=== PATIENT | female | born 1940 | race Caucasian/White ===

== ENCOUNTER 2017-01-18 10:27 | Emergency (ER) | payer MEDICARE ==
[~2017-01-18] VITALS: Ht 167.6 cm; Wt 89.0 kg
[~2017-01-18 10:27] MED LIST: CARD120T4 PO; CIPR500T4 PO; DIGO0.12 PO; DILTCD240 PO; ECOT81TA2 PO; FURO1TAB93 PO; KCL10C PO; LEVEMIR SQ; MECL25 PO; METO25TA6 PO; METO50CR PO
[2017-01-18 10:29] VITALS: BP 135/100; PULSE 78; RESP 16; TEMP 98.2; O2SAT 99
[2017-01-18] MEDS ORDERED: LEVO25TA4 PO (10:56)
[2017-01-18] MEDS ORDERED: DILT120T PO (10:56)
[2017-01-18] MEDS ORDERED: GLIM1TAB PO (10:56)
[2017-01-18] MEDS ORDERED: ASPI325T33 PO (10:56)
[2017-01-18] MEDS ORDERED: METO25TA6 PO (10:56)
[2017-01-18] MEDS ORDERED: [UNRECOGNIZED DRUG - CODE] (10:56)
[2017-01-18] MEDS ORDERED: BACL10TA PO (10:59)
[2017-01-18] MEDS ORDERED: LIDO1PAD52 TOPICAL (10:59)
[2017-01-18] MEDS ORDERED: ORPHENADRINE INJ 60 MG/2 ML AMP IM ONE (11:00)
--- NOTE | 2017-01-18 11:04 | PD ---
HPI Chief Complaint: Musculoskeletal Complaint Time Seen by Provider: 10:45 Travel History International Travel<30 days: No Contact w/Intl Traveler<30days: No Traveled to known affect area: No History of Present Illness HPI 76-year-old female presents for evaluation of neck pain. Symptoms started and an overnight when she was rolling from one side to the other in bed. She describes it as a "muscle pain" in the posterior aspect of her neck which is aggravated by movement, alleviated with rest and massage with ice. She also use some Tylenol tonight which seemed to help with the pain. She versus a headache which started after the neck pain however her headache has since resolved. She denies any associated symptoms such as chest pain or shortness of breath, nausea or vomiting, blurred vision, numbness or tingling or weakness in the extremities, radicular pain. She denies any major trauma. She has no other complaints at this time. [facility] Past Medical History Atrial Fibrillation: Yes Cardiovascular Problems: Yes (A-FIB) Diabetes: Yes Genitourinary: No Musculoskeletal: No Neurologic: No Thyroid Disease: Yes Social History Alcohol Use: No Tobacco Use: No Substance Use: No Allergies-Medications (Allergen,Severity, Reaction): Coded Allergies: Sulfa (Verified Allergy, Intermediate, 01/18/17) Reported Meds & Prescriptions Reported Meds & Active Scripts Active Baclofen 10 Mg Tab 10 Mg PO Q8HR PRN Lidocaine Patch 12 HR (Lidocaine) 5 % Patch 1 Patch TOPICAL DAILY PRN Remove patch after 12 hours Reported Levothyroxine (Levothyroxine Sodium) 25 Mcg Tab 25 Mcg PO DAILY Glimepiride 1 Mg Tab 1 Mg PO DAILY Take with breakfast or first main meal Metoprolol Succinate ER 24 HR (Metoprolol Succinate) 25 Mg Tab 25 Mg PO BID Dramamine (Dimenhydrinate) 50 Mg Tab.chew Diltiazem (Diltiazem HCl) 120 Mg Tab 300 Mg PO QID Aspirin EC (Aspirin) 325 Mg Tabdr 325 Mg PO DAILY Review of Systems Except as stated in HPI: all other systems reviewed are Neg Physical Exam Narrative GENERAL: Pleasant well-developed well-nourished female in no acute distress SKIN: Warm and dry. No rash no bruising or soft tissue swelling HEAD: Atraumatic. Normocephalic. EYES: Pupils equal and round. No scleral icterus. No injection or drainage. ENT: No nasal bleeding or discharge. Mucous membranes pink and moist. NECK: Trachea midline. No JVD. No lymphadenopathy. Neck supple full range of motion. CARDIOVASCULAR: Regular rate and rhythm. No murmur appreciated. RESPIRATORY: No accessory muscle use. Clear to auscultation. Breath sounds equal bilaterally. MUSCULOSKELETAL: No obvious deformities. There is no tenderness to palpation along the cervical or thoracic midline spine, no tenderness to palpation of the paravertebral musculature. There is pain with rotation of the neck to the left and to the right. NEUROLOGICAL: Awake and alert. No obvious cranial nerve deficits. Motor grossly within normal limits. Normal speech. Data Data Last Documented VS Vital Signs Date Time Temp Pulse Resp B/P Pulse Ox O2 Delivery O2 Flow Rate FiO2 01/18/17 10:29 98.2 78 16 135/100 99 Orders Orphenadrine Inj (Norflex Inj) (01/18/17 11:00) [facility] Medical Decision Making Medical Screen Exam Complete: Yes Emergency Medical Condition: Yes Medical Record Reviewed: Yes Differential Diagnosis Cervical strain, spasm, herniated nucleus pulposus, degenerative disc disease, referred cardiac pain, carotid artery dissection Narrative Course 76-year-old female with neck pain which developed overnight when turning from [id number] in bed. The pain is mechanical, reproduced with movement, no palpable tenderness to palpation. Her examination is reassuring and her symptoms and history are consistent with cervical strain. She will be treated symptomatically with Lidoderm patches, short course of muscle relaxants. Discussed signs and symptoms that would warrant return to the emergency room. She is stable for discharge. Diagnosis Primary Impression: Cervical strain Qualified Code: S16.1XXA - Cervical strain, initial encounter Additional Instructions: Medication as prescribed. Do not drive or drink alcohol when taking baclofen. Continue massaging with ice packs several times a day 10-15 minutes at a time. Follow-up with primary care physician and return for any acutely new or worsening symptoms. Med/Other Pt SpecificInfo: Prescription(s) given Scripts Baclofen 10 Mg Tab10 Mg PO Q8HR PRN (MUSCLE SPASM) #12 TAB Ref 0 Prov:Kathrine Cagle MD 01/18/17 Lidocaine Patch 12 HR 5 % Patch1 Patch TOPICAL DAILY PRN (PAIN) #1 BOX Ref 1 Remove patch after 12 hours Prov:Kathrine Cagle MD 01/18/17 Disposition: 01 DISCHARGE HOME Condition: Stable Manolo Boateng January 18, 2017 11:04
== END 2017-01-18 11:27 | disposition home or self-care (01) ==
LOC: NEPD 10:27
DX: S16.1XXA Strain of muscle, fascia and tendon at neck level, initial encounter (principal); E11.9 Type 2 diabetes mellitus without complications; E07.9 Disorder of thyroid, unspecified; Z79.84 Long term (current) use of oral hypoglycemic drugs; Z86.79 Personal history of other diseases of the circulatory system; X58.XXXA Exposure to other specified factors, initial encounter
CPT/HCPCS: 96372; 99284; J2360

== ENCOUNTER 2017-01-26 14:50 | Inpatient (IN) | payer MEDICARE ==
[2017-01-26] VITALS (11 sets, daily range): BP systolic 161–228; BP diastolic 84–123; PULSE 133–175; RESP 12–19; TEMP 97.2–97.9; O2SAT 92–97
[~2017-01-26] VITALS: Ht 165.1 cm; Wt 103.0 kg
[~2017-01-26 14:50] MED LIST changes: +ASPI325T33 PO; +BACL10TA PO; -CARD120T4 PO; -CIPR500T4 PO; -DIGO0.12 PO; +DILT120T PO; -DILTCD240 PO; -ECOT81TA2 PO; -FURO1TAB93 PO; +GLIM1TAB PO; -KCL10C PO; -LEVEMIR SQ; +LEVO25TA4 PO; +LIDO1PAD52 TOPICAL; -MECL25 PO; -METO50CR PO; +[UNRECOGNIZED DRUG - CODE]
[2017-01-26] MEDS ORDERED: SODIUM CHLOR 0.9% 1000 ML INJ 1,000 ML IV ONE (14:59)
[2017-01-26] MEDS ORDERED: niCARdipine INJ 25 MG in SODIUM CHLOR 0.9% 250 ML INJ 250 ML IV SCH ×2 (15:15→17:15)
--- NOTE | 2017-01-26 15:17 | RADRPT ---
EXAM DATE/TIME: 01/26/2017 15:00 [facility] COMPARISON: No previous studies available for comparison. INDICATIONS : Left side weakness slurred speech. RADIATION DOSE: 56.35 CTDIvol (mGy) This report was called by Zachary Ny to Dr Starkey at 1513 MEDICAL HISTORY : Non-responsive. SURGICAL HISTORY : Non-responsive. ENCOUNTER: Initial ACUITY: 1 day PAIN SCALE: Non-responsive LOCATION: cranial TECHNIQUE: Multiple contiguous axial images were obtained of the head. Using automated exposure control and adj ustment of the mA and/or kV according to patient size, radiation dose was kept as low as reasonably a chievable to obtain optimal diagnostic quality images. FINDINGS: No acute hemorrhage, acute infarction, or mass. Atrophy is noted. A small area of encephalomalacia wi thin the inferior right cerebellar hemisphere. Ventricles matched the overlying sulcal pattern. Paran ashok sinuses and mastoid air cells are clear. CONCLUSION: 1. No acute intracranial abnormality. 2. Atrophy. 3. Small area of encephalomalacia suggesting prior area of infarction involving the right cerebellar hemisphere. Reginald Ny Jr., MD on January 26, 2017 at 15:11 Board Certified Radiologist. This report was verified electronically.
[2017-01-26 15:21] LABS: AUTOMATED NEUTROPHIL # 7.7 TH/MM3 (1.8-7.7); BASOPHIL # 0.1 TH/MM3 (0-0.2); BASOPHIL % 1.2 % (0.0-2.0); EOSINOPHIL # 0.2 TH/MM3 (0-0.4); EOSINOPHIL % 2.3 % (0.0-4.0); HEMO FLAGS DIFF FINAL; LYMPH % 17.2 % (9.0-44.0); LYMPHOCYTE # 1.8 TH/MM3 (1.0-4.8); MEAN CORPUSCULAR HEMOGLOBIN 30.8 PG (27.0-34.0); MEAN CORPUSCULAR HGB CONC 34.2 % (32.0-36.0); MONO % 6.7 % (0.0-8.0); NEUT % 72.6 % (16.0-70.0); PLATELET COUNT 284 TH/MM3 (150-450); RED CELL DISTRIBUTION WIDTH 13.8 % (11.6-17.2); WHITE BLOOD COUNT 10.6 TH/MM3 (4.0-11.0)
[2017-01-26 15:23] LABS: I-STAT POTASSIUM 4.5 MMOL/L (3.5-4.9)
[2017-01-26] MEDS ORDERED: SODIUM CHLORIDE 0.9% FLUSH 10 ML FLUSH IVF PRN (15:45)
[2017-01-26] MEDS ORDERED: ALTEPLASE BOLUS 9 MG/9 ML SYR IV ONE (15:45)
[2017-01-26] MEDS ORDERED: ALTEPLASE DRIP IV ONE (15:45)
[2017-01-26] MEDS ORDERED: DILTIAZEM HCL 25 MG/5 ML VIAL IV PUSH ONE (15:45)
[2017-01-26] MEDS ORDERED: MISCELLANEOUS NURSING INFORMATION XX PRN (15:45)
[2017-01-26] MEDS ORDERED: SODIUM CHLORIDE 0.9% 50 ML BAG IVF ONE (15:45)
[2017-01-26 15:46] LABS: APTT (PATIENT) 21.4 SEC (24.3-30.1); PROTHROMBIN TIME - PATIENT 10.7 SEC (9.8-11.6)
--- NOTE | 2017-01-26 15:58 | PD ---
HPI Chief Complaint: Stroke Alert Time Seen by Provider: 14:59 Travel History International Travel<30 days: No Contact w/Intl Traveler<30days: No Traveled to known affect area: No History of Present Illness HPI 76-year-old female with history of atrial fibrillation, hypertension, hypothyroidism, presents to the ER today brought in by EMS as a stroke alert. Apparently, her grandson had called because she was looking disoriented, EMS got there and noted that she had rightward gaze, not moving her left side, and called a stroke alert. Last seen normal at around 2:10 PM. Initially, she denied any chest pains, trouble breathing, fevers, or other symptoms. Modifying Factors: None Associated Signs & Symptoms: Stroke alert Risk Factors: Elderly, A. fib PFSH Past Medical History Atrial Fibrillation: Yes Cardiovascular Problems: Yes (A-FIB) Diabetes: Yes Patient Takes Glucophage: No Genitourinary: No Hypertension: Yes Musculoskeletal: No Neurologic: No Thyroid Disease: Yes Past Surgical History Other Surgery: No Social History Alcohol Use: No Tobacco Use: No Substance Use: No Allergies-Medications (Allergen,Severity, Reaction): Coded Allergies: Sulfa (Verified Allergy, Intermediate, 01/18/17) Reported Meds & Prescriptions Reported Meds & Active Scripts Active Baclofen 10 Mg Tab 10 Mg PO Q8HR PRN Lidocaine Patch 12 HR (Lidocaine) 5 % Patch 1 Patch TOPICAL DAILY PRN Remove patch after 12 hours Reported Levothyroxine (Levothyroxine Sodium) 25 Mcg Tab 25 Mcg PO DAILY Glimepiride 1 Mg Tab 1 Mg PO DAILY Take with breakfast or first main meal Metoprolol Succinate ER 24 HR (Metoprolol Succinate) 25 Mg Tab 25 Mg PO BID Dramamine (Dimenhydrinate) 50 Mg Tab.chew Diltiazem (Diltiazem HCl) 120 Mg Tab 300 Mg PO QID Aspirin EC (Aspirin) 325 Mg Tabdr 325 Mg PO DAILY Review of Systems ROS Limitations: Altered Mental Status Physical Exam Narrative GENERAL: Elderly white female patient who is currently in moderate distress, staring to the right, conversant, able to give appropriate answers although mildly disoriented. SKIN: Focused skin assessment warm/dry. HEAD: Atraumatic. Normocephalic. EYES: Pupils equal and round. No scleral icterus. No injection or drainage. ENT: No nasal bleeding or discharge. Mucous membranes pink and moist. NECK: Trachea midline. No JVD. CARDIOVASCULAR: Fast and irregularly irregular. RESPIRATORY: No accessory muscle use. Clear to auscultation. Breath sounds equal bilaterally. GASTROINTESTINAL: Abdomen soft, non-tender, nondistended. Hepatic and splenic margins not palpable. MUSCULOSKELETAL: No obvious deformities. No clubbing. No cyanosis. No edema. NEUROLOGICAL: Awake and alert. Staring to the right, left facial droop, left sided arm and leg weakness with drift. PSYCHIATRIC: Appropriate mood and affect; insight and judgment normal. Data Data Last Documented VS Vital Signs Date Time Temp Pulse Resp B/P Pulse Ox O2 Delivery O2 Flow Rate FiO2 01/26/17 16:05 97.2 137 18 167/84 94 Room Air 01/26/17 15:06 21 Orders Diet Npo (01/26/17 Dinner) Activity Bed Rest (01/26/17 ) Electrocardiogram (01/26/17 ) I-Stat Creatinine (01/26/17 14:59) I-Stat Profile (01/26/17 14:59) Prothrombin Time / Inr (Pt) (01/26/17 14:59) Act Partial Throm Time (Ptt) (01/26/17 14:59) Complete Blood Count With Diff (01/26/17 14:59) Fibrinogen (01/26/17 14:59) Creatine Kinase (Cpk) (01/26/17 14:59) Troponin I (01/26/17 14:59) Ua Includes Microscopic (01/26/17 14:59) Drug Screen, Random Urine (01/26/17 14:59) Type And Screen (01/26/17 14:59) Ct Brain W/O Iv Contrast(Rout) (01/26/17 ) Consult Neurology (01/26/17 ) Blood Glucose (01/26/17 14:59) Ecg Monitoring (01/26/17 14:59) Neuro Checks Q2HX12,Q4H (01/26/17 14:59) Nursing Bedside Swallow Assess .ONCE (01/26/17 14:59) Iv Access Insert/Monitor (01/26/17 14:59) NPO (01/26/17 14:59) Oximetry (01/26/17 14:59) Oxygen Administration (01/26/17 14:59) Sodium Chlor 0.9% 1000 Ml Inj (Ns 1000 M (01/26/17 14:59) Resp Oxygen Jose C Titrat 1-4 L (01/26/17 14:59) Cath For Specimen (01/26/17 14:59) Nicardipine Inj (Cardene Inj) (01/26/17 15:15) Cta Brain W Iv Contrast W 3d (01/26/17 15:15) Cta Neck W Iv Contrast W 3d (01/26/17 15:15) (Hub Use Only)Inp Phy Cons/Ref (01/26/17 ) Diltiazem Inj (Cardizem Inj) (01/26/17 15:45) Sodium Chloride 0.9% Flush (Ns Flush) (01/26/17 15:45) ^ Call Pharmacy (01/26/17 15:43) Nih Stroke Scale - Nihss .ONCE (01/26/17 15:43) Urinary Catheter Management MICHAEL.Q8H (01/26/17 15:43) Urinary Catheter Insert/Apply (01/26/17 15:43) Anticoagulant Alert (01/26/17 15:43) ^ Post Infusion Restrictions (01/26/17 15:43) ^ Medication Alert (01/26/17 15:43) Vital Signs (Adult) .As directed (01/26/17 15:43) Notify Dr: Blood Pressure (01/26/17 15:43) ^ Medication Alert (01/26/17 15:43) Alteplase Bolus (Activase Bolus) (01/26/17 15:45) Alteplase Drip (Activase Drip) (01/26/17 15:45) Sodium Chloride 0.9% Inj (Ns Inj) (01/26/17 15:45) [facility] Nursing Information (01/26/17 15:45) Resp Oxygen Jose C Titrat 1-4 L (01/26/17 ) Ct Brain W/O Iv Contrast(Rout) (01/27/17 ) Magnesium Oxide (Mag-Ox) (01/26/17 16:15) Magnesium Sulfate Inj (Magnesium Sulfate (01/26/17 16:15) Magnesium Sulfate Inj (Magnesium Sulfate (01/26/17 16:15) Potassium Chlor 20 Meq Premix (Kcl 20 Me (01/26/17 16:15) Potassium Chlor 20 Meq Premix (Kcl 20 Me (01/26/17 16:15) Potassium Chlor 40 Meq Premix (Kcl 40 Me (01/26/17 16:15) Potassium Chlor 40 Meq Premix (Kcl 40 Me (01/26/17 16:15) Potassium Phosphate (K-Phos) (01/26/17 16:15) Potassium Phosphate (K-Phos) (01/26/17 16:15) Potassium Phosphate Inj (Potassium Phosp (01/26/17 16:15) Sodium Phosphate Inj (Sodium Phosphate I (01/26/17 16:15) ^ Medication Admin Instruction (01/26/17 16:13) Notify Dr: Other (01/26/17 16:13) Inpatient Certification (01/26/17 16:13) Resp Ezpap/Pep Therapy (01/26/17 16:13) Resp Acapella/Pep/Chest Vibra (01/26/17 16:13) Resp Incentive Spirometry (01/26/17 16:13) Bedside Glucose MICHAEL.Q6H (01/26/17 16:13) Blood Glucose Goal (Criteria) (01/26/17 16:13) Hypoglycemia 51 - 69 Mg/Dl (01/26/17 16:13) Hypoglycemia 50 Mg/Dl Or < (01/26/17 16:13) Notify Dr: Other (01/26/17 16:13) Dextrose 50% In Desiree (Vial) Inj (D50w (Vi (01/26/17 16:15) Insulin Human Reg Supp Scale (Novolin R (01/26/17 18:00) Nursing Bedside Swallow Assess .ONCE (01/26/17 16:13) ^ Other Nursing Orders (01/26/17 16:13) ^ Other Nursing Orders (01/26/17 16:13) ^ Other Nursing Orders (01/26/17 16:13) Neuro Checks MICHAEL.Q1H (01/26/17 16:13) Admit Order (Ed Use Only) (01/26/17 16:15) Labs Laboratory Tests Test 01/26/17 14:54 White Blood Count 10.6 TH/MM3 Red Blood Count 5.00 MIL/MM3 Hemoglobin 15.4 GM/DL Bedside Hemoglobin 16.7 G/DL Hematocrit 45.0 % Bedside Hematocrit 49.0 % Mean Corpuscular Volume 90.0 FL Mean Corpuscular Hemoglobin 30.8 PG Mean Corpuscular Hemoglobin 34.2 % Concent Red Cell Distribution Width 13.8 % Platelet Count 284 TH/MM3 Mean Platelet Volume 10.4 FL Neutrophils (%) (Auto) 72.6 % Lymphocytes (%) (Auto) 17.2 % Monocytes (%) (Auto) 6.7 % Eosinophils (%) (Auto) 2.3 % Basophils (%) (Auto) 1.2 % Neutrophils # (Auto) 7.7 TH/MM3 Lymphocytes # (Auto) 1.8 TH/MM3 Monocytes # (Auto) 0.7 TH/MM3 Eosinophils # (Auto) 0.2 TH/MM3 Basophils # (Auto) 0.1 TH/MM3 CBC Comment DIFF FINAL Differential Comment Prothrombin Time 10.7 SEC Prothromb Time International 1.0 RATIO Ratio Activated Partial 21.4 SEC Thromboplast Time Fibrinogen 617 mg/dL Bedside Sodium 136 MMOL/L Bedside Potassium 4.5 MMOL/L Bedside Chloride 102 MMOL/L Bedside Blood Urea Nitrogen 16 MG/DL Bedside Creatinine 1.0 MG/DL Bedside Glucose 430 MG/DL Total Creatine Kinase 33 U/L Troponin I 0.32 NG/ML Blood Type O POSITIVE Antibody Screen NEGATIVE Blood Bank Comment [facility] Medical Decision Making Medical Screen Exam Complete: Yes Emergency Medical Condition: Yes Medical Record Reviewed: Yes Interpretation(s) EKG shows A. fib with rapid ventricular response at a rate 150 bpm. No signs of acute ST-T changes. Laboratory Tests Test 01/26/17 14:54 Hemoglobin 15.4 GM/DL (11.6-15.3) Neutrophils (%) (Auto) 72.6 % (16.0-70.0) Activated Partial 21.4 SEC Thromboplast Time (24.3-30.1) Fibrinogen 617 mg/dL (227-377) Bedside Sodium 136 MMOL/L (138-146) Bedside Glucose 430 MG/DL (60-95) Troponin I 0.32 NG/ML (0.02-0.05) Last [address] 01/26/17 0000 Signed Impressions: Service Date/Time: Thursday, January 26, 2017 15:00 - CONCLUSION: 1. No acute intracranial abnormality. 2. Atrophy. 3. Small area of encephalomalacia suggesting prior area of infarction involving the right cerebellar hemisphere. Reginald Ny Jr., MD Differential Diagnosis Stroke alert versus intracranial bleed versus metabolic issues versus dehydration versus seizures Narrative Course Initial NIH stroke score is 9. CT was negative. When patient returned from CT , she appeared less symptomatic, able to move the left side more, and is able to move eyes towards midline. At this point, case was seen in the ER by Dr. Slater to talk to the patient regarding findings and notes that the patient is a TPA candidate. TPA was ordered for the patient. At this point, plan would be to admit the patient for further treatment. Case is discussed with Dr. Crespo for admission to the ICU. Aggregate critical care time was 25 minutes. Time to perform other separately billable procedures was not included in the critical care time. My time did not include minutes spent treating any other patients simultaneously or on activities that did not directly contribute to the patient's treatment. The services I provided to this patient were to treat and/or prevent clinically significant deterioration that could result in: Acute intracranial bleeding, worsening stroke, I provided critical care services requiring my management, as noted below: Chart data review, documentation time, medication orders and management, vital sign assessments/reviewing monitor data, ordering and reviewing lab tests, ordering and interpreting/reviewing x-rays and diagnostic studies, care of the patient and discussion of the patient with the admitting physicians. Diagnosis Primary Impression: Stroke Admitting Information Admitting Physician Requests: it Keisha Starkey MD Jan 26, 2017 15:58
[2017-01-26] MEDS ORDERED: DEXTROSE 50% IN WATER 50 ML VIAL(D50) IV PUSH PRN (16:15)
[2017-01-26] MEDS ORDERED: POTASSIUM PHOSPHATE INJ 30 MMOL in SODIUM CHLOR 0.9% 250 ML INJ 250 ML IV PRN (16:15)
[2017-01-26] MEDS ORDERED: MAGNESIUM SULFATE INJ 2 GM in SODIUM CHLORIDE 0.9% INJ 96 ML IV PRN (16:15)
[2017-01-26] MEDS ORDERED: MAGNESIUM SULFATE INJ 4 GM in SODIUM CHLORIDE 0.9% INJ 92 ML IV PRN (16:15)
[2017-01-26] MEDS ORDERED: MAGNESIUM OXIDE 400 MG TAB PO PRN (16:15)
[2017-01-26] MEDS ORDERED: POTASSIUM PHOSPHATE MONOBASIC 500 MG TAB PO PRN (16:15)
[2017-01-26] MEDS ORDERED: POTASSIUM CHLOR 40 MEQ PREMIX 100 ML IV PRN ×2 (16:15)
[2017-01-26] MEDS ORDERED: POTASSIUM CHLOR 20 MEQ PREMIX 100 ML IV PRN ×2 (16:15)
[2017-01-26] MEDS ORDERED: POTASSIUM PHOSPHATE MONOBASIC 500 MG TAB PO/TUBE PRN (16:15)
--- NOTE | 2017-01-26 16:42 | HHI.HP ---
HPI Service Critical Care Medicine Primary Care Physician Unknown Admission Diagnosis stroke alert Diagnosis: (1) Acute right MCA stroke Diagnosis: Principal (2) Left hemiplegia Diagnosis: Principal (3) Atrial fibrillation with rapid ventricular response Diagnosis: Principal (4) Hyperglycemia Diagnosis: Principal (5) A-fib Diagnosis: Secondary (6) Diabetes mellitus Diagnosis: Secondary Chief Complaint: Acute right MCA stroke Travel History International Travel<30 Days: No Contact w/Intl Traveler <30 Da: No Traveled to Known Affected Are: No History of Present Illness 76-year-old female with history of atrial fibrillation, hypertension, hypothyroidism, type 2 diabetes who was brought to the emergency department as a stroke alert. Apparently grandson called EMS as the patient was found to be disoriented. EMS noted that patient had rightward gaze, with Left hemiparesis and stroke alert was initiated. Last seen normal at around 2:10 PM, per grandson. 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 After discussion Dr. Slater, TPA was initiated. I evaluated the patient in ED. she somnolent but wakes up easily, she states that she is unable to open her right eye opens left eye. Has obvious left facial droop and left hemiparesis, but now she is able to move LLE. Speech is clear Review of Systems ROS Limitations: Other (as per HPI) Past Family Social History Allergies: Coded Allergies: Sulfa (Verified Allergy, Intermediate, 01/18/17) Past Medical History Hypertension Diabetes Atrial fibrillation Hypothyroidism Past Surgical History None Reported Medications Baclofen 10 Mg Tab 10 Mg PO Q8HR PRN Lidocaine Patch 12 HR (Lidocaine) 5 % Patch 1 Patch TOPICAL DAILY PRN Levothyroxine (Levothyroxine Sodium) 25 Mcg Tab 25 Mcg PO DAILY Glimepiride 1 Mg Tab 1 Mg PO DAILY Metoprolol Succinate ER 24 HR (Metoprolol Succinate) 25 Mg Tab 25 Mg PO BID Dramamine (Dimenhydrinate) 50 Mg Tab.chew Diltiazem (Diltiazem HCl) 120 Mg Tab 300 Mg PO QID Aspirin EC (Aspirin) 325 Mg Tabdr 325 Mg PO MALCOLM Active Ordered Medications Receiving IV TPA Family History Noncontributory Social History No alcohol or tobacco use Physical Exam Vital Signs Vital Signs Date Time Temp Pulse Resp B/P Pulse Ox O2 Delivery O2 Flow Rate FiO2 01/26/17 15:06 95 21 01/26/17 14:58 95 Room Air 01/26/17 14:58 95 Room Air 01/26/17 14:55 170 16 213/123 Physical Exam GENERAL: 76-year-old white female patient who is lying in bed receiving TPA SKIN: Skin warm and dry HEAD: Atraumatic. Normocephalic. EYES: Pupils equal and round. No scleral icterus. ENT: No nasal bleeding or discharge. Mucous membranes pink and moist. NECK: Trachea midline. No JVD. CARDIOVASCULAR: Tachycardic and irregularly irregular. RESPIRATORY: No accessory muscle use. Clear to auscultation. Breath sounds equal bilaterally. GASTROINTESTINAL: Abdomen soft, non-tender, nondistended. Hepatic and splenic margins not palpable. MUSCULOSKELETAL: No obvious deformities. No clubbing. No cyanosis. No edema. NEUROLOGICAL: Somnolent wakes up recently, clearly states the name. Right gaze preference, left facial droop, left arm 1/5 and left leg 4/5 Laboratory Laboratory Tests Test 01/26/17 14:54 White Blood Count 10.6 Red Blood Count 5.00 Hemoglobin 15.4 Bedside Hemoglobin 16.7 Hematocrit 45.0 Bedside Hematocrit 49.0 Mean Corpuscular Volume 90.0 Mean Corpuscular Hemoglobin 30.8 Mean Corpuscular Hemoglobin 34.2 Concent Red Cell Distribution Width 13.8 Platelet Count 284 Mean Platelet Volume 10.4 Neutrophils (%) (Auto) 72.6 Lymphocytes (%) (Auto) 17.2 Monocytes (%) (Auto) 6.7 Eosinophils (%) (Auto) 2.3 Basophils (%) (Auto) 1.2 Neutrophils # (Auto) 7.7 Lymphocytes # (Auto) 1.8 Monocytes # (Auto) 0.7 Eosinophils # (Auto) 0.2 Basophils # (Auto) 0.1 CBC Comment DIFF FINAL Differential Comment Prothrombin Time 10.7 Prothromb Time International 1.0 Ratio Activated Partial 21.4 Thromboplast Time Fibrinogen 617 Bedside Sodium 136 Bedside Potassium 4.5 Bedside Chloride 102 Bedside Blood Urea Nitrogen 16 Bedside Creatinine 1.0 Bedside Glucose 430 Total Creatine Kinase 33 Troponin I 0.32 Blood Type O POSITIVE Antibody Screen NEGATIVE Blood Bank Comment Result Diagram: 01/26/[address] head shows no acute findings positive right cerebellar encephalomalacia indicating previous stroke Assessment and Plan Assessment and Plan NEURO: Acute right MCA stroke Previous cerebellar stroke -Neurology Dr. Slater. Receiving TPA per protocol -Stroke workup with neurology including 2-D echo, carotid Doppler, B12 TSH folate -Repeat CT of the head in 24 hours -PT/OT/Speech -Keep head of the bed flat for 24 hours post TPA -CTA head and neck pending at this time RESP: -Nasal cannula oxygen -Aggressive pulmonary toilet in 24 hours CV: Atrial fibrillation with rapid ventricular response Hypertensive emergency Mild troponin elevation -As the patient is receiving TPA target systolic blood pressure less than 180 diastolic less than 105 -Normal saline IV fluids1 L bolus and 100 ml per hour, await 2d echo, CTA of the head and neck -Mild troponin elevation seems to be demand mediated from AFib RVR and stroke -Cardizem bolus and infusion to control heart rate <110 -IV labetalol when necessary to keep systolic blood pressure less than 180 GI: -Nothing by mouth, speech evaluation -IV Protonix -Start bowel regimen in 24 hours : -Monitor renal function closely. Small catheter. ID: -Monitor for infection. No indication for antibiotics at this time HEME: -Monitor CBC, CMP, coags and fibrinogen level per protocol ENDO: Type 2 diabetes with hyperglycemia -Sliding-scale insulin, electrolyte replacement protocol PROPH: -Bilateral lower extremity SCDs. Chemical DVT prophylaxis contraindicated at this time LINES: -Utilize peripheral IVs, central line if needed CC time 35 min Code Status Full Problem Qualifiers (1) A-fib: Qualified Code: I48.91 - Atrial fibrillation, unspecified type (2) Diabetes mellitus: Toribio Linares MD Jan 26, 2017 16:41
[2017-01-26] MEDS ORDERED: ONDANSETRON HCL 4 MG/2 ML VIAL IV PUSH ONE (17:00)
[2017-01-26] MEDS ORDERED: IOHEXOL 350 MG/ML 10 ML VIAL (for RAD DIAG) IV ONE (17:09)
--- NOTE | 2017-01-26 17:44 | MB ---
cc: DEENA TAFOYA M.D. DATE OF CONSULTATION 01/26/2017 REASON FOR CONSULTATION Stroke alert. HISTORY OF PRESENT ILLNESS Ms. Esteban is a 76-year-old woman who has a history of atrial fibrillation who was in her usual state health until 01:45 this afternoon and suddenly developed significant weakness of the left side, involving the left arm, left leg with a right gaze. She presented to the ER as a stroke alert. PAST MEDICAL HISTORY Remarkable for: 1. Atrial fibrillation. 2. History of diabetes. 3. Hypothyroidism. ALLERGIES SULFA. MEDICATIONS Include: 1. Aspirin. 2. Diltiazem. 3. Metoprolol. 4. Glimepiride. 5. Levothyroxine. She denies being on any type of anticoagulation. Denies being on Coumadin, Eliquis, Xarelto, Pradaxa. NEUROLOGIC EXAMINATION VITAL SIGNS: Initial blood pressure was elevated, however pressure now is 135/100, pulse 78, respiratory rate is 16, temperature 98 degrees. She is in atrial fibrillation. Higher cortical functions, she is alert and oriented. She does have right gaze preference. Speech is fluent. Cranial nerves, she has a left upper motor neuron VII palsy. Extraocular movements are intact but she does have a right gaze preference. Pupils are reactive. On motor examination she has got mild weakness in the left arm rated at 4+/5 proximally and distally. Weakness of the left leg at 4/5 proximal and distal. This is markedly improved from when she first appeared to the ER. She has normal strength on the right and reflexes symmetric. IMAGING CT of the brain no acute change present. There is atrophy. There is a small area of encephalomalacia consistent with a prior stroke involving the right cerebellar hemisphere. No hemorrhage is present. LABORATORY DATA White count is 10,600, hemoglobin 15.4, hematocrit 45%, platelet count is 284,000. PT 10.7, INR 1.0, , APTT 21.4. Sodium is 136, potassium 4.5, chloride 102, BUN is 16, creatinine 1.0, glucose 430. EKG is atrial fibrillation. IMPRESSION Acute right hemisphere stroke. The patient's initial NIH stroke scale was 9. She is within the therapeutic window for IV TPA. We discussed risks and benefits including 6% risk of hemorrhage and the family wishes to proceed. Therefore would recommend starting IV TPA. Because of the high NIH stroke scale we will also obtain a CT angiogram of the head and neck to assess as to whether not she has a large vessel occlusion which would be amenable to endovascular therapy. The TPA will be started however, before the CT is started so as not to delay the IV TPA administration. MD MAICO Godfrey/NICOLA /4:01 PM /5:23 PM
--- NOTE | 2017-01-26 17:49 | RADRPT ---
EXAM DATE/TIME: 01/26/2017 17:04 [facility] COMPARISON: CT BRAIN W/O CONTRAST, January 26, 2017, 15:00. INDICATIONS : Evaluate for stroke. IV CONTRAST: 70 cc Omnipaque 350 (iohexol) IV RADIATION DOSE: 28.12 CTDIvol (mGy) MEDICAL HISTORY : Cardiovascular disease. Hypertension. Diabetes mellitus type 2. SURGICAL HISTORY : None. ENCOUNTER: Initial ACUITY: 1 day PAIN SCALE: Non-responsive LOCATION: Bilateral cranial TECHNIQUE: Volumetric scanning was performed using a multi-row detector CT scanner. The data was post processed with a variety of visualization algorithms including full volume maximum intensity projection, multi -planar sliding thin slab reformation, curved planar reformation, and surface rendering techniques. Using automated exposure control and adjustment of the mA and/or kV according to patient size, radiat ion dose was kept as low as reasonably achievable to obtain optimal diagnostic quality images. FINDINGS: The right internal carotid artery is occluded at its origin. It remains occluded throughout its cours e up to the skull base. The left common carotid is widely patent. There is high grade stenosis at the bifurcation. The more cephalad portion of the internal carotid is adequate in caliber. Both vertebral arteries are patent. The right vertebral terminates in a PICA. The left vertebral prov ides flow to the basilar. Evaluation of intracranial circulation demonstrates occlusion of the right internal carotid to its brambila praclinoid segment. There is reconstitution via the anterior communicating circulation and limited fl ow within the right middle cerebral distribution. The right M1 segment demonstrates some narrowing brambila ggesting there may be embolic disease within the M1 segment however, there is very limited flow withi n this and this could just be decreased flow within the right M1 segment. The left MCA distribution is widely patent. The anterior cerebral distribution is widely patent. Both posterior cerebrals are patent. CONCLUSION: 1. 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 There is limited reconstitution of the right middle cerebral circulation via the anterior communicating art joaquin. The reconstituted segment of right middle cerebral is small in caliber. There is some irregulari ty of the M1 segment suggesting there may be some embolic disease within the M1 segment however, the lack of flow within this limits the evaluation. 2. The remainder of the intracranial circulation is widely patent. Jt Caballero MD on January 26, 2017 at 17:42 Board Certified Radiologist. This report was verified electronically.
[2017-01-26] MEDS ORDERED: INSULIN NovoLIN REGULAR SUPPLEMENTAL SCALE SQ SCH (18:00)
[2017-01-26] MEDS ORDERED: DILTIAZEM HCL 25 MG/5 ML VIAL IVP ONE (18:00)
[2017-01-26 18:06] LABS: BACTERIA, URINE MANY /hpf; BLOOD, URINE TRACE (NEG); COMMENT (UR) CATH-CULTURE IND; CULTURE IF INDICATED CATH CULTURE IND; GLUCOSE,URINE 1000 mg/dL (NEG); HYALINE CAST, URINE 3 /lpf (RARE); KETONE, URINE TRACE mg/dL (NEG); MUCUS URINE FEW /lpf (OCC); NITRITE,URINE POS (NEG); PH, URINE 5.5 (5.0-8.5); URINE COLOR YELLOW (YELLW/STRAW)
[2017-01-26 18:15] LABS: ANION GAP 10 MEQ/L (5-15); AST (GOT) 8 U/L (15-37); BICARBONATE 25.1 MEQ/L (21.0-32.0); BLOOD UREA NITROGEN 15 MG/DL (7-18); CHLORIDE 99 MEQ/L (98-107); GLOMERULAR FILTRATION RATE 45 ML/MIN (>89); POTASSIUM 3.6 MEQ/L (3.5-5.1); SODIUM (NA) 134 MEQ/L (136-145)
--- NOTE | 2017-01-26 18:17 | RADRPT ---
EXAM DATE/TIME: 01/26/2017 17:04 [facility] COMPARISON: CTA BRAIN W 3D RECON, January 26, 2017, 17:04. INDICATIONS : Evaluate for stroke. IV CONTRAST: 70 cc Omnipaque 350 (iohexol) IV ; Cumulative dose for multiple exams. RADIATION DOSE: 28.12 CTDIvol (mGy) ; Combined studies MEDICAL HISTORY : Diabetes mellitus type 2. Cardiovascular disease Hypertension. SURGICAL HISTORY : None. ENCOUNTER: Initial ACUITY: 1 day PAIN SCALE: Non-responsive LOCATION: Bilateral cranial Elevated flow velocities and ICA/CCA ratios have been found to correlate with increased degrees of vessel stenosis, calculated as percentage of diameter relative to a normal segment of distal ICA/CCA. TECHNIQUE: Volumetric scanning was performed using a multirow detector CT scanner. The data was post processed with a variety of visualization algorithms including full-volume maximum intensity projection, multip lanar sliding thin-slab reformation, curved-planar reformation, and surface-rendering techniques. Us ing automated exposure control and adjustment of the mA and/or kV according to patient size, radiatio n dose was kept as low as reasonably achievable to obtain optimal diagnostic quality images. FINDINGS: AORTIC ARCH: There is a three-vessel origin of the great vessels from the aorta. No evidence of ostial narrowing. RIGHT CAROTID: The right carotid occludes at its origin from the innominate. The internal carotid and external carot id are clear throughout their course. There is limited reconstitution of the middle cerebral circulat ion via the anterior communicating. LEFT CAROTID: The common carotid is widely patent. There is atherosclerotic plaquing at the bifurcation with modera te stenosis in the origin of the left internal carotid. This is estimated to be in the range of 30-40 % by NASCET criteria. The external carotid is patent. VERTEBRALS: The left vertebral is the dominant blood supply to the basilar. The right vertebral is somewhat small er in size and terminate in a PICA CONCLUSION: 1. 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 2. Moderate grade stenosis in the origin of the left internal carotid. 3. Diminutive right vertebral which terminates in a PICA. Luis Seth MD on January 26, 2017 at 18:09 Board Certified Radiologist. This report was verified electronically.
[2017-01-26 18:20] LABS: ALKALINE PHOSPHATASE 111 U/L (45-117); ALT (GPT) 10 U/L (10-53); TOTAL BILIRUBIN ADULT 0.7 MG/DL (0.2-1.0)
[2017-01-26] MEDS: SODIUM CHLOR 0.9% 1000 ML INJ 1,000 ML IV SCH (18:29)
[2017-01-26] MEDS: DILTIAZEM INJ 125 MG in SODIUM CHLORIDE 0.9% INJ 100 ML IV SCH (18:56)
[2017-01-26] MEDS ORDERED: INSULIN HUMAN REGULAR 1,000 UNITS/10 ML VIAL SQ ONE (19:00)
[2017-01-26 19:14] LABS: AMPHETAMINE, URINE NEG (NEG); BARBITURATES, URINE NEG (NEG); COCAINE, URINE NEG (NEG)
[2017-01-26 19:54] LABS: HEMOGLOBIN A1a 0.9 %; HEMOGLOBIN A1b 1.6 %; HEMOGLOBIN Ao 75.1 %; HEMOGLOBIN LA1C 4.1 %; HEMOGLOBIN P3 5.7 %
[2017-01-26] MEDS ORDERED: cefTRIAXone INJ 1,000 MG in SODIUM CHLORIDE 0.9% INJ 100 ML IV SCH (20:00)
[2017-01-26] MEDS: INSULIN ASPART SUPPLEMENTAL SCALE SQ SCH (21:43)
[2017-01-26] MEDS: LABETALOL HCL 100 MG/20 ML VIAL IV PUSH PRN (22:38)
[2017-01-26 23:20] LABS: MRSA PCR NEGATIVE (NEGATIVE); STAPH AUREUS PCR NEGATIVE (NEGATIVE)
[2017-01-27] VITALS (14 sets, daily range): BP systolic 112–159; BP diastolic 56–95; PULSE 92–130; RESP 18–35; TEMP 97.3–99.5; O2SAT 94–100
[2017-01-27] MEDS: INSULIN ASPART SUPPLEMENTAL SCALE SQ SCH ×3 (06:53→20:03)
[2017-01-27] MEDS: SODIUM CHLOR 0.9% 1000 ML INJ 1,000 ML IV SCH (06:54)
[2017-01-27] MEDS: DILTIAZEM INJ 125 MG in SODIUM CHLORIDE 0.9% INJ 100 ML IV SCH ×2 (06:54→20:52)
--- NOTE | 2017-01-27 07:32 | HHI.CCPN ---
Subjective Remarks/Hospital Course 76-year-old female with history of atrial fibrillation, hypertension, hypothyroidism, type 2 diabetes who was brought to the emergency department as a stroke alert. Apparently grandson called EMS as the patient was found to be disoriented. EMS noted that patient had rightward gaze, with Left hemiparesis and stroke alert was initiated. Last seen normal at around 2:10 PM, per grandson. 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 After discussion Dr. Slater, TPA was initiated. I evaluated the patient in ED. she somnolent but wakes up easily, she states that she is unable to open her right eye opens left eye. Has obvious left facial droop and left hemiparesis, but now she is able to move LLE. Speech is clear 01/27: Patient more somnolent, hard to wake up (RN states she was more awake 2 huors ago). Remains in A fib with RVR, CTA neck shows complete R common, internal and ext carotid occlusion. Moderate L ICA stenosis. Vascular surgery Dr. Juarez consulted. remains hyperglycemic (gluc 371) without DKA. Objective Vital Signs Date Time Temp Pulse Resp B/P Pulse Ox O2 Delivery O2 Flow Rate FiO2 01/27/17 04:00 97.4 104 35 148/81 94 01/26/17 20:52 Nasal Cannula 2.00 01/26/17 15:06 21 Intake and Output 01/26/17 01/26/17 01/27/17 08:00 16:00 00:00 Intake Total 455 ml Output Total 550 ml Balance -95 ml Result Diagram: 01/26/17 1454 01/26/[address] head shows no acute findings positive right cerebellar encephalomalacia indicating previous stroke Objective Remarks GENERAL: 76-year-old white female patient who is lying in bed somnolent, hard to wake up SKIN: Skin warm and dry HEAD: Atraumatic. Normocephalic. EYES: Pupils equal and round, reactive. No scleral icterus. ENT: No nasal bleeding or discharge. Mucous membranes pink and moist. NECK: Trachea midline. No JVD. CARDIOVASCULAR: Tachycardic and irregularly irregular. No murmurs RESPIRATORY: No accessory muscle use. Clear to auscultation. Breath sounds equal bilaterally. GASTROINTESTINAL: Abdomen soft, non-tender, nondistended. Hepatic and splenic margins not palpable. MUSCULOSKELETAL: No obvious deformities. No clubbing. No cyanosis. No edema. NEUROLOGICAL: Patient is more somnolent, hard to wake up. But opens eyes to sternal rub and follows commands on R upper and lower extremities after multiple requests. Left facial droop persists, left hemiplegia persists, unable to asses muscle strength A/P Assessment and Plan NEURO: Acute right MCA stroke Acute encephalopathy Previous cerebellar stroke -Neurology Dr. Slater. Received TPA per protocol -Worsening encephalopathy, If re exam unchanged in [address] head stat -CTA neck shows complete R common, internal and ext carotid occlusion. Moderate L ICA stenosis. Vascular surgery Dr. Juarez consulted. -2-D echo,pending, B12 383, supplement. TSH normal -PT/OT/Speech -Keep head of the bed flat for 24 hours post TPA RESP: -Nasal cannula oxygen -Aggressive pulmonary toilet in 24 hours -Check CXR CV: Atrial fibrillation with rapid ventricular response Bilateral carotid stenosis Hypertensive emergency Mild troponin elevation -CTA neck: complete R common, internal and ext carotid occlusion. Moderate L ICA stenosis. -Vascular surgery Dr. Juarez consulted. -Target systolic blood pressure less than 180 diastolic less than 105 -Normal saline IV fluids1 L bolus and 100 ml per hour, await 2d echo -Check lipid profile. Start aspirin per protocol -Mild troponin elevation seems to be demand mediated from AFib RVR and stroke. Not a candidate for invasive therapy due to TPA administration -Cardizem bolus and infusion to control heart rate <110 -IV labetalol when necessary to keep systolic blood pressure less than 180 GI: -Nothing by mouth, speech evaluation -IV Protonix -Bowel regimen once cleared for PO or NGT inserted : -Monitor renal function closely. Small catheter. ID: -Monitor for infection. No indication for antibiotics at this time HEME: -Monitor CBC, CMP, coags and fibrinogen level per protocol ENDO: Type 2 diabetes with hyperglycemia -Sliding-scale insulin, electrolyte replacement protocol -Start Levemir 10 U q12 PROPH: -Bilateral lower extremity SCDs. Chemical DVT prophylaxis contraindicated at this time LINES: -Utilize peripheral IVs, central line if needed CC time 45 min Toribio Linares MD Jan 27, 2017 07:32
[2017-01-27] MEDS ORDERED: CYANOCOBALAMIN 1000 MCG/ML VIAL IM ONE (08:00)
--- NOTE | 2017-01-27 09:09 | ECHRPT ---
Indication: CVA/TIA CONCLUSIONS Normal left ventricular size. Wall thickness is normal. The left ventricular systolic function is severely reduced with an estimated ejection fraction less than 20%. There is diffuse global hypokinesis. The left atrial size is moderately dilated. Esxd-tt-[id number] mitral valve regurgitation. There is mild to moderate tricuspid valve regurgitation. Mild pulmonary valve regurgitation. BP: 228 / 100 HR: 141 Rhythm: Atrial fibrillation MEASUREMENTS (Male / Female) Normal Values Technical Quality:Good 2D ECHO LV Diastolic Diameter PLAX 5.5 cm 4.2 - 5.9 / 3.9 - 5.3 cm LV Systolic Diameter PLAX 5.3 cm IVS Diastolic Thickness 1.1 cm 0.6 - 1.0 / 0.6 - 0.9 cm LVPW Diastolic Thickness 1.1 cm 0.6 - 1.0 / 0.6 - 0.9 cm LV Relative Wall Thickness 0.4 RV Internal Dim ED PLAX 2.0 cm LVOT Diameter 2.0 cm LA Systolic Diameter LX 5.0 cm 3.0 - 4.0 / 2.7 - 3.8 cm LV Ejection Fraction MOD 4C 14.2 % LV Cardiac Index MOD 4C 1184.4 cm/minm LV Ejection Fraction 4C AL 13.1 % LV Cardiac Index 4C AL 1155.0 cm/minm M-MODE Aortic Root Diameter MM 2.9 cm LA Systolic Diameter MM 5.4 cm LA Ao Ratio MM 1.9 AV Cusp Separation MM 1.8 cm DOPPLER AV Peak Velocity 102.0 cm/s AV Peak Gradient 4.2 mmHg LVOT Peak Velocity 60.7 cm/s LVOT Peak Gradient 1.5 mmHg AV Area Cont Eq pk 1.9 cm MV Peak Velocity 128.0 cm/s MV Peak Gradient 6.6 mmHg MV Mean Velocity 65.9 cm/s MV Mean Gradient 2.0 mmHg MV Area PHT 6.5 cm LV E' Lateral Velocity 9.3 cm/s LV E' Septal Velocity 8.7 cm/s TV Peak Velocity 309.0 cm/s PV Peak Velocity 74.7 cm/s PV Peak Gradient 2.2 mmHg FINDINGS Left Ventricle Normal left ventricular size. Wall thickness is normal. The left ventricular systolic function is severely reduced with an estimated ejection fraction less than 20%. There is diffuse global hypokinesis. Left Atrium The left atrial size is moderately dilated. Mitral Valve Structurally normal mitral valve. [id number] mitral valve regurgitation. Tricuspid Valve Structurally normal tricuspid valve.there is mild to moderate tricuspid valve regurgitation. Pulmonary Valve The pulmonary valve is not well visualized. Mild pulmonary valve regurgitation. Inge Oswald MD, FACC Edited by: [employer] Route Sales Person (Electronically Signed) Final Date:27 January 2017 09:08 Amended: 27 January 2017 13:55 MTDD
--- NOTE | 2017-01-27 09:19 | RADRPT ---
EXAM DATE/TIME: 01/27/2017 08:16 [facility] COMPARISON: CTA BRAIN W 3D RECON, January 26, 2017, 17:04. CHEST SINGLE AP, May 18, 2016, 20:06. INDICATIONS : Respiratory disease. MEDICAL HISTORY : Cardiovascular disease. Hypertension Diabetes mellitus type II. SURGICAL HISTORY : None. ENCOUNTER: Initial ACUITY: 2 days PAIN SCORE: Non-responsive. LOCATION: Bilateral chest FINDINGS: The heart is enlarged. There is diffuse interstitial prominence suggesting congestive failure. There is no pleural effusion. The bony structures are grossly intact. The overall appearance of the [facility] yma is mildly worse when compared to previous dated 05/18/16. CONCLUSION: Cardiomegaly and diffuse interstitial prominence suggesting congestive failure. Jt Caballero MD on January 27, 2017 at 9:16 Board Certified Radiologist. This report was verified electronically.
[2017-01-27] MEDS: INSULIN DETEMIR 100 UNITS/ML VIAL SQ SCH ×2 (09:40→21:00)
--- NOTE | 2017-01-27 10:24 | RADRPT ---
EXAM DATE/TIME: 01/27/2017 09:57 [facility] COMPARISON: CT BRAIN W/O CONTRAST, January 26, 2017, 15:00. INDICATIONS : Altered mental status after TPA administration. RADIATION DOSE: 50.61 CTDIvol (mGy) MEDICAL HISTORY : Cardiovascular disease. Hypertension. Diabetes mellitus type 2. SURGICAL HISTORY : None. ENCOUNTER: Initial ACUITY: 1 day PAIN SCALE: Non-responsive LOCATION: cranial TECHNIQUE: Multiple contiguous axial images were obtained of the head. Using automated exposure control and adj ustment of the mA and/or kV according to patient size, radiation dose was kept as low as reasonably a chievable to obtain optimal diagnostic quality images. FINDINGS: The examination is abnormal demonstrating a large hematoma in the cerebellum, midline and extending i nto the right hemisphere, measuring and access of 4.4 cm. The hematoma causes total effacement of th e 4th ventricle and upper transtentorial herniation. There is also enlargement of the right cerebell ar hemisphere causing impression on the brainstem at the level of the foramen magnum with the CSF spa ce at the foramen magnum measuring less than 1 cm in width. The upper transtentorial herniation causes loss of CSF about the brainstem. There is a focal hypoden sity in the left parasagittal inferior christina which appears to be a new finding and may represent a bra instem infarction. In the supratentorial brain, there is evidence of subarachnoid hemorrhage in the left posterior sylvi an region, right posterior temporal sulci, and posterior cingulate sulci bilaterally. There is a new hypodensity measuring 4.9 x 3.4 cm located in the right anterior and mid to sylvian co rtex characteristic of acute nonhemorrhagic infarction.. Midline structures the supratentorial brain are not deviated and there is stable enlargement of the lateral ventricles and the 3rd ventricle. N o evidence of intraventricular blood in the supratentorial brain. CONCLUSION: Multiple new findings compared to CT brain 01/26/17 including a large (4.4 cm) cerebellar hematoma caus ing transtentorial herniation and significant impression on the brainstem down to the the foramen mag num, bilateral supratentorial subarachnoid hemorrhage, and a new nonhemorrhagic infarction involving the anterior two thirds of the right sylvian region. The findings have been called to the patient's nurse. Reginald Loza MD on January 27, 2017 at 10:11 Board Certified Radiologist. This report was verified electronically.
[2017-01-27] MEDS ORDERED: ETOMIDATE 20 MG/10 ML VIAL ONE (10:36)
[2017-01-27] MEDS ORDERED: ROCURONIUM INJ 50 MG/5 ML VIAL ONE (10:39)
[2017-01-27] MEDS ORDERED: MANNITOL INJ 50 ML ONE ×2 (10:51→12:39)
[2017-01-27] MEDS ORDERED: PROPOFOL 1000 MG/100 ML INJ 100 ML ONE (11:00)
[2017-01-27] MEDS ORDERED: ceFAZolin 2 GM PREMIX 50 ML ONE (11:01)
[2017-01-27] MEDS ORDERED: THROMBIN (TOPICAL) 5,000 UNIT VIAL ONE (11:01)
[2017-01-27] MEDS ORDERED: VANCOMYCIN HCL 1000 MG VIAL ONE (11:01)
[2017-01-27] MEDS ORDERED: BACITRACIN TOP OINT 15 GM TUBE ONE (11:02)
[2017-01-27] MEDS ORDERED: GELFOAM SIZE 100 ONE (11:02)
[2017-01-27] MEDS ORDERED: FUROSEMIDE 40 MG/4 ML VIAL ONE (11:02)
[2017-01-27] MEDS ORDERED: GENTAMICIN SULFATE 80 MG/2 ML VIAL ONE (11:02)
[2017-01-27] MEDS ORDERED: levETIRAcetam 500 MG/5 ML VIAL IV ONE (11:02)
[2017-01-27] MEDS ORDERED: MIDAZOLAM HCL 2 MG/2 ML VIAL ONE ×2 (11:11→11:12)
--- NOTE | 2017-01-27 11:14 | PD.PROCEDR ---
Procedure Note Procedure After the risks and benefits were discussed the following procedure was performed: INTUBATION: The patient was put in optimal position for the procedure. Rapid sequence intubation was initiated by me using 20 milligrams of etomidate IV and 100 mcg Fentanyl IV and rocuronium 50 mg IV x1. DL Mac 4 blade grade 1 view. The patient was intubated with a 8 cuffed endotracheal tube. Tube placement was confirmed by visualization of the tube and balloon passing through the cords , capnometry and subsequent chest x-ray. Breath sounds were equal and well aerated bilaterally postintubation. No breath sounds over stomach. Patient tolerated procedure well. Toribio Linares MD Jan 27, 2017 11:14
[2017-01-27] MEDS ORDERED: TERBUTALINE INJ 1 MG/ML AMP SQ PRN (11:15)
--- NOTE | 2017-01-27 11:15 | PD.PROCEDR ---
Central Line Procedure REASON FOR PROCEDURE Central venous access PROCEDURE PERFORMED Central line placement: LIJ US guided CONSENT Emergency procedure ANESTHESIA Local injection of 1% Lidocaine DESCRIPTION OF THE PROCEDURE The patient was placed in supine, mild Trendelenburg position. The area was exposed and cleansed with ChloraPrep, times two. Large sterile drape was used to cover the patient, with the site exposed, under sterile conditions including cap, face mask, sterile gown, and sterile gloves. On single attempt, the introducer needle was inserted with negative pressure in syringe and venous flash was obtained. The guide wire was then advanced without any restriction and the needle was removed. The dilator was used without any complications. Using Seldinger technique the 20 cm triple-lumen 7 [place] antibiotic coated catheter was advanced over the guide wire to a depth of 18 centimeters. The guide wire was removed. All ports were aspirated with dark venous blood return and flushed easily with sterile saline. All ports were capped. Antibiotic disc was placed around central line at puncture site. The central line was secured to the skin with two interrupted 2.0 silk sutures. The area was bandaged with sterile see-through central line bandage. RADIOLOGICAL DATA Ultrasound guidance was used to locate LIJ COMPLICATIONS: No apparent complications ESTIMATED BLOOD LOSS: Less than 1 cc. Toribio Linares MD Jan 27, 2017 11:15
[2017-01-27] MEDS ORDERED: PHENYLEPHRINE HCL 10 MG/ML VIAL IV ONE (12:00)
[2017-01-27] MEDS ORDERED: NOREPINEPHRINE-DEXTROSE DRIP 250 ML IV SCH (12:00)
[2017-01-27] MEDS ORDERED: ROCURONIUM INJ 50 MG/5 ML VIAL IV PUSH ONE (12:00)
[2017-01-27] MEDS ORDERED: SODIUM CHLORIDE 0.9% INJ 500 ML IV ONE (12:00)
[2017-01-27] MEDS ORDERED: SODIUM CHLORID 0.9% 500 ML INJ 1,500 ML IV ONE (12:00)
[2017-01-27] MEDS ORDERED: ETOMIDATE 20 MG/10 ML VIAL IV PUSH ONE (12:00)
[2017-01-27] MEDS ORDERED: NORMOSOL R INJ 2,000 ML IV ONE (12:00)
[2017-01-27] MEDS ORDERED: LACTATED RINGER'S 1000 ML INJ 1,000 ML IV ONE (12:00)
[2017-01-27] MEDS ORDERED: SODIUM CHLOR 0.9% 1000 ML INJ 2,000 ML IV ONE (12:00)
[2017-01-27] MEDS ORDERED: PROPOFOL 200 MG/20 ML AMP IV ONE (12:00)
--- NOTE | 2017-01-27 12:28 | RADRPT ---
EXAM DATE/TIME: 01/27/2017 11:03 [facility] COMPARISON: CHEST SINGLE AP, January 27, 2017, 8:16. INDICATIONS : Evaluate central line placement MEDICAL HISTORY : Cardiovascular disease. Hypertension Diabetes mellitus type II. SURGICAL HISTORY : None. ENCOUNTER: Subsequent ACUITY: 2 days PAIN SCORE: Non-responsive. LOCATION: Bilateral chest FINDINGS: Patient has been intubated in the interval with ET tube in good position at the level of the clavicle s. Left IJ central line with tip in the proximal SVC. Improved aeration of the right lung with contin ued diffuse interstitial prominence. Cardiac silhouette is enlarged. Remainder of the exam is unchang ed. CONCLUSION: 1. ETT in good position. 2. Left IJ central line in the proximal SVC. No pneumothorax. 3. Cardiomegaly with improved edema pattern. Carlos Lorenzo MD on January 27, 2017 at 12:24 Board Certified Radiologist. This report was verified electronically.
--- NOTE | 2017-01-27 12:39 | PD.CONS ---
[facility] Service Neurosurg Consult Requested By Dr López Reason for Consult Stroke alert, cerebellar bleed Primary Care Physician Unknown History of Present Illness This is a 76-year-old female with history of atrial fibrillation, hypertension, hypothyroidism, type 2 diabetes who was brought to the emergency department as a stroke alert. Apparently grandson called EMS as the patient was found to be disoriented. EMS noted that patient had rightward gaze, with Left hemiparesis. A stroke alert was initiated. 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 After discussion Dr. Slater, TPA was initiated. Today she became comatose. FOllow up CT showed a lerge cerebellar hemorrhage. Review of Systems Not possible ROS Limitations: Clinical Condition, Intubated, Altered Mental Status, Unresponsive Past Family Social History Allergies: Coded Allergies: Sulfa (Verified Allergy, Intermediate, 01/18/17) Past Medical History Hypertension Diabetes Atrial fibrillation Hypothyroidism Reported Medications Baclofen 10 Mg Tab 10 Mg PO Q8HR PRN Lidocaine Patch 12 HR (Lidocaine) 5 % Patch 1 Patch TOPICAL DAILY PRN Levothyroxine (Levothyroxine Sodium) 25 Mcg Tab 25 Mcg PO DAILY Glimepiride 1 Mg Tab 1 Mg PO DAILY Metoprolol Succinate ER 24 HR (Metoprolol Succinate) 25 Mg Tab 25 Mg PO BID Dramamine (Dimenhydrinate) 50 Mg Tab.chew Diltiazem (Diltiazem HCl) 120 Mg Tab 300 Mg PO QID Aspirin EC (Aspirin) 325 Mg Tabdr 325 Mg PO MALCOLM Active Ordered Medications Current Medications Sodium Chloride 1,000 ml @ 70 mls/hr [id number] ONCE IV Last administered on 14:59; Start 01/26/17 at 14:59; Stop 01/26/17 at 17:46; Status DC Nicardipine HCl/ Sodium Chloride (Cardene Inj/NS 250 ml Inj) 260 ml @ 0 mls/hr TITRATE IV ; Start 01/26/17 at 15:15; Stop 01/26/17 at 17:13; Status DC Diltiazem HCl (Cardizem Inj) 22 mg BOLUS ONCE IV PUSH Last administered on 01/26 16:18; Start 01/26/17 at 15:45; Stop 01/26/17 at 15:46; Status DC Sodium Chloride (NS Flush) 2 ml UNSCH PRN IVF FLUSH AFTER USING IV ACCESS; Start 01/26/17 at 15:45 Alteplase, Recombinant 7.8 mg 7.8 mg ONCE ONCE IV Last administered on 16:03; Start 01/26/17 at 15:45; Stop 01/26/17 at 15:48; Status DC Alteplase, Recombinant/ Syringe / Bag (Activase Drip/ Syringe/Bag) 70.5 ml @ 70.5 mls/hr ONCE ONCE IV Last administered on 01/26/17 16:22; Start 01/26/17 at 15:45; Stop 01/26/17 at 16:44; Status DC Sodium Chloride (NS Inj) 30 ml ONCE ONCE IVF ; Start 01/26/17 at 15:45; Stop 01/26/17 at 15:49; Status DC Miscellaneous Information No Heparin, Warfarin, Aspir... UNSCH PRN XX SEE DOSE INSTRUCTIONS; Start 01/26/17 at 15:45; Stop 01/27/17 at 15:44 Magnesium Oxide 800 mg 800 mg UNSCH PRN PO For Magnesium 1.2 - 1.6 mg/dL; Start 01/26/17 at 16:15 Magnesium Sulfate 4 gm/Sodium Chloride 100 ml @ 50 mls/hr UNSCH PRN IV For Magnesium 0.9 - 1.1 mg/dL; Start 01/26/17 at 16:15 Magnesium Sulfate 2 gm/Sodium Chloride 100 ml @ 50 mls/hr UNSCH PRN IV For Magnesium 1.2 - 1.6 mg/dL; Start 01/26/17 at 16:15 Potassium Chloride 100 ml @ 50 mls/hr Q2H PRN IV For Potassium 2.8 - 3.2 mEq/L ; Start 01/26/17 at 16:15 Potassium Chloride 100 ml @ 50 mls/hr Q2H PRN IV For Potassium 3.3 - 3.5 mEq/L ; Start 01/26/17 at 16:15 Potassium Chloride 100 ml @ 50 mls/hr Q2H PRN IV For Potassium 2.8 - 3.2 mEq/L ; Start 01/26/17 at 16:15 Potassium Chloride (KCl 40 Meq Premix Inj) 100 ml @ 25 mls/hr UNSCH PRN IV For Potassium 3.3 - 3.5 mEq/L; Start 01/26/17 at 16:15 Potassium Phosphate (K-Phos) 2,000 mg Q4H PRN PO For Phosphorus < 2.5 mg/dL; Start 01/26/17 at 16:15 Potassium Phosphate 2000 mg 2,000 mg UNSCH PRN PO/TUBE SEE LABEL COMMENTS; Start 01/26/17 at 16:15 Potassium Phosphate 30 mmol/ Sodium Chloride 260 ml @ 42 mls/hr UNSCH PRN IV SEE LABEL COMMENTS; Start 01/26/17 at 16:15; Stop 01/26/17 at 16:18; Status DC Sodium Phosphate/ Sodium Chloride (Sodium Phosphate Inj/NS 250 ml Inj) 250 ml @ 42 mls/hr UNSCH PRN IV For Phosphorus < 2.5 mg/dL; Start 01/26/17 at 16:15 Dextrose (D50w (Vial) Inj) 25 ml UNSCH PRN IV PUSH HYPOGLYCEMIA-SEE COMMENTS; Start 01/26/17 at 16:15 Insulin Human Regular (NovoLIN R SUPPLEMENTAL SCALE) 1 Q6HR SQ ; Start 01/26/17 at 18:00; Stop 01/26/17 at 18:00; Status DC Insulin Aspart (NovoLOG SUPPLEMENTAL SCALE) 1 ACHS SLIDING SCALE SQ Last administered on 01/27/17 06:53; Start 01/26/17 at 21:00 Labetalol HCl (Trandate Inj) 10 mg Q4H PRN IV PUSH SYS BP GREATER THAN 180 MMHG Last administered on 01/26/17 22:38; Start 01/26/17 at 16:45 Ondansetron HCl (Zofran Inj) 4 mg ONCE ONCE IV PUSH Last administered on 17:00; Start 01/26/17 at 17:00; Stop 01/26/17 at 17:01; Status DC Iohexol 70 ml 70 ml STK-MED ONCE IV Last administered on 01/26/17 17:09; Start 01/26/17 at 17:09; Stop 01/26/17 at 17:10; Status DC Nicardipine HCl/ Sodium Chloride (Cardene Inj/NS 250 ml Inj) 260 ml @ 0 mls/hr TITRATE IV ; Start 01/26/17 at 17:15; Stop 01/26/17 at 17:18; Status DC Diltiazem HCl 15 mg 15 mg ONCE ONCE IVP ; Start 01/26/17 at 18:00; Stop 01/26/17 at 18:01; Status DC Diltiazem HCl 125 mg/Sodium Chloride 125 ml @ 0 mls/hr TITRATE IV Last administered on 01/27/17 06:54; Start 01/26/17 at 19:00 Sodium Chloride (NS 1000 ml Inj) 1,000 ml @ 75 mls/hr [id number] IV Last administered on 01/27/17 06:54; Start 01/26/17 at 18:00 Insulin Human Regular 8 units 8 units ONCE ONCE SQ Last administered on 20:09; Start 01/26/17 at 19:00; Stop 01/26/17 at 19:30; Status DC Ceftriaxone Sodium/Sodium Chloride (Rocephin Inj/NS Inj) 100 ml @ 200 mls/hr Q24H IV Last administered on 01/26/17 20:38; Start 01/26/17 at 20:00 Insulin Detemir (Levemir Inj) 10 units Q12HR SQ Last administered on 01/27/17 09:40; Start 01/27/17 at 09:00 Cyanocobalamin (Vitamin B12 Inj) 1,000 mcg ONCE ONCE IM ; Start 01/27/17 at 08: 00; Stop 01/27/17 at 08:03; Status DC Etomidate (Amidate Inj) 20 mg STK-MED ONCE .ROUTE ; Start 01/27/17 at 10:36; Stop 01/27/17 at 10:37; Status DC Fentanyl Citrate (fentaNYL INJ) 200 mcg STK-MED ONCE .ROUTE ; Start 01/27/17 at 10:37; Stop 01/27/17 at 10:38; Status DC Rocuronium [place] 50 mg 50 mg STK-MED ONCE .ROUTE ; Start 01/27/17 at 10:39; Stop 01/27/17 at 10:40; Status DC Mannitol 50 ml @ As Directed STK-MED ONCE .ROUTE ; Start 01/27/17 at 10:51; Stop 01/27/17 at 10:52; Status DC Propofol (Diprivan 1000 Mg/100ml Inj) 100 ml @ As Directed STK-MED ONCE .ROUTE ; Start 01/27/17 at 11:00; Stop 01/27/17 at 11:01; Status DC Vancomycin HCl (Vancomycin Inj) 1,000 mg STK-MED ONCE .ROUTE ; Start 01/27/17 at 11:01; Stop 01/27/17 at 11:02; Status DC Thrombin 42838 units 10,000 units STK-MED ONCE .ROUTE ; Start 01/27/17 at 11:01; Stop 01/27/17 at 11:02; Status DC Cefazolin Sodium/ Dextrose (Ancef 2 Gm Premix) 50 ml @ As Directed STK-MED ONCE .ROUTE ; Start 01/27/17 at 11:01; Stop 01/27/17 at 11:02; Status DC Gelatin (Gelfoam 100 Top) 1 foam STK-MED ONCE .ROUTE ; Start 01/27/17 at 11:02; Stop 01/27/17 at 11:03; Status DC Furosemide (Lasix Inj) 40 mg STK-MED ONCE .ROUTE ; Start 01/27/17 at 11:02; Stop 01/27/17 at 11:03; Status DC Levetriacetam (Keppra Inj) 1,000 mg STK-MED ONCE IV ; Start 01/27/17 at 11:02; Stop 01/27/17 at 11:03; Status DC Bacitracin (Baciguent Oint) 15 applic STK-MED ONCE .ROUTE ; Start 01/27/17 at 11: 02; Stop 01/27/17 at 11:03; Status DC Gentamicin Sulfate (Gentamicin Inj) 240 mg STK-MED ONCE .ROUTE ; Start 01/27/17 at 11:02; Stop 01/27/17 at 11:03; Status DC Midazolam HCl (Versed Inj) 2 mg STK-MED ONCE .ROUTE ; Start 01/27/17 at 11:11; Stop 01/27/17 at 11:12; Status DC Midazolam HCl (Versed Inj) 2 mg STK-MED ONCE .ROUTE ; Start 01/27/17 at 11:12; Stop 01/27/17 at 11:13; Status DC Fentanyl Citrate (fentaNYL INJ) 400 mcg STK-MED ONCE .ROUTE ; Start 01/27/17 at 11:12; Stop 01/27/17 at 11:13; Status DC Nicardipine HCl 25 mg 25 mg STK-MED ONCE .ROUTE ; Start 01/27/17 at 11:14; Stop 01/27/17 at 11:15; Status DC Norepinephrine Bitartrate (Levophed-Dextrose Drip) 250 ml @ 0 mls/hr TITRATE IV ; Start 01/27/17 at 12:00 Terbutaline Sulfate (Brethine Inj) 1 mg UNSCH PRN SQ For Extravasation; Start 01/27/17 at 11:15 Rocuronium [place] (Zemuron Inj) 5 mg ONCE ONCE IV PUSH ; Start 01/27/17 at 12: 00; Stop 01/27/17 at 12:01; Status DC Fentanyl Citrate (fentaNYL INJ) 100 mcg ONCE ONCE IV PUSH ; Start 01/27/17 at 12 :00; Stop 01/27/17 at 12:01; Status DC Etomidate 20 mg 20 mg ONCE ONCE IV PUSH ; Start 01/27/17 at 12:00; Stop 01/27/17 at 12:01; Status DC Sodium Chloride (NS 1000 ml Inj) 2,000 ml @ 1,000 mls/hr BOLUS ONCE IV ; Start 01/27/17 at 12:00; Stop 01/27/17 at 13:59 Family History Noncontributory Social History No alcohol or tobacco use No illicit drug use Physical Exam Vital Signs Vital Signs Date Time Temp Pulse Resp B/P Pulse Ox O2 Delivery O2 Flow Rate FiO2 01/27/17 10:45 98 50 01/27/17 08:55 96 Nasal Cannula 2.00 01/27/17 06:00 111 01/27/17 04:00 97.4 104 35 148/81 94 01/27/17 04:00 104 01/27/17 02:00 103 01/27/17 02:00 103 01/27/17 00:00 97.3 92 21 114/73 100 01/27/17 00:00 92 01/27/17 00:00 92 01/26/17 22:00 133 01/26/17 22:00 133 01/26/17 20:52 97 Nasal Cannula 2.00 01/26/17 20:00 97.9 153 12 161/94 94 01/26/17 20:00 153 01/26/17 20:00 153 01/26/17 19:00 92 Nasal Cannula 2.00 01/26/17 18:00 175 01/26/17 16:50 141 18 174/107 92 Room Air 01/26/17 16:35 141 19 228/100 93 Room Air 01/26/17 16:20 141 19 178/85 95 Room Air 01/26/17 16:05 97.2 137 18 167/84 94 Room Air 01/26/17 15:06 95 21 01/26/17 14:58 95 Room Air 01/26/17 14:58 95 Room Air 01/26/17 14:55 170 16 213/123 Physical Exam The patient is intubated and sedated. GCS 3 Cranial Nerves: Pupils equal, round, reactive to light. Eyes appear conjugated. There was no nystagmus, no papilledema. Face musculature appeared symmetrical at rest. Face sensation, olfaction, visual evans, and hearing cannot be adequately assessed due to his neurological condition. The patient has a corneal reflex. He has a gag reflex. The sternocleidomastoid and trapezius are symmetrical. Cervical Spine: neck is soft, supple, without nuchal rigidity. Motor: muscle tone and bulk are normal. No reaction to pain Reflexes: Deep tendon reflexes are 1+ and symmetrical in the biceps, triceps, and brachioradialis, bilaterally, in the upper extremities. In the lower extremities, the patellar and ankles are 1+, bilaterally. There is a bilateral plantar flexion response. There is no clonus or other abnormal reflexes noted. Sensory: On examination there is no response to painful stimuli Cerebellar: Examination cannot be adequately assessed due to the patient's neurological condition. Laboratory Laboratory Tests Test 01/26/17 01/26/17 01/26/17 01/26/17 14:54 16:45 17:15 18:05 White Blood Count 10.6 Red Blood Count 5.00 Hemoglobin 15.4 Bedside Hemoglobin 16.7 Hematocrit 45.0 Bedside Hematocrit 49.0 Mean Corpuscular Volume 90.0 Mean Corpuscular Hemoglobin 30.8 Mean Corpuscular Hemoglobin 34.2 Concent Red Cell Distribution Width 13.8 Platelet Count 284 Mean Platelet Volume 10.4 Neutrophils (%) (Auto) 72.6 Lymphocytes (%) (Auto) 17.2 Monocytes (%) (Auto) 6.7 Eosinophils (%) (Auto) 2.3 Basophils (%) (Auto) 1.2 Neutrophils # (Auto) 7.7 Lymphocytes # (Auto) 1.8 Monocytes # (Auto) 0.7 Eosinophils # (Auto) 0.2 Basophils # (Auto) 0.1 CBC Comment DIFF FINAL Differential Comment Prothrombin Time 10.7 Prothromb Time International 1.0 Ratio Activated Partial 21.4 Thromboplast Time Fibrinogen 617 Bedside Sodium 136 Bedside Potassium 4.5 Bedside Chloride 102 Bedside Blood Urea Nitrogen 16 Bedside Creatinine 1.0 Bedside Glucose 430 Total Creatine Kinase 33 Troponin I 0.32 Blood Type O POSITIVE Antibody Screen NEGATIVE Blood Bank Comment Urine Color YELLOW Urine Turbidity HAZY Urine pH 5.5 Urine Specific [place] 1.030 Urine Protein 30 Urine Glucose (UA) 1000 Urine Ketones TRACE Urine Occult Blood TRACE Urine Nitrite POS Urine Bilirubin NEG Urine Urobilinogen LESS THAN 2.0 Urine Leukocyte Esterase SMALL Urine RBC LESS THAN 1 Urine WBC 4 Urine Amorphous Sediment FEW Urine Bacteria MANY Urine Hyaline Casts 3 Urine Mucus FEW Microscopic Urinalysis Comment CATH-CULTURE IND Urine Opiates Screen NEG Urine Barbiturates Screen NEG Urine Amphetamines Screen NEG Urine Benzodiazepines Screen NEG Urine Cocaine Screen NEG Urine Cannabinoids Screen NEG Sodium Level 134 Potassium Level 3.6 Chloride Level 99 Carbon Dioxide Level 25.1 Anion Gap 10 Blood Urea Nitrogen 15 Creatinine 1.17 Estimat Glomerular Filtration 45 Rate Random Glucose 371 Hemoglobin A1c 10.9 Calcium Level 8.3 Total Bilirubin 0.7 Aspartate Amino Transf 8 (AST/SGOT) Alanine Aminotransferase 10 (ALT/SGPT) Alkaline Phosphatase 111 Total Protein 7.2 Albumin 2.7 Nasal Screen MRSA (PCR) NEGATIVE Staphylococcus aureus NEGATIVE (PCR)(LAB) Test 01/26/17 01/27/17 01/27/17 22:39 10:47 11:29 Troponin I 0.54 Vitamin B12 Level 383 Thyroid Stimulating Hormone 1.[address] [place] [address] Blood Bank Comment Blood Type O POSITIVE Crossmatch Leukocyte-Reduced Red Blood Cells Date/Time Procedure Status Source Growth 01/26/17 16:45 Urine Culture Received Urine Catheterized Urine Pending Result Diagram: 01/26/17 1454 01/26/17 1715 Imaging Last Impressions Head CT 01/27/17 0000 Signed Impressions: Service Date/Time: January 09:57 - CONCLUSION: Multiple new findings compared to CT brain 01/26/17 including a large (4.4 cm) cerebellar hematoma causing transtentorial herniation and significant impression on the brainstem down to the the foramen magnum, bilateral supratentorial subarachnoid hemorrhage, and a new nonhemorrhagic infarction involving the anterior two thirds of the right sylvian region. The findings have been called to the patient's nurse. Reginald Loza MD Chest X-Ray 01/27/17 0000 Signed Impressions: Service Date/Time: January 08:16 - CONCLUSION: Cardiomegaly and diffuse interstitial prominence suggesting congestive failure. Jt Caballero MD Neck CTA 01/26/17 1515 Signed Impressions: Service Date/Time: Thursday, January 26, 2017 17:04 - CONCLUSION: 1. 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 2. Moderate grade stenosis in the origin of the left internal carotid. 3. Diminutive right vertebral which terminates in a PICA. Luis Seth MD Head CTA 01/26/17 1515 Signed Impressions: Service Date/Time: Thursday, January 26, 2017 17:04 - CONCLUSION: 1. 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 There is limited reconstitution of the right middle cerebral circulation via the anterior communicating artery. The reconstituted segment of right middle cerebral is small in caliber. There is some irregularity of the M1 segment suggesting there may be some embolic disease within the M1 segment however, the lack of flow within this limits the evaluation. 2. The remainder of the intracranial circulation is widely patent. Jt Caballero MD Attending Statement I reviewed her clinical and radiological studies. neuro checks in a serial fashion. GCS of 7 and deteriorating prior to intubation. Large cerebellar hemorrhage. A surgical decompression is indicated and necessary as there is mass effect on the brainstem and fourth ventricle. . Placement of ventriculostomy is indicated as recommended by the [place] [employer]. Emergency suboccipital craniectomy and duroplasty. I have discussed with her son the details including the [id number] details of the surgical procedure, its indications, alternatives, risks, and potential complications. Risks and potential complications include, but are not limited to, infection, blood loss, CSF leak, partial or complete loss of sight in one or both eyes, paresis, paralysis, permanent pain or difficulty swallowing, loss of bowel or bladder function, complications from anesthesia, blood clot, stroke , myocardial infarction, or even . She is in poor medical condition, her ejection fraction is 20%. Is is at very high surgical risk. WIthout a prompt surgical decompression, she will not survive. She has received TPA. Dr Linares ordered FFP and cryoprecipitate. Respiratory. pulmonary toilette, nasotracheal suction, and breathing treatments with nebulizers. C spine is cleared PT and OT eval Nutrition. NPO Renal. monitor closely urine output, BUN and creatinine Endocrine. Monitor serial Acu checks and SSI for tight control He is anticoagulated with Efian, which increases his risk of hemorrhagic complications ID monitor for signs of infection Protonix for stress ulcer prophylaxis Juan Ramon hose and SCD's for DVT prophylaxis Fred Wagoner MD Jan 27, 2017 12:39
[2017-01-27] MEDS ORDERED: POTASSIUM CHLOR 20 MEQ PREMIX 100 ML IV PRN (12:45)
[2017-01-27] MEDS ORDERED: BISACODYL 10 MG SUPP RECTAL PRN (12:45)
[2017-01-27] MEDS ORDERED: ACETAMINOPHEN/HYDROcodone 325 MG/10 MG TAB PO PRN (12:45)
[2017-01-27] MEDS ORDERED: MORPHINE SULFATE 4 MG/ML INJ IV PUSH PRN (12:45)
[2017-01-27] MEDS ORDERED: MAGNESIUM SULFATE INJ 4 GM in SODIUM CHLORIDE 0.9% INJ 100 ML IV PRN (12:45)
[2017-01-27] MEDS ORDERED: CALCIUM GLUCONATE 10% 1 GM/10 ML VIAL IV PRN (12:45)
[2017-01-27] MEDS ORDERED: ONDANSETRON HCL 4 MG/2 ML VIAL IV PRN (12:45)
[2017-01-27] MEDS ORDERED: SODIUM CHLORIDE 0.9% FLUSH 5 ML FLUSH IVF PRN (12:45)
[2017-01-27] MEDS ORDERED: LIDOCAINE HCL 1% 30 ML VIAL INFIL ONE (12:53)
[2017-01-27 13:39] LABS: BLOOD GAS CARBOXYHEMOGLOBIN 1.9 % (0-4); BLOOD GAS HCO3 13 mmol/L (22-26); BLOOD GAS O2 HGB SATURATION 97 % (90-100); BLOOD GAS OXYGEN CONTENT 14.6 Vol % (12.0-20.0); BLOOD GAS PCO2 22 mmHg (38-42); BLOOD GAS PO2 223 mmHg (61-120); BLOOD GAS TOTAL HGB 10.4 G/DL (12.0-16.0); CRITICAL VALUE YES; OXYGEN DEVICE PT IN OR; STAT YES; TEMP CORR TO 98.6
[2017-01-27 13:48] LABS: AUTOMATED NEUTROPHIL # 15.9 TH/MM3 (1.8-7.7); BASOPHIL # 0.1 TH/MM3 (0-0.2); BASOPHIL % 0.5 % (0.0-2.0); HEMATOCRIT 37.5 % (35.0-46.0); HEMO FLAGS DIFF FINAL; LYMPH % 7.2 % (9.0-44.0); LYMPHOCYTE # 1.3 TH/MM3 (1.0-4.8); MEAN CELL VOLUME 91.4 FL (80.0-100.0); MEAN CORPUSCULAR HEMOGLOBIN 30.1 PG (27.0-34.0); MEAN CORPUSCULAR HGB CONC 32.9 % (32.0-36.0); MONO % 5.8 % (0.0-8.0); NEUT % 86.5 % (16.0-70.0); PLATELET COUNT 246 TH/MM3 (150-450); RED BLOOD COUNT 4.11 MIL/MM3 (4.00-5.30); WHITE BLOOD COUNT 18.4 TH/MM3 (4.0-11.0)
[2017-01-27] MEDS ORDERED: fentaNYL CITRATE 250 MCG/5 ML AMP IV PUSH ONE (15:00)
[2017-01-27] MEDS ORDERED: ROCURONIUM INJ 50 MG/5 ML VIAL IV ONE (15:00)
[2017-01-27] MEDS ORDERED: MIDAZOLAM HCL 2 MG/2 ML VIAL IV PUSH ONE (15:00)
[2017-01-27 15:05] LABS: HEMATOCRIT 31.3 % (35.0-46.0); REVIEW FLAG FINAL
[2017-01-27 15:14] LABS: BLOOD GAS BASE EXCESS -6.3 mmol/L (-2-2); BLOOD GAS HCO3 18 mmol/L (22-26); BLOOD GAS METHEMOGLOBIN 1.1 % (0-2); BLOOD GAS O2 HGB SATURATION 97 % (90-100); BLOOD GAS OXYGEN CONTENT 15.6 Vol % (12.0-20.0); BLOOD GAS PCO2 33 mmHg (38-42); BLOOD GAS PO2 201 mmHg (61-120); BLOOD GAS TOTAL HGB 11.2 G/DL (12.0-16.0); CRITICAL VALUE NO; FIO2 30 %; OXYGEN DEVICE O.R. ABG; STAT YES; TEMP CORR TO 98.6
[2017-01-27] MEDS ORDERED: MANNITOL 12.5 GM/50 ML VIAL IV ONE ×2 (15:15→15:45)
[2017-01-27] MEDS ORDERED: INSULIN ASPART 1,000 UNITS/10 ML VIAL SQ ONE (15:20)
--- NOTE | 2017-01-27 15:52 | EKG ---
Date Performed: 01/26/2017 Time Performed: 15:25:36 PTAGE: 76 years EKG: ATRIAL FIBRILLATION WITH RAPID VENTRICULAR RESPONSE LOW QRS VOLTAGE IN PRECORDIAL LEADS NON SPECIFIC T-WAVE ABNORMALITY SINCE PRIOR TRACING ATRIAL FIBRILLATIONWITH RAPID VENTRICULAR RESPONSE IS NOW FASTER WITH OCCASIONAL PVC'S. ABNORMAL ECG PREVIOUS TRACING : 05/18/2016 20.01 DOCTOR: Lyndon Cruz Interpretating Date/Time 01/27/2017 15:50:29
[2017-01-27] MEDS: cefTRIAXone INJ 2,000 MG in SODIUM CHLORIDE 0.9% INJ 100 ML IV SCH (16:00)
[2017-01-27] MEDS ORDERED: PROPOFOL 1000 MG/100 ML IV SCH ×2 (16:30)
[2017-01-27] MEDS ORDERED: INSULIN HUMAN REGULAR 1,000 UNITS/10 ML VIAL ONE (16:40)
[2017-01-27] MEDS ORDERED: DEXTROSE 50% IN WATER 50 ML VIAL(D50) IV PUSH PRN (17:00)
[2017-01-27] MEDS: MANNITOL 12.5 GM/50 ML VIAL IV SCH (17:00)
[2017-01-27] MEDS ORDERED: INSULIN REGULAR (IV INFUSION) 100 UNITS in SODIUM CHLORIDE 0.9% INJ 99 ML IV SCH (17:00)
[2017-01-27] MEDS ORDERED: MISC INFORMATION OTHER ONE (17:00)
[2017-01-27 17:09] LABS: HEMATOCRIT 34.1 % (35.0-46.0); REVIEW FLAG FINAL
[2017-01-27 17:44] LABS: ALKALINE PHOSPHATASE 87 U/L (45-117); ALT (GPT) 14 U/L (10-53); ANION GAP 11 MEQ/L (5-15); AST (GOT) 25 U/L (15-37); BICARBONATE 21.6 MEQ/L (21.0-32.0); BLOOD UREA NITROGEN 15 MG/DL (7-18); CHLORIDE 108 MEQ/L (98-107); GLOMERULAR FILTRATION RATE 43 ML/MIN (>89); POTASSIUM 4.2 MEQ/L (3.5-5.1); SODIUM (NA) 141 MEQ/L (136-145); TOTAL BILIRUBIN ADULT 0.8 MG/DL (0.2-1.0)
[2017-01-27 18:03] LABS: HDL CHOLESTEROL 36.4 MG/DL (40.0-60.0)
[2017-01-27] MEDS: 3% SALINE INJ 500 ML IV SCH (18:12)
[2017-01-27] MEDS: NS + KCL 20 MEQ INJ 1,000 ML IV SCH (18:20)
[2017-01-27] MEDS: levETIRAcetam INJ 500 MG in SODIUM CHLORIDE 0.9% INJ 100 ML IV SCH (18:21)
--- NOTE | 2017-01-27 18:24 | PD.OP ---
Operative Report Date of Surgery: Jan 28, 2017 Preoperative Diagnosis: Cerebellar hemorrhage Postoperative Diagnosis: Cerebellar hemorrhage Procedure: Suboccipital Decompressive Craniectomy, C1 Laminectomy and Duraplasty. Evacuation of large cerebellar hemorrhage. Microsurgical dissection Anesthesia: general Surgeon: Fred Wagoner Science Instructor(s): Ciara Operation and Findings: INDICATIONS FOR THE PROCEDURE Ms. Marquez is a 76-year-old female brought to [facility] as a stroke alert. She was treated with TPA. Her condition suddenly deteriorated and she became comatose. A follow-up CT of the brain show a large posterior fossa hemorrhage with severe mass effect. Surgical decompression was indicated. I have discussed the details including the [id number] details of the surgical procedure, its indications, alternatives, risks, and potential complications with her son. Risks and potential complications include, but are not limited to , infection, blood loss, CSF leak, partial or complete loss of sight in one or both eyes, paresis, paralysis, permanent pain or difficulty swallowing, loss of bowel or bladder function, complications from anesthesia, blood clot, stroke, myocardial infarction, or even . He understood. All questions were answered. No guarantees were given. He was requesting the surgery and provided informed consent DETAILS OF THE SURGICAL PROCEDURE After administration of general anesthesia, endotracheal intubation was performed. Small catheter, bilateral NAHID hose, sequential compression devices were placed and kept throughout the procedure. The patient was positioned prone on a 30/80 table over gel rolls. All pressure points were carefully padded with egg crate mattress. The eyes were tapped shut after ointment was applied by the nesthesiologist to prevent corneal abrasion. A Eagle hugger was placed over the exposed lower body to maintain control of the core body temperature. The head was held in rigid fixation and maximal flexion using the Brick headholder. A midline incision was outlined on the scalp and the skin incision was made with a #10 blade. Iman clips were then applied to the scalp edges to decrease the hemorrhage. The dissection was carried out on the midline with a Bovie over the avascular line Using the TPS drill with the AM-3 drill bit, the bone carefully thinned to a paper like layer which was carefully elevated with a dissector. The superior part of the arch of C1 was carefully removed and partial laminectomy of C1 was performed with extreme care to preserve and not injure the vertebral artery. At this point in the procedure, the operating microscope was draped in the usual sterile fashion and brought to the field. The rest of the procedure was performed using microdissection technique with exception of the final closure. Under the operative microscope, dura was carefully opened with a 15 blade and Metzenbaun sissors and tacked to the surrounding fascia using 4-0 Nurolon sutures. Using microbipolar, microscissors, micro retractors, microforceps, and microsurgical dissection technique, the approach was initiated. The surface of the cerebellum was carefully irrigated with cold saline. Then, a dural patch was brought to the field and carefully sutured in a watertight fashion using 6-0 Prolene suture. Excellent reconstruction of the dura was achieved. The dural closure was then reinforced using Tisseel fibrin glue and Duragen. The incision was carefully closed in layers. The myofascial layers were closed in multiple planes using 0 Vicryl suture. The galea was closed with 3-0 Vicryl suture and the skin was closed with 3-0 nylon in a running fashion. The hematoma was readily identified and a microsurgical resection was carried out using microsurgical dissection technique. A specimen was sent to the lab for permanent histological analysis. Hemostasis was performed in the cavity using a bipolar forceps as well as Surgicel. Excellent hemostasis was achieved. A duramatter graft was brought to the field and carefully shapped to fir the dural region. The dural patch was then brought to the field and the dura was carefully reconstructed in a watertight fashion using 6-0 Prolene suture. The dural closure was then reinforced using Duraseal The suboccipital incision was then closed in multiple layers using 0 Vicryl suture and 3-0 Vicryl sutures were used to close the galea. The skin was closed with running 3-0 nylon. At the end of the procedure, the sponge, needle, and instrument counts were all correct. Estimated blood loss was less than 600 cc, no blood transfusion was given, no intraoperative complications occurred. The patient received preoperative prophylactic antibiotics. The patient was then transferred to the recovery room in a stable condition. Fred Wagoner MD Jan 27, 2017 18:24 Fred Wagoner MD Jan 27, 2017 18:24
--- NOTE | 2017-01-27 18:25 | PD.OP ---
Operative Report Date of Surgery: Jan 28, 2017 Preoperative Diagnosis: Large cerebellar posterior fossa hemorrhage Postoperative Diagnosis: Large cerebellar posterior fossa hemorrhage Procedure: Keen's Continental hole with placement of ventriculostomy catheter Anesthesia: General Surgeon: Fred Wagoner Aircraft Riveter(s): [place] Operation and Findings: INDICATIONS FOR THE PROCEDURE Ms. Marquez is a 76-year-old female brought to [place] as a stroke alert. She was treated with TPA. Her condition suddenly deteriorated and she became comatose. A follow-up CT of the brain show a large posterior fossa hemorrhage with severe mass effect. Surgical decompression and placement of ventricuoostomy were indicated. I have discussed the details including the [id number] details of the surgical procedure, its indications, alternatives, risks, and potential complications with her son. Risks and potential complications include, but are not limited to , infection, blood loss, CSF leak, partial or complete loss of sight in one or both eyes, paresis, paralysis, permanent pain or difficulty swallowing, loss of bowel or bladder function, complications from anesthesia, blood clot, stroke, myocardial infarction, or even . He understood. All questions were answered. No guarantees were given. He was requesting the surgery and provided informed consent DETAILS OF THE SURGICAL PROCEDURE The scalp was shaved, prepped and draped in the usual sterile fashion. An entry point was selected at the Keen's point. . The area was infiltrated with 1% lidocaine with epinephrine. A skin incision was made with a #15 blade down to the level of the periosteum. Using a TPS drill, a vito hole was made. The dura was carefully opened. A ventriculostomy catheter was advanced into the ventricular system. Cerebrospinal fluid was obtained. Opening pressure was 20 centimeters of water. A specimen of cerebrospinal fluid was collected and sent to the lab for analysis of the glucose, protein, cell count and cultures. The catheter was then tunneled under the galea and externalized through a separate stab incision. The galea was closed with 3-0 Vicryl. Jessica were applied to the skin. The patient tolerated the procedure well. COMPLICATIONS There were no intraoperative complications. BLOOD LOSS Blood loss was minimal. Fred Wagoner MD Jan 27, 2017 18:24
[2017-01-27 18:35] LABS: BLOOD GAS BASE EXCESS -2.6 mmol/L (-2-2); BLOOD GAS CARBOXYHEMOGLOBIN 1.5 % (0-4); BLOOD GAS HCO3 21 mmol/L (22-26); BLOOD GAS METHEMOGLOBIN 0.7 % (0-2); BLOOD GAS O2 HGB SATURATION 95 % (90-100); BLOOD GAS OXYGEN CONTENT 24.4 Vol % (12.0-20.0); BLOOD GAS PCO2 35 mmHg (38-42); BLOOD GAS PO2 99 mmHg (61-120); BLOOD GAS TOTAL HGB 18.2 G/DL (12.0-16.0); CRITICAL VALUE NO; FIO2 40 %; OXYGEN DEVICE VENTILATOR; TEMP CORR TO 98.6; VENT SETTINGS PRVC18/550/0.8/+5
[2017-01-27 18:36] LABS: DRAW SITE ART LINE; NUMBER OF ARTERIAL PUNCTURES 0; STAT NO; ULNAR PULSE PRESENT
--- NOTE | 2017-01-27 20:26 | HHI.PR ---
Review/Management Diagnosis right MCA CVA, s/p iv TPA right carotid occlusion right cerebellar hemorrhage with mass effect and bilateral SAH. Plan continuje supportive care Diagnosis/Plan: Subjective Subjective Comments Pt became unresponsive today and stat CT brain revealed right cerebellar hemorrhage with mass effect with transtentorial herniation and brain stem compression, bilateral SAH, infarct right MCA territory. She is s/p suboccipital craniotomy and ventriculostomy placement by Dr Wagoner Active Medications Current Medications Medications (Trade) Dose Ordered Sig/Calixto Route Start Time Stop Time Status Last Admin Magnesium Oxide 800 mg 800 mg UNSCH PRN PO 01/26/17 16:15 Magnesium Sulfate 4 gm/Sodium Chloride 100 ml @ 50 mls/hr UNSCH PRN IV 01/26/17 16:15 Magnesium Sulfate 2 gm/Sodium Chloride 100 ml @ 50 mls/hr UNSCH PRN IV 01/26/17 16:15 Potassium Chloride 100 ml @ 50 mls/hr Q2H PRN IV 01/26/17 16:15 Potassium Chloride 100 ml @ 50 mls/hr Q2H PRN IV 01/26/17 16:15 Potassium Chloride 100 ml @ 50 mls/hr Q2H PRN IV 01/26/17 16:15 (KCl 40 Meq Premix Inj) 100 ml @ 25 mls/hr UNSCH PRN IV 01/26/17 16:15 (K-Phos) 2,000 mg Q4H PRN PO 01/26/17 16:15 Potassium Phosphate 2000 mg 2,000 mg UNSCH PRN PO/TUBE 01/26/17 16:15 Potassium Phosphate 30 mmol/ Sodium Chloride 260 ml @ 42 mls/hr UNSCH PRN IV 01/26/17 16:15 (Sodium Phosphate Inj/NS 250 ml Inj) 250 ml @ 42 mls/hr UNSCH PRN IV 01/26/17 16:15 (D50w (Vial) Inj) 25 ml UNSCH PRN IV PUSH 01/26/17 16:15 Labetalol HCl 10 mg 10 mg Q4H PRN IV PUSH 01/26/17 16:45 01/26/17 22:38 (Cardizem Inj/NS Inj) 125 ml @ 0 mls/hr TITRATE IV 01/26/17 19:00 01/27/17 06:54 Insulin Detemir 10 units 10 units Q12HR SQ 01/27/17 09:00 01/27/17 09:40 (Levophed-Dextrose Drip) 250 ml @ 0 mls/hr TITRATE IV 01/27/17 12:00 01/27/17 18:10 Terbutaline Sulfate 1 mg 1 mg UNSCH PRN SQ 01/27/17 11:15 (NS + KCl 20 Meq Inj) 1,000 ml @ 100 mls/hr Q10H IV 01/27/17 12:39 01/27/17 18:20 (NS Flush) 2 ml UNSCH PRN IVF 01/27/17 12:45 IV Flush 2 ml 2 ml BID IVF 01/27/17 21:00 Cefazolin Sodium/ Dextrose 50 ml @ 100 mls/hr Q8H IV 01/27/17 20:00 01/28/17 12:29 (Keppra Inj/NS Inj) 105 ml @ 400 mls/hr Q12H IV 01/27/17 18:00 01/27/17 18:21 (Dulcolax Supp) 10 mg DAILY PRN RECTAL 01/27/17 12:45 (Colace) 100 mg BID PO 01/27/17 21:00 (Protonix) 40 mg DAILY PO 01/28/17 09:00 (Protonix Inj) 40 mg DAILY IVP 01/28/17 09:00 (Zofran Inj) 4 mg Q6H PRN IV 01/27/17 12:45 (Calcium Gluconate Inj) 1 gm UNSCH PRN IV 01/27/17 12:45 (Sorento 10-325 Mg) 1 tab Q4H PRN PO 01/27/17 12:45 ([place]to 10-325 Mg) 2 tab Q4H PRN PO 01/27/17 12:45 (Morphine Inj) 2 mg Q2H PRN IV PUSH 01/27/17 12:45 (Morphine Inj) 4 mg Q2H PRN IV PUSH 01/27/17 12:45 Acetaminophen 650 mg 650 mg Q4H PRN PO 01/27/17 12:45 Ceftriaxone Sodium 2000 mg/ Sodium Chloride 100 ml @ 200 mls/hr Q24H IV 01/27/17 16:00 Propofol 100 ml @ 0 mls/hr TITRATE IV 01/27/17 16:30 (Diprivan 1000 Mg/100ml Inj) 100 ml @ 0 mls/hr TITRATE IV 01/27/17 16:30 Mannitol 25 gm 25 gm Q8H IV 01/27/17 17:00 02/03/17 16:59 Sodium Chloride 500 ml @ 30 mls/hr CONTINUOUS IV 01/27/17 17:00 01/31/17 16:59 01/27/17 18:12 (NovoLIN R (IV INFUSION)/NS Inj) 100 ml @ 0 mls/hr TITRATE IV 01/27/17 17:00 01/27/17 18:28 (D50w (Vial) Inj) 50 ml UNSCH PRN IV PUSH 01/27/17 17:00 (Peridex 0.12% Liq) 15 ml BID@08,20 MT 01/27/17 20:00 Allergies Allergies Coded Allergies Sulfa (Verified Allergy, Intermediate, 01/18/17) Exam I&O / VS 01/26/17 01/26/17 01/27/17 15:00 23:00 07:00 Intake Total 455 ml 608 ml Output Total 550 ml 400 ml Balance -95 ml 208 ml Intake IV Total 455 ml 608 ml Output Urine Total 550 ml 400 ml # Bowel Movements 0 0 Vital Signs Date Time Temp Pulse Resp B/P Pulse Ox O2 Delivery O2 Flow Rate FiO2 01/27/17 18:10 111 01/27/17 18:10 99.5 100 18 112/56 100 01/27/17 18:05 99 40 01/27/17 12:00 130 01/27/17 10:45 98 50 01/27/17 10:00 107 01/27/17 08:55 96 Nasal Cannula 2.00 01/27/17 08:00 98.2 117 26 159/95 94 01/27/17 08:00 120 01/27/17 07:00 94 Nasal Cannula 2.00 21 01/27/17 06:00 111 01/27/17 04:00 97.4 104 35 148/81 94 01/27/17 04:00 104 01/27/17 02:00 103 01/27/17 02:00 103 01/27/17 00:00 97.3 92 21 114/73 100 01/27/17 00:00 92 01/27/17 00:00 92 01/26/17 22:00 133 01/26/17 22:00 133 6/7/17 20:52 97 Nasal Cannula 2.00 Exam Comments nonresponsive pupils 3mm min reactive. Motor--no spontaneous limb movement. but does withdraw BLE to stimuli vs bilateral Babinski sign Objective Micro and Labs Laboratory Tests Test 01/26/17 01/27/17 01/27/17 01/27/17 22:39 10:47 11:29 12:15 Troponin I 0.54 Vitamin B12 Level 383 Thyroid Stimulating Hormone 1.[address] [place] [address] Blood Bank Comment Blood Type O POSITIVE O POSITIVE Crossmatch Leukocyte-Reduced Red Blood Cells Test 01/27/17 01/27/17 01/27/17 01/27/17 13:25 13:30 14:50 14:57 White Blood Count 18.4 Red Blood Count 4.11 Hemoglobin 12.4 10.3 Hematocrit 37.5 31.3 Mean Corpuscular Volume 91.4 Mean Corpuscular Hemoglobin 30.1 Mean Corpuscular Hemoglobin 32.9 Concent Red Cell Distribution Width 14.0 Platelet Count 246 Mean Platelet Volume 9.7 Neutrophils (%) (Auto) 86.5 Lymphocytes (%) (Auto) 7.2 Monocytes (%) (Auto) 5.8 Eosinophils (%) (Auto) 0.0 Basophils (%) (Auto) 0.5 Neutrophils # (Auto) 15.9 Lymphocytes # (Auto) 1.3 Monocytes # (Auto) 1.1 Eosinophils # (Auto) 0.0 Basophils # (Auto) 0.1 CBC Comment DIFF FINAL Differential Comment Blood Gas Puncture Site DRAWN IN OR Blood Gas Patient Temperature 98.6 98.6 Blood Gas HCO3 13 18 Blood Gas Base Excess -11.0 -6.3 Blood Gas Oxygen Saturation 97 97 Arterial Blood pH 7.39 7.36 Arterial Blood Partial 22 33 Pressure CO2 Arterial Blood Partial 223 201 Pressure O2 Arterial Blood Oxygen Content 14.6 15.6 Arterial Blood 1.9 2.0 Carboxyhemoglobin Arterial Blood Methemoglobin 1.0 1.1 Blood Gas Hemoglobin 10.4 11.2 Oxygen Delivery Device PT IN OR O.R. ABG Blood Gas Inspired Oxygen 30 Test 01/27/17 01/27/17 01/27/17 16:46 18:00 18:25 Hemoglobin 11.3 Hematocrit 34.1 Sodium Level 141 144 Potassium Level 4.2 Chloride Level 108 Carbon Dioxide Level 21.6 Anion Gap 11 Blood Urea Nitrogen 15 Creatinine 1.23 Estimat Glomerular Filtration 43 Rate Random Glucose 382 Calcium Level 8.6 Total Bilirubin 0.8 Aspartate Amino Transf 25 (AST/SGOT) Alanine Aminotransferase 14 (ALT/SGPT) Alkaline Phosphatase 87 Troponin I 3.69 Total Protein 6.3 Albumin 2.6 Triglycerides Level 103 Cholesterol Level 160 LDL Cholesterol 103 HDL Cholesterol 36.4 Cholesterol/HDL Ratio 4.39 Serum Osmolality 318 Blood Gas Puncture Site ART LINE Blood Gas Patient Temperature 98.6 Blood Gas HCO3 21 Blood Gas Base Excess -2.6 Blood Gas Oxygen Saturation 95 Arterial Blood pH 7.40 Arterial Blood Partial 35 Pressure CO2 Arterial Blood Partial 99 Pressure O2 Arterial Blood Oxygen Content 24.4 Arterial Blood 1.5 Carboxyhemoglobin Arterial Blood Methemoglobin 0.7 Blood Gas Hemoglobin 18.2 Oxygen Delivery Device VENTILATOR Blood Gas Ventilator Setting PRVC18/550/0.8/+5 Blood Gas Inspired Oxygen 40 Date/Time Procedure Status Source Growth 01/27/17 00:00 Gram Stain - Final Resulted Cerebral Spinal Fluid Shunt Fluid 01/27/17 00:00 CSF Culture Resulted Cerebral Spinal Fluid Shunt Fluid Pending 01/27/17 00:00 Fungal Smear Received Cerebral Spinal Fluid Shunt Fluid Pending 01/27/17 00:00 Fungal Culture Received Cerebral Spinal Fluid Shunt Fluid Pending 01/27/17 00:00 Acid Fast Stain Received Cerebral Spinal Fluid Shunt Fluid Pending 01/27/17 00:00 Mycobacterial Culture Received Cerebral Spinal Fluid Shunt Fluid Pending 01/26/17 16:45 Urine Culture - Preliminary Resulted Urine Catheterized Urine Gram Negative Sebastián Walker Slater PhD Jan 27, 2017 20:26
[2017-01-27] MEDS ORDERED: DILTIAZEM INJ 125 MG in SODIUM CHLORIDE 0.9% INJ 100 ML IV SCH (20:30)
[2017-01-27] MEDS ORDERED: DILTIAZEM HCL 25 MG/5 ML VIAL IVP ONE (21:00)
[2017-01-27] MEDS: DOCUSATE SODIUM 100 MG CAP PO SCH (21:12)
[2017-01-27] MEDS: SODIUM CHLORIDE 0.9% FLUSH 5 ML FLUSH IVF SCH (21:12)
[2017-01-27] MEDS: CHLORHEXIDINE 0.12% (ORAL KIT) 15 ML CUP MT SCH (21:12)
[2017-01-27] MEDS: ceFAZolin 2 GM PREMIX 50 ML IV SCH (21:12)
--- NOTE | 2017-01-27 21:14 | PD.VS.PN ---
Subjective Subjective/Hospital Course Consulted this morning for carotid occlusive disease but patient clinically deteriorated significantly today. Clearly, no carotid intervention needed given change in course. Please re-consult if needed. Objective Vitals/I&O Date Time Temp Pulse Resp B/P Pulse Ox O2 Delivery O2 Flow Rate FiO2 01/27/17 18:10 111 01/27/17 18:10 99.5 100 18 112/56 100 01/27/17 18:05 99 40 01/27/17 12:00 130 01/27/17 10:45 98 50 01/27/17 10:00 107 01/27/17 08:55 96 Nasal Cannula 2.00 01/27/17 08:00 98.2 117 26 159/95 94 01/27/17 08:00 120 01/27/17 07:00 94 Nasal Cannula 2.00 21 01/27/17 06:00 111 01/27/17 04:00 97.4 104 35 148/81 94 01/27/17 04:00 104 01/27/17 02:00 103 01/27/17 02:00 103 01/27/17 00:00 97.3 92 21 114/73 100 01/27/17 00:00 92 01/27/17 00:00 92 01/26/17 22:00 133 01/26/17 22:00 133 Laboratory Laboratory Tests Test 01/26/17 01/27/17 01/27/17 01/27/17 22:39 10:47 11:29 12:15 Troponin I 0.54 Vitamin B12 Level 383 Thyroid Stimulating Hormone 1.[address] [place] [address] Blood Bank Comment Blood Type O POSITIVE O POSITIVE Crossmatch Leukocyte-Reduced Red Blood Cells Test 01/27/17 01/27/17 01/27/17 01/27/17 13:25 13:30 14:50 14:57 White Blood Count 18.4 Red Blood Count 4.11 Hemoglobin 12.4 10.3 Hematocrit 37.5 31.3 Mean Corpuscular Volume 91.4 Mean Corpuscular Hemoglobin 30.1 Mean Corpuscular Hemoglobin 32.9 Concent Red Cell Distribution Width 14.0 Platelet Count 246 Mean Platelet Volume 9.7 Neutrophils (%) (Auto) 86.5 Lymphocytes (%) (Auto) 7.2 Monocytes (%) (Auto) 5.8 Eosinophils (%) (Auto) 0.0 Basophils (%) (Auto) 0.5 Neutrophils # (Auto) 15.9 Lymphocytes # (Auto) 1.3 Monocytes # (Auto) 1.1 Eosinophils # (Auto) 0.0 Basophils # (Auto) 0.1 CBC Comment DIFF FINAL Differential Comment Blood Gas Puncture Site DRAWN IN OR Blood Gas Patient Temperature 98.6 98.6 Blood Gas HCO3 13 18 Blood Gas Base Excess -11.0 -6.3 Blood Gas Oxygen Saturation 97 97 Arterial Blood pH 7.39 7.36 Arterial Blood Partial 22 33 Pressure CO2 Arterial Blood Partial 223 201 Pressure O2 Arterial Blood Oxygen Content 14.6 15.6 Arterial Blood 1.9 2.0 Carboxyhemoglobin Arterial Blood Methemoglobin 1.0 1.1 Blood Gas Hemoglobin 10.4 11.2 Oxygen Delivery Device PT IN OR O.R. ABG Blood Gas Inspired Oxygen 30 Test 01/27/17 01/27/17 01/27/17 16:46 18:00 18:25 Hemoglobin 11.3 Hematocrit 34.1 Sodium Level 141 144 Potassium Level 4.2 Chloride Level 108 Carbon Dioxide Level 21.6 Anion Gap 11 Blood Urea Nitrogen 15 Creatinine 1.23 Estimat Glomerular Filtration 43 Rate Random Glucose 382 Calcium Level 8.6 Total Bilirubin 0.8 Aspartate Amino Transf 25 (AST/SGOT) Alanine Aminotransferase 14 (ALT/SGPT) Alkaline Phosphatase 87 Troponin I 3.69 Total Protein 6.3 Albumin 2.6 Triglycerides Level 103 Cholesterol Level 160 LDL Cholesterol 103 HDL Cholesterol 36.4 Cholesterol/HDL Ratio 4.39 Serum Osmolality 318 Blood Gas Puncture Site ART LINE Blood Gas Patient Temperature 98.6 Blood Gas HCO3 21 Blood Gas Base Excess -2.6 Blood Gas Oxygen Saturation 95 Arterial Blood pH 7.40 Arterial Blood Partial 35 Pressure CO2 Arterial Blood Partial 99 Pressure O2 Arterial Blood Oxygen Content 24.4 Arterial Blood 1.5 Carboxyhemoglobin Arterial Blood Methemoglobin 0.7 Blood Gas Hemoglobin 18.2 Oxygen Delivery Device VENTILATOR Blood Gas Ventilator Setting PRVC18/550/0.8/+5 Blood Gas Inspired Oxygen 40 Date/Time Procedure Status Source Growth 01/27/17 00:00 Gram Stain - Final Resulted Cerebral Spinal Fluid Shunt Fluid 01/27/17 00:00 CSF Culture Resulted Cerebral Spinal Fluid Shunt Fluid Pending 01/27/17 00:00 Gram Stain Received Cerebral Spinal Fluid Shunt Fluid Pending 01/27/17 00:00 CSF Culture Received Cerebral Spinal Fluid Shunt Fluid Pending 01/27/17 00:00 Fungal Smear Received Cerebral Spinal Fluid Shunt Fluid Pending 01/27/17 00:00 Fungal Culture Received Cerebral Spinal Fluid Shunt Fluid Pending 01/27/17 00:00 Acid Fast Stain Received Cerebral Spinal Fluid Shunt Fluid Pending 01/27/17 00:00 Mycobacterial Culture Received Cerebral Spinal Fluid Shunt Fluid Pending 01/26/17 16:45 Urine Culture - Preliminary Resulted Urine Catheterized Urine Gram Negative Sebastián [facility] Last [address] 01/27/17 0000 Signed Impressions: Service Date/Time: January 09:57 - CONCLUSION: Multiple new findings compared to CT brain 01/26/17 including a large (4.4 cm) cerebellar hematoma causing transtentorial herniation and significant impression on the brainstem down to the the foramen magnum, bilateral supratentorial subarachnoid hemorrhage, and a new nonhemorrhagic infarction involving the anterior two thirds of the right sylvian region. The findings have been called to the patient's nurse. Reginald Loza MD Chest X-Ray 01/27/17 0000 Signed Impressions: Service Date/Time: January 11:03 - CONCLUSION: 1. ETT in good position. 2. Left IJ central line in the proximal SVC. No pneumothorax. 3. Cardiomegaly with improved edema pattern. Carlos Lorenzo MD Chest X-Ray 01/27/17 0000 Signed Impressions: Service Date/Time: January 08:16 - CONCLUSION: Cardiomegaly and diffuse interstitial prominence suggesting congestive failure. Jt Caballero MD Neck CTA 01/26/17 1515 Signed Impressions: Service Date/Time: Thursday, January 26, 2017 17:04 - CONCLUSION: 1. 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 2. Moderate grade stenosis in the origin of the left internal carotid. 3. Diminutive right vertebral which terminates in a PICA. Luis Seth MD Head CTA 01/26/17 1515 Signed Impressions: Service Date/Time: Thursday, January 26, 2017 17:04 - CONCLUSION: 1. 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 There is limited reconstitution of the right middle cerebral circulation via the anterior communicating artery. The reconstituted segment of right middle cerebral is small in caliber. There is some irregularity of the M1 segment suggesting there may be some embolic disease within the M1 segment however, the lack of flow within this limits the evaluation. 2. The remainder of the intracranial circulation is widely patent. Jt Caballero MD Head CT 01/26/17 0000 Signed Impressions: Service Date/Time: Tuesday, January 26, 2017 15:00 - CONCLUSION: 1. No acute intracranial abnormality. 2. Atrophy. 3. Small area of encephalomalacia suggesting prior area of infarction involving the right cerebellar hemisphere. MD Larry Buitrago Jr., Robert J MD Jan 27, 2017 21:14
[2017-01-27 22:56] LABS: INTERNATIONAL NORMALIZED RATIO 1.1 RATIO
[2017-01-28] VITALS (16 sets, daily range): BP systolic 120–140; BP diastolic 62–72; PULSE 75–124; RESP 18–24; TEMP 98.4–100.2; O2SAT 94–100
[2017-01-28] MEDS ORDERED: DILTIAZEM HCL 25 MG/5 ML VIAL IVP ONE (01:00)
[2017-01-28] MEDS: MANNITOL 12.5 GM/50 ML VIAL IV SCH ×3 (01:00→17:00)
[2017-01-28 01:03] LABS: MAGNESIUM 1.9 MG/DL (1.5-2.5)
[2017-01-28] MEDS: NS + KCL 20 MEQ INJ 1,000 ML IV SCH ×3 (01:05→20:00)
[2017-01-28] MEDS ORDERED: DIGOXIN 0.5 MG/2 ML VIAL IV PUSH SCH ×2 (02:45→09:00)
[2017-01-28] MEDS: ceFAZolin 2 GM PREMIX 50 ML IV SCH ×2 (03:44→11:05)
[2017-01-28] MEDS ORDERED: DILTIAZEM HCL 25 MG/5 ML VIAL IV ONE (03:45)
[2017-01-28 05:20] LABS: AUTOMATED NEUTROPHIL # 12.2 TH/MM3 (1.8-7.7); BASOPHIL % 0.3 % (0.0-2.0); EOSINOPHIL % 0.1 % (0.0-4.0); HEMATOCRIT 35.8 % (35.0-46.0); HEMO FLAGS DIFF FINAL; LYMPHOCYTE # 1.3 TH/MM3 (1.0-4.8); MEAN CELL VOLUME 91.1 FL (80.0-100.0); MEAN CORPUSCULAR HEMOGLOBIN 29.7 PG (27.0-34.0); MEAN CORPUSCULAR HGB CONC 32.6 % (32.0-36.0); MONO % 9.3 % (0.0-8.0); NEUT % 81.3 % (16.0-70.0); PLATELET COUNT 197 TH/MM3 (150-450); RED BLOOD COUNT 3.93 MIL/MM3 (4.00-5.30); RED CELL DISTRIBUTION WIDTH 13.8 % (11.6-17.2)
[2017-01-28] MEDS: INSULIN ASPART SUPPLEMENTAL SCALE SQ SCH ×4 (05:21→21:30)
[2017-01-28 05:43] LABS: BICARBONATE 24.6 MEQ/L (21.0-32.0); POTASSIUM 3.8 MEQ/L (3.5-5.1)
[2017-01-28] MEDS: LABETALOL HCL 100 MG/20 ML VIAL IV PUSH PRN ×2 (06:01→09:55)
[2017-01-28] MEDS ORDERED: METOPROLOL TARTRATE 5 MG/5 ML VIAL IV PUSH ONE (06:15)
[2017-01-28] MEDS: levETIRAcetam INJ 500 MG in SODIUM CHLORIDE 0.9% INJ 100 ML IV SCH ×2 (06:24→17:52)
[2017-01-28] MEDS: DILTIAZEM INJ 125 MG in SODIUM CHLORIDE 0.9% INJ 100 ML IV SCH (06:49)
--- NOTE | 2017-01-28 07:18 | HHI.CCPN ---
Subjective Remarks/Hospital Course 76-year-old female with history of atrial fibrillation, hypertension, hypothyroidism, type 2 diabetes who was brought to the emergency department as a stroke alert. Apparently grandson called EMS as the patient was found to be disoriented. EMS noted that patient had rightward gaze, with Left hemiparesis and stroke alert was initiated. Last seen normal at around 2:10 PM, per grandson. 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 After discussion Dr. Slater, TPA was initiated. I evaluated the patient in ED. she somnolent but wakes up easily, she states that she is unable to open her right eye opens left eye. Has obvious left facial droop and left hemiparesis, but now she is able to move LLE. Speech is clear 01/27: Patient more somnolent, hard to wake up (RN states she was more awake 2 huors ago). Remains in A fib with RVR, CTA neck shows complete R common, internal and ext carotid occlusion. Moderate L ICA stenosis. Vascular surgery Dr. Juarez consulted. remains hyperglycemic (gluc 371) without DKA. 01/28: Stat CT 01/27 for AMS showed new large right cerebellar hemorrhage with transtentorial herniation and brain stem compression, bilateral SAH, infarct right MCA territory. Dr. Wagoner emergently consulted, patient underwent suboccipital decompressive craniotomy and ventriculostomy placement. ICP well controlled overnight. Pupils reactive. Withdraws x4. troponin increased to 3.7. LVEF severely reduced, less than 20%. Diffuse global hypokinesis. Mild-to- moderate mitral valve regurgitation, moderate tricuspid valve regurgitation Objective Vital Signs Date Time Temp Pulse Resp B/P Pulse Ox O2 Delivery O2 Flow Rate FiO2 01/28/17 06:00 75 01/28/17 04:56 98 40 01/28/17 04:00 99.0 18 126/62 01/27/17 19:00 Mechanical Ventilator 01/27/17 08:55 2.00 Intake and Output 01/27/17 01/27/17 01/28/17 08:00 16:00 00:00 Intake Total 608 ml 650 ml Output Total 400 ml 2062 ml Balance 208 ml -1412 ml Result Diagram: 01/28/17 0440 01/28/17 0440 Other Results Laboratory Tests Test 6/04/0701/27/17 01/27/17 13:30 14:50 18:25 Blood Gas Puncture Site DRAWN IN OR ART LINE Blood Gas Patient Temperature 98.6 98.6 98.6 Blood Gas HCO3 13 mmol/L 18 mmol/L 21 mmol/L (22-26) (22-26) (22-26) Blood Gas Base Excess -11.0 mmol/L -6.3 mmol/L -2.6 mmol/L (-2-2) (-2-2) (-2-2) Blood Gas Oxygen Saturation 97 % (90-100) 97 % (90-100) 95 % (90-100) Arterial Blood pH 7.39 7.36 7.40 (7.380-7.420) (7.380-7.420) (7.380-7.420) Arterial Blood Partial 22 mmHg (38-42) 33 mmHg (38-42) 35 mmHg (38-42) Pressure CO2 Arterial Blood Partial 223 mmHg 201 mmHg 99 mmHg Pressure O2 (61-120) (61-120) (61-120) Arterial Blood Oxygen Content 14.6 Vol % 15.6 Vol % 24.4 Vol % (12.0-20.0) (12.0-20.0) (12.0-20.0) Arterial Blood 1.9 % (0-4) 2.0 % (0-4) 1.5 % (0-4) Carboxyhemoglobin Arterial Blood Methemoglobin 1.0 % (0-2) 1.1 % (0-2) 0.7 % (0-2) Blood Gas Hemoglobin 10.4 G/DL 11.2 G/DL 18.2 G/DL (12.0-16.0) (12.0-16.0) (12.0-16.0) Oxygen Delivery Device PT IN OR O.R. ABG VENTILATOR Blood Gas Inspired Oxygen 30 % 40 % Blood Gas Ventilator Setting PRVC18/550/0.8/+[address] head shows no acute findings positive right cerebellar encephalomalacia indicating previous stroke Objective Remarks Propofol on standby Levophed on standby Cardizem gtt 3% Saline at 30 ml per hour NS at 100 ml per hour GENERAL: 76-year-old white female patient who is intubated not ion sedation SKIN: Skin warm and dry HEAD: Atraumatic. Normocephalic. EVD with clear CSF drainage, ICP 1-3 EYES: R pupil 5, L 4, reactive. No scleral icterus. ENT: No nasal bleeding or discharge. Orotracheally intubated NECK: Trachea midline. No JVD. CARDIOVASCULAR: Tachycardic and irregularly irregular. No murmurs RESPIRATORY: ACV. Breath sounds equal bilaterally. GASTROINTESTINAL: Abdomen soft, non-tender, nondistended. Hepatic and splenic margins not palpable. MUSCULOSKELETAL: No obvious deformities. No clubbing. No cyanosis. No edema. NEUROLOGICAL: Patient is more somnolent, hard to wake up. But opens eyes to sternal rub and follows commands on R upper and lower extremities after multiple requests. Left facial droop persists, left hemiplegia persists, unable to asses muscle strength Urinary Catheter: Yes Assessment to: Continue Vascular Central Line Catheter: Yes Assessment to: Continue Date of Insertion: Jan 27, 2017 Side: Left Location: Internal, Jugular A/P Assessment and Plan NEURO: Acute post TPA cerebellar hemorrhage with brainstem compression, transtentorial herniation, SAH Status post emergent suboccipital craniotomy and ventriculostomy placement by Dr Wagoner Acute right MCA stroke Acute encephalopathy Previous cerebellar stroke -Post TPA Patient bled into the previous cerebellar stroke -s/p emergent suboccipital craniotomy and ventriculostomy placement by Dr Wagoner -Optimized hyperosmolar therapy with 3% saline and mannitol -Good ICP control. Maintain CPP 60-70 -Head of bed elevation to 45 -Maintain normal temp, Keep PCO2 35 -Not requiring sedation at this time. use propofol as needed -Supplement B12 level 383, supplement. TSH normal RESP: Acute respiratory failure -Intubated for airway protection 01/27. -Continue ACV, Vent bundle, Duoneb q6 and PRN -Does not meet SBT criteria CV: NSTEMI Cardiomyopathy with ejection fraction less than 20% Atrial fibrillation with rapid ventricular response Bilateral carotid stenosis Hypertensive emergency -CTA neck shows complete R common, internal and ext carotid occlusion. Moderate L ICA stenosis. Vascular surgery Dr. Juarez consulted-no intervention -Target systolic blood pressure less than 140 -Normal saline IV fluids 100 ml per hour, 3% Saline at 30 ml per hour -Cardiology consult for NSTEMI and Cardiomyopathy. Not a candidate for antiplatelet therapy, or cardiac catheterization at this time -A. fib rate controlled with Cardizem infusion and IV digoxin. Start beta dwaine 12.5 every 12 hours with holding parameters, start KARI I if BP can tolerate -Levophed had been weaned off -Place on Lipitor 10 qhs -Cardene, IV labetalol when necessary to keep systolic blood pressure less than 140 GI: -Nothing by mouth, start tube feeds (Glucerna) if CT head stable -IV Protonix -Bowel regimen : -Monitor renal function closely. Small catheter. ID: -Monitor for infection. No indication for antibiotics at this time HEME: -Monitor CBC, CMP, coags and fibrinogen level per protocol -Received cryoprecipitate and FFP post bleed -Fibrinogen level 330 today. Platelet INR normal ENDO: Type 2 diabetes with hyperglycemia -Wean to DC IV insulin -Resume Sliding-scale, Levemir 10 U q12, and insulin -Electrolyte replacement protocol PROPH: -Bilateral lower extremity SCDs. Chemical DVT prophylaxis contraindicated. IV Protonix LINES: -Central line art line palced 01/27/17 CC time 45 min Toribio Linares MD Jan 28, 2017 07:18
[2017-01-28] MEDS ORDERED: DIGOXIN 0.5 MG/2 ML VIAL IV PUSH ONE (07:30)
[2017-01-28] MEDS ORDERED: PILL SPLITTER OTHER PRN (07:45)
[2017-01-28] MEDS: CHLORHEXIDINE 0.12% (ORAL KIT) 15 ML CUP MT SCH ×2 (08:00→20:00)
[2017-01-28] MEDS: SODIUM CHLORIDE 0.9% FLUSH 5 ML FLUSH IVF SCH ×2 (08:27→21:00)
[2017-01-28] MEDS: DOCUSATE SODIUM 100 MG CAP PO SCH ×2 (08:52→19:54)
[2017-01-28] MEDS: PANTOPRAZOLE SOD 40 MG DELAYED RELEASE TAB PO SCH (08:53)
[2017-01-28] MEDS: BENEPROTEIN POWDER 1 PACK G-TUBE SCH ×3 (09:00→17:52)
[2017-01-28] MEDS: DOCUSATE SODIUM 100 MG/10 ML UDC PO SCH ×2 (09:34→21:25)
[2017-01-28] MEDS: METOPROLOL TARTRATE 25 MG TAB PO SCH ×2 (09:35→21:26)
[2017-01-28] MEDS: PANTOPRAZOLE SODIUM 40 MG VIAL IVP SCH (09:35)
[2017-01-28] MEDS: INSULIN DETEMIR 100 UNITS/ML VIAL SQ SCH ×2 (09:35→21:29)
--- NOTE | 2017-01-28 10:31 | HHI.PR ---
Review/Management Diagnosis right MCA CVA, s/p iv TPA right carotid occlusion right cerebellar hemorrhage with mass effect and bilateral SAH. Plan continuje supportive care Diagnosis/Plan: Subjective Subjective Comments No acute events reported Active Medications Current Medications Medications (Trade) Dose Ordered Sig/Calixto Route Start Time Stop Time Status Last Admin Magnesium Oxide 800 mg 800 mg UNSCH PRN PO 01/26/17 16:15 Magnesium Sulfate 4 gm/Sodium Chloride 100 ml @ 50 mls/hr UNSCH PRN IV 01/26/17 16:15 Magnesium Sulfate 2 gm/Sodium Chloride 100 ml @ 50 mls/hr UNSCH PRN IV 01/26/17 16:15 Potassium Chloride 100 ml @ 50 mls/hr Q2H PRN IV 01/26/17 16:15 Potassium Chloride 100 ml @ 50 mls/hr Q2H PRN IV 01/26/17 16:15 Potassium Chloride 100 ml @ 50 mls/hr Q2H PRN IV 01/26/17 16:15 (KCl 40 Meq Premix Inj) 100 ml @ 25 mls/hr UNSCH PRN IV 01/26/17 16:15 (K-Phos) 2,000 mg Q4H PRN PO 01/26/17 16:15 Potassium Phosphate 2000 mg 2,000 mg UNSCH PRN PO/TUBE 01/26/17 16:15 Potassium Phosphate 30 mmol/ Sodium Chloride 260 ml @ 42 mls/hr UNSCH PRN IV 01/26/17 16:15 (Sodium Phosphate Inj/NS 250 ml Inj) 250 ml @ 42 mls/hr UNSCH PRN IV 01/26/17 16:15 (D50w (Vial) Inj) 25 ml UNSCH PRN IV PUSH 01/26/17 16:15 Labetalol HCl 10 mg 10 mg Q4H PRN IV PUSH 01/26/17 16:45 01/28/17 09:55 (Cardizem Inj/NS Inj) 125 ml @ 0 mls/hr TITRATE IV 01/26/17 19:00 01/28/17 06:49 Insulin Detemir 10 units 10 units Q12HR SQ 01/27/17 09:00 01/28/17 09:35 (Levophed-Dextrose Drip) 250 ml @ 0 mls/hr TITRATE IV 01/27/17 12:00 01/27/17 18:10 Terbutaline Sulfate 1 mg 1 mg UNSCH PRN SQ 01/27/17 11:15 (NS + KCl 20 Meq Inj) 1,000 ml @ 100 mls/hr Q10H IV 01/27/17 12:39 01/28/17 10:13 (NS Flush) 2 ml UNSCH PRN IVF 01/27/17 12:45 IV Flush 2 ml 2 ml BID IVF 01/27/17 21:00 01/28/17 08:27 Cefazolin Sodium/ Dextrose 50 ml @ 100 mls/hr Q8H IV 01/27/17 20:00 01/28/17 12:29 01/28/17 03:44 (Keppra Inj/NS Inj) 105 ml @ 400 mls/hr Q12H IV 01/27/17 18:00 01/28/17 06:24 (Dulcolax Supp) 10 mg DAILY PRN RECTAL 01/27/17 12:45 (Colace) 100 mg BID PO 01/27/17 21:00 01/27/17 21:12 (Protonix) 40 mg DAILY PO 01/28/17 09:00 (Protonix Inj) 40 mg DAILY IVP 01/28/17 09:00 01/28/17 09:35 (Zofran Inj) 4 mg Q6H PRN IV 01/27/17 12:45 (Calcium Gluconate Inj) 1 gm UNSCH PRN IV 01/27/17 12:45 ([place] 10-325 Mg) 1 tab Q4H PRN PO 01/27/17 12:45 ([place] 10-325 Mg) 2 tab Q4H PRN PO 01/27/17 12:45 (Morphine Inj) 2 mg Q2H PRN IV PUSH 01/27/17 12:45 (Morphine Inj) 4 mg Q2H PRN IV PUSH 01/27/17 12:45 Acetaminophen 650 mg 650 mg Q4H PRN PO 01/27/17 12:45 Ceftriaxone Sodium 2000 mg/ Sodium Chloride 100 ml @ 200 mls/hr Q24H IV 01/27/17 16:00 Propofol 100 ml @ 0 mls/hr TITRATE IV 01/27/17 16:30 (Diprivan 1000 Mg/100ml Inj) 100 ml @ 0 mls/hr TITRATE IV 01/27/17 16:30 Mannitol 25 gm 25 gm Q8H IV 01/27/17 17:00 02/03/17 16:59 Sodium Chloride 500 ml @ 30 mls/hr CONTINUOUS IV 01/27/17 17:00 01/31/17 16:59 01/27/17 18:12 (NovoLIN R (IV INFUSION)/NS Inj) 100 ml @ 0 mls/hr TITRATE IV 01/27/17 17:00 01/27/17 18:28 (D50w (Vial) Inj) 50 ml UNSCH PRN IV PUSH 01/27/17 17:00 (Peridex 0.12% Liq) 15 ml BID@08,20 MT 01/27/17 20:00 01/28/17 08:00 (Lanoxin Liq) 0.25 mg DAILY PO 01/29/17 09:00 (Lopressor) 12.5 mg Q12HR PO 01/28/17 09:00 01/28/17 09:35 (Pill Splitter) 1 ea UNSCH PRN OTHER 01/28/17 07:45 (Lipitor) 10 mg HS PO 01/28/17 21:00 (Beneprotein Powder) 1 pack TID G-TUBE 01/28/17 09:00 (Colace Liq) 100 mg Q12HR PO 01/28/17 09:00 01/28/17 09:34 Allergies Allergies Coded Allergies Sulfa (Verified Allergy, Intermediate, 01/18/17) Exam I&O / VS 01/27/17 01/27/17 01/28/17 15:00 23:00 07:00 Intake Total 650 ml 813 ml Output Total 2062 ml 403 ml Balance -1412 ml 410 ml Intake IV Total 650 ml 813 ml Output Urine Total 2050 ml 375 ml Drainage Total 12 ml 28 ml # Bowel Movements 0 0 Vital Signs Date Time Temp Pulse Resp B/P Pulse Ox O2 Delivery O2 Flow Rate FiO2 01/28/17 08:00 97 40 01/28/17 06:00 75 01/28/17 04:56 98 40 01/28/17 04:00 108 01/28/17 04:00 99.0 108 18 126/62 100 01/28/17 02:04 18 01/28/17 02:00 112 01/28/17 01:08 98 40 01/28/17 00:00 124 01/28/17 00:00 99.0 124 18 136/64 100 01/27/17 22:00 124 01/27/17 21:06 98 40 01/27/17 20:00 128 01/27/17 20:00 99.0 128 18 150/76 100 01/27/17 19:00 Mechanical Ventilator 01/27/17 18:10 111 01/27/17 18:10 99.5 100 18 112/56 100 01/27/17 18:05 99 40 01/27/17 12:00 130 01/27/17 10:45 98 50 Exam Comments nonresponsive pupils 3mm min reactive. Motor--no spontaneous limb movement. but does withdraw BLE to stimuli . 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 Right hand Objective Micro and Labs Laboratory Tests Test 01/27/17 01/27/17 01/27/17 01/27/17 10:47 11:29 12:15 13:25 Blood Bank Comment Blood Type O POSITIVE O POSITIVE Crossmatch Leukocyte-Reduced Red Blood Cells White Blood Count 18.4 Red Blood Count 4.11 Hemoglobin 12.4 Hematocrit 37.5 Mean Corpuscular Volume 91.4 Mean Corpuscular Hemoglobin 30.1 Mean Corpuscular Hemoglobin 32.9 Concent Red Cell Distribution Width 14.0 Platelet Count 246 Mean Platelet Volume 9.7 Neutrophils (%) (Auto) 86.5 Lymphocytes (%) (Auto) 7.2 Monocytes (%) (Auto) 5.8 Eosinophils (%) (Auto) 0.0 Basophils (%) (Auto) 0.5 Neutrophils # (Auto) 15.9 Lymphocytes # (Auto) 1.3 Monocytes # (Auto) 1.1 Eosinophils # (Auto) 0.0 Basophils # (Auto) 0.1 CBC Comment DIFF FINAL Differential Comment Test 01/27/17 01/27/17 01/27/17 01/27/17 13:30 14:50 14:57 16:46 Blood Gas Puncture Site DRAWN IN OR Blood Gas Patient Temperature 98.6 98.6 Blood Gas HCO3 13 18 Blood Gas Base Excess -11.0 -6.3 Blood Gas Oxygen Saturation 97 97 Arterial Blood pH 7.39 7.36 Arterial Blood Partial 22 33 Pressure CO2 Arterial Blood Partial 223 201 Pressure O2 Arterial Blood Oxygen Content 14.6 15.6 Arterial Blood 1.9 2.0 Carboxyhemoglobin Arterial Blood Methemoglobin 1.0 1.1 Blood Gas Hemoglobin 10.4 11.2 Oxygen Delivery Device PT IN OR O.R. ABG Blood Gas Inspired Oxygen 30 Hemoglobin 10.3 11.3 Hematocrit 31.3 34.1 Sodium Level 141 Potassium Level 4.2 Chloride Level 108 Carbon Dioxide Level 21.6 Anion Gap 11 Blood Urea Nitrogen 15 Creatinine 1.23 Estimat Glomerular Filtration 43 Rate Random Glucose 382 Calcium Level 8.6 Total Bilirubin 0.8 Aspartate Amino Transf 25 (AST/SGOT) Alanine Aminotransferase 14 (ALT/SGPT) Alkaline Phosphatase 87 Troponin I 3.69 Total Protein 6.3 Albumin 2.6 Triglycerides Level 103 Cholesterol Level 160 LDL Cholesterol 103 HDL Cholesterol 36.4 Cholesterol/HDL Ratio 4.39 Test 01/27/17 01/27/17 01/27/17 01/28/17 18:00 18:25 22:31 00:00 Sodium Level 144 149 Serum Osmolality 318 311 Blood Gas Puncture Site ART LINE Blood Gas Patient Temperature 98.6 Blood Gas HCO3 21 Blood Gas Base Excess -2.6 Blood Gas Oxygen Saturation 95 Arterial Blood pH 7.40 Arterial Blood Partial 35 Pressure CO2 Arterial Blood Partial 99 Pressure O2 Arterial Blood Oxygen Content 24.4 Arterial Blood 1.5 Carboxyhemoglobin Arterial Blood Methemoglobin 0.7 Blood Gas Hemoglobin 18.2 Oxygen Delivery Device VENTILATOR Blood Gas Ventilator Setting PRVC18/550/0.8/+5 Blood Gas Inspired Oxygen 40 Prothrombin Time 12.0 Prothromb Time International 1.1 Ratio Fibrinogen 300 Magnesium Level 1.9 Test 01/28/17 01/28/17 04:40 08:45 White Blood Count 15.0 Red Blood Count 3.93 Hemoglobin 11.7 Hematocrit 35.8 Mean Corpuscular Volume 91.1 Mean Corpuscular Hemoglobin 29.7 Mean Corpuscular Hemoglobin 32.6 Concent Red Cell Distribution Width 13.8 Platelet Count 197 Mean Platelet Volume 10.0 Neutrophils (%) (Auto) 81.3 Lymphocytes (%) (Auto) 9.0 Monocytes (%) (Auto) 9.3 Eosinophils (%) (Auto) 0.1 Basophils (%) (Auto) 0.3 Neutrophils # (Auto) 12.2 Lymphocytes # (Auto) 1.3 Monocytes # (Auto) 1.4 Eosinophils # (Auto) 0.0 Basophils # (Auto) 0.0 CBC Comment DIFF FINAL Differential Comment Fibrinogen 330 Sodium Level 149 150 Potassium Level 3.8 Chloride Level 114 Carbon Dioxide Level 24.6 Anion Gap 10 Blood Urea Nitrogen 13 Creatinine 1.17 Estimat Glomerular Filtration 45 Rate Random Glucose 144 Calcium Level 8.3 Serum Osmolality 317 Date/Time Procedure Status Source Growth 01/27/17 00:00 Gram Stain - Final Resulted Cerebral Spinal Fluid Shunt Fluid 01/27/17 00:00 CSF Culture - Preliminary Resulted Cerebral Spinal Fluid Shunt Fluid NO GROWTH IN 24 HOURS. 01/27/17 00:00 Fungal Smear Received Cerebral Spinal Fluid Shunt Fluid Pending 01/27/17 00:00 Fungal Culture Received Cerebral Spinal Fluid Shunt Fluid Pending 01/27/17 00:00 Acid Fast Stain Received Cerebral Spinal Fluid Shunt Fluid Pending 01/27/17 00:00 Mycobacterial Culture Received Cerebral Spinal Fluid Shunt Fluid Pending 01/26/17 16:45 Urine Culture - Final Complete Urine Catheterized Urine Escherichia Coli Viridans Streptococcus Grp Walker Slater PhD Jan 28, 2017 10:31
[2017-01-28] MEDS: 3% SALINE INJ 500 ML IV SCH (11:08)
--- NOTE | 2017-01-28 13:12 | MB ---
cc: CORIN BARRIOS DATE OF CONSULTATION: January 28, 2017 REASON FOR CONSULTATION Elevated troponins. HISTORY OF PRESENT ILLNESS 76-year-old female without past medical history significant for atrial fibrillation on no oral anticoagulation, diabetes type 2, hypothyroidism, diabetes, hypertension, that presented through the emergency department as a stroke, alert, according to the chart the patients grandson called the EMS because the patient was disoriented with a rightward gaze and left sided hemiparesis. She was brought into the emergency department. She was seen by a neurologist who recommended TPA. Unfortunately her the clinical status was uncomplicated with a large right-sided hemorrhage with a transtentorial herniation brain stem compression. She was taken to the OR emergently for decompression. Cardiology consulted given the patient's blood work revealed elevated troponins in the range of three. EKG shows atrial fibrillation with no acute ST changes. REVIEW OF SYSTEMS Unobtainable. PAST MEDICAL HISTORY 1. Hypertension. 2. Diabetes. 3. Atrial fibrillation 4. Hypothyroidism. 5. AV dysfunction with an ejection fraction of 20%. PAST SURGICAL HISTORY None CARDIAC HOME MEDICATIONS: Aspirin 325 mg p.o. daily Daily diltiazem 120 mg p.o. q.i.d. Metoprolol 25 mg p.o. b.i.d. ALLERGIES SULFA FAMILY HISTORY Unobtainable. SOCIAL HISTORY Unobtainable. PHYSICAL EXAMINATION: VITAL SIGNS: Temperature 99, heart rate 90, respiratory rate 18, blood pressure 126/62, O2 sat 100% and 45 FIO2. IN GENERAL: She is intubated, sedated. In no acute distress. NECK: No JVD, no carotid bruits. HEART: Irregularly no murmurs, rubs or gallops ABDOMEN: Soft, nontender, nondistended. Positive bowel sounds. EXTREMITIES: No cyanosis, edema. Pulses throughout. DATA CBC hemoglobin 11, hematocrit 35, platelet count 197, INR 1.1. Chemistries sodium 149, potassium 3.8, chloride 104 114, BUN 13, creatinine 1.1 , hemoglobin A1c 10.9, troponin 0.32 0.5 3.69. EKG atrial fibrillation with nonspecific ST changes. Echocardiogram shows an ejection fraction of 20% with diffuse global hypokineses. ASSESSMENT/PLAN 76-year-old female critically ill with chronic atrial fibrillation on no oral anticoagulation presented with an acute stroke, complicated with hemorrhage after tPA was given. Overall prognosis poor. She has a low grade fever and remains hemodynamically stable. Telemetry shows a atrial fibrillation with adequate ventricular response. Troponin elevation likely due to CVA/neurologic pathology vs. ACS. Given recent history of bleeding she is not a candidate for dual antiplatelet or anticoagulation or any invasive cardiac management, such has the left heart catheterization/PCI. Recommendations: 1. Continue her aggressive medical management for her coronary artery disease with beta-blockers, statins and KARI inhibitors as tolerated by blood pressure and heart rate. 2. Strict I&O 3. Daily weight 4. Cardiac diet Thank you for the opportunity to take part in the care of this patient. Sign off MD ADRIAN Han/kulwinder /10:56 AM /12:20 PM RADHA
--- NOTE | 2017-01-28 13:22 | HHI.NSPN ---
(Lakeisha Olson) Note Status Status: Progress Note (Lakeisha Olson) Interval History Interval History This is a 76-year-old female with history of atrial fibrillation, hypertension, hypothyroidism, type 2 diabetes who was brought to the emergency department as a stroke alert. Apparently grandson called EMS as the patient was found to be disoriented. EMS noted that patient had rightward gaze, with Left hemiparesis. A stroke alert was initiated. 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 After discussion Dr. Slater, TPA was initiated. Today she became comatose. Follow up CT showed a large cerebellar hemorrhage. She underwent emergent posterior fossa craniectomy with evacuation of cerebellar hematoma, and placement of ventriculostomy drain on 01/27/17. 01/28: POD 1, intubated and sedated. Ventriculostomy draining well, withdraws x 4 extremities (Lakeisha Olson) Labs, Micro, & Vital Signs Results Date Time Temp Pulse Resp B/P Pulse Ox O2 Delivery O2 Flow Rate FiO2 01/28/17 12:42 94 40 01/28/17 10:00 99 01/28/17 08:00 98.4 104 18 136/66 98 01/28/17 08:00 97 40 01/28/17 08:00 114 01/28/17 07:00 100 Mechanical Ventilator 2.00 40 01/28/17 06:00 75 01/28/17 04:56 98 40 01/28/17 04:00 108 01/28/17 04:00 99.0 108 18 126/62 100 01/28/17 02:04 18 01/28/17 02:00 112 01/28/17 01:08 98 40 01/28/17 00:00 124 01/28/17 00:00 99.0 124 18 136/64 100 01/27/17 22:00 124 01/27/17 21:06 98 40 01/27/17 20:00 128 01/27/17 20:00 99.0 128 18 150/76 100 01/27/17 19:00 Mechanical Ventilator 01/27/17 18:10 111 01/27/17 18:10 99.5 100 18 112/56 100 01/27/17 18:05 99 40 01/28/17 07:00 Intake Total 1463 ml Output Total 2465 ml Balance -1002 ml Constitutional Vital Signs Date Time Temp Pulse Resp B/P Pulse Ox O2 Delivery O2 Flow Rate FiO2 01/28/17 12:42 94 40 01/28/17 10:00 99 01/28/17 08:00 98.4 104 18 136/66 98 01/28/17 08:00 97 40 01/28/17 08:00 114 01/28/17 07:00 100 Mechanical Ventilator 2.00 40 01/28/17 06:00 75 01/28/17 04:56 98 40 01/28/17 04:00 108 01/28/17 04:00 99.0 108 18 126/62 100 01/28/17 02:04 18 01/28/17 02:00 112 01/28/17 01:08 98 40 01/28/17 00:00 124 01/28/17 00:00 99.0 124 18 136/64 100 01/27/17 22:00 124 01/27/17 21:06 98 40 01/27/17 20:00 128 01/27/17 20:00 99.0 128 18 150/76 100 01/27/17 19:00 Mechanical Ventilator 01/27/17 18:10 111 01/27/17 18:10 99.5 100 18 112/56 100 01/27/17 18:05 99 40 01/28/17 07:00 Intake Total 1463 ml Output Total 2465 ml Balance -1002 ml (Lakeisha Olson) Review of Systems/Exam Exam Ms. Mcclure is intubated and sedated. Surgical wound with clean and dry dressing. Right ventriculostomy drain in place with blood tinged CSF. Cranial Nerves: Pupils 3-4 mm bilaterally reactive. Eyes appear conjugated. Motor: patient withdraws to local stimuli x all 4 extremities Reflexes: bilateral Babinski response Sensory: response to painful stimuli, localizing with both upper and lower extremities. Cerebellar: Examination cannot be adequately assessed due to the patient's neurological condition. (Lakeisha Olson) Medications Current Medications Current Medications Medications (Trade) Dose Ordered Sig/Calixto Route PRN Reason Start Time Stop Time Status Last Admin Dose Admin Magnesium Oxide 800 mg 800 mg UNSCH PRN PO For Magnesium 1.2 - 1.6 mg/dL 01/26/17 16:15 Magnesium Sulfate 4 gm/Sodium Chloride 100 ml @ 50 mls/hr UNSCH PRN IV For Magnesium 0.9 - 1.1 mg/dL 01/26/17 16:15 Magnesium Sulfate 2 gm/Sodium Chloride 100 ml @ 50 mls/hr UNSCH PRN IV For Magnesium 1.2 - 1.6 mg/dL 01/26/17 16:15 Potassium Chloride 100 ml @ 50 mls/hr Q2H PRN IV For Potassium 2.8 - 3.2 mEq/L 01/26/17 16:15 Potassium Chloride 100 ml @ 50 mls/hr Q2H PRN IV For Potassium 3.3 - 3.5 mEq/L 01/26/17 16:15 Potassium Chloride 100 ml @ 50 mls/hr Q2H PRN IV For Potassium 2.8 - 3.2 mEq/L 01/26/17 16:15 Potassium Chloride (KCl 40 Meq Premix Inj) 100 ml @ 25 mls/hr UNSCH PRN IV For Potassium 3.3 - 3.5 mEq/L 01/26/17 16:15 Potassium Phosphate (K-Phos) 2,000 mg Q4H PRN PO For Phosphorus < 2.5 mg/dL 01/26/17 16:15 Potassium Phosphate 2000 mg 2,000 mg UNSCH PRN PO/TUBE SEE LABEL COMMENTS 01/26/17 16:15 Potassium Phosphate 30 mmol/ Sodium Chloride 260 ml @ 42 mls/hr UNSCH PRN IV SEE LABEL COMMENTS 01/26/17 16:15 Sodium Phosphate/ Sodium Chloride (Sodium Phosphate Inj/NS 250 ml Inj) 250 ml @ 42 mls/hr UNSCH PRN IV For Phosphorus < 2.5 mg/dL 01/26/17 16:15 Dextrose (D50w (Vial) Inj) 25 ml UNSCH PRN IV PUSH HYPOGLYCEMIA-SEE COMMENTS 01/26/17 16:15 Labetalol HCl 10 mg 10 mg Q4H PRN IV PUSH SYS BP GREATER THAN 180 MMHG 01/26/17 16:45 01/28/17 09:55 Diltiazem HCl/ Sodium Chloride (Cardizem Inj/NS Inj) 125 ml @ 0 mls/hr TITRATE IV 01/26/17 19:00 01/28/17 06:49 Insulin Detemir 10 units 10 units Q12HR SQ 01/27/17 09:00 01/28/17 09:35 Norepinephrine Bitartrate (Levophed-Dextrose Drip) 250 ml @ 0 mls/hr TITRATE IV 01/27/17 12:00 01/27/17 18:10 Terbutaline Sulfate 1 mg 1 mg UNSCH PRN SQ For Extravasation 01/27/17 11:15 Potassium Chloride/Sodium Chloride (NS + KCl 20 Meq Inj) 1,000 ml @ 100 mls/hr Q10H IV 01/27/17 12:39 01/28/17 10:13 IV Flush (NS Flush) 2 ml UNSCH PRN IVF FLUSH AFTER USING IV ACCESS 01/27/17 12:45 IV Flush 2 ml 2 ml BID IVF 01/27/17 21:00 01/28/17 08:27 Levetriacetam/ Sodium Chloride (Keppra Inj/NS Inj) 105 ml @ 400 mls/hr Q12H IV 01/27/17 18:00 01/28/17 06:24 Bisacodyl (Dulcolax Supp) 10 mg DAILY PRN RECTAL CONSTIPATION 01/27/17 12:45 Docusate Sodium (Colace) 100 mg BID PO 01/27/17 21:00 01/27/17 21:12 Pantoprazole Sodium (Protonix) 40 mg DAILY PO 01/28/17 09:00 Pantoprazole Sodium (Protonix Inj) 40 mg DAILY IVP 01/28/17 09:00 01/28/17 09:35 Ondansetron HCl (Zofran Inj) 4 mg Q6H PRN IV NAUSEA OR VOMITING 01/27/17 12:45 Calcium Gluconate (Calcium Gluconate Inj) 1 gm UNSCH PRN IV SEE LABEL COMMENTS 01/27/17 12:45 Acetaminophen/ Hydrocodone Bitart ([place] 10-325 Mg) 1 tab Q4H PRN PO PAIN SCALE 1 TO 5 01/27/17 12:45 Acetaminophen/ Hydrocodone Bitart ([place] 10-325 Mg) 2 tab Q4H PRN PO PAIN SCALE 6 TO 10 01/27/17 12:45 Morphine Sulfate (Morphine Inj) 2 mg Q2H PRN IV PUSH PAIN SCALE 1 TO 6 01/27/17 12:45 Morphine Sulfate (Morphine Inj) 4 mg Q2H PRN IV PUSH PAIN SCALE 7 TO 10 01/27/17 12:45 Acetaminophen 650 mg 650 mg Q4H PRN PO TEMPERATURE > 101.5 F 01/27/17 12:45 Ceftriaxone Sodium 2000 mg/ Sodium Chloride 100 ml @ 200 mls/hr Q24H IV 01/27/17 16:00 Propofol 100 ml @ 0 mls/hr TITRATE IV 01/27/17 16:30 Propofol (Diprivan 1000 Mg/100ml Inj) 100 ml @ 0 mls/hr TITRATE IV 01/27/17 16:30 Mannitol 25 gm 25 gm Q8H IV 01/27/17 17:00 02/03/17 16:59 Sodium Chloride 500 ml @ 30 mls/hr CONTINUOUS IV 01/27/17 17:00 01/31/17 16:59 01/28/17 11:08 Insulin Human Regular/Sodium Chloride (NovoLIN R (IV INFUSION)/NS Inj) 100 ml @ 0 mls/hr TITRATE IV 01/27/17 17:00 01/27/17 18:28 Dextrose (D50w (Vial) Inj) 50 ml UNSCH PRN IV PUSH SEE LABEL COMMENTS 01/27/17 17:00 Chlorhexidine Gluconate (Peridex 0.12% Liq) 15 ml BID@08,20 MT 01/27/17 20:00 01/28/17 08:00 Digoxin (Lanoxin Liq) 0.25 mg DAILY PO 01/29/17 09:00 Metoprolol Tartrate (Lopressor) 12.5 mg Q12HR PO 01/28/17 09:00 01/28/17 09:35 Miscellaneous (Pill Splitter) 1 ea UNSCH PRN OTHER SEE LABEL COMMENTS 01/28/17 07:45 Atorvastatin Calcium (Lipitor) 10 mg HS PO 01/28/17 21:00 Protein (Beneprotein Powder) 1 pack TID G-TUBE 01/28/17 09:00 01/28/17 13:07 Docusate Sodium (Colace Liq) 100 mg Q12HR PO 01/28/17 09:00 01/28/17 09:34 (Lakeisha Olson) Medical Decision Making MDM Remarks 76 y/o female s/p tpa for acute CVA and developed large cerebellar hematoma, s/p posterior fossa craniectomy with evacuation of cerebellar bleed and placement of ventriculostomy drain on 01/27/17 (Lakeisha Olson) Plan Plan Remarks cont ventriculostomy draining, cont critical care management nonchemical dvt prophylaxis in view of ICH protonix for stress ulcer proph cont serial neuro checks (Lakeisha Olson) Attending Statement The exam, history, and the medical decision-making described in the above note were completed with the assistance of the mid-level provider. I reviewed and agree with the findings presented. I attest that I had a [id number] encounter with the patient on the same day, and personally performed and documented my assessment and findings in the medical record. (Fred Wagoner MD) Lakeisha Olson Jan 28, 2017 13:22 Fred Wagoner MD Jan 28, 2017 18:33
[2017-01-28] MEDS: cefTRIAXone INJ 2,000 MG in SODIUM CHLORIDE 0.9% INJ 100 ML IV SCH (16:36)
[2017-01-28] MEDS: ATORVASTATIN 10 MG TAB PO SCH (21:26)
[2017-01-29] VITALS (19 sets, daily range): BP systolic 118–152; BP diastolic 59–65; PULSE 81–112; RESP 22–24; TEMP 98–100.9; O2SAT 96–100
[2017-01-29] MEDS: MANNITOL 12.5 GM/50 ML VIAL IV SCH ×2 (01:00→09:00)
--- NOTE | 2017-01-29 05:43 | RADRPT ---
EXAM DATE/TIME: 01/29/2017 04:13 [facility] COMPARISON: CHEST SINGLE AP, January 27, 2017, 11:03. INDICATIONS : Evaluate after respiratory failure. Patient remains intubated. Interval placement of nasogastric tube . MEDICAL HISTORY : Cardiovascular disease. Hypertension Diabetes mellitus type II. SURGICAL HISTORY : None. ENCOUNTER: Subsequent ACUITY: 4 - 6 days PAIN SCORE: Non-responsive. LOCATION: Bilateral chest FINDINGS: A single AP semierect view of the chest was obtained and again demonstrates endotracheal tube in plac e with the tip approximately 3 cm above the pedro. There's been placement of nasogastric tube which is seen coursing through the esophagus into the stomach. The left internal jugular central venous duke e remains in place. The heart size is mildly prominent. There is mild hazy opacity at the left lung b ase. The left costophrenic angle appears mildly blunted. There is no perihilar edema. There are multi ple overlying electrocardiogram leads. CONCLUSION: 1. Hazy opacity at the left lung base with probable small left effusion. 2. Mild cardiomegaly with no perihilar edema. 3. Interval placement of nasogastric tube. Luis Seth MD on January 29, 2017 at 5:40 Board Certified Radiologist. This report was verified electronically.
[2017-01-29 05:56] LABS: AUTOMATED NEUTROPHIL # 14.6 TH/MM3 (1.8-7.7); BASOPHIL # 0.1 TH/MM3 (0-0.2); BASOPHIL % 0.4 % (0.0-2.0); HEMATOCRIT 33.5 % (35.0-46.0); HEMO FLAGS DIFF FINAL; LYMPH % 6.4 % (9.0-44.0); LYMPHOCYTE # 1.1 TH/MM3 (1.0-4.8); MEAN CELL VOLUME 92.5 FL (80.0-100.0); MEAN CORPUSCULAR HEMOGLOBIN 29.7 PG (27.0-34.0); MEAN CORPUSCULAR HGB CONC 32.1 % (32.0-36.0); MONO % 9.9 % (0.0-8.0); NEUT % 83.3 % (16.0-70.0); PLATELET COUNT 179 TH/MM3 (150-450); RED BLOOD COUNT 3.62 MIL/MM3 (4.00-5.30); RED CELL DISTRIBUTION WIDTH 14.6 % (11.6-17.2); WHITE BLOOD COUNT 17.6 TH/MM3 (4.0-11.0)
[2017-01-29] MEDS: NS + KCL 20 MEQ INJ 1,000 ML IV SCH ×3 (06:14→20:57)
[2017-01-29] MEDS: levETIRAcetam INJ 500 MG in SODIUM CHLORIDE 0.9% INJ 100 ML IV SCH ×2 (06:14→17:39)
[2017-01-29] MEDS: INSULIN ASPART SUPPLEMENTAL SCALE SQ SCH ×4 (06:40→20:56)
[2017-01-29] MEDS: CHLORHEXIDINE 0.12% (ORAL KIT) 15 ML CUP MT SCH ×2 (08:00→20:00)
[2017-01-29] MEDS: SODIUM CHLORIDE 0.9% FLUSH 5 ML FLUSH IVF SCH ×2 (09:00→20:53)
[2017-01-29] MEDS: BENEPROTEIN POWDER 1 PACK G-TUBE SCH ×3 (09:00→17:39)
[2017-01-29] MEDS: PANTOPRAZOLE SOD 40 MG DELAYED RELEASE TAB PO SCH (09:00)
[2017-01-29] MEDS: DOCUSATE SODIUM 100 MG CAP PO SCH ×2 (09:00→20:53)
--- NOTE | 2017-01-29 09:13 | HHI.NSPN ---
(Anshu Casey) History Chief Complaint: ICH (Anshu Casey) Interval History This is a 76-year-old female with history of atrial fibrillation, hypertension, hypothyroidism, type 2 diabetes who was brought to the emergency department as a stroke alert. Apparently grandson called EMS as the patient was found to be disoriented. EMS noted that patient had rightward gaze, with Left hemiparesis. A stroke alert was initiated. 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 After discussion Dr. Slater, TPA was initiated. Today she became comatose. Follow up CT showed a large cerebellar hemorrhage. She underwent emergent posterior fossa craniectomy with evacuation of cerebellar hematoma, and placement of ventriculostomy drain on 01/27/17. 01/28: POD 1, intubated and sedated. Ventriculostomy draining well, withdraws x 4 extremities 01/29: POD 2. Not opening eyes or following commands. Pupils 4mm bilaterally reactive bilaterally. Ventriculostomy in place at 3cm H20 draining blood tinged CSF. (Anshu Casey) System Review Comments Not able to obtain given clinical condition. (Anshu Casey) Exam Results Vital Signs Date Time Temp Pulse Resp B/P Pulse Ox O2 Delivery O2 Flow Rate FiO2 01/29/17 08:44 99 35 01/29/17 08:44 Ventilator 01/29/17 06:00 102 01/29/17 04:00 99.2 22 133/59 01/28/17 07:00 2.00 Intake and Output 01/28/17 01/28/17 01/29/17 08:00 16:00 00:00 Intake Total 813 ml 1713 ml 1240 ml Output Total 403 ml 620 ml 865 ml Balance 410 ml 1093 ml 375 ml (Anshu Casey) Physical Examination Resp: CTA bilaterally. Pressure control rate 18. FiO2 35%. PEEP 5. Heart: Normal sinus rhythm. Patient on Cardizem drip. Abd: Soft positive bs Skin: Incision dry. Muscle: Not following commands for muscle testing. Neuro: Patient not opening eyes. Pupils 4 mm bilaterally. Reactive bilaterally. Not following commands. Ventriculostomy drain in place at 3 cm of water draining blood-tinged CSF. (Anshu Casey) Lab, Micro, Other Results Last Impressions Chest X-Ray 01/29/17 0600 Signed Impressions: Service Date/Time: Sunday, January 29, 2017 04:13 - CONCLUSION: 1. Hazy opacity at the left lung base with probable small left effusion. 2. Mild cardiomegaly with no perihilar edema. 3. Interval placement of nasogastric tube. Luis Seth MD Head CT 01/27/17 0000 Signed Impressions: Service Date/Time: January 09:57 - CONCLUSION: Multiple new findings compared to CT brain 01/26/17 including a large (4.4 cm) cerebellar hematoma causing transtentorial herniation and significant impression on the brainstem down to the the foramen magnum, bilateral supratentorial subarachnoid hemorrhage, and a new nonhemorrhagic infarction involving the anterior two thirds of the right sylvian region. The findings have been called to the patient's nurse. Reginald Loza MD Neck CTA 01/26/17 1515 Signed Impressions: Service Date/Time: Thursday, January 26, 2017 17:04 - CONCLUSION: 1. 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 2. Moderate grade stenosis in the origin of the left internal carotid. 3. Diminutive right vertebral which terminates in a PICA. Luis Seth MD Head CTA 01/26/17 1515 Signed Impressions: Service Date/Time: Thursday, January 26, 2017 17:04 - CONCLUSION: 1. 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 There is limited reconstitution of the right middle cerebral circulation via the anterior communicating artery. The reconstituted segment of right middle cerebral is small in caliber. There is some irregularity of the M1 segment suggesting there may be some embolic disease within the M1 segment however, the lack of flow within this limits the evaluation. 2. The remainder of the intracranial circulation is widely patent. Jt Caballero MD Laboratory Tests Test 01/28/17 01/28/17 01/28/17 01/28/17 10:45 14:15 16:45 23:10 Fibrinogen 382 mg/dL 413 mg/dL 413 mg/dL Sodium Level 152 MEQ/L Serum Osmolality 320 MOSM/KG Test 01/29/17 01/29/17 00:55 05:35 Sodium Level 152 MEQ/L Serum Osmolality 331 MOSM/KG White Blood Count 17.6 TH/MM3 Red Blood Count 3.62 MIL/MM3 Hemoglobin 10.8 GM/DL Hematocrit 33.5 % Mean Corpuscular Volume 92.5 FL Mean Corpuscular Hemoglobin 29.7 PG Mean Corpuscular Hemoglobin 32.1 % Concent Red Cell Distribution Width 14.6 % Platelet Count 179 TH/MM3 Mean Platelet Volume 10.3 FL Neutrophils (%) (Auto) 83.3 % Lymphocytes (%) (Auto) 6.4 % Monocytes (%) (Auto) 9.9 % Eosinophils (%) (Auto) 0.0 % Basophils (%) (Auto) 0.4 % Neutrophils # (Auto) 14.6 TH/MM3 Lymphocytes # (Auto) 1.1 TH/MM3 Monocytes # (Auto) 1.7 TH/MM3 Eosinophils # (Auto) 0.0 TH/MM3 Basophils # (Auto) 0.1 TH/MM3 CBC Comment DIFF FINAL Differential Comment 01/28/17 01/28/17 01/29/17 15:00 23:00 07:00 Intake Total 1713 ml 1240 ml 1410 ml Output Total 620 ml 865 ml 850 ml Balance 1093 ml 375 ml 560 ml Intake Oral 0 ml 0 ml 0 ml IV Total 1522 ml 980 ml 1150 ml Tube Feeding 191 ml 200 ml 200 ml Other 60 ml 60 ml Output Urine Total 550 ml 850 ml 850 ml Stool Total 0 ml 0 ml Drainage Total 70 ml 15 ml # Bowel Movements 0 (Anshu Casey) Medical Decision Making Impression and Plan A: 76 y/o female s/p tpa for acute CVA and developed large cerebellar hematoma , s/p posterior fossa craniectomy with evacuation of cerebellar bleed and placement of ventriculostomy drain on 01/27/17 Plan Plan Plan Remarks cont ventriculostomy draining, cont critical care management nonchemical dvt prophylaxis in view of ICH protonix for stress ulcer proph cont serial neuro checks (Anshu Casey) Attending Statement The exam, history, and the medical decision-making described in the above note were completed with the assistance of the mid-level provider. I reviewed and agree with the findings presented. I attest that I had a [id number] encounter with the patient on the same day, and personally performed and documented my assessment and findings in the medical record. ICPs normal with the ventriculostomy draining. Neurologic exam remains very poor. Continue with supportive care. (Eric Craven MD) Anshu Casey Jan 29, 2017 09:13 Eric Craven MD Jan 29, 2017 11:12
[2017-01-29] MEDS: PANTOPRAZOLE SODIUM 40 MG VIAL IVP SCH (09:21)
[2017-01-29] MEDS: METOPROLOL TARTRATE 25 MG TAB PO SCH ×2 (09:21→20:54)
--- NOTE | 2017-01-29 09:27 | HHI.CCPN ---
Subjective Remarks/Hospital Course 76-year-old female with history of atrial fibrillation, hypertension, hypothyroidism, type 2 diabetes who was brought to the emergency department as a stroke alert. Apparently grandson called EMS as the patient was found to be disoriented. EMS noted that patient had rightward gaze, with Left hemiparesis and stroke alert was initiated. Last seen normal at around 2:10 PM, per grandson. 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 After discussion Dr. Slater, TPA was initiated. I evaluated the patient in ED. she somnolent but wakes up easily, she states that she is unable to open her right eye opens left eye. Has obvious left facial droop and left hemiparesis, but now she is able to move LLE. Speech is clear 01/27: Patient more somnolent, hard to wake up (RN states she was more awake 2 huors ago). Remains in A fib with RVR, CTA neck shows complete R common, internal and ext carotid occlusion. Moderate L ICA stenosis. Vascular surgery Dr. Juarez consulted. remains hyperglycemic (gluc 371) without DKA. 01/28: Stat CT 01/27 for AMS showed new large right cerebellar hemorrhage with transtentorial herniation and brain stem compression, bilateral SAH, infarct right MCA territory. Dr. Wagoner emergently consulted, patient underwent suboccipital decompressive craniotomy and ventriculostomy placement. ICP well controlled overnight. Pupils reactive. Withdraws x4. troponin increased to 3.7. LVEF severely reduced, less than 20%. Diffuse global hypokinesis. Mild-to- moderate mitral valve regurgitation, moderate tricuspid valve regurgitation 6/10 mins unresponsive, severe cardiomyopathy on ultrasound, consult palliative care Objective Vital Signs Date Time Temp Pulse Resp B/P Pulse Ox O2 Delivery O2 Flow Rate FiO2 01/29/17 08:44 99 35 01/29/17 08:44 Ventilator 01/29/17 06:00 102 01/29/17 04:00 99.2 22 133/59 01/28/17 07:00 2.00 Intake and Output 01/28/17 01/28/17 01/28/17 07:59 15:59 23:59 Intake Total 813 ml 1713 ml 1240 ml Output Total 403 ml 620 ml 865 ml Balance 410 ml 1093 ml 375 ml Result Diagram: 01/29/17 0535 01/29/17 0055 Other Results Microbiology Date/Time Procedure Status Source Growth 01/26/17 16:45 Urine Culture - Final Complete Urine Catheterized Urine Escherichia Coli Viridans Streptococcus Grp Imaging CT head shows no acute findings positive right cerebellar encephalomalacia indicating previous stroke Objective Remarks Propofol on standby Levophed on standby Cardizem gtt 3% Saline at 30 ml per hour NS at 100 ml per hour GENERAL: 76-year-old white female patient who is intubated not ion sedation SKIN: Skin warm and dry HEAD: Atraumatic. Normocephalic. EVD with clear CSF drainage, ICP 1-3 EYES: R pupil 5, L 4, reactive. No scleral icterus. ENT: No nasal bleeding or discharge. Orotracheally intubated NECK: Trachea midline. No JVD. CARDIOVASCULAR: Tachycardic and irregularly irregular. No murmurs RESPIRATORY: ACV. Breath sounds equal bilaterally. GASTROINTESTINAL: Abdomen soft, non-tender, nondistended. Hepatic and splenic margins not palpable. MUSCULOSKELETAL: No obvious deformities. No clubbing. No cyanosis. No edema. NEUROLOGICAL: Patient is more somnolent, hard to wake up. But opens eyes to sternal rub and follows commands on R upper and lower extremities after multiple requests. Left facial droop persists, left hemiplegia persists, unable to asses muscle strength Date of Insertion: Jan 27, 2017 Side: Left Location: Internal, Jugular A/P Assessment and Plan NEURO: Acute post TPA cerebellar hemorrhage with brainstem compression, transtentorial herniation, SAH Status post emergent suboccipital craniotomy and ventriculostomy placement by Dr Wagoner Acute right MCA stroke Acute encephalopathy Previous cerebellar stroke - Post TPA Patient bled into the previous cerebellar stroke - s/p emergent suboccipital craniotomy and ventriculostomy placement by Dr Wagoner - Optimized hyperosmolar therapy with 3% saline and mannitol - Good ICP control. Maintain CPP 60-70 - Head of bed elevation to 45 - Maintain normal temp, Keep PCO2 35 - Not requiring sedation at this time. use propofol as needed - Supplement B12 level 383, supplement. TSH normal - Brainstem hematoma, with poor prognosis, also severe cardiomyopathy precludes any rehabilitation. Will consult palliative care. RESP: Acute respiratory failure -Intubated for airway protection 01/27. -Continue ACV, Vent bundle, Duoneb q6 and PRN -Does not meet SBT criteria, no weaning until neurologically improved CV: NSTEMI Cardiomyopathy with ejection fraction less than 20% Atrial fibrillation with rapid ventricular response Bilateral carotid stenosis Hypertensive emergency -CTA neck shows complete R common, internal and ext carotid occlusion. Moderate L ICA stenosis. Vascular surgery Dr. Juarez consulted-no intervention -Target systolic blood pressure less than 140 -Normal saline IV fluids 100 ml per hour, 3% Saline at 30 ml per hour -Cardiology consult for NSTEMI and Cardiomyopathy. Not a candidate for antiplatelet therapy, or cardiac catheterization at this time -A. fib rate controlled with Cardizem infusion and IV digoxin. Start beta dwaine 12.5 every 12 hours with holding parameters, start KARI I if BP can tolerate -Levophed off -Continue Lipitor daily at bedtime -Cardene, IV labetalol when necessary to keep systolic blood pressure less than 140 GI: -Nothing by mouth, start tube feeds (Glucerna) if CT head stable -IV Protonix -Bowel regimen : -Monitor renal function closely. Small catheter. ID: -Monitor for infection. No indication for antibiotics at this time HEME: -Monitor CBC, CMP, coags and fibrinogen level per protocol -Received cryoprecipitate and FFP post bleed -Fibrinogen level 330 today. Platelet INR normal ENDO: Type 2 diabetes with hyperglycemia -Wean to DC IV insulin -Resume Sliding-scale, Levemir 10 U q12, and insulin -Electrolyte replacement protocol PROPH: -Bilateral lower extremity SCDs. Chemical DVT prophylaxis contraindicated. IV Protonix LINES: -Central line art line palced 01/27/17 CC time 35 min Heriberto Lang MD Jan 29, 2017 09:26
[2017-01-29] MEDS: DOCUSATE SODIUM 100 MG/10 ML UDC PO SCH ×2 (09:28→20:53)
[2017-01-29] MEDS: DIGOXIN SOLUTION 0.125 MG/2.5 ML CUP PO SCH (09:28)
[2017-01-29] MEDS: INSULIN DETEMIR 100 UNITS/ML VIAL SQ SCH ×2 (09:30→20:55)
[2017-01-29] MEDS: cefTRIAXone INJ 2,000 MG in SODIUM CHLORIDE 0.9% INJ 100 ML IV SCH (15:27)
--- NOTE | 2017-01-29 15:55 | HHI.PR ---
Review/Management Diagnosis right MCA CVA, s/p iv TPA right carotid occlusion right cerebellar hemorrhage with mass effect and bilateral SAH. Plan continuje supportive care Diagnosis/Plan: Subjective Subjective Comments No acute events reported Active Medications Current Medications Medications (Trade) Dose Ordered Sig/Calixto Route Start Time Stop Time Status Last Admin Magnesium Oxide 800 mg 800 mg UNSCH PRN PO 01/26/17 16:15 Magnesium Sulfate 4 gm/Sodium Chloride 100 ml @ 50 mls/hr UNSCH PRN IV 01/26/17 16:15 Magnesium Sulfate 2 gm/Sodium Chloride 100 ml @ 50 mls/hr UNSCH PRN IV 01/26/17 16:15 Potassium Chloride 100 ml @ 50 mls/hr Q2H PRN IV 01/26/17 16:15 Potassium Chloride 100 ml @ 50 mls/hr Q2H PRN IV 01/26/17 16:15 Potassium Chloride 100 ml @ 50 mls/hr Q2H PRN IV 01/26/17 16:15 (KCl 40 Meq Premix Inj) 100 ml @ 25 mls/hr UNSCH PRN IV 01/26/17 16:15 (K-Phos) 2,000 mg Q4H PRN PO 01/26/17 16:15 Potassium Phosphate 2000 mg 2,000 mg UNSCH PRN PO/TUBE 01/26/17 16:15 Potassium Phosphate 30 mmol/ Sodium Chloride 260 ml @ 42 mls/hr UNSCH PRN IV 01/26/17 16:15 (Sodium Phosphate Inj/NS 250 ml Inj) 250 ml @ 42 mls/hr UNSCH PRN IV 01/26/17 16:15 (D50w (Vial) Inj) 25 ml UNSCH PRN IV PUSH 01/26/17 16:15 Labetalol HCl 10 mg 10 mg Q4H PRN IV PUSH 01/26/17 16:45 01/28/17 09:55 (Cardizem Inj/NS Inj) 125 ml @ 0 mls/hr TITRATE IV 01/26/17 19:00 01/28/17 06:49 Insulin Detemir 10 units 10 units Q12HR SQ 01/27/17 09:00 01/29/17 09:30 (Levophed-Dextrose Drip) 250 ml @ 0 mls/hr TITRATE IV 01/27/17 12:00 01/27/17 18:10 Terbutaline Sulfate 1 mg 1 mg UNSCH PRN SQ 01/27/17 11:15 (NS + KCl 20 Meq Inj) 1,000 ml @ 100 mls/hr Q10H IV 01/27/17 12:39 01/29/17 09:35 (NS Flush) 2 ml UNSCH PRN IVF 01/27/17 12:45 IV Flush 2 ml 2 ml BID IVF 01/27/17 21:00 01/28/17 08:27 (Keppra Inj/NS Inj) 105 ml @ 400 mls/hr Q12H IV 01/27/17 18:00 01/29/17 06:14 (Dulcolax Supp) 10 mg DAILY PRN RECTAL 01/27/17 12:45 (Colace) 100 mg BID PO 01/27/17 21:00 01/27/17 21:12 (Protonix) 40 mg DAILY PO 01/28/17 09:00 (Protonix Inj) 40 mg DAILY IVP 01/28/17 09:00 01/29/17 09:21 (Zofran Inj) 4 mg Q6H PRN IV 01/27/17 12:45 (Calcium Gluconate Inj) 1 gm UNSCH PRN IV 01/27/17 12:45 ([place] 10-325 Mg) 1 tab Q4H PRN PO 01/27/17 12:45 ([place] 10-325 Mg) 2 tab Q4H PRN PO 01/27/17 12:45 (Morphine Inj) 2 mg Q2H PRN IV PUSH 01/27/17 12:45 (Morphine Inj) 4 mg Q2H PRN IV PUSH 01/27/17 12:45 Acetaminophen 650 mg 650 mg Q4H PRN PO 01/27/17 12:45 Ceftriaxone Sodium 2000 mg/ Sodium Chloride 100 ml @ 200 mls/hr Q24H IV 01/27/17 16:00 01/29/17 15:27 Propofol 100 ml @ 0 mls/hr TITRATE IV 01/27/17 16:30 Propofol 100 ml @ 0 mls/hr TITRATE IV 01/27/17 16:30 Sodium Chloride 500 ml @ 30 mls/hr CONTINUOUS IV 01/27/17 17:00 01/31/17 16:59 01/28/17 11:08 (NovoLIN R (IV INFUSION)/NS Inj) 100 ml @ 0 mls/hr TITRATE IV 01/27/17 17:00 01/27/17 18:28 (D50w (Vial) Inj) 50 ml UNSCH PRN IV PUSH 01/27/17 17:00 (Peridex 0.12% Liq) 15 ml BID@08,20 MT 01/27/17 20:00 01/29/17 08:00 (Lanoxin Liq) 0.25 mg DAILY PO 01/29/17 09:00 01/29/17 09:28 (Lopressor) 12.5 mg Q12HR PO 01/28/17 09:00 01/29/17 09:21 (Pill Splitter) 1 ea UNSCH PRN OTHER 01/28/17 07:45 (Lipitor) 10 mg HS PO 01/28/17 21:00 01/28/17 21:26 (Beneprotein Powder) 1 pack TID G-TUBE 01/28/17 09:00 01/29/17 13:00 (Colace Liq) 100 mg Q12HR PO 01/28/17 09:00 01/29/17 09:28 Allergies Allergies Coded Allergies Sulfa (Verified Allergy, Intermediate, 01/18/17) Exam I&O / VS 01/28/17 01/28/17 01/29/17 15:00 23:00 07:00 Intake Total 1713 ml 1240 ml 1410 ml Output Total 620 ml 865 ml 850 ml Balance 1093 ml 375 ml 560 ml Intake Oral 0 ml 0 ml 0 ml IV Total 1522 ml 980 ml 1150 ml Tube Feeding 191 ml 200 ml 200 ml Other 60 ml 60 ml Output Urine Total 550 ml 850 ml 850 ml Stool Total 0 ml 0 ml Drainage Total 70 ml 15 ml # Bowel Movements 0 Vital Signs Date Time Temp Pulse Resp B/P Pulse Ox O2 Delivery O2 Flow Rate FiO2 01/29/17 14:00 100 01/29/17 12:41 99 35 01/29/17 12:00 98.5 104 23 137/59 98 01/29/17 12:00 104 01/29/17 12:00 35 01/29/17 10:00 112 01/29/17 08:44 99 35 01/29/17 08:44 99 Ventilator 36 01/29/17 08:00 110 01/29/17 08:00 35 01/29/17 08:00 98.0 110 24 152/65 98 Arterial Line 01/29/17 07:00 98 Mechanical Ventilator 35 01/29/17 06:00 102 01/29/17 04:32 100 35 01/29/17 04:00 40 01/29/17 04:00 85 01/29/17 04:00 99.2 98 22 133/59 100 01/29/17 02:00 94 01/29/17 01:30 98 40 01/29/17 00:00 99.0 100 24 118/59 96 01/29/17 00:00 100 01/28/17 22:00 87 01/28/17 20:52 99 40 01/28/17 20:00 100.2 113 24 129/62 98 01/28/17 20:00 113 01/28/17 19:00 100 Mechanical Ventilator 50 01/28/17 18:00 112 01/28/17 16:00 99 01/28/17 16:00 99.1 96 18 120/72 99 Exam Comments nonresponsive pupils 3mm min reactive. Motor--no spontaneous limb movement. but does withdraw BLE to stimuli . occasional body die maker Right hand Objective Micro and Labs Laboratory Tests Test 01/28/17 01/28/17 01/29/17 01/29/17 16:45 23:10 00:55 05:35 Sodium Level 152 152 Serum Osmolality 320 331 Fibrinogen 413 White Blood Count 17.6 Red Blood Count 3.62 Hemoglobin 10.8 Hematocrit 33.5 Mean Corpuscular Volume 92.5 Mean Corpuscular Hemoglobin 29.7 Mean Corpuscular Hemoglobin 32.1 Concent Red Cell Distribution Width 14.6 Platelet Count 179 Mean Platelet Volume 10.3 Neutrophils (%) (Auto) 83.3 Lymphocytes (%) (Auto) 6.4 Monocytes (%) (Auto) 9.9 Eosinophils (%) (Auto) 0.0 Basophils (%) (Auto) 0.4 Neutrophils # (Auto) 14.6 Lymphocytes # (Auto) 1.1 Monocytes # (Auto) 1.7 Eosinophils # (Auto) 0.0 Basophils # (Auto) 0.1 CBC Comment DIFF FINAL Differential Comment Test 01/29/17 12:24 Sodium Level 154 Serum Osmolality 345 Date/Time Procedure Status Source Growth 01/27/17 00:00 Gram Stain - Final Resulted Cerebral Spinal Fluid Shunt Fluid 01/27/17 00:00 CSF Culture - Preliminary Resulted Cerebral Spinal Fluid Shunt Fluid NO GROWTH IN 48 HOURS. 01/27/17 00:00 Fungal Smear - Final Resulted Cerebral Spinal Fluid Shunt Fluid NO FUNGAL ELEMENTS SEEN. 01/27/17 00:00 Fungal Culture Resulted Cerebral Spinal Fluid Shunt Fluid Pending 01/27/17 00:00 Acid Fast Stain - Final Resulted Cerebral Spinal Fluid Shunt Fluid NO ACID FAST BACILLI SEEN 01/27/17 00:00 Mycobacterial Culture Resulted Cerebral Spinal Fluid Shunt Fluid Pending 01/26/17 16:45 Urine Culture - Final Complete Urine Catheterized Urine Escherichia Coli Viridans Streptococcus Grp Walker Slater PhD Jan 29, 2017 15:55
[2017-01-29] MEDS: DILTIAZEM INJ 125 MG in SODIUM CHLORIDE 0.9% INJ 100 ML IV SCH (16:38)
[2017-01-29 18:05] LABS: ALKALINE PHOSPHATASE 104 U/L (45-117); ALT (GPT) 24 U/L (10-53); ANION GAP 10 MEQ/L (5-15); AST (GOT) 22 U/L (15-37); BICARBONATE 21.9 MEQ/L (21.0-32.0); BLOOD UREA NITROGEN 19 MG/DL (7-18); CHLORIDE 123 MEQ/L (98-107); DIGOXIN 0.9 NG/ML (0.8-2.0); GLOMERULAR FILTRATION RATE 56 ML/MIN (>89); MAGNESIUM 2.3 MG/DL (1.5-2.5); POTASSIUM 3.7 MEQ/L (3.5-5.1); SODIUM (NA) 155 MEQ/L (136-145); TOTAL BILIRUBIN ADULT 0.4 MG/DL (0.2-1.0)
[2017-01-29] MEDS: ATORVASTATIN 10 MG TAB PO SCH (20:58)
[2017-01-30] VITALS (17 sets, daily range): BP systolic 102–155; BP diastolic 55–67; PULSE 74–110; RESP 19–25; TEMP 98.2–99.9; O2SAT 98–100
[2017-01-30] MEDS: DILTIAZEM INJ 125 MG in SODIUM CHLORIDE 0.9% INJ 100 ML IV SCH ×3 (01:24→15:31)
--- NOTE | 2017-01-30 04:08 | RADRPT ---
EXAM DATE/TIME: 01/30/2017 02:56 [facility] COMPARISON: CHEST SINGLE AP, January 29, 2017, 4:13. INDICATIONS : Evaluate after respiratory failure. Patient remains intubated and is cardiomegaly MEDICAL HISTORY : Cardiovascular disease. Diabetes mellitus type II. Hypertension. SURGICAL HISTORY : None. ENCOUNTER: Subsequent ACUITY: 1 week PAIN SCORE: Non-responsive. LOCATION: Bilateral chest FINDINGS: A single AP semierect view the chest was obtained and again demonstrates the endotracheal tube in kayla ce with the tip approximately 4 cm above the pedro. A nasogastric tube is seen coursing through the esophagus into the stomach and is unchanged. The heart size remains moderately enlarged. There is cheli nting of left costophrenic angle again noted. There are no confluent infiltrates or perihilar edema. There are multiple overlying electrocardiogram leads. CONCLUSION: 1. Moderate cardiomegaly with no evidence of pulmonary edema. 2. Mild blunting of left costophrenic angle most consistent with a small effusion. Luis Seth MD on January 30, 2017 at 4:05 Board Certified Radiologist. This report was verified electronically.
[2017-01-30 05:24] LABS: BLOOD GAS BASE EXCESS -0.6 mmol/L (-2-2); BLOOD GAS CARBOXYHEMOGLOBIN 1.4 % (0-4); BLOOD GAS HCO3 23 mmol/L (22-26); BLOOD GAS METHEMOGLOBIN 0.8 % (0-2); BLOOD GAS O2 HGB SATURATION 96 % (90-100); BLOOD GAS PCO2 32 mmHg (38-42); BLOOD GAS PO2 102 mmHg (61-120); CRITICAL VALUE NO; FIO2 35 %; OXYGEN DEVICE VENTILATOR; TEMP CORR TO 98.6; VENT SETTINGS PRVC/AC
[2017-01-30 05:25] LABS: DRAW SITE RT BRACHIAL; NUMBER OF ARTERIAL PUNCTURES 1; STAT NO
[2017-01-30] MEDS: levETIRAcetam INJ 500 MG in SODIUM CHLORIDE 0.9% INJ 100 ML IV SCH ×2 (05:49→17:32)
[2017-01-30 06:01] LABS: ANION GAP 9 MEQ/L (5-15); AST (GOT) 24 U/L (15-37); BICARBONATE 22.5 MEQ/L (21.0-32.0); BLOOD UREA NITROGEN 20 MG/DL (7-18); CHLORIDE 124 MEQ/L (98-107); GLOMERULAR FILTRATION RATE 62 ML/MIN (>89); MAGNESIUM 2.3 MG/DL (1.5-2.5); POTASSIUM 4.3 MEQ/L (3.5-5.1); SODIUM (NA) 155 MEQ/L (136-145)
[2017-01-30 06:02] LABS: ALT (GPT) 24 U/L (10-53)
[2017-01-30 06:04] LABS: ALKALINE PHOSPHATASE 107 U/L (45-117); TOTAL BILIRUBIN ADULT 0.4 MG/DL (0.2-1.0)
[2017-01-30 06:17] LABS: AUTOMATED NEUTROPHIL # 13.6 TH/MM3 (1.8-7.7); BASOPHIL # 0.1 TH/MM3 (0-0.2); BASOPHIL % 0.6 % (0.0-2.0); EOSINOPHIL % 0.1 % (0.0-4.0); HEMATOCRIT 33.6 % (35.0-46.0); HEMO FLAGS DIFF FINAL; LYMPHOCYTE # 1.3 TH/MM3 (1.0-4.8); MEAN CELL VOLUME 94.9 FL (80.0-100.0); MEAN CORPUSCULAR HEMOGLOBIN 29.4 PG (27.0-34.0); MEAN CORPUSCULAR HGB CONC 30.9 % (32.0-36.0); MONO % 7.8 % (0.0-8.0); NEUT % 83.5 % (16.0-70.0); PLATELET COUNT 205 TH/MM3 (150-450); RED BLOOD COUNT 3.54 MIL/MM3 (4.00-5.30); RED CELL DISTRIBUTION WIDTH 14.8 % (11.6-17.2); WHITE BLOOD COUNT 16.2 TH/MM3 (4.0-11.0)
[2017-01-30] MEDS: INSULIN ASPART SUPPLEMENTAL SCALE SQ SCH ×4 (06:38→21:43)
[2017-01-30] MEDS: CHLORHEXIDINE 0.12% (ORAL KIT) 15 ML CUP MT SCH ×2 (07:37→20:37)
--- NOTE | 2017-01-30 07:53 | HHI.NSPN ---
(Anshu Casey) History Chief Complaint: ICH (Anshu Casey) Interval History This is a 76-year-old female with history of atrial fibrillation, hypertension, hypothyroidism, type 2 diabetes who was brought to the emergency department as a stroke alert. Apparently grandson called EMS as the patient was found to be disoriented. EMS noted that patient had rightward gaze, with Left hemiparesis. A stroke alert was initiated. 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 After discussion Dr. Slater, TPA was initiated. Today she became comatose. Follow up CT showed a large cerebellar hemorrhage. She underwent emergent posterior fossa craniectomy with evacuation of cerebellar hematoma, and placement of ventriculostomy drain on 01/27/17. 01/28: POD 1, intubated and sedated. Ventriculostomy draining well, withdraws x 4 extremities 01/29: POD 2. Not opening eyes or following commands. Pupils 4mm bilaterally reactive bilaterally. Ventriculostomy in place at 3cm H20 draining blood tinged CSF. 01/30: Patient not opening eyes or following commands. Patient remains intubated. Ventriculostomy at 3 cm of water. ICP 4. (Anshu Casey) System Review Comments Not able to obtain given clinical condition. (Anshu Casey) Exam Results Vital Signs Date Time Temp Pulse Resp B/P Pulse Ox O2 Delivery O2 Flow Rate FiO2 01/30/17 06:00 98 01/30/17 04:16 99 35 01/30/17 04:00 98.7 20 112/63 01/29/17 19:00 Mechanical Ventilator 01/28/17 07:00 2.00 Intake and Output 01/29/17 01/29/17 01/30/17 08:00 16:00 00:00 Intake Total 1410 ml 2037 ml 1635 ml Output Total 850 ml 1643 ml 1130 ml Balance 560 ml 394 ml 505 ml (Anshu aCsey) Physical Examination Resp: CTA bilaterally. Pressure control rate 18. FiO2 35%. PEEP 5. Heart: Normal sinus rhythm. Patient on Cardizem drip. Abd: Soft positive bs Skin: Incision dry. Muscle: Not following commands for muscle testing, withdraws to pain and all 4 extremities. Neuro: Patient not opening eyes. R Pupil 4mm left 3mm . Reactive bilaterally. Not following commands. Ventriculostomy drain in place at 3 cm of water draining blood-tinged CSF. ICP 4. Pt on 3% NaCl. (Anshu Casey) Lab, Micro, Other Results Last Impressions Chest X-Ray 01/30/17 0600 Signed Impressions: Service Date/Time: Monday, January 30, 2017 02:56 - CONCLUSION: 1. Moderate cardiomegaly with no evidence of pulmonary edema. 2. Mild blunting of left costophrenic angle most consistent with a small effusion. Luis Seth MD Head CT 01/27/17 0000 Signed Impressions: Service Date/Time: January 09:57 - CONCLUSION: Multiple new findings compared to CT brain 01/26/17 including a large (4.4 cm) cerebellar hematoma causing transtentorial herniation and significant impression on the brainstem down to the the foramen magnum, bilateral supratentorial subarachnoid hemorrhage, and a new nonhemorrhagic infarction involving the anterior two thirds of the right sylvian region. The findings have been called to the patient's nurse. Reginald Loza MD Neck CTA 01/26/17 1515 Signed Impressions: Service Date/Time: Thursday, January 26, 2017 17:04 - CONCLUSION: 1. 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 2. Moderate grade stenosis in the origin of the left internal carotid. 3. Diminutive right vertebral which terminates in a PICA. Luis Seth MD Head CTA 01/26/17 1515 Signed Impressions: Service Date/Time: Thursday, January 26, 2017 17:04 - CONCLUSION: 1. 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 There is limited reconstitution of the right middle cerebral circulation via the anterior communicating artery. The reconstituted segment of right middle cerebral is small in caliber. There is some irregularity of the M1 segment suggesting there may be some embolic disease within the M1 segment however, the lack of flow within this limits the evaluation. 2. The remainder of the intracranial circulation is widely patent. Jt Caballero MD Laboratory Tests Test 01/29/17 01/29/17 01/30/17 01/30/17 12:24 16:57 05:01 05:30 Sodium Level 154 MEQ/L 155 MEQ/L 155 MEQ/L Serum Osmolality 345 MOSM/KG Potassium Level 3.7 MEQ/L 4.3 MEQ/L Chloride Level 123 MEQ/L 124 MEQ/L Carbon Dioxide Level 21.9 MEQ/L 22.5 MEQ/L Anion Gap 10 MEQ/L 9 MEQ/L Blood Urea Nitrogen 19 MG/DL 20 MG/DL Creatinine 0.97 MG/DL 0.89 MG/DL Estimat Glomerular Filtration 56 ML/MIN 62 ML/MIN Rate Random Glucose 301 MG/DL 312 MG/DL Calcium Level 8.3 MG/DL 7.8 MG/DL Magnesium Level 2.3 MG/DL 2.3 MG/DL Total Bilirubin 0.4 MG/DL 0.4 MG/DL Aspartate Amino Transf 22 U/L 24 U/L (AST/SGOT) Alanine Aminotransferase 24 U/L 24 U/L (ALT/SGPT) Alkaline Phosphatase 104 U/L 107 U/L Total Protein 6.5 GM/DL 6.2 GM/DL Albumin 2.2 GM/DL 2.0 GM/DL Digoxin Level 0.9 NG/ML Blood Gas Puncture Site RT BRACHIAL Blood Gas Patient Temperature 98.6 Blood Gas HCO3 23 mmol/L Blood Gas Base Excess -0.6 mmol/L Blood Gas Oxygen Saturation 96 % Arterial Blood pH 7.46 Arterial Blood Partial 32 mmHg Pressure CO2 Arterial Blood Partial 102 mmHg Pressure O2 Arterial Blood Oxygen Content 15.0 Vol % Arterial Blood 1.4 % Carboxyhemoglobin Arterial Blood Methemoglobin 0.8 % Blood Gas Hemoglobin 11.0 G/DL Oxygen Delivery Device VENTILATOR Blood Gas Ventilator Setting PRVC/AC Blood Gas Inspired Oxygen 35 % White Blood Count 16.2 TH/MM3 Red Blood Count 3.54 MIL/MM3 Hemoglobin 10.4 GM/DL Hematocrit 33.6 % Mean Corpuscular Volume 94.9 FL Mean Corpuscular Hemoglobin 29.4 PG Mean Corpuscular Hemoglobin 30.9 % Concent Red Cell Distribution Width 14.8 % Platelet Count 205 TH/MM3 Mean Platelet Volume 10.2 FL Neutrophils (%) (Auto) 83.5 % Lymphocytes (%) (Auto) 8.0 % Monocytes (%) (Auto) 7.8 % Eosinophils (%) (Auto) 0.1 % Basophils (%) (Auto) 0.6 % Neutrophils # (Auto) 13.6 TH/MM3 Lymphocytes # (Auto) 1.3 TH/MM3 Monocytes # (Auto) 1.3 TH/MM3 Eosinophils # (Auto) 0.0 TH/MM3 Basophils # (Auto) 0.1 TH/MM3 CBC Comment DIFF FINAL Differential Comment Phosphorus Level 1.5 MG/DL 01/29/17 01/29/17 01/30/17 15:00 23:00 07:00 Intake Total 2037 ml 1635 ml 1740 ml Output Total 1643 ml 1130 ml 1138 ml Balance 394 ml 505 ml 602 ml Intake Oral 0 ml 0 ml IV Total 1453 ml 1165 ml 1195 ml Tube Feeding 584 ml 350 ml 425 ml Other 120 ml 120 ml Output Urine Total 1625 ml 1130 ml 1100 ml Stool Total 0 ml Drainage Total 18 ml 38 ml # Bowel Movements 0 (Anshu Casey) Medical Decision Making Impression and Plan A: 76 y/o female s/p tpa for acute CVA and developed large cerebellar hematoma , s/p posterior fossa craniectomy with evacuation of cerebellar bleed and placement of ventriculostomy drain on 01/27/17 Plan Plan Plan Remarks cont ventriculostomy draining, cont critical care management nonchemical dvt prophylaxis in view of ICH protonix for stress ulcer proph cont serial neuro checks (Anshu Casey) Attending Statement The exam, history, and the medical decision-making described in the above note were completed with the assistance of the mid-level provider. I reviewed and agree with the findings presented. I attest that I had a [id number] encounter with the patient on the same day, and personally performed and documented my assessment and findings in the medical record. (Eric Craven MD) Anshu Casey Jan 30, 2017 07:53 Eric Craven MD Jan 30, 2017 12:00
[2017-01-30] MEDS: BENEPROTEIN POWDER 1 PACK G-TUBE SCH ×3 (08:47→17:32)
[2017-01-30] MEDS: SODIUM CHLORIDE 0.9% FLUSH 5 ML FLUSH IVF SCH ×2 (08:56→20:53)
[2017-01-30] MEDS: PANTOPRAZOLE SODIUM 40 MG VIAL IVP SCH (08:57)
[2017-01-30] MEDS: DOCUSATE SODIUM 100 MG/10 ML UDC PO SCH ×2 (08:57→20:53)
[2017-01-30] MEDS: METOPROLOL TARTRATE 25 MG TAB PO SCH ×2 (08:58→20:54)
[2017-01-30] MEDS: DIGOXIN SOLUTION 0.125 MG/2.5 ML CUP PO SCH (08:58)
[2017-01-30] MEDS: INSULIN DETEMIR 100 UNITS/ML VIAL SQ SCH ×2 (08:59→21:42)
[2017-01-30] MEDS: PANTOPRAZOLE SOD 40 MG DELAYED RELEASE TAB PO SCH (08:59)
[2017-01-30] MEDS: DOCUSATE SODIUM 100 MG CAP PO SCH ×2 (08:59→20:53)
[2017-01-30] MEDS: SODIUM PHOSPHATE INJ 30 MMOL in SODIUM CHLOR 0.9% 250 ML INJ 240 ML IV PRN (09:21)
--- NOTE | 2017-01-30 09:52 | HHI.CCPN ---
Subjective Remarks/Hospital Course 76-year-old female with history of atrial fibrillation, hypertension, hypothyroidism, type 2 diabetes who was brought to the emergency department as a stroke alert. Apparently grandson called EMS as the patient was found to be disoriented. EMS noted that patient had rightward gaze, with Left hemiparesis and stroke alert was initiated. Last seen normal at around 2:10 PM, per grandson. 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 After discussion Dr. Slater, TPA was initiated. I evaluated the patient in ED. she somnolent but wakes up easily, she states that she is unable to open her right eye opens left eye. Has obvious left facial droop and left hemiparesis, but now she is able to move LLE. Speech is clear 01/27: Patient more somnolent, hard to wake up (RN states she was more awake 2 huors ago). Remains in A fib with RVR, CTA neck shows complete R common, internal and ext carotid occlusion. Moderate L ICA stenosis. Vascular surgery Dr. Juarez consulted. remains hyperglycemic (gluc 371) without DKA. 01/28: Stat CT 01/27 for AMS showed new large right cerebellar hemorrhage with transtentorial herniation and brain stem compression, bilateral SAH, infarct right MCA territory. Dr. Wagoner emergently consulted, patient underwent suboccipital decompressive craniotomy and ventriculostomy placement. ICP well controlled overnight. Pupils reactive. Withdraws x4. troponin increased to 3.7. LVEF severely reduced, less than 20%. Diffuse global hypokinesis. Mild-to- moderate mitral valve regurgitation, moderate tricuspid valve regurgitation 6/10 mins unresponsive, severe cardiomyopathy on ultrasound, consult palliative care 01/30 no change since yesterday, patient remains unresponsive Objective Vital Signs Date Time Temp Pulse Resp B/P Pulse Ox O2 Delivery O2 Flow Rate FiO2 01/30/17 06:00 98 01/30/17 04:16 99 35 01/30/17 04:00 98.7 20 112/63 01/29/17 19:00 Mechanical Ventilator 01/28/17 07:00 2.00 Intake and Output 01/29/17 01/29/17 01/30/17 08:00 16:00 00:00 Intake Total 1410 ml 2037 ml 1635 ml Output Total 850 ml 1643 ml 1130 ml Balance 560 ml 394 ml 505 ml Result Diagram: 01/30/17 0530 01/30/17 0530 Other Results Laboratory Tests Test 01/30/17 05:01 Blood Gas Puncture Site RT BRACHIAL Blood Gas Patient Temperature 98.6 Blood Gas HCO3 23 mmol/L (22-26) Blood Gas Base Excess -0.6 mmol/L (-2-2) Blood Gas Oxygen Saturation 96 % (90-100) Arterial Blood pH 7.46 (7.380-7.420) Arterial Blood Partial 32 mmHg (38-42) Pressure CO2 Arterial Blood Partial 102 mmHg Pressure O2 (61-120) Arterial Blood Oxygen Content 15.0 Vol % (12.0-20.0) Arterial Blood 1.4 % (0-4) Carboxyhemoglobin Arterial Blood Methemoglobin 0.8 % (0-2) Blood Gas Hemoglobin 11.0 G/DL (12.0-16.0) Oxygen Delivery Device VENTILATOR Blood Gas Ventilator Setting PRVC/AC Blood Gas Inspired Oxygen 35 % Imaging CT head shows no acute findings positive right cerebellar encephalomalacia indicating previous stroke Objective Remarks Propofol on standby Levophed on standby Cardizem gtt 3% Saline at 30 ml per hour NS at 100 ml per hour GENERAL: 76-year-old white female patient who is intubated not ion sedation SKIN: Skin warm and dry HEAD: Atraumatic. Normocephalic. EVD with clear CSF drainage, ICP 1-3 EYES: R pupil 5, L 4, reactive. No scleral icterus. ENT: No nasal bleeding or discharge. Orotracheally intubated NECK: Trachea midline. No JVD. CARDIOVASCULAR: Tachycardic and irregularly irregular. No murmurs RESPIRATORY: ACV. Breath sounds equal bilaterally. GASTROINTESTINAL: Abdomen soft, non-tender, nondistended. Hepatic and splenic margins not palpable. MUSCULOSKELETAL: No obvious deformities. No clubbing. No cyanosis. No edema. NEUROLOGICAL: Patient is more somnolent, hard to wake up. But opens eyes to sternal rub and follows commands on R upper and lower extremities after multiple requests. Left facial droop persists, left hemiplegia persists, unable to asses muscle strength Date of Insertion: Jan 27, 2017 Side: Left Location: Internal, Jugular A/P Assessment and Plan NEURO: Acute post TPA cerebellar hemorrhage with brainstem compression, transtentorial herniation, SAH Status post emergent suboccipital craniotomy and ventriculostomy placement by Dr Wagoner Acute right MCA stroke Acute encephalopathy Previous cerebellar stroke - Post TPA Patient bled into the previous cerebellar stroke - s/p emergent suboccipital craniotomy and ventriculostomy placement by Dr Wagoner - Optimized hyperosmolar therapy with 3% saline and mannitol - Good ICP control. Maintain CPP 60-70 - Head of bed elevation to 45 - Maintain normal temp, Keep PCO2 35 - Off sedation - Supplement B12 level 383, supplement. TSH normal - Brainstem hematoma, with poor prognosis, also severe cardiomyopathy precludes any rehabilitation. Palliative care consult pending. RESP: Acute respiratory failure -Intubated for airway protection 01/27. -Continue ACV, Vent bundle, Duoneb q6 and PRN -Does not meet SBT criteria, no weaning until neurologically improved - If family agrees she will need a tracheostomy and PEG tube CV: NSTEMI Cardiomyopathy with ejection fraction less than 20% Atrial fibrillation with rapid ventricular response Bilateral carotid stenosis Hypertensive emergency -CTA neck shows complete R common, internal and ext carotid occlusion. Moderate L ICA stenosis. Vascular surgery Dr. Juarez consulted-no intervention -Target systolic blood pressure less than 140 -Normal saline IV fluids 100 ml per hour, 3% Saline at 30 ml per hour -Cardiology consult for NSTEMI and Cardiomyopathy. Not a candidate for antiplatelet therapy, or cardiac catheterization at this time -A. fib rate controlled with Cardizem infusion and IV digoxin. Start beta dwaine 12.5 every 12 hours with holding parameters, start KARI I if BP can tolerate -Levophed off -Continue Lipitor daily at bedtime -Cardene, IV labetalol when necessary to keep systolic blood pressure less than 140 GI: -Continue tube feeds -IV Protonix -Bowel regimen : -Monitor renal function closely. Small catheter. ID: -Monitor for infection. No indication for antibiotics at this time HEME: -Monitor CBC, CMP, coags and fibrinogen level per protocol -Received cryoprecipitate and FFP post bleed -H&H stable ENDO: Type 2 diabetes with hyperglycemia -Off insulin drip -Resume Sliding-scale, Levemir 10 U q12, and insulin -Electrolyte replacement protocol PROPH: -Bilateral lower extremity SCDs. Chemical DVT prophylaxis contraindicated. IV Protonix LINES: -Central line art line palced 01/27/17 Critical Care: The total critical care time was 35 minutes. Time to perform other separately billable procedures was not included in the critical care time. Heriberto Lang MD Jan 30, 2017 09:52
[2017-01-30] MEDS: NS + KCL 20 MEQ INJ 1,000 ML IV SCH (10:39)
--- NOTE | 2017-01-30 14:14 | HHI.PR ---
Review/Management Diagnosis right MCA CVA, s/p iv TPA right carotid occlusion right cerebellar hemorrhage with mass effect and bilateral SAH. Plan continuje supportive care Diagnosis/Plan: Subjective Subjective Comments No acute events reported Active Medications Current Medications Medications (Trade) Dose Ordered Sig/Calixto Route Start Time Stop Time Status Last Admin Magnesium Oxide 800 mg 800 mg UNSCH PRN PO 01/26/17 16:15 Magnesium Sulfate 4 gm/Sodium Chloride 100 ml @ 50 mls/hr UNSCH PRN IV 01/26/17 16:15 Magnesium Sulfate 2 gm/Sodium Chloride 100 ml @ 50 mls/hr UNSCH PRN IV 01/26/17 16:15 Potassium Chloride 100 ml @ 50 mls/hr Q2H PRN IV 01/26/17 16:15 Potassium Chloride 100 ml @ 50 mls/hr Q2H PRN IV 01/26/17 16:15 Potassium Chloride 100 ml @ 50 mls/hr Q2H PRN IV 01/26/17 16:15 (KCl 40 Meq Premix Inj) 100 ml @ 25 mls/hr UNSCH PRN IV 01/26/17 16:15 (K-Phos) 2,000 mg Q4H PRN PO 01/26/17 16:15 Potassium Phosphate 2000 mg 2,000 mg UNSCH PRN PO/TUBE 01/26/17 16:15 Potassium Phosphate 30 mmol/ Sodium Chloride 260 ml @ 42 mls/hr UNSCH PRN IV 01/26/17 16:15 (Sodium Phosphate Inj/NS 250 ml Inj) 250 ml @ 42 mls/hr UNSCH PRN IV 01/26/17 16:15 01/30/17 09:21 (D50w (Vial) Inj) 25 ml UNSCH PRN IV PUSH 01/26/17 16:15 Labetalol HCl 10 mg 10 mg Q4H PRN IV PUSH 01/26/17 16:45 01/28/17 09:55 (Cardizem Inj/NS Inj) 125 ml @ 0 mls/hr TITRATE IV 01/26/17 19:00 01/30/17 07:43 Insulin Detemir 10 units 10 units Q12HR SQ 01/27/17 09:00 01/30/17 08:59 (Levophed-Dextrose Drip) 250 ml @ 0 mls/hr TITRATE IV 01/27/17 12:00 01/27/17 18:10 Terbutaline Sulfate 1 mg 1 mg UNSCH PRN SQ 01/27/17 11:15 (NS + KCl 20 Meq Inj) 1,000 ml @ 100 mls/hr Q10H IV 01/27/17 12:39 01/30/17 10:39 (NS Flush) 2 ml UNSCH PRN IVF 01/27/17 12:45 IV Flush 2 ml 2 ml BID IVF 01/27/17 21:00 01/28/17 08:27 (Keppra Inj/NS Inj) 105 ml @ 400 mls/hr Q12H IV 01/27/17 18:00 01/30/17 05:49 (Dulcolax Supp) 10 mg DAILY PRN RECTAL 01/27/17 12:45 (Colace) 100 mg BID PO 01/27/17 21:00 01/27/17 21:12 (Protonix) 40 mg DAILY PO 01/28/17 09:00 (Protonix Inj) 40 mg DAILY IVP 01/28/17 09:00 01/30/17 08:57 (Zofran Inj) 4 mg Q6H PRN IV 01/27/17 12:45 (Calcium Gluconate Inj) 1 gm UNSCH PRN IV 01/27/17 12:45 ([place] 10-325 Mg) 1 tab Q4H PRN PO 01/27/17 12:45 ([place] 10-325 Mg) 2 tab Q4H PRN PO 01/27/17 12:45 (Morphine Inj) 2 mg Q2H PRN IV PUSH 01/27/17 12:45 (Morphine Inj) 4 mg Q2H PRN IV PUSH 01/27/17 12:45 Acetaminophen 650 mg 650 mg Q4H PRN PO 01/27/17 12:45 Ceftriaxone Sodium 2000 mg/ Sodium Chloride 100 ml @ 200 mls/hr Q24H IV 01/27/17 16:00 01/29/17 15:27 Propofol 100 ml @ 0 mls/hr TITRATE IV 01/27/17 16:30 Propofol 100 ml @ 0 mls/hr TITRATE IV 01/27/17 16:30 Sodium Chloride 500 ml @ 30 mls/hr CONTINUOUS IV 01/27/17 17:00 01/31/17 16:59 01/28/17 11:08 (NovoLIN R (IV INFUSION)/NS Inj) 100 ml @ 0 mls/hr TITRATE IV 01/27/17 17:00 01/27/17 18:28 (D50w (Vial) Inj) 50 ml UNSCH PRN IV PUSH 01/27/17 17:00 (Peridex 0.12% Liq) 15 ml BID@08,20 MT 01/27/17 20:00 01/30/17 07:37 (Lanoxin Liq) 0.25 mg DAILY PO 01/29/17 09:00 01/30/17 08:58 (Lopressor) 12.5 mg Q12HR PO 01/28/17 09:00 01/30/17 08:58 (Pill Splitter) 1 ea UNSCH PRN OTHER 01/28/17 07:45 (Lipitor) 10 mg HS PO 01/28/17 21:00 01/29/17 20:58 (Beneprotein Powder) 1 pack TID G-TUBE 01/28/17 09:00 01/30/17 13:00 (Colace Liq) 100 mg Q12HR PO 01/28/17 09:00 01/30/17 08:57 (Heparin Inj) 5,000 units Q8HR SQ 01/30/17 14:00 Allergies Allergies Coded Allergies Sulfa (Verified Allergy, Intermediate, 01/18/17) Exam I&O / VS 01/29/17 01/29/17 01/30/17 15:00 23:00 07:00 Intake Total 2037 ml 1635 ml 1740 ml Output Total 1643 ml 1130 ml 1138 ml Balance 394 ml 505 ml 602 ml Intake Oral 0 ml 0 ml IV Total 1453 ml 1165 ml 1195 ml Tube Feeding 584 ml 350 ml 425 ml Other 120 ml 120 ml Output Urine Total 1625 ml 1130 ml 1100 ml Stool Total 0 ml Drainage Total 18 ml 38 ml # Bowel Movements 0 Vital Signs Date Time Temp Pulse Resp B/P Pulse Ox O2 Delivery O2 Flow Rate FiO2 01/30/17 13:47 100 35 01/30/17 12:00 98.7 102 24 142/64 100 01/30/17 12:00 35 01/30/17 12:00 102 01/30/17 10:11 99 35 01/30/17 10:00 99 01/30/17 08:00 108 01/30/17 08:00 35 01/30/17 08:00 98.5 108 21 139/63 99 01/30/17 07:00 99 Mechanical Ventilator 35 01/30/17 06:00 98 01/30/17 04:16 99 35 01/30/17 04:00 98.7 103 20 112/63 99 01/30/17 04:00 40 01/30/17 04:00 78 01/30/17 02:00 74 01/30/17 00:00 81 01/30/17 00:00 35 01/30/17 00:00 98.2 81 19 102/55 98 01/29/17 23:54 99 35 01/29/17 22:00 81 01/29/17 20:46 99 35 01/29/17 20:00 35 01/29/17 20:00 107 01/29/17 20:00 100.9 107 24 128/61 99 01/29/17 19:00 100 Mechanical Ventilator 35 01/29/17 18:00 108 01/29/17 16:19 98 35 01/29/17 16:00 98.5 110 22 146/62 99 01/29/17 16:00 35 01/29/17 16:00 110 Exam Comments nonresponsive pupils 3mm min reactive. Motor--no spontaneous limb movement. but does withdraw BLE to stimuli . occasional bee raiser Right hand Objective Micro and Labs Laboratory Tests Test 01/29/17 01/30/17 01/30/17 16:57 05:01 05:30 Sodium Level 155 155 Potassium Level 3.7 4.3 Chloride Level 123 124 Carbon Dioxide Level 21.9 22.5 Anion Gap 10 9 Blood Urea Nitrogen 19 20 Creatinine 0.97 0.89 Estimat Glomerular Filtration 56 62 Rate Random Glucose 301 312 Calcium Level 8.3 7.8 Magnesium Level 2.3 2.3 Total Bilirubin 0.4 0.4 Aspartate Amino Transf 22 24 (AST/SGOT) Alanine Aminotransferase 24 24 (ALT/SGPT) Alkaline Phosphatase 104 107 Total Protein 6.5 6.2 Albumin 2.2 2.0 Digoxin Level 0.9 Blood Gas Puncture Site RT BRACHIAL Blood Gas Patient Temperature 98.6 Blood Gas HCO3 23 Blood Gas Base Excess -0.6 Blood Gas Oxygen Saturation 96 Arterial Blood pH 7.46 Arterial Blood Partial 32 Pressure CO2 Arterial Blood Partial 102 Pressure O2 Arterial Blood Oxygen Content 15.0 Arterial Blood 1.4 Carboxyhemoglobin Arterial Blood Methemoglobin 0.8 Blood Gas Hemoglobin 11.0 Oxygen Delivery Device VENTILATOR Blood Gas Ventilator Setting PRVC/AC Blood Gas Inspired Oxygen 35 White Blood Count 16.2 Red Blood Count 3.54 Hemoglobin 10.4 Hematocrit 33.6 Mean Corpuscular Volume 94.9 Mean Corpuscular Hemoglobin 29.4 Mean Corpuscular Hemoglobin 30.9 Concent Red Cell Distribution Width 14.8 Platelet Count 205 Mean Platelet Volume 10.2 Neutrophils (%) (Auto) 83.5 Lymphocytes (%) (Auto) 8.0 Monocytes (%) (Auto) 7.8 Eosinophils (%) (Auto) 0.1 Basophils (%) (Auto) 0.6 Neutrophils # (Auto) 13.6 Lymphocytes # (Auto) 1.3 Monocytes # (Auto) 1.3 Eosinophils # (Auto) 0.0 Basophils # (Auto) 0.1 CBC Comment DIFF FINAL Differential Comment Phosphorus Level 1.5 Date/Time Procedure Status Source Growth 01/27/17 00:00 Gram Stain - Final Resulted Cerebral Spinal Fluid Shunt Fluid 01/27/17 00:00 CSF Culture - Preliminary Resulted Cerebral Spinal Fluid Shunt Fluid NO GROWTH IN 72 HOURS 01/27/17 00:00 Fungal Smear - Final Resulted Cerebral Spinal Fluid Shunt Fluid NO FUNGAL ELEMENTS SEEN. 01/27/17 00:00 Fungal Culture Resulted Cerebral Spinal Fluid Shunt Fluid Pending 01/27/17 00:00 Acid Fast Stain - Final Resulted Cerebral Spinal Fluid Shunt Fluid NO ACID FAST BACILLI SEEN 01/27/17 00:00 Mycobacterial Culture Resulted Cerebral Spinal Fluid Shunt Fluid Pending 01/26/17 16:45 Urine Culture - Final Complete Urine Catheterized Urine Escherichia Coli Viridans Streptococcus Grp Walker Slater PhD Jan 30, 2017 14:14
[2017-01-30] MEDS: HEPARIN SODIUM - SQ 10,000 UNITS/ML VIAL SQ SCH ×2 (14:26→21:43)
[2017-01-30] MEDS: cefTRIAXone INJ 2,000 MG in SODIUM CHLORIDE 0.9% INJ 100 ML IV SCH (15:36)
[2017-01-30] MEDS: ATORVASTATIN 10 MG TAB PO SCH (20:54)
[2017-01-31] VITALS (18 sets, daily range): BP systolic 133–172; BP diastolic 63–86; PULSE 83–113; RESP 21–29; TEMP 99–101.7; O2SAT 92–100
[2017-01-31] MEDS: DILTIAZEM INJ 125 MG in SODIUM CHLORIDE 0.9% INJ 100 ML IV SCH ×2 (01:37→13:45)
[2017-01-31] MEDS: SODIUM PHOSPHATE INJ 30 MMOL in SODIUM CHLOR 0.9% 250 ML INJ 240 ML IV PRN ×2 (03:27→13:44)
[2017-01-31] MEDS: NS + KCL 20 MEQ INJ 1,000 ML IV SCH ×3 (03:27→16:31)
[2017-01-31] MEDS: 3% SALINE INJ 500 ML IV SCH ×2 (03:27→16:42)
[2017-01-31] MEDS: ACETAMINOPHEN 325 MG TAB PO PRN ×2 (03:30→12:26)
--- NOTE | 2017-01-31 04:10 | RADRPT ---
EXAM DATE/TIME: 01/31/2017 03:14 [facility] COMPARISON: CHEST SINGLE AP, January 30, 2017, 2:56. INDICATIONS : Short of breath. MEDICAL HISTORY : Cardiovascular disease. Diabetes mellitus type II. Hypertension. SURGICAL HISTORY : None. ENCOUNTER: Subsequent ACUITY: 1 week PAIN SCORE: 0/10 LOCATION: Bilateral chest FINDINGS: Lines and tubes are present not significantly changed. Slight cardiomegaly has not changed. Mild left lung base atelectasis and/or infiltrate is seen. Small left pleural effusion is also suspected. CONCLUSION: No appreciable change. Ozzie Coleman MD on January 31, 2017 at 4:08 Board Certified Radiologist. This report was verified electronically.
[2017-01-31 05:21] LABS: AUTOMATED NEUTROPHIL # 13.5 TH/MM3 (1.8-7.7); BASOPHIL # 0.1 TH/MM3 (0-0.2); BASOPHIL % 0.6 % (0.0-2.0); EOSINOPHIL % 0.1 % (0.0-4.0); HEMATOCRIT 33.7 % (35.0-46.0); HEMO FLAGS DIFF FINAL; LYMPH % 9.5 % (9.0-44.0); LYMPHOCYTE # 1.6 TH/MM3 (1.0-4.8); MEAN CELL VOLUME 93.4 FL (80.0-100.0); MEAN CORPUSCULAR HGB CONC 32.1 % (32.0-36.0); MONO % 7.4 % (0.0-8.0); NEUT % 82.4 % (16.0-70.0); PLATELET COUNT 257 TH/MM3 (150-450); RED BLOOD COUNT 3.61 MIL/MM3 (4.00-5.30); RED CELL DISTRIBUTION WIDTH 14.5 % (11.6-17.2); WHITE BLOOD COUNT 16.4 TH/MM3 (4.0-11.0)
[2017-01-31 05:35] LABS: BLOOD GAS BASE EXCESS 0.3 mmol/L (-2-2); BLOOD GAS CARBOXYHEMOGLOBIN 1.5 % (0-4); BLOOD GAS HCO3 23 mmol/L (22-26); BLOOD GAS METHEMOGLOBIN 0.8 % (0-2); BLOOD GAS O2 HGB SATURATION 96 % (90-100); BLOOD GAS OXYGEN CONTENT 15.9 Vol % (12.0-20.0); BLOOD GAS PCO2 30 mmHg (38-42); BLOOD GAS PO2 112 mmHg (61-120); BLOOD GAS TOTAL HGB 11.6 G/DL (12.0-16.0); CRITICAL VALUE NO; DRAW SITE RT RADIAL; FIO2 35 %; NUMBER OF ARTERIAL PUNCTURES 1; OXYGEN DEVICE VENTILATOR; STAT NO; TEMP CORR TO 98.6; ULNAR PULSE PRESENT; VENT SETTINGS AC/16/500/PEEP 5
[2017-01-31 06:03] LABS: ALKALINE PHOSPHATASE 103 U/L (45-117); ALT (GPT) 20 U/L (10-53); ANION GAP 9 MEQ/L (5-15); AST (GOT) 21 U/L (15-37); BICARBONATE 24.8 MEQ/L (21.0-32.0); BLOOD UREA NITROGEN 20 MG/DL (7-18); CHLORIDE 122 MEQ/L (98-107); GLOMERULAR FILTRATION RATE 62 ML/MIN (>89); MAGNESIUM 2.3 MG/DL (1.5-2.5); POTASSIUM 3.8 MEQ/L (3.5-5.1); TOTAL BILIRUBIN ADULT 0.4 MG/DL (0.2-1.0)
[2017-01-31 06:06] LABS: SODIUM (NA) 156 MEQ/L (136-145)
[2017-01-31] MEDS: levETIRAcetam INJ 500 MG in SODIUM CHLORIDE 0.9% INJ 100 ML IV SCH ×2 (06:26→17:42)
[2017-01-31] MEDS: HEPARIN SODIUM - SQ 10,000 UNITS/ML VIAL SQ SCH ×3 (06:27→21:19)
[2017-01-31] MEDS: INSULIN ASPART SUPPLEMENTAL SCALE SQ SCH ×4 (06:46→21:18)
[2017-01-31] MEDS: CHLORHEXIDINE 0.12% (ORAL KIT) 15 ML CUP MT SCH ×2 (08:00→20:41)
[2017-01-31] MEDS: DOCUSATE SODIUM 100 MG CAP PO SCH ×2 (09:00→20:41)
[2017-01-31] MEDS: BENEPROTEIN POWDER 1 PACK G-TUBE SCH ×3 (09:00→17:42)
[2017-01-31] MEDS: SODIUM CHLORIDE 0.9% FLUSH 5 ML FLUSH IVF SCH ×2 (09:00→20:41)
[2017-01-31] MEDS: PANTOPRAZOLE SOD 40 MG DELAYED RELEASE TAB PO SCH (09:00)
[2017-01-31] MEDS: PANTOPRAZOLE SODIUM 40 MG VIAL IVP SCH (09:19)
[2017-01-31] MEDS: DOCUSATE SODIUM 100 MG/10 ML UDC PO SCH ×2 (09:19→21:16)
[2017-01-31] MEDS: DIGOXIN SOLUTION 0.125 MG/2.5 ML CUP PO SCH (09:19)
[2017-01-31] MEDS: METOPROLOL TARTRATE 25 MG TAB PO SCH ×2 (09:20→21:17)
[2017-01-31] MEDS: INSULIN DETEMIR 100 UNITS/ML VIAL SQ SCH ×2 (09:37→21:18)
--- NOTE | 2017-01-31 10:43 | HHI.NSPN ---
(Lakeisha Olson) Note Status Status: Progress Note (Lakeisha Olson) Interval History Interval History This is a 76-year-old female with history of atrial fibrillation, hypertension, hypothyroidism, type 2 diabetes who was brought to the emergency department as a stroke alert. Apparently grandson called EMS as the patient was found to be disoriented. EMS noted that patient had rightward gaze, with Left hemiparesis. A stroke alert was initiated. 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 After discussion Dr. Slater, TPA was initiated. Today she became comatose. Follow up CT showed a large cerebellar hemorrhage. She underwent emergent posterior fossa craniectomy with evacuation of cerebellar hematoma, and placement of ventriculostomy drain on 01/27/17. 01/28: POD 1, intubated and sedated. Ventriculostomy draining well, withdraws x 4 extremities 01/31: POD 4, off IV sedation, intubated. EVD draining well, ICPs wnl. (Lakeisha Olson) Labs, Micro, & Vital Signs Results Date Time Temp Pulse Resp B/P Pulse Ox O2 Delivery O2 Flow Rate FiO2 01/31/17 10:00 83 01/31/17 09:14 100 30 01/31/17 08:00 35 01/31/17 08:00 103 01/31/17 08:00 100.2 103 21 155/71 100 01/31/17 07:00 100 Mechanical Ventilator 35 01/31/17 06:00 106 01/31/17 04:10 98 35 01/31/17 04:00 99.3 110 24 133/65 98 01/31/17 04:00 110 01/31/17 04:00 35 01/31/17 02:00 108 01/31/17 00:16 99 35 01/31/17 00:00 35 01/31/17 00:00 99 01/31/17 00:00 100.5 99 27 157/63 98 01/30/17 22:00 98 01/30/17 20:21 100 35 01/30/17 20:00 110 01/30/17 20:00 99.9 110 25 144/64 100 01/30/17 20:00 35 01/30/17 19:00 100 Mechanical Ventilator 35 01/30/17 18:00 105 01/30/17 17:09 100 35 01/30/17 16:00 99.3 108 24 155/67 100 01/30/17 16:00 35 01/30/17 16:00 108 01/30/17 14:00 102 01/30/17 13:47 100 35 01/30/17 12:00 98.7 102 24 142/64 100 01/30/17 12:00 35 01/30/17 12:00 102 01/31/17 07:00 Intake Total 5860 ml Output Total 6868 ml Balance -1008 ml Constitutional Vital Signs Date Time Temp Pulse Resp B/P Pulse Ox O2 Delivery O2 Flow Rate FiO2 01/31/17 10:00 83 01/31/17 09:14 100 30 01/31/17 08:00 35 01/31/17 08:00 103 01/31/17 08:00 100.2 103 21 155/71 100 01/31/17 07:00 100 Mechanical Ventilator 35 01/31/17 06:00 106 01/31/17 04:10 98 35 01/31/17 04:00 99.3 110 24 133/65 98 01/31/17 04:00 110 01/31/17 04:00 35 01/31/17 02:00 108 01/31/17 00:16 99 35 01/31/17 00:00 35 01/31/17 00:00 99 01/31/17 00:00 100.5 99 27 157/63 98 01/30/17 22:00 98 01/30/17 20:21 100 35 01/30/17 20:00 110 01/30/17 20:00 99.9 110 25 144/64 100 01/30/17 20:00 35 01/30/17 19:00 100 Mechanical Ventilator 35 01/30/17 18:00 105 01/30/17 17:09 100 35 01/30/17 16:00 99.3 108 24 155/67 100 01/30/17 16:00 35 01/30/17 16:00 108 01/30/17 14:00 102 01/30/17 13:47 100 35 01/30/17 12:00 98.7 102 24 142/64 100 01/30/17 12:00 35 01/30/17 12:00 102 01/31/17 07:00 Intake Total 5860 ml Output Total 6868 ml Balance -1008 ml (Lakeisha Olson) Review of Systems/Exam Exam Ms. Mcclure is intubated. Off sedative drip. Surgical wound reported to be clean and dry. Right ventriculostomy drain at 3 cm H2O draining bloody CSF. ICPs = 4 Cranial Nerves: Pupils left 3 mm, right 5 mm bilaterally reactive. Eyes appear conjugated. Motor: patient withdraws to local stimuli x all 4 extremities Reflexes: bilateral Babinski response Sensory: response to painful stimuli to both upper and lower extremities. Cerebellar: Examination cannot be adequately assessed due to the patient's neurological condition (Lakeisha Olson) Medications Current Medications Current Medications Medications (Trade) Dose Ordered Sig/Calixto Route PRN Reason Start Time Stop Time Status Last Admin Dose Admin Magnesium Oxide 800 mg 800 mg UNSCH PRN PO For Magnesium 1.2 - 1.6 mg/dL 01/26/17 16:15 Magnesium Sulfate 4 gm/Sodium Chloride 100 ml @ 50 mls/hr UNSCH PRN IV For Magnesium 0.9 - 1.1 mg/dL 01/26/17 16:15 Magnesium Sulfate 2 gm/Sodium Chloride 100 ml @ 50 mls/hr UNSCH PRN IV For Magnesium 1.2 - 1.6 mg/dL 01/26/17 16:15 Potassium Chloride 100 ml @ 50 mls/hr Q2H PRN IV For Potassium 2.8 - 3.2 mEq/L 01/26/17 16:15 Potassium Chloride 100 ml @ 50 mls/hr Q2H PRN IV For Potassium 3.3 - 3.5 mEq/L 01/26/17 16:15 Potassium Chloride 100 ml @ 50 mls/hr Q2H PRN IV For Potassium 2.8 - 3.2 mEq/L 01/26/17 16:15 Potassium Chloride (KCl 40 Meq Premix Inj) 100 ml @ 25 mls/hr UNSCH PRN IV For Potassium 3.3 - 3.5 mEq/L 01/26/17 16:15 Potassium Phosphate (K-Phos) 2,000 mg Q4H PRN PO For Phosphorus < 2.5 mg/dL 01/26/17 16:15 Potassium Phosphate 2000 mg 2,000 mg UNSCH PRN PO/TUBE SEE LABEL COMMENTS 01/26/17 16:15 Potassium Phosphate 30 mmol/ Sodium Chloride 260 ml @ 42 mls/hr UNSCH PRN IV SEE LABEL COMMENTS 01/26/17 16:15 Sodium Phosphate/ Sodium Chloride (Sodium Phosphate Inj/NS 250 ml Inj) 250 ml @ 42 mls/hr UNSCH PRN IV For Phosphorus < 2.5 mg/dL 01/26/17 16:15 01/31/17 13:44 Dextrose (D50w (Vial) Inj) 25 ml UNSCH PRN IV PUSH HYPOGLYCEMIA-SEE COMMENTS 01/26/17 16:15 Labetalol HCl 10 mg 10 mg Q4H PRN IV PUSH SYS BP GREATER THAN 180 MMHG 01/26/17 16:45 01/28/17 09:55 Diltiazem HCl 125 mg/Sodium Chloride 125 ml @ 0 mls/hr TITRATE IV 01/26/17 19:00 01/31/17 13:45 Norepinephrine Bitartrate (Levophed-Dextrose Drip) 250 ml @ 0 mls/hr TITRATE IV 01/27/17 12:00 01/27/17 18:10 Terbutaline Sulfate 1 mg 1 mg UNSCH PRN SQ For Extravasation 01/27/17 11:15 Potassium Chloride/Sodium Chloride (NS + KCl 20 Meq Inj) 1,000 ml @ 100 mls/hr Q10H IV 01/27/17 12:39 01/31/17 16:31 IV Flush (NS Flush) 2 ml UNSCH PRN IVF FLUSH AFTER USING IV ACCESS 01/27/17 12:45 IV Flush 2 ml 2 ml BID IVF 01/27/17 21:00 01/31/17 09:00 Levetriacetam/ Sodium Chloride (Keppra Inj/NS Inj) 105 ml @ 400 mls/hr Q12H IV 01/27/17 18:00 01/31/17 06:26 Bisacodyl (Dulcolax Supp) 10 mg DAILY PRN RECTAL CONSTIPATION 01/27/17 12:45 Docusate Sodium (Colace) 100 mg BID PO 01/27/17 21:00 01/27/17 21:12 Pantoprazole Sodium (Protonix) 40 mg DAILY PO 01/28/17 09:00 Pantoprazole Sodium (Protonix Inj) 40 mg DAILY IVP 01/28/17 09:00 01/31/17 09:19 Ondansetron HCl (Zofran Inj) 4 mg Q6H PRN IV NAUSEA OR VOMITING 01/27/17 12:45 Calcium Gluconate (Calcium Gluconate Inj) 1 gm UNSCH PRN IV SEE LABEL COMMENTS 01/27/17 12:45 Acetaminophen/ Hydrocodone Bitart ([place] 10-325 Mg) 1 tab Q4H PRN PO PAIN SCALE 1 TO 5 01/27/17 12:45 Acetaminophen/ Hydrocodone Bitart ([place] 10-325 Mg) 2 tab Q4H PRN PO PAIN SCALE 6 TO 10 01/27/17 12:45 Morphine Sulfate (Morphine Inj) 4 mg Q2H PRN IV PUSH PAIN SCALE 7 TO 10 01/27/17 12:45 Acetaminophen 650 mg 650 mg Q4H PRN PO TEMPERATURE > 101.5 F 01/27/17 12:45 01/31/17 12:26 Insulin Human Regular/Sodium Chloride (NovoLIN R (IV INFUSION)/NS Inj) 100 ml @ 0 mls/hr TITRATE IV 01/27/17 17:00 01/27/17 18:28 Dextrose (D50w (Vial) Inj) 50 ml UNSCH PRN IV PUSH SEE LABEL COMMENTS 01/27/17 17:00 Chlorhexidine Gluconate (Peridex 0.12% Liq) 15 ml BID@08,20 MT 01/27/17 20:00 01/31/17 08:00 Digoxin (Lanoxin Liq) 0.25 mg DAILY PO 01/29/17 09:00 01/31/17 09:19 Metoprolol Tartrate (Lopressor) 12.5 mg Q12HR PO 01/28/17 09:00 01/31/17 09:20 Miscellaneous (Pill Splitter) 1 ea UNSCH PRN OTHER SEE LABEL COMMENTS 01/28/17 07:45 Atorvastatin Calcium (Lipitor) 10 mg HS PO 01/28/17 21:00 01/30/17 20:54 Protein (Beneprotein Powder) 1 pack TID G-TUBE 01/28/17 09:00 01/31/17 12:31 Docusate Sodium (Colace Liq) 100 mg Q12HR PO 01/28/17 09:00 01/31/17 09:19 Heparin Sodium (Porcine) 5000 units 5,000 units Q8HR SQ 01/30/17 14:00 01/31/17 13:55 Piperacillin Sod/ Tazobactam Sod (Zosyn 4.5 Gm Premix) 100 ml @ 200 mls/hr Q6H IV 01/31/17 11:00 01/31/17 16:34 Insulin Detemir (Levemir Inj) 18 units Q12HR SQ 01/31/17 21:00 (Lakeisha Olson) Medical Decision Making MDM Remarks 76 y/o female s/p tpa for acute CVA and developed large cerebellar hematoma, s/p posterior fossa craniectomy with evacuation of cerebellar bleed and placement of ventriculostomy drain on 01/27/17 (Lakeisha Olson) Plan Plan Remarks cont ventriculostomy draining, cont critical care management obtain f/u CT Head tomorrow am cont neuro checks, f/u examination nonchemical dvt prophylaxis in view of ICH protonix for stress ulcer proph (Lakeisha Olson) Attending Statement The exam, history, and the medical decision-making described in the above note were completed with the assistance of the mid-level provider. I reviewed and agree with the findings presented. I attest that I had a [id number] encounter with the patient on the same day, and personally performed and documented my assessment and findings in the medical record. (Fred Wagoner MD) Lakeisha Olson Jan 31, 2017 10:43 Fred Wagoner MD Feb 01, 2017 20:43
[2017-01-31] MEDS ORDERED: INSULIN DETEMIR 100 UNITS/ML VIAL SQ STA (11:03)
--- NOTE | 2017-01-31 11:05 | HHI.CCPN ---
Subjective Remarks/Hospital Course 76-year-old female with history of atrial fibrillation, hypertension, hypothyroidism, type 2 diabetes who was brought to the emergency department as a stroke alert. Apparently grandson called EMS as the patient was found to be disoriented. EMS noted that patient had rightward gaze, with Left hemiparesis and stroke alert was initiated. Last seen normal at around 2:10 PM, per grandson. 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 After discussion Dr. Slater, TPA was initiated. I evaluated the patient in ED. she somnolent but wakes up easily, she states that she is unable to open her right eye opens left eye. Has obvious left facial droop and left hemiparesis, but now she is able to move LLE. Speech is clear 01/27: Patient more somnolent, hard to wake up (RN states she was more awake 2 huors ago). Remains in A fib with RVR, CTA neck shows complete R common, internal and ext carotid occlusion. Moderate L ICA stenosis. Vascular surgery Dr. Juarez consulted. remains hyperglycemic (gluc 371) without DKA. 01/28: Stat CT 01/27 for AMS showed new large right cerebellar hemorrhage with transtentorial herniation and brain stem compression, bilateral SAH, infarct right MCA territory. Dr. Wagoner emergently consulted, patient underwent suboccipital decompressive craniotomy and ventriculostomy placement. ICP well controlled overnight. Pupils reactive. Withdraws x4. troponin increased to 3.7. LVEF severely reduced, less than 20%. Diffuse global hypokinesis. Mild-to- moderate mitral valve regurgitation, moderate tricuspid valve regurgitation 6/10 mins unresponsive, severe cardiomyopathy on ultrasound, consult palliative care 01/30 no change since yesterday, patient remains unresponsive 01/31: Briskly withdraws 4, grimaces to pain no spontaneous eye opening. CT of the head planned for tomorrow. High fever, pancultured. DC Rocephin and start Zosyn and single dose of Vanc Objective Vital Signs Date Time Temp Pulse Resp B/P Pulse Ox O2 Delivery O2 Flow Rate FiO2 01/31/17 10:00 83 01/31/17 09:14 100 30 01/31/17 08:00 100.2 21 155/71 01/31/17 07:00 Mechanical Ventilator 01/28/17 07:00 2.00 Intake and Output 01/30/17 01/30/17 01/31/17 08:00 16:00 00:00 Intake Total 1740 ml 2498 ml 1704 ml Output Total 1138 ml 2740 ml 2191 ml Balance 602 ml -242 ml -487 ml Result Diagram: 01/31/17 0500 01/31/17 0500 Other Results Laboratory Tests Test 01/31/17 05:10 Blood Gas Puncture Site RT RADIAL Blood Gas Patient Temperature 98.6 Blood Gas HCO3 23 mmol/L (22-26) Blood Gas Base Excess 0.3 mmol/L (-2-2) Blood Gas Oxygen Saturation 96 % (90-100) Arterial Blood pH 7.50 (7.380-7.420) Arterial Blood Partial 30 mmHg (38-42) Pressure CO2 Arterial Blood Partial 112 mmHg Pressure O2 (61-120) Arterial Blood Oxygen Content 15.9 Vol % (12.0-20.0) Arterial Blood 1.5 % (0-4) Carboxyhemoglobin Arterial Blood Methemoglobin 0.8 % (0-2) Blood Gas Hemoglobin 11.6 G/DL (12.0-16.0) Oxygen Delivery Device VENTILATOR Blood Gas Ventilator Setting AC/16/500/PEEP 5 Blood Gas Inspired Oxygen 35 % Imaging CT head shows no acute findings positive right cerebellar encephalomalacia indicating previous stroke Objective Remarks Propofol on standby Levophed on standby Cardizem gtt 3% Saline at 30 ml per hour NS at 100 ml per hour GENERAL: 76-year-old white female patient who is intubated not on sedation SKIN: Skin warm and dry HEAD: Atraumatic. Normocephalic. EVD with clear CSF drainage, ICP 1-3 EYES: R pupil 5, L 4, reactive. No scleral icterus. ENT: No nasal bleeding or discharge. Orotracheally intubated NECK: Trachea midline. No JVD. CARDIOVASCULAR: Tachycardic and irregularly irregular. No murmurs RESPIRATORY: ACV. Breath sounds equal bilaterally. GASTROINTESTINAL: Abdomen soft, non-tender, nondistended. Hepatic and splenic margins not palpable. MUSCULOSKELETAL: No obvious deformities. No clubbing. No cyanosis. No edema. NEUROLOGICAL:STEW, no spontaneous eye opening. Grimaces to pain. Withdraws all 4 extremities Date of Insertion: Jan 27, 2017 Side: Left Location: Internal, Jugular A/P Assessment and Plan NEURO: Acute post TPA cerebellar hemorrhage with brainstem compression, transtentorial herniation, SAH Status post emergent suboccipital craniotomy and ventriculostomy placement by Dr Wagoner Acute right MCA stroke Acute encephalopathy Previous cerebellar stroke - Post TPA Patient bled into the previous cerebellar stroke - s/p emergent suboccipital craniotomy and ventriculostomy placement by Dr Wagoner - Optimized hyperosmolar therapy with 3% saline and mannitol - Good ICP control. Maintain CPP 60-70 - Head of bed elevation to 45 - Maintain normal temp, Keep PCO2 35 - Supplement B12 level 383, supplement. TSH normal - Brainstem hematoma, and severe cardiomyopathy with guarded prognosis. RESP: Acute respiratory failure -Intubated for airway protection 01/27. -Continue ACV, Vent bundle, Duoneb q6 and PRN -Does not meet SBT criteria, no weaning until neurologically improved - If family agrees she will need a tracheostomy and PEG tube CV: NSTEMI Cardiomyopathy with ejection fraction less than 20% Atrial fibrillation with rapid ventricular response Bilateral carotid stenosis Hypertensive emergency -CTA neck shows complete R common, internal and ext carotid occlusion. Moderate L ICA stenosis. -Vascular surgery Dr. Juarez consulted prior to ICH-no intervention -Target systolic blood pressure less than 140 -Normal saline IV fluids 100 ml per hour, 3% Saline at 30 ml per hour -Cardiology consulted for NSTEMI and Cardiomyopathy. Not a candidate for antiplatelet therapy, or cardiac catheterization -A. fib rate controlled with Cardizem infusion and IV digoxin. Metoprolol 12.5 every 12 hours with holding parameters - Start KARI I if BP can tolerate -Levophed off -Continue Lipitor daily at bedtime -Cardene, IV labetalol when necessary to keep systolic blood pressure less than 140 GI: -Continue tube feeds -IV Protonix -Bowel regimen : -Monitor renal function closely. Small catheter. ID: New fever Sepsis UTI with Escherichia coli and strep viridans -Monitor for infection. DC Rocephin, started Zosyn 4.5 g every 6 hours and vancomycin 1 -Blood urine and sputum culture 01/31 HEME: -Monitor CBC, CMP, coags and fibrinogen level per protocol -Received cryoprecipitate and FFP post bleed -H&H stable ENDO: Type 2 diabetes with hyperglycemia -Off insulin drip but now with poor control -Sliding-scale, Levemir 10 U q12, increase Levemir to 18 units every 12, -Electrolyte replacement protocol PROPH: -Bilateral lower extremity SCDs. Chemical DVT prophylaxis contraindicated. IV Protonix LINES: -Central line art line placed 01/27/17 Critical Care: The total critical care time was 35 minutes. Time to perform other separately billable procedures was not included in the critical care time. Toribio Linares MD Jan 31, 2017 11:05
[2017-01-31] MEDS: PIPERACIL-TAZO 4.5 GM PREMIX 100 ML IV SCH ×3 (11:17→22:46)
[2017-01-31 11:38] LABS: BLOOD, URINE SMALL (NEG); GLUCOSE,URINE 1000 mg/dL (NEG); HYALINE CAST, URINE 1 /lpf (RARE); KETONE, URINE NEG (NEG); MUCUS URINE FEW /lpf (OCC); NITRITE,URINE NEG (NEG); PH, URINE 7.5 (5.0-8.5); SQUAMOUS EPITHELIAL CELL URINE 1 /hpf (0-5); URINE COLOR LIGHT-YELLOW (YELLW/STRAW)
--- NOTE | 2017-01-31 11:46 | PD.CONS ---
Consult Service Palliative Care Consult Requested By Dr. Lang Primary Care Physician Unknown Reason for Consultation a. To assist with evaluation and management of symptoms including: Shortness of breath, pain and debility. b. To assist medical decision maker(s) with: better understanding of current medical conditions; weighing benefits/burdens of medical treatment options; making medical treatment decisions. . HPI History of Present Illness DRAFT=== Mrs. Mcclure is a 77-year-old female with a past medical history of atrial fibrillation, hypertension, hypothyroidism, who presented to the ED via EMS as a stroke alert. According to medical records, family found patient looking disoriented. Upon arrival of EMS, patient was found with rightward gaze and not moving her left side. Patient was last seen at baseline around 2 PM that day. ED workup as follow: * 2D echocardiogram revealing estimated EF of less than 20%. Diffuse global hypokinesis. Mild to moderate mitral and tricuspid valve regurgitation. * EKG revealing atrial fibrillation with rapid ventricular response. 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 Moderate grade stenosis to left internal carotid. * Head CTA revealing complete occlusion of the right internal carotid from its origin up through the skull base. Irregularity of the M1 segment suggesting some embolic disease. * UA, positive for nitrates and leukocytes. Urine culture positive for Escherichia coli and viridian streptococcus group. Neurology, Dr. Slater consulted on 01/26/17. TPA was initiated. Patient's clinical status continued to worsen, she became comatose. Follow-up head CT on 01/27/17 revealing multiple new findings including large 4.4cm cerebellar hematoma causing herniation and significant impression of the brainstem down, bilateral supratentorial subarachnoid hemorrhage, and a new nonhealing right infarction involving the anterior two thirds of the right sylvian region. Neurosurgery, Dr. Wagoner consulted for evaluation of new CT findings. Patient underwent Suboccipital Decompressive Craniectomy, C1 Laminectomy and Duraplasty. Evacuation of large cerebellar hemorrhage, Microsurgical dissection. Keen's Gladis hole with placement of ventriculostomy catheter. Patient was transfused 2 FFP's and 1 cryoprecipitate. Cardiology, Dr. Qureshi consulted on 01/28/17 for evaluation of elevated troponins. Troponins likely elevated secondary to CVA/neurologic pathology versus ACS. Patient not a candidate for anticoagulation or invasive cardiac management secondary to recent history of bleeding. Conservative medical management recommended. Vascular surgery Dr. Juarez consulted prior to ICH-no intervention recommended secondary to worsening clinical status.Patient remains intubated, sedated on mechanical ventilation. Minimally responsive. Plan for follow-up CT of the head tomorrow a.m. Patient does not meet SBT criteria secondary to neurological status. Palliative care has been consulted for goals of care clarification given poor prognosis, multiple comorbidities to include severe cardiomyopathy which is likely to preclude any rehabilitation efforts, and advanced age. In addition, Trach and PEG discussion. Reviewed prior medical records, acute hospitalization from 05/18/16 to 05/23/16 secondary to sepsis and pulmonary edema. Patient at that time refused 2-D echo , she left AMA with instructions to follow-up with cardiology as outpatient. Patient remains in ICU, Most recent chest x-ray today showing no changes, moderate cardiomegaly with no evidence of pulmonary edema. Small left effusion. Laboratory workup revealing WBC 16.4, Hgb 10.8, platelet count 257. Sodium 156, potassium 3.8, BUN/ creatinine 20/0.98. Albumin 1.9. Liver enzymes within normal limits. Cerebrospinal fluid culture 01/27/17, no growth in 72 hours. Max temp 100.2, SBT in the 150s. FiO2 30%. Function/Cognitive Trajectory Patient independent of ADLs prior to these hospitalization. She was residing with family members. . Review of Systems ROS Limitations: Clinical Condition, Intubated Past Family Social History Coded Allergies: Sulfa (Verified Allergy, Intermediate, 01/18/17) Past Medical History Atrial fibrillation AV dysfunction with ejection fraction of 20%. Hypertension Diabetes mellitus, type 2 Hypothyroidism . Past Surgical History None. . Reported Medications Baclofen 10 Mg Tab 10 Mg PO Q8HR PRN Lidocaine Patch 12 HR (Lidocaine) 5 % Patch 1 Patch TOPICAL DAILY PRN Levothyroxine (Levothyroxine Sodium) 25 Mcg Tab 25 Mcg PO DAILY Glimepiride 1 Mg Tab 1 Mg PO DAILY Metoprolol Succinate ER 24 HR (Metoprolol Succinate) 25 Mg Tab 25 Mg PO BID Dramamine (Dimenhydrinate) 50 Mg Tab.chew Diltiazem (Diltiazem HCl) 120 Mg Tab 300 Mg PO QID Aspirin EC (Aspirin) 325 Mg Tabdr 325 Mg PO DAILY . Current Medications Medications (Trade) Dose Ordered Sig/Calixto Route Start Time Stop Time Status Last Admin Magnesium Oxide 800 mg 800 mg UNSCH PRN PO 01/26/17 16:15 Magnesium Sulfate 4 gm/Sodium Chloride 100 ml @ 50 mls/hr UNSCH PRN IV 01/26/17 16:15 Magnesium Sulfate 2 gm/Sodium Chloride 100 ml @ 50 mls/hr UNSCH PRN IV 01/26/17 16:15 Potassium Chloride 100 ml @ 50 mls/hr Q2H PRN IV 01/26/17 16:15 Potassium Chloride 100 ml @ 50 mls/hr Q2H PRN IV 01/26/17 16:15 Potassium Chloride 100 ml @ 50 mls/hr Q2H PRN IV 01/26/17 16:15 (KCl 40 Meq Premix Inj) 100 ml @ 25 mls/hr UNSCH PRN IV 01/26/17 16:15 (K-Phos) 2,000 mg Q4H PRN PO 01/26/17 16:15 Potassium Phosphate 2000 mg 2,000 mg UNSCH PRN PO/TUBE 01/26/17 16:15 Potassium Phosphate 30 mmol/ Sodium Chloride 260 ml @ 42 mls/hr UNSCH PRN IV 01/26/17 16:15 (Sodium Phosphate Inj/NS 250 ml Inj) 250 ml @ 42 mls/hr UNSCH PRN IV 01/26/17 16:15 01/31/17 03:27 (D50w (Vial) Inj) 25 ml UNSCH PRN IV PUSH 01/26/17 16:15 Labetalol HCl 10 mg 10 mg Q4H PRN IV PUSH 01/26/17 16:45 01/28/17 09:55 Diltiazem HCl 125 mg/Sodium Chloride 125 ml @ 0 mls/hr TITRATE IV 01/26/17 19:00 01/31/17 01:37 (Levophed-Dextrose Drip) 250 ml @ 0 mls/hr TITRATE IV 01/27/17 12:00 01/27/17 18:10 Terbutaline Sulfate 1 mg 1 mg UNSCH PRN SQ 01/27/17 11:15 (NS + KCl 20 Meq Inj) 1,000 ml @ 100 mls/hr Q10H IV 01/27/17 12:39 01/31/17 03:27 (NS Flush) 2 ml UNSCH PRN IVF 01/27/17 12:45 IV Flush 2 ml 2 ml BID IVF 01/27/17 21:00 01/31/17 09:00 (Keppra Inj/NS Inj) 105 ml @ 400 mls/hr Q12H IV 01/27/17 18:00 01/31/17 06:26 (Dulcolax Supp) 10 mg DAILY PRN RECTAL 01/27/17 12:45 (Colace) 100 mg BID PO 01/27/17 21:00 01/27/17 21:12 (Protonix) 40 mg DAILY PO 01/28/17 09:00 (Protonix Inj) 40 mg DAILY IVP 01/28/17 09:00 01/31/17 09:19 (Zofran Inj) 4 mg Q6H PRN IV 01/27/17 12:45 (Calcium Gluconate Inj) 1 gm UNSCH PRN IV 01/27/17 12:45 (Florien 10-325 Mg) 1 tab Q4H PRN PO 01/27/17 12:45 (Florien 10-325 Mg) 2 tab Q4H PRN PO 01/27/17 12:45 (Morphine Inj) 4 mg Q2H PRN IV PUSH 01/27/17 12:45 Acetaminophen 650 mg 650 mg Q4H PRN PO 01/27/17 12:45 01/31/17 03:30 Sodium Chloride 500 ml @ 30 mls/hr CONTINUOUS IV 01/27/17 17:00 01/31/17 16:59 01/31/17 03:27 (NovoLIN R (IV INFUSION)/NS Inj) 100 ml @ 0 mls/hr TITRATE IV 01/27/17 17:00 01/27/17 18:28 (D50w (Vial) Inj) 50 ml UNSCH PRN IV PUSH 01/27/17 17:00 (Peridex 0.12% Liq) 15 ml BID@08,20 MT 01/27/17 20:00 01/31/17 08:00 (Lanoxin Liq) 0.25 mg DAILY PO 01/29/17 09:00 01/31/17 09:19 (Lopressor) 12.5 mg Q12HR PO 01/28/17 09:00 01/31/17 09:20 (Pill Splitter) 1 ea UNSCH PRN OTHER 01/28/17 07:45 (Lipitor) 10 mg HS PO 01/28/17 21:00 01/30/17 20:54 (Beneprotein Powder) 1 pack TID G-TUBE 01/28/17 09:00 01/31/17 09:00 (Colace Liq) 100 mg Q12HR PO 01/28/17 09:00 01/31/17 09:19 Heparin Sodium (Porcine) 5000 units 5,000 units Q8HR SQ 01/30/17 14:00 01/31/17 06:27 Piperacillin Sod/ Tazobactam Sod 100 ml @ 200 mls/hr Q6H IV 01/31/17 11:00 (Vancomycin Inj/ NS 250 ml Inj) 262.5 ml @ 262.5 mls/ hr ONCE ONCE IV 01/31/17 12:00 01/31/17 12:59 (Levemir Inj) 18 units Q12HR SQ 01/31/17 21:00 Substance Use Tobacco: None reported. Alcohol: None reported. Prescription med abuse: None reported. Illicits: None reported. . Spiritual/Cultural Factors Scientologist angela. Physical Exam Vital Signs Date Time Temp Pulse Resp B/P Pulse Ox O2 Delivery O2 Flow Rate FiO2 01/31/17 10:00 83 01/31/17 09:14 100 30 01/31/17 08:00 35 01/31/17 08:00 103 01/31/17 08:00 100.2 103 21 155/71 100 01/31/17 07:00 100 Mechanical Ventilator 35 01/31/17 06:00 106 01/31/17 04:10 98 35 01/31/17 04:00 99.3 110 24 133/65 98 01/31/17 04:00 110 01/31/17 04:00 35 01/31/17 02:00 108 01/31/17 00:16 99 35 01/31/17 00:00 35 01/31/17 00:00 99 01/31/17 00:00 100.5 99 27 157/63 98 01/30/17 22:00 98 01/30/17 20:21 100 35 01/30/17 20:00 110 01/30/17 20:00 99.9 110 25 144/64 100 6/11/17 20:00 35 01/30/17 19:00 100 Mechanical Ventilator 35 01/30/17 18:00 105 01/30/17 17:09 100 35 01/30/17 16:00 99.3 108 24 155/67 100 01/30/17 16:00 35 01/30/17 16:00 108 01/30/17 14:00 102 01/30/17 13:47 100 35 01/30/17 12:00 98.7 102 24 142/64 100 01/30/17 12:00 35 01/30/17 12:00 102 01/30/17 01/31/17 19:00 07:00 Intake Total 2498 ml 3362 ml Output Total 2740 ml 4128 ml Balance -242 ml -766 ml IV Total 1932 ml 2457 ml Tube Feeding 566 ml 785 ml Tube Irrigant 120 ml Output Urine Total 2675 ml 4050 ml Drainage Total 65 ml 78 ml # Bowel Movements 0 Exam ++++DRAFT CONSTITUTIONAL/GENERAL: This is an adequately nourished patient, in no apparent distress. TUBES/LINES/DRAINS: SKIN: No jaundice, rashes, or lesions. Ecchymoses on upper extremities. No wounds seen anteriorly. Skin temperature appropriate. Not diaphoretic. HEAD: Atraumatic. Normocephalic. EYES: Pupils equal and round and reactive. Extraocular motions intact. No scleral icterus. No injection or drainage. Fundi not examined. ENT: Hearing grossly normal. Nose without bleeding or purulent drainage. Throat without visible erythema, exudates, masses, or lesions. NECK: Trachea midline. Supple, nontender. No palpable thyroid enlargement or nodularity. CARDIOVASCULAR: Regular rate and rhythm without murmurs, gallops, or rubs. No JVD. Peripheral pulses symmetric. RESPIRATORY/CHEST: Symmetric, unlabored respirations. Clear to auscultation. Breath sounds equal bilaterally. No wheezes, rales, or rhonchi. GASTROINTESTINAL: Abdomen soft, non-tender, nondistended. No hepato-splenomegaly , or palpable masses. No guarding. Bowel sounds present. GENITOURINARY: Without palpable bladder distension. Small catheter in place. MUSCULOSKELETAL: Extremities without clubbing, cyanosis, or edema. No joint tenderness or effusion noted. No calf tenderness. No mottling or clubbing. LYMPHATICS: No palpable cervical or supraclavicular adenopathy. NEUROLOGICAL: Awake and alert. Motor and sensory grossly within normal limits. Follows commands. Cognitively sharp. Moves all extremities. PSYCHIATRIC: No obvious anxiety/depression. no apparent hallucinations or other psychotic thought process. Diagnostic Tests Laboratory Laboratory Tests Test 01/28/17 01/28/17 01/28/17 01/29/17 14:15 16:45 23:10 00:55 Fibrinogen 413 mg/dL 413 mg/dL (227-377) (227-377) Sodium Level 152 MEQ/L 152 MEQ/L (136-145) (136-145) Serum Osmolality 320 MOSM/KG 331 MOSM/KG (275-295) (275-295) Test 01/29/17 01/29/17 01/29/17 01/30/17 05:35 12:24 16:57 05:01 White Blood Count 17.6 TH/MM3 (4.0-11.0) Red Blood Count 3.62 MIL/MM3 (4.00-5.30) Hemoglobin 10.8 GM/DL (11.6-15.3) Hematocrit 33.5 % (35.0-46.0) Mean Corpuscular Volume 92.5 FL (80.0-100.0) Mean Corpuscular Hemoglobin 29.7 PG (27.0-34.0) Mean Corpuscular Hemoglobin 32.1 % Concent (32.0-36.0) Red Cell Distribution Width 14.6 % (11.6-17.2) Platelet Count 179 TH/MM3 (150-450) Mean Platelet Volume 10.3 FL (7.0-11.0) Neutrophils (%) (Auto) 83.3 % (16.0-70.0) Lymphocytes (%) (Auto) 6.4 % (9.0-44.0) Monocytes (%) (Auto) 9.9 % (0.0-8.0) Eosinophils (%) (Auto) 0.0 % (0.0-4.0) Basophils (%) (Auto) 0.4 % (0.0-2.0) Neutrophils # (Auto) 14.6 TH/MM3 (1.8-7.7) Lymphocytes # (Auto) 1.1 TH/MM3 (1.0-4.8) Monocytes # (Auto) 1.7 TH/MM3 (0-0.9) Eosinophils # (Auto) 0.0 TH/MM3 (0-0.4) Basophils # (Auto) 0.1 TH/MM3 (0-0.2) CBC Comment DIFF FINAL Differential Comment Sodium Level 154 MEQ/L 155 MEQ/L (136-145) (136-145) Serum Osmolality 345 MOSM/KG (275-295) Potassium Level 3.7 MEQ/L (3.5-5.1) Chloride Level 123 MEQ/L (98-107) Carbon Dioxide Level 21.9 MEQ/L (21.0-32.0) Anion Gap 10 MEQ/L (5-15) Blood Urea Nitrogen 19 MG/DL (7-18) Creatinine 0.97 MG/DL (0.50-1.00) Estimat Glomerular Filtration 56 ML/MIN (>89) Rate Random Glucose 301 MG/DL (74-106) Calcium Level 8.3 MG/DL (8.5-10.1) Magnesium Level 2.3 MG/DL (1.5-2.5) Total Bilirubin 0.4 MG/DL (0.2-1.0) Aspartate Amino Transf 22 U/L (15-37) (AST/SGOT) Alanine Aminotransferase 24 U/L (10-53) (ALT/SGPT) Alkaline Phosphatase 104 U/L (45-117) Total Protein 6.5 GM/DL (6.4-8.2) Albumin 2.2 GM/DL (3.4-5.0) Digoxin Level 0.9 NG/ML (0.8-2.0) Blood Gas Puncture Site RT BRACHIAL Blood Gas Patient Temperature 98.6 Blood Gas HCO3 23 mmol/L (22-26) Blood Gas Base Excess -0.6 mmol/L (-2-2) Blood Gas Oxygen Saturation 96 % (90-100) Arterial Blood pH 7.46 (7.380-7.420) Arterial Blood Partial 32 mmHg (38-42) Pressure CO2 Arterial Blood Partial 102 mmHg Pressure O2 (61-120) Arterial Blood Oxygen Content 15.0 Vol % (12.0-20.0) Arterial Blood 1.4 % (0-4) Carboxyhemoglobin Arterial Blood Methemoglobin 0.8 % (0-2) Blood Gas Hemoglobin 11.0 G/DL (12.0-16.0) Oxygen Delivery Device VENTILATOR Blood Gas Ventilator Setting PRVC/AC Blood Gas Inspired Oxygen 35 % Test 01/30/17 01/30/17 01/31/17 01/31/17 05:30 18:28 05:00 05:10 White Blood Count 16.2 TH/MM3 16.4 TH/MM3 (4.0-11.0) (4.0-11.0) Red Blood Count 3.54 MIL/MM3 3.61 MIL/MM3 (4.00-5.30) (4.00-5.30) Hemoglobin 10.4 GM/DL 10.8 GM/DL (11.6-15.3) (11.6-15.3) Hematocrit 33.6 % 33.7 % (35.0-46.0) (35.0-46.0) Mean Corpuscular Volume 94.9 FL 93.4 FL (80.0-100.0) (80.0-100.0) Mean Corpuscular Hemoglobin 29.4 PG 30.0 PG (27.0-34.0) (27.0-34.0) Mean Corpuscular Hemoglobin 30.9 % 32.1 % Concent (32.0-36.0) (32.0-36.0) Red Cell Distribution Width 14.8 % 14.5 % (11.6-17.2) (11.6-17.2) Platelet Count 205 TH/MM3 257 TH/MM3 (150-450) (150-450) Mean Platelet Volume 10.2 FL 10.0 FL (7.0-11.0) (7.0-11.0) Neutrophils (%) (Auto) 83.5 % 82.4 % (16.0-70.0) (16.0-70.0) Lymphocytes (%) (Auto) 8.0 % 9.5 % (9.0-44.0) (9.0-44.0) Monocytes (%) (Auto) 7.8 % (0.0-8.0) 7.4 % (0.0-8.0) Eosinophils (%) (Auto) 0.1 % (0.0-4.0) 0.1 % (0.0-4.0) Basophils (%) (Auto) 0.6 % (0.0-2.0) 0.6 % (0.0-2.0) Neutrophils # (Auto) 13.6 TH/MM3 13.5 TH/MM3 (1.8-7.7) (1.8-7.7) Lymphocytes # (Auto) 1.3 TH/MM3 1.6 TH/MM3 (1.0-4.8) (1.0-4.8) Monocytes # (Auto) 1.3 TH/MM3 1.2 TH/MM3 (0-0.9) (0-0.9) Eosinophils # (Auto) 0.0 TH/MM3 0.0 TH/MM3 (0-0.4) (0-0.4) Basophils # (Auto) 0.1 TH/MM3 0.1 TH/MM3 (0-0.2) (0-0.2) CBC Comment DIFF FINAL DIFF FINAL Differential Comment Sodium Level 155 MEQ/L 157 MEQ/L 156 MEQ/L (136-145) (136-145) (136-145) Potassium Level 4.3 MEQ/L 3.8 MEQ/L (3.5-5.1) (3.5-5.1) Chloride Level 124 MEQ/L 122 MEQ/L (98-107) (98-107) Carbon Dioxide Level 22.5 MEQ/L 24.8 MEQ/L (21.0-32.0) (21.0-32.0) Anion Gap 9 MEQ/L (5-15) 9 MEQ/L (5-15) Blood Urea Nitrogen 20 MG/DL (7-18) 20 MG/DL (7-18) Creatinine 0.89 MG/DL 0.88 MG/DL (0.50-1.00) (0.50-1.00) Estimat Glomerular Filtration 62 ML/MIN (>89) 62 ML/MIN (>89) Rate Random Glucose 312 MG/DL 281 MG/DL (74-106) (74-106) Calcium Level 7.8 MG/DL 7.8 MG/DL (8.5-10.1) (8.5-10.1) Phosphorus Level 1.5 MG/DL 1.9 MG/DL 2.5 MG/DL (2.5-4.9) (2.5-4.9) (2.5-4.9) Magnesium Level 2.3 MG/DL 2.3 MG/DL (1.5-2.5) (1.5-2.5) Total Bilirubin 0.4 MG/DL 0.4 MG/DL (0.2-1.0) (0.2-1.0) Aspartate Amino Transf 24 U/L (15-37) 21 U/L (15-37) (AST/SGOT) Alanine Aminotransferase 24 U/L (10-53) 20 U/L (10-53) (ALT/SGPT) Alkaline Phosphatase 107 U/L 103 U/L (45-117) (45-117) Total Protein 6.2 GM/DL 6.4 GM/DL (6.4-8.2) (6.4-8.2) Albumin 2.0 GM/DL 1.9 GM/DL (3.4-5.0) (3.4-5.0) Blood Gas Puncture Site RT RADIAL Blood Gas Patient Temperature 98.6 Blood Gas HCO3 23 mmol/L (22-26) Blood Gas Base Excess 0.3 mmol/L (-2-2) Blood Gas Oxygen Saturation 96 % (90-100) Arterial Blood pH 7.50 (7.380-7.420) Arterial Blood Partial 30 mmHg (38-42) Pressure CO2 Arterial Blood Partial 112 mmHg Pressure O2 (61-120) Arterial Blood Oxygen Content 15.9 Vol % (12.0-20.0) Arterial Blood 1.5 % (0-4) Carboxyhemoglobin Arterial Blood Methemoglobin 0.8 % (0-2) Blood Gas Hemoglobin 11.6 G/DL (12.0-16.0) Oxygen Delivery Device VENTILATOR Blood Gas Ventilator Setting AC/16/500/PEEP 5 Blood Gas Inspired Oxygen 35 % Result Diagram: 01/31/17 0500 01/31/17 0500 Microbiology Microbiology Date/Time Procedure Status Source Growth 01/27/17 00:00 Gram Stain - Final Resulted Cerebral Spinal Fluid Shunt Fluid 01/27/17 00:00 CSF Culture - Preliminary Resulted Cerebral Spinal Fluid Shunt Fluid NO GROWTH IN 72 HOURS 01/27/17 00:00 Fungal Smear - Final Resulted Cerebral Spinal Fluid Shunt Fluid NO FUNGAL ELEMENTS SEEN. 01/27/17 00:00 Fungal Culture Resulted Cerebral Spinal Fluid Shunt Fluid Pending 01/27/17 00:00 Acid Fast Stain - Final Resulted Cerebral Spinal Fluid Shunt Fluid NO ACID FAST BACILLI SEEN 01/27/17 00:00 Mycobacterial Culture Resulted Cerebral Spinal Fluid Shunt Fluid Pending 01/26/17 16:45 Urine Culture - Final Complete Urine Catheterized Urine Escherichia Coli Viridans Streptococcus Grp Imaging Last Impressions Chest X-Ray 01/31/17 0600 Signed Impressions: Service Date/Time: Tuesday, January 31, 2017 03:14 - CONCLUSION: No appreciable change. Ozzie Coleman MD Head CT 01/27/17 0000 Signed Impressions: Service Date/Time: January 09:57 - CONCLUSION: Multiple new findings compared to CT brain 01/26/17 including a large (4.4 cm) cerebellar hematoma causing transtentorial herniation and significant impression on the brainstem down to the the foramen magnum, bilateral supratentorial subarachnoid hemorrhage, and a new nonhemorrhagic infarction involving the anterior two thirds of the right sylvian region. The findings have been called to the patient's nurse. Reginald Loza MD Neck CTA 01/26/17 1515 Signed Impressions: Service Date/Time: Thursday, January 26, 2017 17:04 - CONCLUSION: 1. 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 2. Moderate grade stenosis in the origin of the left internal carotid. 3. Diminutive right vertebral which terminates in a PICA. Luis Seth MD Head CTA 01/26/17 1515 Signed Impressions: Service Date/Time: Thursday, January 26, 2017 17:04 - CONCLUSION: 1. 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 There is limited reconstitution of the right middle cerebral circulation via the anterior communicating artery. The reconstituted segment of right middle cerebral is small in caliber. There is some irregularity of the M1 segment suggesting there may be some embolic disease within the M1 segment however, the lack of flow within this limits the evaluation. 2. The remainder of the intracranial circulation is widely patent. Jt Caballero MD Procedures * 01/27/17 -Suboccipital Decompressive Craniectomy, C1 Laminectomy and Duraplasty. Evacuation of large cerebellar hemorrhage, Microsurgical dissection. * 01/27/17 -Keen's Gladis hole with placement of ventriculostomy catheter. . Patient/Family Conference Issues Discussed: * Palliative care role, purpose, approach * Additional medical, psychosocial, and spiritual history * Patients general health, functional status, and cognitive changes in the months leading up to the current hospitalization * Patient/family understanding of the current medical problems * Patient/family understanding of prognosis * Patients goals of care as best understood from advance directives and/or conversations and/or values * Current medical treatment options and benefits/burdens of those options * Likely scenarios comparing ongoing aggressive care with a transition to comfort measures only * Questions answered to the best of my ability * Palliative care contact information provided Assessment and Plan Disease Oriented Problem List: (1) Acute right MCA stroke (2) Acute respiratory failure (3) Sepsis (4) Atrial fibrillation with rapid ventricular response Symptom Scale: (1) Pain (2) Shortness of breath (3) Debility Pertinent Non-Medical Issues Psychosocial: Spiritual: Legal: Ethical issues impacting care: Thank you for the opportunity to participate in the care of Ms. Mcclure. Attestation To help prompt me to consider important information that might be impacting today's encounter and assessment, information from prior notes written by myself or my colleagues may have been "brought forward" into today's note. My signature on this note, however, is an attestation that I personally performed the exam, history, and/or decision-making noted today, and, unless otherwise indicated, the interactions with patient, family, and staff as well as the review of records all occurred today. I also attest that the listed assessment and stated plan reflect my best clinical judgment today based on the combination of historical information, prior notes, and today's exam/ interactions. When time spent is documented, it refers only to time spent today by the signer, or if indicated, combined time spent today by collaborating physician/nurse practitioner. Saima Mayfield Jan 31, 2017 11:46
[2017-01-31] MEDS ORDERED: VANCOMYCIN INJ 1,250 MG in SODIUM CHLOR 0.9% 250 ML INJ 250 ML IV ONE (12:00)
--- NOTE | 2017-01-31 20:15 | HHI.PR ---
Review/Management Diagnosis right MCA CVA, s/p iv TPA right carotid occlusion right cerebellar hemorrhage with mass effect and bilateral SAH. Plan continuje supportive care Diagnosis/Plan: Subjective Subjective Comments No acute events reported Active Medications Current Medications Medications (Trade) Dose Ordered Sig/Calixto Route Start Time Stop Time Status Last Admin Magnesium Oxide 800 mg 800 mg UNSCH PRN PO 01/26/17 16:15 Magnesium Sulfate 4 gm/Sodium Chloride 100 ml @ 50 mls/hr UNSCH PRN IV 01/26/17 16:15 Magnesium Sulfate 2 gm/Sodium Chloride 100 ml @ 50 mls/hr UNSCH PRN IV 01/26/17 16:15 Potassium Chloride 100 ml @ 50 mls/hr Q2H PRN IV 01/26/17 16:15 Potassium Chloride 100 ml @ 50 mls/hr Q2H PRN IV 01/26/17 16:15 Potassium Chloride 100 ml @ 50 mls/hr Q2H PRN IV 01/26/17 16:15 (KCl 40 Meq Premix Inj) 100 ml @ 25 mls/hr UNSCH PRN IV 01/26/17 16:15 (K-Phos) 2,000 mg Q4H PRN PO 01/26/17 16:15 Potassium Phosphate 2000 mg 2,000 mg UNSCH PRN PO/TUBE 01/26/17 16:15 Potassium Phosphate 30 mmol/ Sodium Chloride 260 ml @ 42 mls/hr UNSCH PRN IV 01/26/17 16:15 (Sodium Phosphate Inj/NS 250 ml Inj) 250 ml @ 42 mls/hr UNSCH PRN IV 01/26/17 16:15 01/31/17 13:44 (D50w (Vial) Inj) 25 ml UNSCH PRN IV PUSH 01/26/17 16:15 Labetalol HCl 10 mg 10 mg Q4H PRN IV PUSH 01/26/17 16:45 01/28/17 09:55 Diltiazem HCl 125 mg/Sodium Chloride 125 ml @ 0 mls/hr TITRATE IV 01/26/17 19:00 01/31/17 13:45 (Levophed-Dextrose Drip) 250 ml @ 0 mls/hr TITRATE IV 01/27/17 12:00 01/27/17 18:10 Terbutaline Sulfate 1 mg 1 mg UNSCH PRN SQ 01/27/17 11:15 (NS + KCl 20 Meq Inj) 1,000 ml @ 100 mls/hr Q10H IV 01/27/17 12:39 01/31/17 16:31 (NS Flush) 2 ml UNSCH PRN IVF 01/27/17 12:45 IV Flush 2 ml 2 ml BID IVF 01/27/17 21:00 01/31/17 09:00 (Keppra Inj/NS Inj) 105 ml @ 400 mls/hr Q12H IV 01/27/17 18:00 01/31/17 17:42 (Dulcolax Supp) 10 mg DAILY PRN RECTAL 01/27/17 12:45 (Colace) 100 mg BID PO 01/27/17 21:00 01/27/17 21:12 (Protonix) 40 mg DAILY PO 01/28/17 09:00 (Protonix Inj) 40 mg DAILY IVP 01/28/17 09:00 01/31/17 09:19 (Zofran Inj) 4 mg Q6H PRN IV 01/27/17 12:45 (Calcium Gluconate Inj) 1 gm UNSCH PRN IV 01/27/17 12:45 ([place] 10-325 Mg) 1 tab Q4H PRN PO 01/27/17 12:45 ([place] 10-325 Mg) 2 tab Q4H PRN PO 01/27/17 12:45 (Morphine Inj) 4 mg Q2H PRN IV PUSH 01/27/17 12:45 Acetaminophen 650 mg 650 mg Q4H PRN PO 01/27/17 12:45 01/31/17 12:26 (NovoLIN R (IV INFUSION)/NS Inj) 100 ml @ 0 mls/hr TITRATE IV 01/27/17 17:00 01/27/17 18:28 (D50w (Vial) Inj) 50 ml UNSCH PRN IV PUSH 01/27/17 17:00 (Peridex 0.12% Liq) 15 ml BID@08,20 MT 01/27/17 20:00 01/31/17 08:00 (Lanoxin Liq) 0.25 mg DAILY PO 01/29/17 09:00 01/31/17 09:19 (Lopressor) 12.5 mg Q12HR PO 01/28/17 09:00 01/31/17 09:20 (Pill Splitter) 1 ea UNSCH PRN OTHER 01/28/17 07:45 (Lipitor) 10 mg HS PO 01/28/17 21:00 01/30/17 20:54 (Beneprotein Powder) 1 pack TID G-TUBE 01/28/17 09:00 01/31/17 17:42 (Colace Liq) 100 mg Q12HR PO 01/28/17 09:00 01/31/17 09:19 Heparin Sodium (Porcine) 5000 units 5,000 units Q8HR SQ 01/30/17 14:00 01/31/17 13:55 (Zosyn 4.5 Gm Premix) 100 ml @ 200 mls/hr Q6H IV 01/31/17 11:00 01/31/17 16:34 (Levemir Inj) 18 units Q12HR SQ 01/31/17 21:00 Allergies Allergies Coded Allergies Sulfa (Verified Allergy, Intermediate, 01/18/17) Exam I&O / VS 01/30/17 01/30/17 01/31/17 15:00 23:00 07:00 Intake Total 2498 ml 1704 ml 1658 ml Output Total 2740 ml 2191 ml 1937 ml Balance -242 ml -487 ml -279 ml IV Total 1932 ml 1200 ml 1257 ml Tube Feeding 566 ml 384 ml 401 ml Tube Irrigant 120 ml Output Urine Total 2675 ml 2150 ml 1900 ml Drainage Total 65 ml 41 ml 37 ml # Bowel Movements 0 0 Vital Signs Date Time Temp Pulse Resp B/P Pulse Ox O2 Delivery O2 Flow Rate FiO2 01/31/17 19:56 97 35 01/31/17 18:00 103 01/31/17 16:00 30 01/31/17 16:00 91 01/31/17 16:00 100.9 100 29 148/71 92 01/31/17 15:22 96 30 01/31/17 14:00 93 01/31/17 12:11 98 30 01/31/17 12:00 101.7 98 24 164/86 100 01/31/17 12:00 30 01/31/17 12:00 102 01/31/17 10:00 83 01/31/17 09:14 100 30 01/31/17 08:00 35 01/31/17 08:00 103 01/31/17 08:00 100.2 103 21 155/71 100 01/31/17 07:00 100 Mechanical Ventilator 35 01/31/17 06:00 106 01/31/17 04:10 98 35 01/31/17 04:00 99.3 110 24 133/65 98 01/31/17 04:00 110 01/31/17 04:00 35 01/31/17 02:00 108 01/31/17 00:16 99 35 01/31/17 00:00 35 01/31/17 00:00 99 01/31/17 00:00 100.5 99 27 157/63 98 01/30/17 22:00 98 01/30/17 20:21 100 35 Exam Comments nonresponsive pupils 3mm min reactive. Motor--no spontaneous limb movement. but does withdraw BLE to stimuli . 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 Right hand Objective Micro and Labs Laboratory Tests Test 01/31/17 01/31/17 01/31/17 01/31/17 05:00 05:10 10:15 10:45 White Blood Count 16.4 Red Blood Count 3.61 Hemoglobin 10.8 Hematocrit 33.7 Mean Corpuscular Volume 93.4 Mean Corpuscular Hemoglobin 30.0 Mean Corpuscular Hemoglobin 32.1 Concent Red Cell Distribution Width 14.5 Platelet Count 257 Mean Platelet Volume 10.0 Neutrophils (%) (Auto) 82.4 Lymphocytes (%) (Auto) 9.5 Monocytes (%) (Auto) 7.4 Eosinophils (%) (Auto) 0.1 Basophils (%) (Auto) 0.6 Neutrophils # (Auto) 13.5 Lymphocytes # (Auto) 1.6 Monocytes # (Auto) 1.2 Eosinophils # (Auto) 0.0 Basophils # (Auto) 0.1 CBC Comment DIFF FINAL Differential Comment Sodium Level 156 156 Potassium Level 3.8 Chloride Level 122 Carbon Dioxide Level 24.8 Anion Gap 9 Blood Urea Nitrogen 20 Creatinine 0.88 Estimat Glomerular Filtration 62 Rate Random Glucose 281 Calcium Level 7.8 Phosphorus Level 2.5 Magnesium Level 2.3 Total Bilirubin 0.4 Aspartate Amino Transf 21 (AST/SGOT) Alanine Aminotransferase 20 (ALT/SGPT) Alkaline Phosphatase 103 Total Protein 6.4 Albumin 1.9 Blood Gas Puncture Site RT RADIAL Blood Gas Patient Temperature 98.6 Blood Gas HCO3 23 Blood Gas Base Excess 0.3 Blood Gas Oxygen Saturation 96 Arterial Blood pH 7.50 Arterial Blood Partial 30 Pressure CO2 Arterial Blood Partial 112 Pressure O2 Arterial Blood Oxygen Content 15.9 Arterial Blood 1.5 Carboxyhemoglobin Arterial Blood Methemoglobin 0.8 Blood Gas Hemoglobin 11.6 Oxygen Delivery Device VENTILATOR Blood Gas Ventilator Setting AC/16/500/PEEP 5 Blood Gas Inspired Oxygen 35 Urine Color LIGHT-YELLOW Urine Turbidity CLEAR Urine pH 7.5 Urine Specific [place] 1.015 Urine Protein TRACE Urine Glucose (UA) 1000 Urine Ketones NEG Urine Occult Blood SMALL Urine Nitrite NEG Urine Bilirubin NEG Urine Urobilinogen LESS THAN 2.0 Urine Leukocyte Esterase NEG Urine RBC 16 Urine WBC 1 Urine Squamous Epithelial 1 Cells Urine Hyaline Casts 1 Urine Mucus FEW Test 01/31/17 12:50 Phosphorus Level 1.8 Date/Time Procedure Status Source Growth 01/31/17 11:42 Aerobic Blood Culture Received Blood Peripheral Pending 01/31/17 11:42 Anaerobic Blood Culture Received Blood Peripheral Pending 01/31/17 10:45 Gram Stain - Final Resulted Sputum Endotracheal 01/31/17 10:45 Sputum Culture Resulted Sputum Endotracheal Pending 01/27/17 00:00 Fungal Smear - Final Resulted Cerebral Spinal Fluid Shunt Fluid NO FUNGAL ELEMENTS SEEN. 01/27/17 00:00 Fungal Culture Resulted Cerebral Spinal Fluid Shunt Fluid Pending 01/27/17 00:00 Acid Fast Stain - Final Resulted Cerebral Spinal Fluid Shunt Fluid NO ACID FAST BACILLI SEEN 01/27/17 00:00 Mycobacterial Culture Resulted Cerebral Spinal Fluid Shunt Fluid Pending Walker Slater PhD Jan 31, 2017 20:15
[2017-01-31] MEDS: ATORVASTATIN 10 MG TAB PO SCH (21:17)
[2017-01-31] MEDS: ACETAMINOPHEN/HYDROcodone 325 MG/10 MG TAB PO PRN ×2 (21:39→22:46)
[2017-02-01] VITALS (18 sets, daily range): BP systolic 135–180; BP diastolic 58–80; PULSE 79–111; RESP 19–30; TEMP 98.3–101.6; O2SAT 92–100
[2017-02-01] MEDS: NS + KCL 20 MEQ INJ 1,000 ML IV SCH ×3 (00:20→21:03)
[2017-02-01] MEDS: DILTIAZEM INJ 125 MG in SODIUM CHLORIDE 0.9% INJ 100 ML IV SCH ×3 (00:20→18:25)
--- NOTE | 2017-02-01 04:27 | RADRPT ---
EXAM DATE/TIME: 02/01/2017 04:03 [place] COMPARISON: CT BRAIN W/O CONTRAST, January 27, 2017, 9:57. INDICATIONS : Follow up hemorrhage. RADIATION DOSE: 64.81 CTDIvol (mGy) MEDICAL HISTORY : Cardiovascular disease. Hypertension. Diabetes mellitus type 2. SURGICAL HISTORY : Craniotomy. ENCOUNTER: Subsequent ACUITY: 4 - 6 days PAIN SCALE: Non-responsive LOCATION: cranial TECHNIQUE: Multiple contiguous axial images were obtained of the head. Using automated exposure control and adj ustment of the mA and/or kV according to patient size, radiation dose was kept as low as reasonably a chievable to obtain optimal diagnostic quality images. FINDINGS: There is evidence for a craniotomy since the prior study. There is packing material within the cranio pepper site of the posterior fossa with areas of hemorrhage causing significant mass effect on fourth v entricle and brainstem. There is also intraventricular hemorrhage within occipital horns not present previously. There is subarachnoid hemorrhage within bilateral superior parietal lobules are present p reviously in addition to subarachnoid hemorrhage within bilateral parietal and temporal lobes. The ri ght side has not changed, however subarachnoid hemorrhage on the left side has progressed. The area o f infarction in the right MCA territory has enlarged and involves most of the parietal lobe and parts of the temporal lobe and right basal ganglia. No extra-axial fluid collections are seen. A ventricul ar tube is present with tip abutting the anterior falx. CONCLUSION: Interval development of intraventricular hemorrhage with worsening subarachnoid hemorrhage since the prior exam. Post decompression craniotomy with moderate mass effect on the fourth ventricle remaining without any hydrocephalus. Ozzie Coleman MD on February 01, 2017 at 4:20 Board Certified Radiologist. This report was verified electronically.
[2017-02-01] MEDS: PIPERACIL-TAZO 4.5 GM PREMIX 100 ML IV SCH ×4 (04:54→22:56)
[2017-02-01] MEDS: HEPARIN SODIUM - SQ 10,000 UNITS/ML VIAL SQ SCH (05:04)
[2017-02-01] MEDS: levETIRAcetam INJ 500 MG in SODIUM CHLORIDE 0.9% INJ 100 ML IV SCH ×2 (05:04→17:57)
[2017-02-01] MEDS: INSULIN ASPART SUPPLEMENTAL SCALE SQ SCH ×2 (06:42→12:12)
[2017-02-01] MEDS: LABETALOL HCL 100 MG/20 ML VIAL IV PUSH PRN (07:03)
[2017-02-01] MEDS: CHLORHEXIDINE 0.12% (ORAL KIT) 15 ML CUP MT SCH ×2 (08:00→20:26)
[2017-02-01] MEDS: DOCUSATE SODIUM 100 MG/10 ML UDC PO SCH ×2 (08:46→21:03)
[2017-02-01] MEDS: METOPROLOL TARTRATE 25 MG TAB PO SCH ×2 (08:46→21:03)
[2017-02-01] MEDS: PANTOPRAZOLE SODIUM 40 MG VIAL IVP SCH (08:46)
[2017-02-01] MEDS: BENEPROTEIN POWDER 1 PACK G-TUBE SCH ×3 (08:47→17:51)
[2017-02-01] MEDS: SODIUM CHLORIDE 0.9% FLUSH 5 ML FLUSH IVF SCH ×2 (08:47→20:00)
[2017-02-01] MEDS: DIGOXIN SOLUTION 0.125 MG/2.5 ML CUP PO SCH (08:47)
[2017-02-01] MEDS: PANTOPRAZOLE SOD 40 MG DELAYED RELEASE TAB PO SCH (08:47)
[2017-02-01] MEDS: DOCUSATE SODIUM 100 MG CAP PO SCH ×2 (08:48→20:26)
--- NOTE | 2017-02-01 09:39 | HHI.NSPN ---
(Lakeisha Olson) Note Status Status: Progress Note (Lakeisha Olson) Interval History Interval History This is a 76-year-old female with history of atrial fibrillation, hypertension, hypothyroidism, type 2 diabetes who was brought to the emergency department as a stroke alert. Apparently grandson called EMS as the patient was found to be disoriented. EMS noted that patient had rightward gaze, with Left hemiparesis. A stroke alert was initiated. 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 After discussion Dr. Slater, TPA was initiated. Today she became comatose. Follow up CT showed a large cerebellar hemorrhage. She underwent emergent posterior fossa craniectomy with evacuation of cerebellar hematoma, and placement of ventriculostomy drain on 01/27/17. 01/28: POD 1, intubated and sedated. Ventriculostomy draining well, withdraws x 4 extremities 01/31: POD 4, off IV sedation, intubated. EVD draining well, ICPs wnl. 02/01: POD 5, getting EEG. f/u CT Head today completed. no changes to neuro checks. ICPs wnl, EVD draining well. (Lakeisha Olson) Labs, Micro, & Vital Signs Results Date Time Temp Pulse Resp B/P Pulse Ox O2 Delivery O2 Flow Rate FiO2 02/01/17 07:47 100 35 02/01/17 07:00 97 Mechanical Ventilator 35 02/01/17 06:00 111 02/01/17 04:28 98 35 02/01/17 04:00 98.9 103 22 180/80 97 02/01/17 04:00 103 02/01/17 04:00 100 100 02/01/17 04:00 35 02/01/17 02:00 79 02/01/17 00:16 97 35 02/01/17 00:00 98.3 88 20 135/58 98 02/01/17 00:00 35 02/01/17 00:00 88 01/31/17 22:00 84 01/31/17 20:00 35 01/31/17 20:00 113 01/31/17 20:00 99.0 113 29 172/72 97 01/31/17 19:56 97 35 01/31/17 19:00 95 Mechanical Ventilator 35 01/31/17 18:00 103 01/31/17 16:00 30 01/31/17 16:00 91 01/31/17 16:00 100.9 100 29 148/71 92 01/31/17 15:22 96 30 01/31/17 14:00 93 01/31/17 12:11 98 30 01/31/17 12:00 101.7 98 24 164/86 100 01/31/17 12:00 30 01/31/17 12:00 102 01/31/17 10:00 83 02/01/17 07:00 Intake Total 5742 ml Output Total 5767 ml Balance -25 ml Constitutional Vital Signs Date Time Temp Pulse Resp B/P Pulse Ox O2 Delivery O2 Flow Rate FiO2 02/01/17 07:47 100 35 02/01/17 07:00 97 Mechanical Ventilator 35 02/01/17 06:00 111 02/01/17 04:28 98 35 02/01/17 04:00 98.9 103 22 180/80 97 02/01/17 04:00 103 02/01/17 04:00 100 100 02/01/17 04:00 35 02/01/17 02:00 79 02/01/17 00:16 97 35 02/01/17 00:00 98.3 88 20 135/58 98 02/01/17 00:00 35 02/01/17 00:00 88 01/31/17 22:00 84 01/31/17 20:00 35 01/31/17 20:00 113 01/31/17 20:00 99.0 113 29 172/72 97 01/31/17 19:56 97 35 01/31/17 19:00 95 Mechanical Ventilator 35 01/31/17 18:00 103 01/31/17 16:00 30 01/31/17 16:00 91 01/31/17 16:00 100.9 100 29 148/71 92 01/31/17 15:22 96 30 01/31/17 14:00 93 01/31/17 12:11 98 30 01/31/17 12:00 101.7 98 24 164/86 100 01/31/17 12:00 30 01/31/17 12:00 102 01/31/17 10:00 83 02/01/17 07:00 Intake Total 5742 ml Output Total 5767 ml Balance -25 ml (Lakeisha Olson) Review of Systems/Exam Exam Ms. Mcclure is intubated. Off sedative drip. Surgical wound reported to be clean and dry. Right ventriculostomy drain at 3 cm H2O draining yellow CSF. ICPs = 3 Cranial Nerves: Pupils left 3 mm, right 5 mm bilaterally reactive. Eyes appear conjugated. Motor: patient withdraws to local stimuli x all 4 extremities Reflexes: bilateral Babinski response Sensory: response to painful stimuli to both upper and lower extremities. Cerebellar:cannot assess due to clinical condition (Lakeisha Olson) Medications Current Medications Current Medications Medications (Trade) Dose Ordered Sig/Calixto Route PRN Reason Start Time Stop Time Status Last Admin Dose Admin Magnesium Oxide 800 mg 800 mg UNSCH PRN PO For Magnesium 1.2 - 1.6 mg/dL 01/26/17 16:15 Magnesium Sulfate 4 gm/Sodium Chloride 100 ml @ 50 mls/hr UNSCH PRN IV For Magnesium 0.9 - 1.1 mg/dL 01/26/17 16:15 Magnesium Sulfate 2 gm/Sodium Chloride 100 ml @ 50 mls/hr UNSCH PRN IV For Magnesium 1.2 - 1.6 mg/dL 01/26/17 16:15 Potassium Chloride 100 ml @ 50 mls/hr Q2H PRN IV For Potassium 2.8 - 3.2 mEq/L 01/26/17 16:15 Potassium Chloride 100 ml @ 50 mls/hr Q2H PRN IV For Potassium 3.3 - 3.5 mEq/L 01/26/17 16:15 Potassium Chloride 100 ml @ 50 mls/hr Q2H PRN IV For Potassium 2.8 - 3.2 mEq/L 01/26/17 16:15 Potassium Chloride (KCl 40 Meq Premix Inj) 100 ml @ 25 mls/hr UNSCH PRN IV For Potassium 3.3 - 3.5 mEq/L 01/26/17 16:15 Potassium Phosphate (K-Phos) 2,000 mg Q4H PRN PO For Phosphorus < 2.5 mg/dL 01/26/17 16:15 Potassium Phosphate 2000 mg 2,000 mg UNSCH PRN PO/TUBE SEE LABEL COMMENTS 01/26/17 16:15 Potassium Phosphate 30 mmol/ Sodium Chloride 260 ml @ 42 mls/hr UNSCH PRN IV SEE LABEL COMMENTS 01/26/17 16:15 Sodium Phosphate/ Sodium Chloride (Sodium Phosphate Inj/NS 250 ml Inj) 250 ml @ 42 mls/hr UNSCH PRN IV For Phosphorus < 2.5 mg/dL 01/26/17 16:15 01/31/17 13:44 Dextrose (D50w (Vial) Inj) 25 ml UNSCH PRN IV PUSH HYPOGLYCEMIA-SEE COMMENTS 01/26/17 16:15 Labetalol HCl 10 mg 10 mg Q4H PRN IV PUSH SYS BP GREATER THAN 180 MMHG 01/26/17 16:45 02/01/17 07:03 Diltiazem HCl 125 mg/Sodium Chloride 125 ml @ 0 mls/hr TITRATE IV 01/26/17 19:00 02/01/17 08:44 Norepinephrine Bitartrate (Levophed-Dextrose Drip) 250 ml @ 0 mls/hr TITRATE IV 01/27/17 12:00 01/27/17 18:10 Terbutaline Sulfate 1 mg 1 mg UNSCH PRN SQ For Extravasation 01/27/17 11:15 Potassium Chloride/Sodium Chloride (NS + KCl 20 Meq Inj) 1,000 ml @ 100 mls/hr Q10H IV 01/27/17 12:39 02/01/17 00:20 IV Flush (NS Flush) 2 ml UNSCH PRN IVF FLUSH AFTER USING IV ACCESS 01/27/17 12:45 IV Flush 2 ml 2 ml BID IVF 01/27/17 21:00 02/01/17 08:47 Levetriacetam/ Sodium Chloride (Keppra Inj/NS Inj) 105 ml @ 400 mls/hr Q12H IV 01/27/17 18:00 02/01/17 05:04 Bisacodyl (Dulcolax Supp) 10 mg DAILY PRN RECTAL CONSTIPATION 01/27/17 12:45 Docusate Sodium (Colace) 100 mg BID PO 01/27/17 21:00 01/27/17 21:12 Pantoprazole Sodium (Protonix) 40 mg DAILY PO 01/28/17 09:00 Pantoprazole Sodium (Protonix Inj) 40 mg DAILY IVP 01/28/17 09:00 02/01/17 08:46 Ondansetron HCl (Zofran Inj) 4 mg Q6H PRN IV NAUSEA OR VOMITING 01/27/17 12:45 Calcium Gluconate (Calcium Gluconate Inj) 1 gm UNSCH PRN IV SEE LABEL COMMENTS 01/27/17 12:45 Acetaminophen/ Hydrocodone Bitart ([place] 10-325 Mg) 1 tab Q4H PRN PO PAIN SCALE 1 TO 5 01/27/17 12:45 Acetaminophen/ Hydrocodone Bitart ([place] 10-325 Mg) 2 tab Q4H PRN PO PAIN SCALE 6 TO 10 01/27/17 12:45 01/31/17 21:39 Morphine Sulfate (Morphine Inj) 4 mg Q2H PRN IV PUSH PAIN SCALE 7 TO 10 01/27/17 12:45 Acetaminophen 650 mg 650 mg Q4H PRN PO TEMPERATURE > 101.5 F 01/27/17 12:45 01/31/17 12:26 Insulin Human Regular/Sodium Chloride (NovoLIN R (IV INFUSION)/NS Inj) 100 ml @ 0 mls/hr TITRATE IV 01/27/17 17:00 01/27/17 18:28 Dextrose (D50w (Vial) Inj) 50 ml UNSCH PRN IV PUSH SEE LABEL COMMENTS 01/27/17 17:00 Chlorhexidine Gluconate (Peridex 0.12% Liq) 15 ml BID@08,20 MT 01/27/17 20:00 02/01/17 08:00 Digoxin (Lanoxin Liq) 0.25 mg DAILY PO 01/29/17 09:00 02/01/17 08:47 Metoprolol Tartrate (Lopressor) 12.5 mg Q12HR PO 01/28/17 09:00 02/01/17 08:46 Miscellaneous (Pill Splitter) 1 ea UNSCH PRN OTHER SEE LABEL COMMENTS 01/28/17 07:45 Atorvastatin Calcium (Lipitor) 10 mg HS PO 01/28/17 21:00 01/31/17 21:17 Protein (Beneprotein Powder) 1 pack TID G-TUBE 01/28/17 09:00 02/01/17 08:47 Docusate Sodium 100 mg 100 mg Q12HR PO 01/28/17 09:00 02/01/17 08:46 Piperacillin Sod/ Tazobactam Sod (Zosyn 4.5 Gm Premix) 100 ml @ 200 mls/hr Q6H IV 01/31/17 11:00 02/01/17 04:54 Insulin Detemir (Levemir Inj) 18 units Q12HR SQ 01/31/17 21:00 01/31/17 21:18 (Lakeisha Olson) Medical Decision Making MDM Remarks 76 y/o female s/p tpa for acute CVA and developed large cerebellar hematoma, s/p posterior fossa craniectomy with evacuation of cerebellar bleed and placement of ventriculostomy drain on 01/27/17 (Lakeisha Olson) Plan Plan Remarks CT Head today reviewed, stable findings, cont ventriculostomy draining at 3 cm H20, cont critical care management cont neuro checks, f/u examination nonchemical dvt prophylaxis in view of ICH protonix for stress ulcer proph (Lakeisha Olson) Attending Statement The exam, history, and the medical decision-making described in the above note were completed with the assistance of the mid-level provider. I reviewed and agree with the findings presented. I attest that I had a [id number] encounter with the patient on the same day, and personally performed and documented my assessment and findings in the medical record. (Fred Wagoner MD) Lakeisha Olson Feb 01, 2017 09:39 Fred Wagoner MD Feb 01, 2017 20:40
[2017-02-01] MEDS: INSULIN DETEMIR 100 UNITS/ML VIAL SQ SCH (09:43)
[2017-02-01] MEDS: ACETAMINOPHEN 325 MG TAB PO PRN (10:32)
--- NOTE | 2017-02-01 11:59 | HHI.CCPN ---
Subjective Remarks/Hospital Course 76-year-old female with history of atrial fibrillation, hypertension, hypothyroidism, type 2 diabetes who was brought to the emergency department as a stroke alert. Apparently grandson called EMS as the patient was found to be disoriented. EMS noted that patient had rightward gaze, with Left hemiparesis and stroke alert was initiated. Last seen normal at around 2:10 PM, per grandson. 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 After discussion Dr. Slater, TPA was initiated. I evaluated the patient in ED. she somnolent but wakes up easily, she states that she is unable to open her right eye opens left eye. Has obvious left facial droop and left hemiparesis, but now she is able to move LLE. Speech is clear 01/27: Patient more somnolent, hard to wake up (RN states she was more awake 2 huors ago). Remains in A fib with RVR, CTA neck shows complete R common, internal and ext carotid occlusion. Moderate L ICA stenosis. Vascular surgery Dr. Juarez consulted. remains hyperglycemic (gluc 371) without DKA. 01/28: Stat CT 01/27 for AMS showed new large right cerebellar hemorrhage with transtentorial herniation and brain stem compression, bilateral SAH, infarct right MCA territory. Dr. Wagoner emergently consulted, patient underwent suboccipital decompressive craniotomy and ventriculostomy placement. ICP well controlled overnight. Pupils reactive. Withdraws x4. troponin increased to 3.7. LVEF severely reduced, less than 20%. Diffuse global hypokinesis. Mild-to- moderate mitral valve regurgitation, moderate tricuspid valve regurgitation 6/10 mins unresponsive, severe cardiomyopathy on ultrasound, consult palliative care 01/30 no change since yesterday, patient remains unresponsive 01/31: Briskly withdraws 4, grimaces to pain no spontaneous eye opening. CT of the head planned for tomorrow. High fever, pancultured. DC Rocephin and start Zosyn and single dose of Vanc 02/01: Reported single episode of spontaneous eye opening up CAT scan today. CT of the head shows evacuation of cerebellar hemorrhage, interval development of intraventricular hemorrhage bilateral occipital horns, and some worsening of subarachnoid hemorrhage. Clinically critical but stable neurologically essentially unchanged Objective Vital Signs Date Time Temp Pulse Resp B/P Pulse Ox O2 Delivery O2 Flow Rate FiO2 02/01/17 10:00 95 02/01/17 08:00 35 02/01/17 08:00 101.0 26 167/77 96 02/01/17 07:00 Mechanical Ventilator 01/28/17 07:00 2.00 Intake and Output 01/31/17 01/31/17 02/01/17 08:00 16:00 00:00 Intake Total 1658 ml 2110 ml 2085 ml Output Total 1937 ml 2695 ml 1712 ml Balance -279 ml -585 ml 373 ml Result Diagram: 01/31/17 0500 02/01/[address] head shows no acute findings positive right cerebellar encephalomalacia indicating previous stroke Objective Remarks Levophed on standby Cardizem gtt 3% Saline at 30 ml per hour-on hold NS at 100 ml per hour GENERAL: 76-year-old white female patient who is intubated not on sedation SKIN: Skin warm and dry HEAD: Atraumatic. Normocephalic. EVD with blood tinged CSF drainage, ICP 1-3 EYES: R pupil 5, L 4, reactive. No scleral icterus. ENT: No nasal bleeding or discharge. Orotracheally intubated NECK: Trachea midline. No JVD. CARDIOVASCULAR: Tachycardic and irregularly irregular. No murmurs RESPIRATORY: ACV. Breath sounds equal bilaterally. GASTROINTESTINAL: Abdomen soft, non-tender, nondistended. Hepatic and splenic margins not palpable. MUSCULOSKELETAL: No obvious deformities. No clubbing. No cyanosis. No edema. NEUROLOGICAL:STEW, no spontaneous eye opening. Grimaces to pain. Withdraws all 4 extremities Date of Insertion: Jan 27, 2017 Side: Left Location: Internal, Jugular A/P Assessment and Plan NEURO: Acute post TPA cerebellar hemorrhage with brainstem compression, transtentorial herniation, SAH Status post emergent suboccipital craniotomy and ventriculostomy placement by Dr Wagoner Acute right MCA stroke Acute encephalopathy Previous cerebellar stroke - Post TPA Patient bled into the previous cerebellar stroke - s/p emergent suboccipital craniotomy and ventriculostomy placement by Dr Wagoner - Ct head 02/01-status post evacuation of cerebellar hemorrhage, interval development of intraventricular hemorrhage bilateral occipital horns, some worsening of SAH - Optimized hyperosmolar therapy with 3% saline and mannitol - Good ICP control. Maintain CPP 60-70 - Head of bed elevation to 45 - Maintain normal temp, Keep PCO2 35 - Supplement B12 level 383, supplement. TSH normal - Brainstem hematoma, and severe cardiomyopathy with guarded prognosis. RESP: Acute respiratory failure -Intubated for airway protection 01/27. -Continue ACV, Vent bundle, Duoneb q6 and PRN -Does not meet SBT criteria, no weaning until neurologically improved -If family wants continued aggressive care she will need a tracheostomy and PEG tube CV: NSTEMI Cardiomyopathy with ejection fraction less than 20% Atrial fibrillation with rapid ventricular response Bilateral carotid stenosis Hypertensive emergency -CTA neck shows complete R common, internal and ext carotid occlusion. Moderate L ICA stenosis. -Vascular surgery Dr. Juarez consulted prior to ICH-no intervention -Target systolic blood pressure less than 140 -Normal saline IV fluids 100 ml per hour, 3% Saline at 30 ml per hour -Cardiology consulted for NSTEMI and Cardiomyopathy. Not a candidate for antiplatelet therapy, or cardiac catheterization -A. fib rate controlled with Cardizem infusion and IV digoxin. Metoprolol 12.5 every 12 hours with holding parameters -Start KARI I if BP can tolerate, start lisinopril 2.5 mg po daily -Levophed off -Continue Lipitor daily at bedtime -Cardene, IV labetalol when necessary to keep systolic blood pressure less than 140 GI: -Continue tube feeds -IV Protonix -Bowel regimen : -Monitor renal function closely. Small catheter. ID: New fever Sepsis UTI with Escherichia coli and strep viridans Blood culture with GPC from 01/31 -Monitor for infection. DCd Rocephin, started Zosyn 4.5 g every 6 hours and vancomycin 1 01/31 -Vancomycin pharmacy to dose -Blood urine and sputum culture 01/31 HEME: -Monitor CBC, CMP, coags and fibrinogen level per protocol -Received cryoprecipitate and FFP post bleed -H&H stable ENDO: Type 2 diabetes with hyperglycemia -Off insulin drip but now with poor control -Sliding-scale, Levemir 10 U q12, increase Levemir to 18 units every 12, -Electrolyte replacement protocol PROPH: -Bilateral lower extremity SCDs. Chemical DVT started on 01/30, DCd due to IVH. IV Protonix LINES: -Central line art line placed 01/27/17 Critical Care: The total critical care time was 35 minutes. Time to perform other separately billable procedures was not included in the critical care time. Toribio Linares MD Feb 01, 2017 11:59
[2017-02-01] MEDS ORDERED: VANCOMYCIN INJ 1,250 MG in SODIUM CHLOR 0.9% 250 ML INJ 250 ML IV ONE (12:00)
[2017-02-01] MEDS ORDERED: Vancomycin Consult Pharmacy 1 EA OTHER SCH (12:00)
[2017-02-01] MEDS ORDERED: MISC INFORMATION OTHER ONE (12:45)
[2017-02-01] MEDS ORDERED: DEXTROSE 50% IN WATER 50 ML VIAL(D50) IV PUSH PRN (12:45)
[2017-02-01] MEDS: VANCOMYCIN 1,500 MG/NS 500 ML IV SCH ×2 (13:43)
--- NOTE | 2017-02-01 14:10 | MG ---
cc: KESHA CUMMINS M.D., SINOJ K. MD Lab No: [id number] Date: 02/01/2017 Age: 77 Sex: F Intubated, sedated, unresponsive. Without hyperventilation. Photic was done. Withdraws in both lower extremities but not in the upper and does not follow commands. CT shows interval development of intraventricular hemorrhage with worsening subarachnoid hemorrhage since prior exam. Post decompressive craniotomy with moderate mass effect without hydrocephalous. This is a 77-year-old woman status post Stroke Alert, right MCA stroke, status post TPA, right carotid occlusion, right cerebellar hemorrhage without mass effect and bilateral subarachnoid hemorrhage. She has a history of thyroid disease, atrial fibrillation, hypertension and diabetes. MEDICATIONS Currently are Keppra, Levemir, Zosyn, digoxin, Lopressor, diltiazem, and others. DESCRIPTION OF RECORD The patient exhibits background slowing predominately of 2.5 Hz. The EKG portion looks like it may be atrial fibrillation. There is some foot jerking. There is no epileptic potential with that, just some artifact, but overall background slowing. Of note there is more slowing over the right hemisphere compared to the left. Photic stimulation without any significant driving response. No change with any stimulation of the patient such as deep tactile. IMPRESSION Abnormal EEG due to moderately severe slowing bilaterally, right greater than left, consistent with a global encephalopathy without epileptic activity. Kesha Cummins MD DF/PILI /1:54 PM /2:05 PM
[2017-02-01] MEDS: INSULIN REGULAR (IV INFUSION) 100 UNITS in SODIUM CHLORIDE 0.9% INJ 99 ML IV SCH (15:12)
[2017-02-01] MEDS: ACETAMINOPHEN/HYDROcodone 325 MG/10 MG TAB PO PRN (16:47)
--- NOTE | 2017-02-01 20:22 | HHI.PR ---
Review/Management Diagnosis right MCA CVA, s/p iv TPA right carotid occlusion right cerebellar hemorrhage with mass effect and bilateral SAH. Plan continuje supportive care Diagnosis/Plan: Subjective Subjective Comments Ct today shows intraventricular hemorrhage with no hydrocephalus. Increase in SAH, right mca cva Active Medications Current Medications Medications (Trade) Dose Ordered Sig/Calixto Route Start Time Stop Time Status Last Admin Magnesium Oxide 800 mg 800 mg UNSCH PRN PO 01/26/17 16:15 Magnesium Sulfate 4 gm/Sodium Chloride 100 ml @ 50 mls/hr UNSCH PRN IV 01/26/17 16:15 Magnesium Sulfate 2 gm/Sodium Chloride 100 ml @ 50 mls/hr UNSCH PRN IV 01/26/17 16:15 Potassium Chloride 100 ml @ 50 mls/hr Q2H PRN IV 01/26/17 16:15 Potassium Chloride 100 ml @ 50 mls/hr Q2H PRN IV 01/26/17 16:15 Potassium Chloride 100 ml @ 50 mls/hr Q2H PRN IV 01/26/17 16:15 (KCl 40 Meq Premix Inj) 100 ml @ 25 mls/hr UNSCH PRN IV 01/26/17 16:15 (K-Phos) 2,000 mg Q4H PRN PO 01/26/17 16:15 Potassium Phosphate 2000 mg 2,000 mg UNSCH PRN PO/TUBE 01/26/17 16:15 Potassium Phosphate 30 mmol/ Sodium Chloride 260 ml @ 42 mls/hr UNSCH PRN IV 01/26/17 16:15 (Sodium Phosphate Inj/NS 250 ml Inj) 250 ml @ 42 mls/hr UNSCH PRN IV 01/26/17 16:15 01/31/17 13:44 Labetalol HCl 10 mg 10 mg Q4H PRN IV PUSH 01/26/17 16:45 02/01/17 07:03 Diltiazem HCl 125 mg/Sodium Chloride 125 ml @ 0 mls/hr TITRATE IV 01/26/17 19:00 02/01/17 18:25 (Levophed-Dextrose Drip) 250 ml @ 0 mls/hr TITRATE IV 01/27/17 12:00 01/27/17 18:10 Terbutaline Sulfate 1 mg 1 mg UNSCH PRN SQ 01/27/17 11:15 (NS + KCl 20 Meq Inj) 1,000 ml @ 100 mls/hr Q10H IV 01/27/17 12:39 02/01/17 12:00 (NS Flush) 2 ml UNSCH PRN IVF 01/27/17 12:45 IV Flush 2 ml 2 ml BID IVF 01/27/17 21:00 02/01/17 08:47 (Keppra Inj/NS Inj) 105 ml @ 400 mls/hr Q12H IV 01/27/17 18:00 02/01/17 17:57 (Dulcolax Supp) 10 mg DAILY PRN RECTAL 01/27/17 12:45 (Colace) 100 mg BID PO 01/27/17 21:00 01/27/17 21:12 (Protonix) 40 mg DAILY PO 01/28/17 09:00 (Protonix Inj) 40 mg DAILY IVP 01/28/17 09:00 02/01/17 08:46 (Zofran Inj) 4 mg Q6H PRN IV 01/27/17 12:45 (Calcium Gluconate Inj) 1 gm UNSCH PRN IV 01/27/17 12:45 ([place] 10-325 Mg) 1 tab Q4H PRN PO 01/27/17 12:45 ([place] 10-325 Mg) 2 tab Q4H PRN PO 01/27/17 12:45 02/01/17 16:47 (Morphine Inj) 4 mg Q2H PRN IV PUSH 01/27/17 12:45 (Tylenol) 650 mg Q4H PRN PO 01/27/17 12:45 02/01/17 10:32 (Peridex 0.12% Liq) 15 ml BID@08,20 MT 01/27/17 20:00 02/01/17 08:00 (Lanoxin Liq) 0.25 mg DAILY PO 01/29/17 09:00 02/01/17 08:47 (Lopressor) 12.5 mg Q12HR PO 01/28/17 09:00 02/01/17 08:46 (Pill Splitter) 1 ea UNSCH PRN OTHER 01/28/17 07:45 (Lipitor) 10 mg HS PO 01/28/17 21:00 01/31/17 21:17 (Beneprotein Powder) 1 pack TID G-TUBE 01/28/17 09:00 02/01/17 17:51 Docusate Sodium 100 mg 100 mg Q12HR PO 01/28/17 09:00 02/01/17 08:46 Piperacillin Sod/ Tazobactam Sod 100 ml @ 200 mls/hr Q6H IV 01/31/17 11:00 02/01/17 16:47 Pharmacy Profile Note 0 ml @ 0 mls/hr UNSCH OTHER 02/01/17 12:00 (Vancomycin Inj/ NS 500 ml Inj) 515 ml @ 257.5 mls/ hr Q24H IV 02/01/17 13:00 02/01/17 13:43 Miscellaneous Information SPECIFIC LAB TO BE DOUGIE... ONCE ONCE .XX 02/03/17 12:45 02/03/17 12:46 (NovoLIN R (IV INFUSION)/NS Inj) 100 ml @ 0 mls/hr TITRATE IV 02/01/17 14:00 02/01/17 15:12 (D50w (Vial) Inj) 50 ml UNSCH PRN IV PUSH 02/01/17 12:45 Allergies Allergies Coded Allergies Sulfa (Verified Allergy, Intermediate, 01/18/17) Exam I&O / VS 01/31/17 01/31/17 02/01/17 14:59 22:59 06:59 Intake Total 2110 ml 2085 ml 1547 ml Output Total 2695 ml 1712 ml 1360 ml Balance -585 ml 373 ml 187 ml IV Total 1586 ml 1496 ml 1088 ml Tube Feeding 524 ml 389 ml 459 ml Tube Irrigant 200 ml 0 ml Output Urine Total 2650 ml 1675 ml 1325 ml Drainage Total 45 ml 37 ml 35 ml # Bowel Movements 0 0 0 Vital Signs Date Time Temp Pulse Resp B/P Pulse Ox O2 Delivery O2 Flow Rate FiO2 02/01/17 18:00 105 02/01/17 16:47 98 35 02/01/17 16:00 97 02/01/17 16:00 101.6 103 30 139/65 98 02/01/17 16:00 35 02/01/17 14:00 101 02/01/17 12:57 93 35 02/01/17 12:00 35 02/01/17 12:00 104 02/01/17 12:00 100.9 104 28 156/65 92 02/01/17 10:00 95 02/01/17 08:00 88 02/01/17 08:00 35 02/01/17 08:00 101.0 97 26 167/77 96 02/01/17 07:47 100 35 02/01/17 07:00 97 Mechanical Ventilator 35 02/01/17 06:00 111 02/01/17 04:28 98 35 02/01/17 04:00 98.9 103 22 180/80 97 02/01/17 04:00 103 02/01/17 04:00 100 100 02/01/17 04:00 35 02/01/17 02:00 79 02/01/17 00:16 97 35 02/01/17 00:00 98.3 88 20 135/58 98 02/01/17 00:00 35 02/01/17 00:00 88 01/31/17 22:00 84 Exam Comments nonresponsive pupils 3mm min reactive. Motor--no spontaneous limb movement. but does withdraw BLE to stimuli . 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 Walker Slater PhD Feb 01, 2017 20:22
[2017-02-01] MEDS: ATORVASTATIN 10 MG TAB PO SCH (21:03)
[2017-02-02] VITALS (17 sets, daily range): BP systolic 115–157; BP diastolic 62–72; PULSE 93–113; RESP 17–26; TEMP 97.3–101.7; O2SAT 91–100
[2017-02-02] MEDS: PIPERACIL-TAZO 4.5 GM PREMIX 100 ML IV SCH ×4 (05:29→22:01)
[2017-02-02] MEDS: levETIRAcetam INJ 500 MG in SODIUM CHLORIDE 0.9% INJ 100 ML IV SCH ×2 (05:29→18:26)
[2017-02-02] MEDS: ACETAMINOPHEN/HYDROcodone 325 MG/10 MG TAB PO PRN ×2 (05:30→22:01)
[2017-02-02] MEDS: DILTIAZEM INJ 125 MG in SODIUM CHLORIDE 0.9% INJ 100 ML IV SCH ×2 (06:07→18:26)
[2017-02-02] MEDS: INSULIN REGULAR (IV INFUSION) 100 UNITS in SODIUM CHLORIDE 0.9% INJ 99 ML IV SCH (06:09)
[2017-02-02] MEDS: CHLORHEXIDINE 0.12% (ORAL KIT) 15 ML CUP MT SCH ×2 (08:00→20:33)
[2017-02-02] MEDS: BENEPROTEIN POWDER 1 PACK G-TUBE SCH ×3 (09:00→17:08)
[2017-02-02] MEDS: DOCUSATE SODIUM 100 MG CAP PO SCH ×2 (09:00→20:33)
[2017-02-02] MEDS: PANTOPRAZOLE SOD 40 MG DELAYED RELEASE TAB PO SCH (09:00)
[2017-02-02] MEDS: NS + KCL 20 MEQ INJ 1,000 ML IV SCH ×2 (09:09→18:26)
[2017-02-02] MEDS: DOCUSATE SODIUM 100 MG/10 ML UDC PO SCH ×2 (09:11→20:25)
[2017-02-02] MEDS: PANTOPRAZOLE SODIUM 40 MG VIAL IVP SCH (09:11)
[2017-02-02] MEDS: SODIUM CHLORIDE 0.9% FLUSH 5 ML FLUSH IVF SCH ×2 (09:11→20:33)
[2017-02-02] MEDS: METOPROLOL TARTRATE 25 MG TAB PO SCH ×2 (09:12→20:24)
[2017-02-02] MEDS: DIGOXIN SOLUTION 0.125 MG/2.5 ML CUP PO SCH (09:12)
--- NOTE | 2017-02-02 10:04 | HHI.NSPN ---
(Lakeisha Olson) Note Status Status: Progress Note (Lakeisha Olson) Interval History Interval History This is a 76-year-old female with history of atrial fibrillation, hypertension, hypothyroidism, type 2 diabetes who was brought to the emergency department as a stroke alert. Apparently grandson called EMS as the patient was found to be disoriented. EMS noted that patient had rightward gaze, with Left hemiparesis. A stroke alert was initiated. 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 After discussion Dr. Slater, TPA was initiated. Today she became comatose. Follow up CT showed a large cerebellar hemorrhage. She underwent emergent posterior fossa craniectomy with evacuation of cerebellar hematoma, and placement of ventriculostomy drain on 01/27/17. 01/28: POD 1, intubated and sedated. Ventriculostomy draining well, withdraws x 4 extremities 01/31: POD 4, off IV sedation, intubated. EVD draining well, ICPs wnl. 02/01: POD 5, getting EEG. f/u CT Head today completed. no changes to neuro checks. ICPs wnl, EVD draining well. 02/02: POD 6, grimacing to pain, very minimal eye opening seen. (Lakeisha Olson) Labs, Micro, & Vital Signs Results Date Time Temp Pulse Resp B/P Pulse Ox O2 Delivery O2 Flow Rate FiO2 02/02/17 08:14 98 35 02/02/17 07:00 99 Mechanical Ventilator 35 02/02/17 06:00 108 02/02/17 04:16 91 35 02/02/17 04:00 35 02/02/17 04:00 101.7 106 23 147/65 98 02/02/17 04:00 106 02/02/17 02:00 99 02/02/17 01:23 97 35 02/02/17 00:00 93 02/02/17 00:00 35 02/02/17 00:00 99.9 93 20 150/65 97 02/01/17 22:00 94 02/01/17 20:28 96 35 02/01/17 20:00 100.8 94 19 136/64 97 02/01/17 20:00 35 02/01/17 20:00 94 02/01/17 19:00 96 Mechanical Ventilator 35 02/01/17 18:00 105 02/01/17 16:47 98 35 02/01/17 16:00 97 02/01/17 16:00 101.6 103 30 139/65 98 02/01/17 16:00 35 02/01/17 14:00 101 02/01/17 12:57 93 35 02/01/17 12:00 35 02/01/17 12:00 104 02/01/17 12:00 100.9 104 28 156/65 92 02/02/17 07:00 Intake Total 5435 ml Output Total 3813 ml Balance 1622 ml Constitutional Vital Signs Date Time Temp Pulse Resp B/P Pulse Ox O2 Delivery O2 Flow Rate FiO2 02/02/17 08:14 98 35 02/02/17 07:00 99 Mechanical Ventilator 35 02/02/17 06:00 108 02/02/17 04:16 91 35 02/02/17 04:00 35 02/02/17 04:00 101.7 106 23 147/65 98 02/02/17 04:00 106 02/02/17 02:00 99 02/02/17 01:23 97 35 02/02/17 00:00 93 02/02/17 00:00 35 02/02/17 00:00 99.9 93 20 150/65 97 02/01/17 22:00 94 02/01/17 20:28 96 35 02/01/17 20:00 100.8 94 19 136/64 97 02/01/17 20:00 35 02/01/17 20:00 94 02/01/17 19:00 96 Mechanical Ventilator 35 02/01/17 18:00 105 02/01/17 16:47 98 35 02/01/17 16:00 97 02/01/17 16:00 101.6 103 30 139/65 98 02/01/17 16:00 35 02/01/17 14:00 101 02/01/17 12:57 93 35 02/01/17 12:00 35 02/01/17 12:00 104 02/01/17 12:00 100.9 104 28 156/65 92 02/02/17 07:00 Intake Total 5435 ml Output Total 3813 ml Balance 1622 ml (Lakeisha Olson) Review of Systems/Exam Exam Ms. Mcclure is intubated, grimacing to pain. Minimal eye opening but not following commands. Surgical wound with clean, dry dressing. Right ventriculostomy drain at 3 cm H2O, blood tinged CSF. ICPs = 3 Cranial Nerves: Pupils left 3 mm, right 5 mm bilaterally reactive. ?left facial weakness noted when grimaced Motor: no withdrawals seen in the left upper extremity today, minimally withdrew right upper and b/l LE's to noxious stimulation Reflexes: bilateral Babinski response Sensory: response to painful stimuli to both upper and lower extremities. Cerebellar:cannot assess due to clinical condition (Lakeisha Olson) Medications Current Medications Current Medications Medications (Trade) Dose Ordered Sig/Calixto Route PRN Reason Start Time Stop Time Status Last Admin Dose Admin Magnesium Oxide 800 mg 800 mg UNSCH PRN PO For Magnesium 1.2 - 1.6 mg/dL 01/26/17 16:15 Magnesium Sulfate 4 gm/Sodium Chloride 100 ml @ 50 mls/hr UNSCH PRN IV For Magnesium 0.9 - 1.1 mg/dL 01/26/17 16:15 Magnesium Sulfate 2 gm/Sodium Chloride 100 ml @ 50 mls/hr UNSCH PRN IV For Magnesium 1.2 - 1.6 mg/dL 01/26/17 16:15 Potassium Chloride 100 ml @ 50 mls/hr Q2H PRN IV For Potassium 2.8 - 3.2 mEq/L 01/26/17 16:15 Potassium Chloride 100 ml @ 50 mls/hr Q2H PRN IV For Potassium 3.3 - 3.5 mEq/L 01/26/17 16:15 Potassium Chloride 100 ml @ 50 mls/hr Q2H PRN IV For Potassium 2.8 - 3.2 mEq/L 01/26/17 16:15 Potassium Chloride (KCl 40 Meq Premix Inj) 100 ml @ 25 mls/hr UNSCH PRN IV For Potassium 3.3 - 3.5 mEq/L 01/26/17 16:15 Potassium Phosphate (K-Phos) 2,000 mg Q4H PRN PO For Phosphorus < 2.5 mg/dL 01/26/17 16:15 Potassium Phosphate 2000 mg 2,000 mg UNSCH PRN PO/TUBE SEE LABEL COMMENTS 01/26/17 16:15 Potassium Phosphate 30 mmol/ Sodium Chloride 260 ml @ 42 mls/hr UNSCH PRN IV SEE LABEL COMMENTS 01/26/17 16:15 Sodium Phosphate/ Sodium Chloride (Sodium Phosphate Inj/NS 250 ml Inj) 250 ml @ 42 mls/hr UNSCH PRN IV For Phosphorus < 2.5 mg/dL 01/26/17 16:15 01/31/17 13:44 Labetalol HCl 10 mg 10 mg Q4H PRN IV PUSH SYS BP GREATER THAN 180 MMHG 01/26/17 16:45 02/01/17 07:03 Diltiazem HCl 125 mg/Sodium Chloride 125 ml @ 0 mls/hr TITRATE IV 01/26/17 19:00 02/02/17 06:07 Norepinephrine Bitartrate (Levophed-Dextrose Drip) 250 ml @ 0 mls/hr TITRATE IV 01/27/17 12:00 01/27/17 18:10 Terbutaline Sulfate 1 mg 1 mg UNSCH PRN SQ For Extravasation 01/27/17 11:15 Potassium Chloride/Sodium Chloride (NS + KCl 20 Meq Inj) 1,000 ml @ 100 mls/hr Q10H IV 01/27/17 12:39 02/02/17 09:09 IV Flush (NS Flush) 2 ml UNSCH PRN IVF FLUSH AFTER USING IV ACCESS 01/27/17 12:45 IV Flush 2 ml 2 ml BID IVF 01/27/17 21:00 02/02/17 09:11 Levetriacetam/ Sodium Chloride (Keppra Inj/NS Inj) 105 ml @ 400 mls/hr Q12H IV 01/27/17 18:00 02/02/17 05:29 Bisacodyl (Dulcolax Supp) 10 mg DAILY PRN RECTAL CONSTIPATION 01/27/17 12:45 Docusate Sodium (Colace) 100 mg BID PO 01/27/17 21:00 01/27/17 21:12 Pantoprazole Sodium (Protonix) 40 mg DAILY PO 01/28/17 09:00 Pantoprazole Sodium (Protonix Inj) 40 mg DAILY IVP 01/28/17 09:00 02/02/17 09:11 Ondansetron HCl (Zofran Inj) 4 mg Q6H PRN IV NAUSEA OR VOMITING 01/27/17 12:45 Calcium Gluconate (Calcium Gluconate Inj) 1 gm UNSCH PRN IV SEE LABEL COMMENTS 01/27/17 12:45 Acetaminophen/ Hydrocodone Bitart ([place] 10-325 Mg) 1 tab Q4H PRN PO PAIN SCALE 1 TO 5 01/27/17 12:45 Acetaminophen/ Hydrocodone Bitart ([place] 10-325 Mg) 2 tab Q4H PRN PO PAIN SCALE 6 TO 10 01/27/17 12:45 02/02/17 05:30 Morphine Sulfate (Morphine Inj) 4 mg Q2H PRN IV PUSH PAIN SCALE 7 TO 10 01/27/17 12:45 Acetaminophen (Tylenol) 650 mg Q4H PRN PO TEMPERATURE > 101.5 F 01/27/17 12:45 02/01/17 10:32 Chlorhexidine Gluconate (Peridex 0.12% Liq) 15 ml BID@08,20 MT 01/27/17 20:00 02/02/17 08:00 Digoxin (Lanoxin Liq) 0.25 mg DAILY PO 01/29/17 09:00 02/02/17 09:12 Metoprolol Tartrate (Lopressor) 12.5 mg Q12HR PO 01/28/17 09:00 02/02/17 09:12 Miscellaneous (Pill Splitter) 1 ea UNSCH PRN OTHER SEE LABEL COMMENTS 01/28/17 07:45 Atorvastatin Calcium (Lipitor) 10 mg HS PO 01/28/17 21:00 02/01/17 21:03 Protein (Beneprotein Powder) 1 pack TID G-TUBE 01/28/17 09:00 02/02/17 09:00 Docusate Sodium 100 mg 100 mg Q12HR PO 01/28/17 09:00 02/02/17 09:11 Piperacillin Sod/ Tazobactam Sod 100 ml @ 200 mls/hr Q6H IV 01/31/17 11:00 02/02/17 05:29 Pharmacy Profile Note 0 ml @ 0 mls/hr UNSCH OTHER 02/01/17 12:00 Vancomycin HCl/ Sodium Chloride (Vancomycin Inj/ NS 500 ml Inj) 515 ml @ 257.5 mls/ hr Q24H IV 02/01/17 13:00 02/01/17 13:43 Miscellaneous Information SPECIFIC LAB TO BE ... ONCE ONCE .XX 02/03/17 12:45 02/03/17 12:46 Insulin Human Regular/Sodium Chloride (NovoLIN R (IV INFUSION)/NS Inj) 100 ml @ 0 mls/hr TITRATE IV 02/01/17 14:00 02/02/17 06:09 Dextrose (D50w (Vial) Inj) 50 ml UNSCH PRN IV PUSH SEE LABEL COMMENTS 02/01/17 12:45 (Lakeisha Olson) Medical Decision Making MDM Remarks 76 y/o female s/p tpa for acute CVA and developed large cerebellar hematoma, s/p posterior fossa craniectomy with evacuation of cerebellar bleed and placement of ventriculostomy drain on 01/27/17 (Lakeisha Olson) Plan Plan Remarks cont ventriculostomy draining at 3 cm H20, cont critical care management, cont neuro checks, f/u examination nonchemical dvt prophylaxis in view of ICH protonix for stress ulcer proph (Lakeisha Olson) Attending Statement The exam, history, and the medical decision-making described in the above note were completed with the assistance of the mid-level provider. I reviewed and agree with the findings presented. I attest that I had a [id number] encounter with the patient on the same day, and personally performed and documented my assessment and findings in the medical record. (Fred Wagoner MD) Lakeisha Olson Feb 02, 2017 10:04 Fred Wagoner MD Feb 04, 2017 16:03
[2017-02-02 12:54] LABS: HEMATOCRIT 33.2 % (35.0-46.0); MEAN CELL VOLUME 92.1 FL (80.0-100.0); MEAN CORPUSCULAR HEMOGLOBIN 29.1 PG (27.0-34.0); MEAN CORPUSCULAR HGB CONC 31.6 % (32.0-36.0); PLATELET COUNT 332 TH/MM3 (150-450); RED CELL DISTRIBUTION WIDTH 14.3 % (11.6-17.2); REVIEW FLAG FINAL; WHITE BLOOD COUNT 17.8 TH/MM3 (4.0-11.0)
--- NOTE | 2017-02-02 13:06 | HHI.CCPN ---
Subjective Remarks/Hospital Course 76-year-old female with history of atrial fibrillation, hypertension, hypothyroidism, type 2 diabetes who was brought to the emergency department as a stroke alert. Apparently grandson called EMS as the patient was found to be disoriented. EMS noted that patient had rightward gaze, with Left hemiparesis and stroke alert was initiated. Last seen normal at around 2:10 PM, per grandson. 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 After discussion Dr. Slater, TPA was initiated. I evaluated the patient in ED. she somnolent but wakes up easily, she states that she is unable to open her right eye opens left eye. Has obvious left facial droop and left hemiparesis, but now she is able to move LLE. Speech is clear 01/27: Patient more somnolent, hard to wake up (RN states she was more awake 2 huors ago). Remains in A fib with RVR, CTA neck shows complete R common, internal and ext carotid occlusion. Moderate L ICA stenosis. Vascular surgery Dr. Juarez consulted. remains hyperglycemic (gluc 371) without DKA. 01/28: Stat CT 01/27 for AMS showed new large right cerebellar hemorrhage with transtentorial herniation and brain stem compression, bilateral SAH, infarct right MCA territory. Dr. Wagoner emergently consulted, patient underwent suboccipital decompressive craniotomy and ventriculostomy placement. ICP well controlled overnight. Pupils reactive. Withdraws x4. troponin increased to 3.7. LVEF severely reduced, less than 20%. Diffuse global hypokinesis. Mild-to- moderate mitral valve regurgitation, moderate tricuspid valve regurgitation 6/10 mins unresponsive, severe cardiomyopathy on ultrasound, consult palliative care 01/30 no change since yesterday, patient remains unresponsive 01/31: Briskly withdraws 4, grimaces to pain no spontaneous eye opening. CT of the head planned for tomorrow. High fever, pancultured. DC Rocephin and start Zosyn and single dose of Vanc 02/01: Reported single episode of spontaneous eye opening at CAT scan today. CT of the head shows evacuation of cerebellar hemorrhage, interval development of intraventricular hemorrhage bilateral occipital horns, and some worsening of subarachnoid hemorrhage. Clinically critical but stable neurologically essentially unchanged Objective Vital Signs Date Time Temp Pulse Resp B/P Pulse Ox O2 Delivery O2 Flow Rate FiO2 02/02/17 12:59 100 35 02/02/17 07:00 Mechanical Ventilator 02/02/17 06:00 108 02/02/17 04:00 101.7 23 147/65 Intake and Output 02/01/17 02/01/17 02/02/17 08:00 16:00 00:00 Intake Total 1547 ml 2202 ml 1698 ml Output Total 1360 ml 1442 ml 1085 ml Balance 187 ml 760 ml 613 ml Result Diagram: 02/02/17 1230 02/02/17 0411 Other Results Microbiology Date/Time Procedure Status Source Growth 01/31/17 10:45 Gram Stain - Final Complete Sputum Endotracheal 01/31/17 10:45 Sputum Culture - Final Complete Sputum Endotracheal HEAVY GROWTH NORMAL RESPIRATORY LILY Imaging CT head shows no acute findings positive right cerebellar encephalomalacia indicating previous stroke Objective Remarks Levophed on standby Cardizem gtt 3% Saline at 30 ml per hour-on hold NS at 100 ml per hour GENERAL: 76-year-old white female patient who is intubated not on sedation SKIN: Skin warm and dry HEAD: Atraumatic. Normocephalic. EVD with blood tinged CSF drainage, ICP 1-3 EYES: R pupil 5, L 4, reactive. No scleral icterus. ENT: No nasal bleeding or discharge. Orotracheally intubated NECK: Trachea midline. No JVD. CARDIOVASCULAR: Tachycardic and irregularly irregular. No murmurs RESPIRATORY: ACV. Breath sounds equal bilaterally. GASTROINTESTINAL: Abdomen soft, non-tender, nondistended. Hepatic and splenic margins not palpable. MUSCULOSKELETAL: No obvious deformities. No clubbing. No cyanosis. No edema. NEUROLOGICAL:STEW, no spontaneous eye opening. Grimaces to pain. Withdraws all 4 extremities Date of Insertion: Jan 27, 2017 Side: Left Location: Internal, Jugular A/P Assessment and Plan NEURO: Acute post TPA cerebellar hemorrhage with brainstem compression, transtentorial herniation, SAH Status post emergent suboccipital craniotomy and ventriculostomy placement by Dr Wagoenr Acute right MCA stroke Acute encephalopathy Previous cerebellar stroke - Post TPA Patient bled into the previous cerebellar stroke - s/p emergent suboccipital craniotomy and ventriculostomy placement by Dr Wagoner - Ct head 02/01-status post evacuation of cerebellar hemorrhage, interval development of intraventricular hemorrhage bilateral occipital horns, some worsening of SAH - Optimized hyperosmolar therapy with 3% saline and mannitol - Good ICP control. Maintain CPP 60-70 - Head of bed elevation to 45 - Maintain normal temp, Keep PCO2 35 - Supplement B12 level 383, supplement. TSH normal - Brainstem hematoma, and severe cardiomyopathy with guarded prognosis. RESP: Acute respiratory failure -Intubated for airway protection 01/27. -Continue ACV, Vent bundle, Duoneb q6 and PRN -Does not meet SBT criteria, no weaning until neurologically improved -If family wants continued aggressive care she will need a tracheostomy and PEG tube CV: NSTEMI Cardiomyopathy with ejection fraction less than 20% Atrial fibrillation with rapid ventricular response Bilateral carotid stenosis Hypertensive emergency -CTA neck shows complete R common, internal and ext carotid occlusion. Moderate L ICA stenosis. -Vascular surgery Dr. Juarez consulted prior to ICH-no intervention -Target systolic blood pressure less than 140 -Normal saline IV fluids 100 ml per hour, 3% Saline at 30 ml per hour -Cardiology consulted for NSTEMI and Cardiomyopathy. Not a candidate for antiplatelet therapy, or cardiac catheterization -A. fib rate controlled with Cardizem infusion and IV digoxin. Metoprolol 12.5 every 12 hours with holding parameters -Start KARI I if BP can tolerate, start lisinopril 2.5 mg po daily -Levophed off -Continue Lipitor daily at bedtime -Cardene, IV labetalol when necessary to keep systolic blood pressure less than 140 GI: -Continue tube feeds -IV Protonix -Bowel regimen : -Monitor renal function closely. Small catheter. ID: New fever Sepsis UTI with Escherichia coli and strep viridans Blood culture with GPC from 01/31 -Monitor for infection. DCd Rocephin, started Zosyn 4.5 g every 6 hours and vancomycin 1 01/31 -Vancomycin pharmacy to dose -Blood urine and sputum culture 01/31 HEME: -Monitor CBC, CMP, coags and fibrinogen level per protocol -Received cryoprecipitate and FFP post bleed -H&H stable ENDO: Type 2 diabetes with hyperglycemia -Off insulin drip but now with poor control -Sliding-scale, Levemir 10 U q12, increase Levemir to 18 units every 12, -Electrolyte replacement protocol PROPH: -Bilateral lower extremity SCDs. Chemical DVT started on 01/30, DCd due to IVH. IV Protonix LINES: -Central line art line placed 01/27/17 Critical Care: The total critical care time was 35 minutes. Time to perform other separately billable procedures was not included in the critical care time. Toribio Linares MD Feb 02, 2017 13:06
[2017-02-02 13:11] LABS: ALT (GPT) 14 U/L (10-53); ANION GAP 6 MEQ/L (5-15); AST (GOT) 21 U/L (15-37); BICARBONATE 25.9 MEQ/L (21.0-32.0); BLOOD UREA NITROGEN 20 MG/DL (7-18); CHLORIDE 117 MEQ/L (98-107); GLOMERULAR FILTRATION RATE 63 ML/MIN (>89); POTASSIUM 3.9 MEQ/L (3.5-5.1); SODIUM (NA) 149 MEQ/L (136-145)
[2017-02-02 13:13] LABS: ALKALINE PHOSPHATASE 102 U/L (45-117); TOTAL BILIRUBIN ADULT 0.5 MG/DL (0.2-1.0)
--- NOTE | 2017-02-02 13:13 | HHI.CCPN ---
Subjective Remarks/Hospital Course 76-year-old female with history of atrial fibrillation, hypertension, hypothyroidism, type 2 diabetes who was brought to the emergency department as a stroke alert. Apparently grandson called EMS as the patient was found to be disoriented. EMS noted that patient had rightward gaze, with Left hemiparesis and stroke alert was initiated. Last seen normal at around 2:10 PM, per grandson. 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 After discussion Dr. Slater, TPA was initiated. I evaluated the patient in ED. she somnolent but wakes up easily, she states that she is unable to open her right eye opens left eye. Has obvious left facial droop and left hemiparesis, but now she is able to move LLE. Speech is clear 01/27: Patient more somnolent, hard to wake up (RN states she was more awake 2 huors ago). Remains in A fib with RVR, CTA neck shows complete R common, internal and ext carotid occlusion. Moderate L ICA stenosis. Vascular surgery Dr. Juarez consulted. remains hyperglycemic (gluc 371) without DKA. 01/28: Stat CT 01/27 for AMS showed new large right cerebellar hemorrhage with transtentorial herniation and brain stem compression, bilateral SAH, infarct right MCA territory. Dr. Wagoner emergently consulted, patient underwent suboccipital decompressive craniotomy and ventriculostomy placement. ICP well controlled overnight. Pupils reactive. Withdraws x4. troponin increased to 3.7. LVEF severely reduced, less than 20%. Diffuse global hypokinesis. Mild-to- moderate mitral valve regurgitation, moderate tricuspid valve regurgitation 6/10 mins unresponsive, severe cardiomyopathy on ultrasound, consult palliative care 01/30 no change since yesterday, patient remains unresponsive 01/31: Briskly withdraws 4, grimaces to pain no spontaneous eye opening. CT of the head planned for tomorrow. High fever, pancultured. DC Rocephin and start Zosyn and single dose of Vanc 02/01: Reported single episode of spontaneous eye opening up CAT scan today. CT of the head shows evacuation of cerebellar hemorrhage, interval development of intraventricular hemorrhage bilateral occipital horns, and some worsening of subarachnoid hemorrhage. Clinically critical but stable neurologically essentially unchanged 02/02: Continues to spike fever. Slight improvement in neuro exam, grimacing to pain slight partial eye opening. Do not follow commands yet. Labs pending Objective Vital Signs Date Time Temp Pulse Resp B/P Pulse Ox O2 Delivery O2 Flow Rate FiO2 02/02/17 12:59 100 35 02/02/17 07:00 Mechanical Ventilator 02/02/17 06:00 108 02/02/17 04:00 101.7 23 147/65 Intake and Output 02/01/17 02/01/17 02/02/17 08:00 16:00 00:00 Intake Total 1547 ml 2202 ml 1698 ml Output Total 1360 ml 1442 ml 1085 ml Balance 187 ml 760 ml 613 ml Result Diagram: 02/02/17 1230 02/02/17 0411 Other Results Microbiology Date/Time Procedure Status Source Growth 01/31/17 10:45 Gram Stain - Final Complete Sputum Endotracheal 01/31/17 10:45 Sputum Culture - Final Complete Sputum Endotracheal HEAVY GROWTH NORMAL RESPIRATORY LILY Imaging CT head shows no acute findings positive right cerebellar encephalomalacia indicating previous stroke Objective Remarks Levophed on standby Cardizem gtt 3% Saline at 30 ml per hour-on hold NS at 100 ml per hour GENERAL: 76-year-old white female patient who is intubated not on sedation SKIN: Skin warm and dry HEAD: Atraumatic. Normocephalic. EVD with blood tinged CSF drainage, ICP well controlled EYES: R pupil 5, L 4, reactive. No scleral icterus. ENT: No nasal bleeding or discharge. Orotracheally intubated NECK: Trachea midline. No JVD. CARDIOVASCULAR: Tachycardic and irregularly irregular. No murmurs RESPIRATORY: ACV. Breath sounds equal bilaterally. GASTROINTESTINAL: Abdomen soft, non-tender, nondistended. Hepatic and splenic margins not palpable. MUSCULOSKELETAL: No obvious deformities. No clubbing. No cyanosis. No edema. NEUROLOGICAL:STEW, partial eye opening and grimacing to pain. Withdraws all 4 extremities Date of Insertion: Jan 27, 2017 Side: Left Location: Internal, Jugular A/P Assessment and Plan NEURO: Acute post TPA cerebellar hemorrhage with brainstem compression, transtentorial herniation, SAH Status post emergent suboccipital craniotomy and ventriculostomy placement by Dr Wagoner Acute right MCA stroke Acute encephalopathy Previous cerebellar stroke - Post TPA Patient bled into the previous cerebellar stroke - s/p emergent suboccipital craniotomy and ventriculostomy placement by Dr Wagoner - Ct head 02/01- interval development of intraventricular hemorrhage bilateral occipital horns, some worsening of SAH - Optimized hyperosmolar therapy with 3% saline and mannitol - Good ICP control. Maintain CPP 60-70 - Head of bed elevation to 30 - Maintain normal temp, Keep PCO2 35 - Supplement B12 level 383, supplement. TSH normal - Brainstem hematoma, and severe cardiomyopathy with guarded prognosis. RESP: Acute respiratory failure -Intubated for airway protection 01/27. -Continue ACV, Vent bundle, Duoneb q6 and PRN -Does not meet SBT criteria, no weaning until neurologically improved -If family wants continued aggressive care she will need a tracheostomy and PEG tube CV: NSTEMI Cardiomyopathy with ejection fraction less than 20% Atrial fibrillation with rapid ventricular response Bilateral carotid stenosis Hypertensive emergency -CTA neck shows complete R common, internal and ext carotid occlusion. Moderate L ICA stenosis. -Vascular surgery Dr. Juarez consulted prior to ICH-no intervention -Target systolic blood pressure less than 140 -Normal saline IV fluids 100 ml per hour, 3% Saline at 30 ml per hour-on hold -Cardiology consulted for NSTEMI and Cardiomyopathy. Not a candidate for antiplatelet therapy, or cardiac catheterization -A. fib rate controlled with Cardizem infusion and IV digoxin. Metoprolol 12.5 every 12 hours with holding parameters -Lisinopril 2.5 mg po daily -Continue Lipitor daily at bedtime -Cardene, IV labetalol when necessary to keep systolic blood pressure less than 140 GI: -Continue tube feeds -IV Protonix -Bowel regimen : -Monitor renal function closely. Small catheter. ID: Fever Sepsis UTI with Escherichia coli and strep viridans Blood culture with GPC from 01/31 -Monitor for infection. DCd Rocephin, started Zosyn 4.5 g every 6 hours and vancomycin 1 01/31 -Vancomycin pharmacy to dose -Blood urine and sputum culture 01/31 -Rpt plan culture HEME: -Monitor CBC, CMP, coags and fibrinogen level per protocol -Received cryoprecipitate and FFP post bleed -H&H stable ENDO: Type 2 diabetes with hyperglycemia -Continue Insulin gtt -Electrolyte replacement protocol PROPH: -Bilateral lower extremity SCDs. Chemical DVT started on 01/30, now DCd due to IVH. IV Protonix LINES: -Central line art line placed 01/27/17 Critical Care: The total critical care time was 35 minutes. Time to perform other separately billable procedures was not included Toribio Linares MD Feb 02, 2017 13:13
[2017-02-02] MEDS: ACETAMINOPHEN 325 MG TAB PO PRN ×2 (13:41→23:57)
[2017-02-02] MEDS: VANCOMYCIN 1,500 MG/NS 500 ML IV SCH ×2 (14:06)
--- NOTE | 2017-02-02 14:27 | RADRPT ---
EXAM DATE/TIME: 02/02/2017 13:36 [facility] COMPARISON: CHEST SINGLE AP, January 31, 2017, 3:14. INDICATIONS : Respiratory failure. MEDICAL HISTORY : None. SURGICAL HISTORY : None. ENCOUNTER: Subsequent ACUITY: 1 week PAIN SCORE: Non-responsive. LOCATION: chest FINDINGS: Stable ETT and left IJ central line with tip in the brachycephalic SVC junction. Persistent small lef t pleural effusion and associated left lower lobe airspace disease. Cardiomediastinal contours are st able. Remainder of the exam is unchanged. CONCLUSION: 1. Stable tubes and lines, as above. 2. Stable small left pleural effusion and associated mild left lower lobe airspace disease. 3. No significant interval change. Carlos Lorenzo MD on February 02, 2017 at 14:24 Board Certified Radiologist. This report was verified electronically.
[2017-02-02] MEDS ORDERED: DILTIAZEM HCL 25 MG/5 ML VIAL ONE ×3 (17:20→17:22)
[2017-02-02] MEDS: ATORVASTATIN 10 MG TAB PO SCH (20:24)
--- NOTE | 2017-02-02 20:42 | HHI.PR ---
Review/Management Diagnosis right MCA CVA, s/p iv TPA right carotid occlusion right cerebellar hemorrhage with mass effect and bilateral SAH. Plan continuje supportive care Diagnosis/Plan: Subjective Subjective Comments No acute events reported Active Medications Current Medications Medications (Trade) Dose Ordered Sig/Calixto Route Start Time Stop Time Status Last Admin Magnesium Oxide 800 mg 800 mg UNSCH PRN PO 01/26/17 16:15 Magnesium Sulfate 4 gm/Sodium Chloride 100 ml @ 50 mls/hr UNSCH PRN IV 01/26/17 16:15 Magnesium Sulfate 2 gm/Sodium Chloride 100 ml @ 50 mls/hr UNSCH PRN IV 01/26/17 16:15 Potassium Chloride 100 ml @ 50 mls/hr Q2H PRN IV 01/26/17 16:15 Potassium Chloride 100 ml @ 50 mls/hr Q2H PRN IV 01/26/17 16:15 Potassium Chloride 100 ml @ 50 mls/hr Q2H PRN IV 01/26/17 16:15 (KCl 40 Meq Premix Inj) 100 ml @ 25 mls/hr UNSCH PRN IV 01/26/17 16:15 (K-Phos) 2,000 mg Q4H PRN PO 01/26/17 16:15 Potassium Phosphate 2000 mg 2,000 mg UNSCH PRN PO/TUBE 01/26/17 16:15 Potassium Phosphate 30 mmol/ Sodium Chloride 260 ml @ 42 mls/hr UNSCH PRN IV 01/26/17 16:15 (Sodium Phosphate Inj/NS 250 ml Inj) 250 ml @ 42 mls/hr UNSCH PRN IV 01/26/17 16:15 01/31/17 13:44 Labetalol HCl 10 mg 10 mg Q4H PRN IV PUSH 01/26/17 16:45 02/01/17 07:03 Diltiazem HCl 125 mg/Sodium Chloride 125 ml @ 0 mls/hr TITRATE IV 01/26/17 19:00 02/02/17 18:26 (Levophed-Dextrose Drip) 250 ml @ 0 mls/hr TITRATE IV 01/27/17 12:00 01/27/17 18:10 Terbutaline Sulfate 1 mg 1 mg UNSCH PRN SQ 01/27/17 11:15 (NS + KCl 20 Meq Inj) 1,000 ml @ 100 mls/hr Q10H IV 01/27/17 12:39 02/02/17 18:26 (NS Flush) 2 ml UNSCH PRN IVF 01/27/17 12:45 IV Flush 2 ml 2 ml BID IVF 01/27/17 21:00 02/02/17 20:33 (Keppra Inj/NS Inj) 105 ml @ 400 mls/hr Q12H IV 01/27/17 18:00 02/02/17 18:26 (Dulcolax Supp) 10 mg DAILY PRN RECTAL 01/27/17 12:45 (Colace) 100 mg BID PO 01/27/17 21:00 01/27/17 21:12 (Protonix) 40 mg DAILY PO 01/28/17 09:00 (Protonix Inj) 40 mg DAILY IVP 01/28/17 09:00 02/02/17 09:11 (Zofran Inj) 4 mg Q6H PRN IV 01/27/17 12:45 (Calcium Gluconate Inj) 1 gm UNSCH PRN IV 01/27/17 12:45 ([place]ilton 10-325 Mg) 1 tab Q4H PRN PO 01/27/17 12:45 02/02/17 17:08 ([place] 10-325 Mg) 2 tab Q4H PRN PO 01/27/17 12:45 02/02/17 05:30 (Morphine Inj) 4 mg Q2H PRN IV PUSH 01/27/17 12:45 (Tylenol) 650 mg Q4H PRN PO 01/27/17 12:45 02/02/17 13:41 (Peridex 0.12% Liq) 15 ml BID@08,20 MT 01/27/17 20:00 02/02/17 20:33 (Lanoxin Liq) 0.25 mg DAILY PO 01/29/17 09:00 02/02/17 09:12 (Lopressor) 12.5 mg Q12HR PO 01/28/17 09:00 02/02/17 20:24 (Pill Splitter) 1 ea UNSCH PRN OTHER 01/28/17 07:45 (Lipitor) 10 mg HS PO 01/28/17 21:00 02/02/17 20:24 (Beneprotein Powder) 1 pack TID G-TUBE 01/28/17 09:00 02/02/17 17:08 Docusate Sodium 100 mg 100 mg Q12HR PO 01/28/17 09:00 02/02/17 20:25 Piperacillin Sod/ Tazobactam Sod 100 ml @ 200 mls/hr Q6H IV 01/31/17 11:00 02/02/17 17:08 Pharmacy Profile Note 0 ml @ 0 mls/hr UNSCH OTHER 02/01/17 12:00 (Vancomycin Inj/ NS 500 ml Inj) 515 ml @ 257.5 mls/ hr Q24H IV 02/01/17 13:00 02/02/17 14:06 Miscellaneous Information SPECIFIC LAB TO BE DOUGIE... ONCE ONCE .XX 02/03/17 12:45 02/03/17 12:46 (NovoLIN R (IV INFUSION)/NS Inj) 100 ml @ 0 mls/hr TITRATE IV 02/01/17 14:00 02/02/17 06:09 (D50w (Vial) Inj) 50 ml UNSCH PRN IV PUSH 02/01/17 12:45 Allergies Allergies Coded Allergies Sulfa (Verified Allergy, Intermediate, 01/18/17) Exam I&O / VS 02/01/17 02/01/17 02/02/17 15:00 23:00 07:00 Intake Total 2202 ml 1698 ml 1535 ml Output Total 1442 ml 1085 ml 1286 ml Balance 760 ml 613 ml 249 ml IV Total 1664 ml 1097 ml 1045 ml Tube Feeding 538 ml 481 ml 370 ml Tube Irrigant 120 ml 120 ml Output Urine Total 1400 ml 1050 ml 1250 ml Drainage Total 42 ml 35 ml 36 ml # Bowel Movements 0 0 Vital Signs Date Time Temp Pulse Resp B/P Pulse Ox O2 Delivery O2 Flow Rate FiO2 02/02/17 20:36 97 35 02/02/17 18:00 113 02/02/17 17:26 95 35 02/02/17 16:00 99.7 111 26 157/70 98 02/02/17 16:00 35 02/02/17 16:00 111 02/02/17 14:00 111 02/02/17 12:59 100 35 02/02/17 12:00 101.7 99 23 154/70 97 02/02/17 12:00 35 02/02/17 08:14 98 35 02/02/17 08:00 97.3 102 17 139/62 97 02/02/17 08:00 35 02/02/17 07:00 99 Mechanical Ventilator 35 02/02/17 06:00 108 02/02/17 04:16 91 35 02/02/17 04:00 35 02/02/17 04:00 101.7 106 23 147/65 98 02/02/17 04:00 106 02/02/17 02:00 99 02/02/17 01:23 97 35 02/02/17 00:00 93 02/02/17 00:00 35 02/02/17 00:00 99.9 93 20 150/65 97 02/01/17 22:00 94 Exam Comments nonresponsive pupils 3mm min reactive. Motor--no spontaneous limb movement. but does withdraw BLE to stimuli . occasional inspector assembly Right hand Objective Micro and Labs Laboratory Tests Test 02/02/17 02/02/17 04:11 12:30 Creatinine 0.92 0.87 Estimat Glomerular Filtration 59 63 Rate White Blood Count 17.8 Red Blood Count 3.60 Hemoglobin 10.5 Hematocrit 33.2 Mean Corpuscular Volume 92.1 Mean Corpuscular Hemoglobin 29.1 Mean Corpuscular Hemoglobin 31.6 Concent Red Cell Distribution Width 14.3 Platelet Count 332 Mean Platelet Volume 10.7 Sodium Level 149 Potassium Level 3.9 Chloride Level 117 Carbon Dioxide Level 25.9 Anion Gap 6 Blood Urea Nitrogen 20 Random Glucose 229 Calcium Level 8.2 Total Bilirubin 0.5 Aspartate Amino Transf 21 (AST/SGOT) Alanine Aminotransferase 14 (ALT/SGPT) Alkaline Phosphatase 102 Total Protein 6.7 Albumin 1.6 Date/Time Procedure Status Source Growth 02/02/17 15:20 Gram Stain Received Sputum Endotracheal Pending 02/02/17 15:20 Sputum Culture Received Sputum Endotracheal Pending 02/02/17 12:30 Urine Culture Received Urine Catheterized Urine Pending 02/02/17 10:20 Aerobic Blood Culture Received Blood Peripheral Pending 02/02/17 10:20 Anaerobic Blood Culture Received Blood Peripheral Pending 01/31/17 11:42 Aerobic Blood Culture - Preliminary Resulted Blood Peripheral Staph Sp Coagulase Negative 01/31/17 11:42 Anaerobic Blood Culture - Preliminary Resulted Blood Peripheral NO GROWTH IN 2 DAYS 01/31/17 10:45 Gram Stain - Final Complete Sputum Endotracheal 01/31/17 10:45 Sputum Culture - Final Complete Sputum Endotracheal HEAVY GROWTH NORMAL RESPIRATORY LILY Walker Slater PhD Feb 02, 2017 20:42
[2017-02-03] VITALS (18 sets, daily range): BP systolic 103–178; BP diastolic 51–81; PULSE 90–114; RESP 19–28; TEMP 97.8–102.5; O2SAT 94–100
[2017-02-03] MEDS: ACETAMINOPHEN/HYDROcodone 325 MG/10 MG TAB PO PRN ×2 (05:17→21:47)
[2017-02-03] MEDS: PIPERACIL-TAZO 4.5 GM PREMIX 100 ML IV SCH ×4 (05:17→22:39)
[2017-02-03 05:59] LABS: AUTOMATED NEUTROPHIL # 14.6 TH/MM3 (1.8-7.7); BASOPHIL # 0.1 TH/MM3 (0-0.2); BASOPHIL % 0.4 % (0.0-2.0); EOSINOPHIL # 0.2 TH/MM3 (0-0.4); EOSINOPHIL % 1.3 % (0.0-4.0); HEMATOCRIT 33.8 % (35.0-46.0); HEMO FLAGS DIFF FINAL; LYMPH % 6.3 % (9.0-44.0); LYMPHOCYTE # 1.1 TH/MM3 (1.0-4.8); MEAN CELL VOLUME 92.3 FL (80.0-100.0); MEAN CORPUSCULAR HEMOGLOBIN 29.7 PG (27.0-34.0); MEAN CORPUSCULAR HGB CONC 32.2 % (32.0-36.0); MONO % 6.5 % (0.0-8.0); NEUT % 85.5 % (16.0-70.0); PLATELET COUNT 378 TH/MM3 (150-450); RED BLOOD COUNT 3.66 MIL/MM3 (4.00-5.30); RED CELL DISTRIBUTION WIDTH 13.9 % (11.6-17.2); WHITE BLOOD COUNT 17.1 TH/MM3 (4.0-11.0)
--- NOTE | 2017-02-03 06:30 | RADRPT ---
EXAM DATE/TIME: 02/03/2017 04:27 [facility] COMPARISON: CHEST SINGLE AP, January 31, 2017, 3:14. CHEST SINGLE AP, February 02, 2017, 13:36. INDICATIONS : Shortness of breath MEDICAL HISTORY : None. SURGICAL HISTORY : None. ENCOUNTER: Subsequent ACUITY: 1 week PAIN SCORE: Non-responsive. LOCATION: Bilateral chest FINDINGS: ET tube, and NG tube have not changed. The lungs are clear without infiltrate, nodule, or mass. Ther e is no appreciable pleural effusion for technique. Heart and mediastinum are unremarkable. Previous ly seen left lung base opacities are no longer seen. CONCLUSION: No acute cardiopulmonary disease. Ozzie Coleman MD on February 03, 2017 at 6:27 Board Certified Radiologist. This report was verified electronically.
[2017-02-03] MEDS: levETIRAcetam INJ 500 MG in SODIUM CHLORIDE 0.9% INJ 100 ML IV SCH ×2 (06:33→17:06)
[2017-02-03] MEDS: NS + KCL 20 MEQ INJ 1,000 ML IV SCH ×2 (06:33→09:06)
[2017-02-03 06:37] LABS: BICARBONATE 23.9 MEQ/L (21.0-32.0); CALCIUM-PROTEIN CORRECTED 7.5 MG/DL (8.5-10.1); MAGNESIUM 2.4 MG/DL (1.5-2.5); POTASSIUM 4.1 MEQ/L (3.5-5.1); TOTAL BILIRUBIN ADULT 0.4 MG/DL (0.2-1.0)
[2017-02-03] MEDS: DOCUSATE SODIUM 100 MG CAP PO SCH ×2 (09:00→21:00)
[2017-02-03] MEDS: PANTOPRAZOLE SOD 40 MG DELAYED RELEASE TAB PO SCH (09:00)
[2017-02-03] MEDS: BENEPROTEIN POWDER 1 PACK G-TUBE SCH ×3 (09:00→17:06)
[2017-02-03] MEDS: SODIUM CHLORIDE 0.9% FLUSH 5 ML FLUSH IVF SCH ×2 (09:00→21:46)
[2017-02-03] MEDS: CHLORHEXIDINE 0.12% (ORAL KIT) 15 ML CUP MT SCH ×2 (09:05→21:51)
[2017-02-03] MEDS: DOCUSATE SODIUM 100 MG/10 ML UDC PO SCH ×2 (09:10→19:48)
[2017-02-03] MEDS: PANTOPRAZOLE SODIUM 40 MG VIAL IVP SCH (09:10)
[2017-02-03] MEDS: METOPROLOL TARTRATE 25 MG TAB PO SCH ×2 (09:11→21:00)
[2017-02-03] MEDS: DIGOXIN SOLUTION 0.125 MG/2.5 ML CUP PO SCH (09:12)
[2017-02-03] MEDS: DILTIAZEM INJ 125 MG in SODIUM CHLORIDE 0.9% INJ 100 ML IV SCH ×2 (09:13→19:07)
--- NOTE | 2017-02-03 10:58 | HHI.CCPN ---
Subjective Remarks/Hospital Course 76-year-old female with history of atrial fibrillation, hypertension, hypothyroidism, type 2 diabetes who was brought to the emergency department as a stroke alert. Apparently grandson called EMS as the patient was found to be disoriented. EMS noted that patient had rightward gaze, with Left hemiparesis and stroke alert was initiated. Last seen normal at around 2:10 PM, per grandson. 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 After discussion Dr. Slater, TPA was initiated. I evaluated the patient in ED. she somnolent but wakes up easily, she states that she is unable to open her right eye opens left eye. Has obvious left facial droop and left hemiparesis, but now she is able to move LLE. Speech is clear 01/27: Patient more somnolent, hard to wake up (RN states she was more awake 2 huors ago). Remains in A fib with RVR, CTA neck shows complete R common, internal and ext carotid occlusion. Moderate L ICA stenosis. Vascular surgery Dr. Juarez consulted. remains hyperglycemic (gluc 371) without DKA. 01/28: Stat CT 01/27 for AMS showed new large right cerebellar hemorrhage with transtentorial herniation and brain stem compression, bilateral SAH, infarct right MCA territory. Dr. Wagoner emergently consulted, patient underwent suboccipital decompressive craniotomy and ventriculostomy placement. ICP well controlled overnight. Pupils reactive. Withdraws x4. troponin increased to 3.7. LVEF severely reduced, less than 20%. Diffuse global hypokinesis. Mild-to- moderate mitral valve regurgitation, moderate tricuspid valve regurgitation 6/10 mins unresponsive, severe cardiomyopathy on ultrasound, consult palliative care 01/30 no change since yesterday, patient remains unresponsive 01/31: Briskly withdraws 4, grimaces to pain no spontaneous eye opening. CT of the head planned for tomorrow. High fever, pancultured. DC Rocephin and start Zosyn and single dose of Vanc 02/01: Reported single episode of spontaneous eye opening up CAT scan today. CT of the head shows evacuation of cerebellar hemorrhage, interval development of intraventricular hemorrhage bilateral occipital horns, and some worsening of subarachnoid hemorrhage. Clinically critical but stable neurologically essentially unchanged 02/02: Continues to spike fever. Slight improvement in neuro exam, grimacing to pain slight partial eye opening. Do not follow commands yet. Labs pending 02/03: Fever trending down, white count remains elevated. Sputum Gram stain with GPC. Neuro exam remains unchanged to slightly improved. Continues with partial eye opening and grimacing to pain Objective Vital Signs Date Time Temp Pulse Resp B/P Pulse Ox O2 Delivery O2 Flow Rate FiO2 02/03/17 10:00 97 02/03/17 08:09 94 35 02/03/17 07:00 Mechanical Ventilator 2.00 02/03/17 04:00 97.9 26 178/81 Intake and Output 02/02/17 02/02/17 02/03/17 08:00 16:00 00:00 Intake Total 1535 ml 2204 ml 1444 ml Output Total 1286 ml 1821 ml 1991 ml Balance 249 ml 383 ml -547 ml Result Diagram: 02/03/17 0520 02/03/[address] head shows no acute findings positive right cerebellar encephalomalacia indicating previous stroke Objective Remarks Levophed on standby NS GENERAL: 76-year-old white female patient who is intubated not on sedation SKIN: Skin warm and dry HEAD: Atraumatic. Normocephalic. EVD with blood tinged CSF drainage, ICP well controlled EYES: R pupil 5, L 4, reactive. No scleral icterus. ENT: No nasal bleeding or discharge. Orotracheally intubated NECK: Trachea midline. No JVD. CARDIOVASCULAR: Tachycardic and irregularly irregular. No murmurs RESPIRATORY: ACV. Breath sounds equal bilaterally. GASTROINTESTINAL: Abdomen soft, non-tender, nondistended. Hepatic and splenic margins not palpable. MUSCULOSKELETAL: No obvious deformities. No clubbing. No cyanosis. No edema. NEUROLOGICAL:STEW, partial eye opening and grimacing to pain. Withdraws all 4 extremities, LUE weaker than others Date of Insertion: Jan 27, 2017 Side: Left Location: Internal, Jugular A/P Assessment and Plan Assessment and Plan NEURO: Acute post TPA cerebellar hemorrhage with brainstem compression, transtentorial herniation, SAH Status post emergent suboccipital craniotomy and ventriculostomy placement by Dr Wagoner Acute right MCA stroke Acute encephalopathy Previous cerebellar stroke - Post TPA Patient bled into the previous cerebellar stroke - s/p emergent suboccipital craniotomy and ventriculostomy placement by Dr Wagoner - Ct head 02/01- interval development of intraventricular hemorrhage bilateral occipital horns, some worsening of SAH - Optimized hyperosmolar therapy with 3% saline and mannitol - Good ICP control. Maintain CPP 60-70 - Head of bed elevation to 30 - Maintain normal temp, Keep PCO2 35 - Supplement B12 level 383, supplement. TSH normal - Brainstem hematoma, and severe cardiomyopathy with guarded prognosis. RESP: Acute respiratory failure -Intubated for airway protection 01/27. -Continue ACV, Vent bundle, Duoneb q6 and PRN -Does not meet SBT criteria, no weaning until neurologically improved -If family wants continued aggressive care she will need a tracheostomy and PEG tube, will discuss today CV: NSTEMI Cardiomyopathy with ejection fraction less than 20% Atrial fibrillation with rapid ventricular response Bilateral carotid stenosis Hypertensive emergency -CTA neck shows complete R common, internal and ext carotid occlusion. Moderate L ICA stenosis. -Vascular surgery Dr. Juarez consulted prior to ICH-no intervention -Target systolic blood pressure less than 140 -Normal saline IV fluids 100 ml per hour -Cardiology consulted for NSTEMI and Cardiomyopathy. Not a candidate for antiplatelet therapy, or cardiac catheterization -A. fib rate controlled with Cardizem infusion and IV digoxin. Metoprolol 12.5 every 12 hours with holding parameters -Lisinopril 2.5 mg po daily -Continue Lipitor daily at bedtime -Cardene, IV labetalol when necessary to keep systolic blood pressure less than 140 GI: -Continue tube feeds -IV Protonix -Bowel regimen : -Monitor renal function closely. Small catheter. ID: Fever Sepsis UTI with Escherichia coli and strep viridans Blood culture with GPC from 01/31 -Monitor for infection. Zosyn 4.5 g every 6 hours and vancomycin 1 01/31 -Vancomycin pharmacy to dose -Blood urine and sputum culture 01/31 -Rpt plan culture HEME: -Monitor CBC, CMP, coags and fibrinogen level per protocol -Received cryoprecipitate and FFP post bleed -H&H stable ENDO: Type 2 diabetes with hyperglycemia -Continue Insulin gtt -Electrolyte replacement protocol PROPH: -Bilateral lower extremity SCDs. Chemical DVT proph started on 01/30, now DCd due to IVH. IV Protonix LINES: -Central line art line placed 01/27/17 Critical Care: The total critical care time was 35 minutes. Time to perform other separately billable procedures was not included Toribio Linares MD Feb 03, 2017 10:58
[2017-02-03] MEDS: ACETAMINOPHEN 325 MG TAB PO PRN ×2 (12:15→19:48)
[2017-02-03] MEDS ORDERED: PHARMACY ORDERED LAB ONE (12:45)
[2017-02-03] MEDS: VANCOMYCIN 1,500 MG/NS 500 ML IV SCH ×2 (14:04)
--- NOTE | 2017-02-03 15:39 | HHI.NSPN ---
Note Status Status: Progress Note Interval History Interval History This is a 76-year-old female with history of atrial fibrillation, hypertension, hypothyroidism, type 2 diabetes who was brought to the emergency department as a stroke alert. Apparently grandson called EMS as the patient was found to be disoriented. EMS noted that patient had rightward gaze, with Left hemiparesis. A stroke alert was initiated. 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 After discussion Dr. Slater, TPA was initiated. Today she became comatose. Follow up CT showed a large cerebellar hemorrhage. She underwent emergent posterior fossa craniectomy with evacuation of cerebellar hematoma, and placement of ventriculostomy drain on 01/27/17. 01/28: POD 1, intubated and sedated. Ventriculostomy draining well, withdraws x 4 extremities 01/31: POD 4, off IV sedation, intubated. EVD draining well, ICPs wnl. 02/01: POD 5, getting EEG. f/u CT Head today completed. no changes to neuro checks. ICPs wnl, EVD draining well. 02/02: POD 6, grimacing to pain, very minimal eye opening seen. 02/03: POD 7, EVD draining well, ICPs stable. remains intubated. Labs, Micro, & Vital Signs Results Date Time Temp Pulse Resp B/P Pulse Ox O2 Delivery O2 Flow Rate FiO2 02/03/17 14:00 112 02/03/17 13:15 26 02/03/17 12:00 114 02/03/17 12:00 101.0 114 23 112/55 99 02/03/17 12:00 35 02/03/17 11:32 99 35 02/03/17 10:00 97 02/03/17 08:09 94 35 02/03/17 08:00 35 02/03/17 08:00 97.8 108 24 144/65 100 02/03/17 08:00 95 02/03/17 07:00 100 Mechanical Ventilator 2.00 35 02/03/17 06:00 104 02/03/17 04:12 99 35 02/03/17 04:00 35 02/03/17 04:00 104 02/03/17 04:00 97.9 112 26 178/81 98 02/03/17 02:00 102 02/03/17 01:15 98 35 02/03/17 00:00 100.8 103 19 105/54 98 02/03/17 00:00 105 02/03/17 00:00 35 02/02/17 22:00 108 02/02/17 20:36 97 35 02/02/17 20:00 98.4 110 20 115/72 98 02/02/17 20:00 35 02/02/17 20:00 112 02/02/17 19:00 99 Mechanical Ventilator 35 02/02/17 18:00 113 02/02/17 17:26 95 35 02/02/17 16:00 99.7 111 26 157/70 98 02/02/17 16:00 35 02/02/17 16:00 111 02/03/17 07:00 Intake Total 5186 ml Output Total 5153 ml Balance 33 ml Constitutional Vital Signs Date Time Temp Pulse Resp B/P Pulse Ox O2 Delivery O2 Flow Rate FiO2 02/03/17 14:00 112 02/03/17 13:15 26 02/03/17 12:00 114 02/03/17 12:00 101.0 114 23 112/55 99 02/03/17 12:00 35 02/03/17 11:32 99 35 02/03/17 10:00 97 02/03/17 08:09 94 35 02/03/17 08:00 35 02/03/17 08:00 97.8 108 24 144/65 100 02/03/17 08:00 95 02/03/17 07:00 100 Mechanical Ventilator 2.00 35 02/03/17 06:00 104 02/03/17 04:12 99 35 02/03/17 04:00 35 02/03/17 04:00 104 02/03/17 04:00 97.9 112 26 178/81 98 02/03/17 02:00 102 02/03/17 01:15 98 35 02/03/17 00:00 100.8 103 19 105/54 98 02/03/17 00:00 105 02/03/17 00:00 35 02/02/17 22:00 108 02/02/17 20:36 97 35 02/02/17 20:00 98.4 110 20 115/72 98 02/02/17 20:00 35 02/02/17 20:00 112 02/02/17 19:00 99 Mechanical Ventilator 35 02/02/17 18:00 113 02/02/17 17:26 95 35 02/02/17 16:00 99.7 111 26 157/70 98 02/02/17 16:00 35 02/02/17 16:00 111 02/03/17 07:00 Intake Total 5186 ml Output Total 5153 ml Balance 33 ml Review of Systems/Exam Exam Ms. Mcclure is intubated, grimacing to pain. Minimal eye opening but not following commands. Surgical wound with clean, dry dressing. Right ventriculostomy drain at 3 cm H2O, blood tinged CSF. ICPs = 3 Cranial Nerves: Pupils left 3 mm, right 5 mm bilaterally reactive. ?left facial weakness noted when grimaced Motor: no withdrawals seen in the left upper extremity today, minimally withdrew right upper and b/l LE's to noxious stimulation Reflexes: bilateral Babinski response Sensory: response to painful stimuli to both upper and lower extremities. Cerebellar:cannot assess due to clinical condition Medications Current Medications Current Medications Medications (Trade) Dose Ordered Sig/Calixto Route PRN Reason Start Time Stop Time Status Last Admin Dose Admin Magnesium Oxide 800 mg 800 mg UNSCH PRN PO For Magnesium 1.2 - 1.6 mg/dL 01/26/17 16:15 Magnesium Sulfate 4 gm/Sodium Chloride 100 ml @ 50 mls/hr UNSCH PRN IV For Magnesium 0.9 - 1.1 mg/dL 01/26/17 16:15 Magnesium Sulfate 2 gm/Sodium Chloride 100 ml @ 50 mls/hr UNSCH PRN IV For Magnesium 1.2 - 1.6 mg/dL 01/26/17 16:15 Potassium Chloride 100 ml @ 50 mls/hr Q2H PRN IV For Potassium 2.8 - 3.2 mEq/L 01/26/17 16:15 Potassium Chloride 100 ml @ 50 mls/hr Q2H PRN IV For Potassium 3.3 - 3.5 mEq/L 01/26/17 16:15 Potassium Chloride 100 ml @ 50 mls/hr Q2H PRN IV For Potassium 2.8 - 3.2 mEq/L 01/26/17 16:15 Potassium Chloride (KCl 40 Meq Premix Inj) 100 ml @ 25 mls/hr UNSCH PRN IV For Potassium 3.3 - 3.5 mEq/L 01/26/17 16:15 Potassium Phosphate (K-Phos) 2,000 mg Q4H PRN PO For Phosphorus < 2.5 mg/dL 01/26/17 16:15 Potassium Phosphate 2000 mg 2,000 mg UNSCH PRN PO/TUBE SEE LABEL COMMENTS 01/26/17 16:15 Potassium Phosphate 30 mmol/ Sodium Chloride 260 ml @ 42 mls/hr UNSCH PRN IV SEE LABEL COMMENTS 01/26/17 16:15 Sodium Phosphate/ Sodium Chloride (Sodium Phosphate Inj/NS 250 ml Inj) 250 ml @ 42 mls/hr UNSCH PRN IV For Phosphorus < 2.5 mg/dL 01/26/17 16:15 01/31/17 13:44 Labetalol HCl 10 mg 10 mg Q4H PRN IV PUSH SYS BP GREATER THAN 180 MMHG 01/26/17 16:45 02/01/17 07:03 Diltiazem HCl 125 mg/Sodium Chloride 125 ml @ 0 mls/hr TITRATE IV 01/26/17 19:00 02/03/17 09:13 Norepinephrine Bitartrate (Levophed-Dextrose Drip) 250 ml @ 0 mls/hr TITRATE IV 01/27/17 12:00 01/27/17 18:10 Terbutaline Sulfate 1 mg 1 mg UNSCH PRN SQ For Extravasation 01/27/17 11:15 Potassium Chloride/Sodium Chloride (NS + KCl 20 Meq Inj) 1,000 ml @ 100 mls/hr Q10H IV 01/27/17 12:39 02/03/17 09:06 IV Flush (NS Flush) 2 ml UNSCH PRN IVF FLUSH AFTER USING IV ACCESS 01/27/17 12:45 IV Flush 2 ml 2 ml BID IVF 01/27/17 21:00 02/03/17 09:00 Levetriacetam/ Sodium Chloride (Keppra Inj/NS Inj) 105 ml @ 400 mls/hr Q12H IV 01/27/17 18:00 02/03/17 06:33 Bisacodyl (Dulcolax Supp) 10 mg DAILY PRN RECTAL CONSTIPATION 01/27/17 12:45 Docusate Sodium (Colace) 100 mg BID PO 01/27/17 21:00 01/27/17 21:12 Pantoprazole Sodium (Protonix) 40 mg DAILY PO 01/28/17 09:00 Pantoprazole Sodium (Protonix Inj) 40 mg DAILY IVP 01/28/17 09:00 02/03/17 09:10 Ondansetron HCl (Zofran Inj) 4 mg Q6H PRN IV NAUSEA OR VOMITING 01/27/17 12:45 Calcium Gluconate (Calcium Gluconate Inj) 1 gm UNSCH PRN IV SEE LABEL COMMENTS 01/27/17 12:45 Acetaminophen/ Hydrocodone Bitart ([place] 10-325 Mg) 1 tab Q4H PRN PO PAIN SCALE 1 TO 5 01/27/17 12:45 02/02/17 17:08 Acetaminophen/ Hydrocodone Bitart ([place] 10-325 Mg) 2 tab Q4H PRN PO PAIN SCALE 6 TO 10 01/27/17 12:45 02/03/17 05:17 Morphine Sulfate (Morphine Inj) 4 mg Q2H PRN IV PUSH PAIN SCALE 7 TO 10 01/27/17 12:45 Acetaminophen (Tylenol) 650 mg Q4H PRN PO TEMPERATURE > 101.5 F 01/27/17 12:45 02/03/17 12:15 Chlorhexidine Gluconate (Peridex 0.12% Liq) 15 ml BID@08,20 MT 01/27/17 20:00 02/03/17 09:05 Digoxin (Lanoxin Liq) 0.25 mg DAILY PO 01/29/17 09:00 02/03/17 09:12 Metoprolol Tartrate (Lopressor) 12.5 mg Q12HR PO 01/28/17 09:00 02/03/17 09:11 Miscellaneous (Pill Splitter) 1 ea UNSCH PRN OTHER SEE LABEL COMMENTS 01/28/17 07:45 Atorvastatin Calcium (Lipitor) 10 mg HS PO 01/28/17 21:00 02/02/17 20:24 Protein (Beneprotein Powder) 1 pack TID G-TUBE 01/28/17 09:00 02/03/17 12:14 Docusate Sodium 100 mg 100 mg Q12HR PO 01/28/17 09:00 02/03/17 09:10 Piperacillin Sod/ Tazobactam Sod 100 ml @ 200 mls/hr Q6H IV 01/31/17 11:00 02/03/17 10:57 Pharmacy Profile Note 0 ml @ 0 mls/hr UNSCH OTHER 02/01/17 12:00 Insulin Human Regular/Sodium Chloride (NovoLIN R (IV INFUSION)/NS Inj) 100 ml @ 0 mls/hr TITRATE IV 02/01/17 14:00 02/02/17 06:09 Dextrose 50 ml 50 ml UNSCH PRN IV PUSH SEE LABEL COMMENTS 02/01/17 12:45 Vancomycin HCl/ Sodium Chloride (Vancomycin Inj/ NS 500 ml Inj) 520 ml @ 257.5 mls/ hr Q24H IV 02/04/17 08:00 Miscellaneous Information SPECIFIC LAB TO BE DRAWN:VANCOMYCIN TROUGH DATE TO... ONCE ONCE .XX 02/07/17 07:45 02/07/17 07:46 Medical Decision Making MDM Remarks 76 y/o female s/p tpa for acute CVA and developed large cerebellar hematoma, s/p posterior fossa craniectomy with evacuation of cerebellar bleed and placement of ventriculostomy drain on 01/27/17 Plan Plan Remarks cont ventriculostomy draining at 3 cm H20, cont critical care management, cont neuro checks and f/u neuro examination clear for tracheostomy and PEG from NRS standpoint Lakeisha Olson Feb 03, 2017 15:39
[2017-02-03] MEDS: INSULIN REGULAR (IV INFUSION) 100 UNITS in SODIUM CHLORIDE 0.9% INJ 99 ML IV SCH (16:10)
[2017-02-03] MEDS: MORPHINE SULFATE 4 MG/ML INJ IV PUSH PRN ×2 (18:14→22:39)
[2017-02-03] MEDS: ATORVASTATIN 10 MG TAB PO SCH (19:48)
--- NOTE | 2017-02-03 20:31 | HHI.PR ---
Review/Management Diagnosis right MCA CVA, s/p iv TPA right carotid occlusion right cerebellar hemorrhage with mass effect and bilateral SAH. Plan continuje supportive care Diagnosis/Plan: Subjective Subjective Comments No acute events reported Active Medications Current Medications Medications (Trade) Dose Ordered Sig/Calixto Route Start Time Stop Time Status Last Admin Magnesium Oxide 800 mg 800 mg UNSCH PRN PO 01/26/17 16:15 Magnesium Sulfate 4 gm/Sodium Chloride 100 ml @ 50 mls/hr UNSCH PRN IV 01/26/17 16:15 Magnesium Sulfate 2 gm/Sodium Chloride 100 ml @ 50 mls/hr UNSCH PRN IV 01/26/17 16:15 Potassium Chloride 100 ml @ 50 mls/hr Q2H PRN IV 01/26/17 16:15 Potassium Chloride 100 ml @ 50 mls/hr Q2H PRN IV 01/26/17 16:15 Potassium Chloride 100 ml @ 50 mls/hr Q2H PRN IV 01/26/17 16:15 (KCl 40 Meq Premix Inj) 100 ml @ 25 mls/hr UNSCH PRN IV 01/26/17 16:15 (K-Phos) 2,000 mg Q4H PRN PO 01/26/17 16:15 Potassium Phosphate 2000 mg 2,000 mg UNSCH PRN PO/TUBE 01/26/17 16:15 Potassium Phosphate 30 mmol/ Sodium Chloride 260 ml @ 42 mls/hr UNSCH PRN IV 01/26/17 16:15 (Sodium Phosphate Inj/NS 250 ml Inj) 250 ml @ 42 mls/hr UNSCH PRN IV 01/26/17 16:15 01/31/17 13:44 Labetalol HCl 10 mg 10 mg Q4H PRN IV PUSH 01/26/17 16:45 02/01/17 07:03 Diltiazem HCl 125 mg/Sodium Chloride 125 ml @ 0 mls/hr TITRATE IV 01/26/17 19:00 02/03/17 19:07 (Levophed-Dextrose Drip) 250 ml @ 0 mls/hr TITRATE IV 01/27/17 12:00 01/27/17 18:10 Terbutaline Sulfate 1 mg 1 mg UNSCH PRN SQ 01/27/17 11:15 (NS + KCl 20 Meq Inj) 1,000 ml @ 100 mls/hr Q10H IV 01/27/17 12:39 02/03/17 09:06 (NS Flush) 2 ml UNSCH PRN IVF 01/27/17 12:45 IV Flush 2 ml 2 ml BID IVF 01/27/17 21:00 02/03/17 09:00 (Keppra Inj/NS Inj) 105 ml @ 400 mls/hr Q12H IV 01/27/17 18:00 02/03/17 17:06 (Dulcolax Supp) 10 mg DAILY PRN RECTAL 01/27/17 12:45 (Colace) 100 mg BID PO 01/27/17 21:00 01/27/17 21:12 (Protonix) 40 mg DAILY PO 01/28/17 09:00 (Protonix Inj) 40 mg DAILY IVP 01/28/17 09:00 02/03/17 09:10 (Zofran Inj) 4 mg Q6H PRN IV 01/27/17 12:45 (Calcium Gluconate Inj) 1 gm UNSCH PRN IV 01/27/17 12:45 ([place] 10-325 Mg) 1 tab Q4H PRN PO 01/27/17 12:45 02/02/17 17:08 ([place] 10-325 Mg) 2 tab Q4H PRN PO 01/27/17 12:45 02/03/17 05:17 (Morphine Inj) 4 mg Q2H PRN IV PUSH 01/27/17 12:45 02/03/17 18:14 (Tylenol) 650 mg Q4H PRN PO 01/27/17 12:45 02/03/17 19:48 (Peridex 0.12% Liq) 15 ml BID@08,20 MT 01/27/17 20:00 02/03/17 09:05 (Lanoxin Liq) 0.25 mg DAILY PO 01/29/17 09:00 02/03/17 09:12 (Lopressor) 12.5 mg Q12HR PO 01/28/17 09:00 02/03/17 09:11 (Pill Splitter) 1 ea UNSCH PRN OTHER 01/28/17 07:45 (Lipitor) 10 mg HS PO 01/28/17 21:00 02/03/17 19:48 (Beneprotein Powder) 1 pack TID G-TUBE 01/28/17 09:00 02/03/17 17:06 Docusate Sodium 100 mg 100 mg Q12HR PO 01/28/17 09:00 02/03/17 19:48 Piperacillin Sod/ Tazobactam Sod 100 ml @ 200 mls/hr Q6H IV 01/31/17 11:00 02/03/17 17:06 Pharmacy Profile Note 0 ml @ 0 mls/hr UNSCH OTHER 02/01/17 12:00 (NovoLIN R (IV INFUSION)/NS Inj) 100 ml @ 0 mls/hr TITRATE IV 02/01/17 14:00 02/03/17 16:10 Dextrose 50 ml 50 ml UNSCH PRN IV PUSH 02/01/17 12:45 (Vancomycin Inj/ NS 500 ml Inj) 520 ml @ 257.5 mls/ hr Q24H IV 02/04/17 08:00 Miscellaneous Information SPECIFIC LAB TO BE DRAWN:VANCOMYCIN TROUGH DATE TO... ONCE ONCE .XX 02/07/17 07:45 02/07/17 07:46 Allergies Allergies Coded Allergies Sulfa (Verified Allergy, Intermediate, 01/18/17) Exam I&O / VS 02/02/17 02/02/17 02/03/17 15:00 23:00 07:00 Intake Total 2204 ml 1444 ml 1538 ml Output Total 1821 ml 1991 ml 1341 ml Balance 383 ml -547 ml 197 ml IV Total 1576 ml 1034 ml 1107 ml Tube Feeding 528 ml 410 ml 431 ml Tube Irrigant 100 ml Output Urine Total 1800 ml 1950 ml 1250 ml Stool Total 50 ml Drainage Total 21 ml 41 ml 41 ml # Bowel Movements 1 Vital Signs Date Time Temp Pulse Resp B/P Pulse Ox O2 Delivery O2 Flow Rate FiO2 02/03/17 19:41 99 35 02/03/17 18:19 26 02/03/17 18:00 90 02/03/17 16:26 99 35 02/03/17 16:00 102.5 99 28 150/61 99 02/03/17 16:00 35 02/03/17 16:00 99 02/03/17 14:00 112 02/03/17 13:15 26 02/03/17 12:00 114 02/03/17 12:00 101.0 114 23 112/55 99 02/03/17 12:00 35 02/03/17 11:32 99 35 02/03/17 10:00 97 02/03/17 08:09 94 35 02/03/17 08:00 35 02/03/17 08:00 97.8 108 24 144/65 100 02/03/17 08:00 95 02/03/17 07:00 100 Mechanical Ventilator 2.00 35 02/03/17 06:00 104 02/03/17 04:12 99 35 02/03/17 04:00 35 02/03/17 04:00 104 02/03/17 04:00 97.9 112 26 178/81 98 02/03/17 02:00 102 02/03/17 01:15 98 35 02/03/17 00:00 100.8 103 19 105/54 98 02/03/17 00:00 105 02/03/17 00:00 35 02/02/17 22:00 108 02/02/17 20:36 97 35 Exam Comments nonresponsive pupils 3mm min reactive. Motor--no spontaneous limb movement. but does withdraw BLE to stimuli . 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 Right hand Objective Micro and Labs Laboratory Tests Test 02/03/17 02/03/17 05:20 12:00 White Blood Count 17.1 Red Blood Count 3.66 Hemoglobin 10.9 Hematocrit 33.8 Mean Corpuscular Volume 92.3 Mean Corpuscular Hemoglobin 29.7 Mean Corpuscular Hemoglobin 32.2 Concent Red Cell Distribution Width 13.9 Platelet Count 378 Mean Platelet Volume 10.9 Neutrophils (%) (Auto) 85.5 Lymphocytes (%) (Auto) 6.3 Monocytes (%) (Auto) 6.5 Eosinophils (%) (Auto) 1.3 Basophils (%) (Auto) 0.4 Neutrophils # (Auto) 14.6 Lymphocytes # (Auto) 1.1 Monocytes # (Auto) 1.1 Eosinophils # (Auto) 0.2 Basophils # (Auto) 0.1 CBC Comment DIFF FINAL Differential Comment Sodium Level 145 Potassium Level 4.1 Chloride Level 111 Carbon Dioxide Level 23.9 Anion Gap 10 Blood Urea Nitrogen 18 Creatinine 0.92 Estimat Glomerular Filtration 59 Rate Random Glucose 227 Calcium Level 7.4 Protein Corrected Calcium 7.5 Magnesium Level 2.4 Total Bilirubin 0.4 Aspartate Amino Transf 19 (AST/SGOT) Alanine Aminotransferase 16 (ALT/SGPT) Alkaline Phosphatase 105 Total Protein 6.9 Albumin 1.7 Vancomycin Level Trough 8.3 Date/Time Procedure Status Source Growth 02/02/17 15:20 Gram Stain - Final Resulted Sputum Endotracheal 02/02/17 15:20 Sputum Culture - Preliminary Resulted Sputum Endotracheal RARE GROWTH NORMAL RESPIRATORY LILY ... 02/02/17 12:30 Urine Culture - Preliminary Resulted Urine Catheterized Urine NO GROWTH IN 24 HOURS. 02/02/17 10:20 Aerobic Blood Culture - Preliminary Resulted Blood Peripheral NO GROWTH IN 1 DAY 02/02/17 10:20 Anaerobic Blood Culture - Preliminary Resulted Blood Peripheral NO GROWTH IN 1 DAY 01/31/17 11:42 Aerobic Blood Culture - Final Resulted Blood Peripheral Staphylococcus Hominis-Hominis 01/31/17 11:42 Anaerobic Blood Culture - Preliminary Resulted Blood Peripheral NO GROWTH IN 3 DAYS Walker Slater PhD Feb 03, 2017 20:31
[2017-02-03] MEDS ORDERED: NOREPINEPHRINE 4 MG/4 ML AMP ONE (22:58)
[2017-02-03] MEDS ORDERED: NOREPINEPHRINE INJ 4 MG in SODIUM CHLOR 0.9% 250 ML INJ 246 ML IV SCH (23:15)
[2017-02-03 23:54] LABS: BICARBONATE 26.4 MEQ/L (21.0-32.0); POTASSIUM 3.7 MEQ/L (3.5-5.1)
[2017-02-04] VITALS (18 sets, daily range): BP systolic 95–134; BP diastolic 51–79; PULSE 91–112; RESP 16–31; TEMP 96.9–102.3; O2SAT 95–100
[2017-02-04] MEDS ORDERED: PROPOFOL 1000 MG/100 ML INJ 100 ML IV SCH (00:30)
[2017-02-04] MEDS: NS + KCL 20 MEQ INJ 1,000 ML IV SCH ×3 (01:01→21:24)
[2017-02-04] MEDS: PIPERACIL-TAZO 4.5 GM PREMIX 100 ML IV SCH ×4 (05:17→23:16)
[2017-02-04 05:43] LABS: BICARBONATE 24.5 MEQ/L (21.0-32.0); POTASSIUM 3.8 MEQ/L (3.5-5.1)
[2017-02-04] MEDS: levETIRAcetam INJ 500 MG in SODIUM CHLORIDE 0.9% INJ 100 ML IV SCH ×2 (06:12→17:36)
[2017-02-04] MEDS ORDERED: VANCOMYCIN INJ 2,000 MG in SODIUM CHLORID 0.9% 500 ML INJ 500 ML IV SCH (08:00)
[2017-02-04] MEDS: DIGOXIN SOLUTION 0.125 MG/2.5 ML CUP PO SCH (08:14)
[2017-02-04] MEDS: DOCUSATE SODIUM 100 MG CAP PO SCH ×2 (08:14→21:00)
[2017-02-04] MEDS: PANTOPRAZOLE SODIUM 40 MG VIAL IVP SCH (08:14)
[2017-02-04] MEDS: DOCUSATE SODIUM 100 MG/10 ML UDC PO SCH ×2 (08:14→21:24)
[2017-02-04] MEDS: METOPROLOL TARTRATE 25 MG TAB PO SCH (08:15)
[2017-02-04] MEDS: BENEPROTEIN POWDER 1 PACK G-TUBE SCH ×3 (08:15→17:40)
[2017-02-04] MEDS: SODIUM CHLORIDE 0.9% FLUSH 5 ML FLUSH IVF SCH ×2 (08:15→21:25)
[2017-02-04] MEDS: CHLORHEXIDINE 0.12% (ORAL KIT) 15 ML CUP MT SCH ×2 (08:15→21:25)
[2017-02-04] MEDS: PANTOPRAZOLE SOD 40 MG DELAYED RELEASE TAB PO SCH (08:15)
--- NOTE | 2017-02-04 12:10 | HHI.CCPN ---
Subjective Remarks/Hospital Course 76-year-old female with history of atrial fibrillation, hypertension, hypothyroidism, type 2 diabetes who was brought to the emergency department as a stroke alert. Apparently grandson called EMS as the patient was found to be disoriented. EMS noted that patient had rightward gaze, with Left hemiparesis and stroke alert was initiated. Last seen normal at around 2:10 PM, per grandson. 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 After discussion Dr. Slater, TPA was initiated. I evaluated the patient in ED. she somnolent but wakes up easily, she states that she is unable to open her right eye opens left eye. Has obvious left facial droop and left hemiparesis, but now she is able to move LLE. Speech is clear 01/27: Patient more somnolent, hard to wake up (RN states she was more awake 2 huors ago). Remains in A fib with RVR, CTA neck shows complete R common, internal and ext carotid occlusion. Moderate L ICA stenosis. Vascular surgery Dr. Juarez consulted. remains hyperglycemic (gluc 371) without DKA. 01/28: Stat CT 01/27 for AMS showed new large right cerebellar hemorrhage with transtentorial herniation and brain stem compression, bilateral SAH, infarct right MCA territory. Dr. Wagoner emergently consulted, patient underwent suboccipital decompressive craniotomy and ventriculostomy placement. ICP well controlled overnight. Pupils reactive. Withdraws x4. troponin increased to 3.7. LVEF severely reduced, less than 20%. Diffuse global hypokinesis. Mild-to- moderate mitral valve regurgitation, moderate tricuspid valve regurgitation 6/10 mins unresponsive, severe cardiomyopathy on ultrasound, consult palliative care 01/30 no change since yesterday, patient remains unresponsive 01/31: Briskly withdraws 4, grimaces to pain no spontaneous eye opening. CT of the head planned for tomorrow. High fever, pancultured. DC Rocephin and start Zosyn and single dose of Vanc 02/01: Reported single episode of spontaneous eye opening up CAT scan today. CT of the head shows evacuation of cerebellar hemorrhage, interval development of intraventricular hemorrhage bilateral occipital horns, and some worsening of subarachnoid hemorrhage. Clinically critical but stable neurologically essentially unchanged 02/02: Continues to spike fever. Slight improvement in neuro exam, grimacing to pain slight partial eye opening. Do not follow commands yet. Labs pending 02/03: Fever trending down, white count remains elevated. Sputum Gram stain with GPC. Neuro exam remains unchanged to slightly improved. Continues with partial eye opening and grimacing to pain 02/04: No fever reported. Discussed extensively with family including son grandkids. They want to give at least 1 more week to see clinical improvement before deciding on trach and PEG. Neuro exam remains unchanged Objective Vital Signs Date Time Temp Pulse Resp B/P Pulse Ox O2 Delivery O2 Flow Rate FiO2 02/04/17 11:26 97 35 02/04/17 10:00 103 02/04/17 08:00 99.2 28 134/61 02/04/17 07:00 Mechanical Ventilator 2.00 Intake and Output 02/03/17 02/03/17 02/04/17 08:00 16:00 00:00 Intake Total 1538 ml 1306 ml 2095 ml Output Total 1341 ml 1788 ml 1701 ml Balance 197 ml -482 ml 394 ml Result Diagram: 02/03/17 0520 02/04/17 0509 Other Results Microbiology Date/Time Procedure Status Source Growth 02/02/17 12:30 Urine Culture - Final Complete Urine Catheterized Urine NO GROWTH IN 48 HOURS. 02/02/17 15:20 Gram Stain - Final Complete Sputum Endotracheal 02/02/17 15:20 Sputum Culture - Final Complete Sputum Endotracheal RARE GROWTH NORMAL RESPIRATORY LILY Imaging CT head shows no acute findings positive right cerebellar encephalomalacia indicating previous stroke Objective Remarks Levophed NS GENERAL: 76-year-old white female patient who is intubated not on sedation SKIN: Skin warm and dry HEAD: Atraumatic. Normocephalic. EVD with blood tinged CSF drainage, ICP well controlled EYES: R pupil 5, L 4, reactive. No scleral icterus. ENT: No nasal bleeding or discharge. Orotracheally intubated NECK: Trachea midline. No JVD. CARDIOVASCULAR: Irregularly irregular. No murmurs RESPIRATORY: ACV. Breath sounds equal bilaterally. GASTROINTESTINAL: Abdomen soft, non-tender, nondistended. MUSCULOSKELETAL: No obvious deformities. No clubbing. No cyanosis. No edema. NEUROLOGICAL:STEW,Grimacing to pain. No spontaneous eye opening Withdraws all 4 extremities, more brisk in LE, LUE weaker than others Date of Insertion: Jan 27, 2017 Side: Left Location: Internal, Jugular A/P Assessment and Plan Assessment and Plan NEURO: Acute post TPA cerebellar hemorrhage with brainstem compression, transtentorial herniation, SAH Status post emergent suboccipital craniotomy and ventriculostomy placement by Dr Wagoner Acute right MCA stroke Acute encephalopathy Previous cerebellar stroke - Post TPA Patient bled into the previous cerebellar stroke - s/p emergent suboccipital craniotomy and ventriculostomy placement by Dr Wagoner - Ct head 02/01- interval development of intraventricular hemorrhage bilateral occipital horns, some worsening of SAH - Optimized on hyperosmolar therapy with 3% saline and mannitol - Good ICP control. Maintain CPP 60-70 - Head of bed elevation to 30 - Maintain normal temp, Keep PCO2 35 - Supplement B12 level 383, supplement. TSH normal RESP: Acute respiratory failure -Intubated for airway protection 01/27. -Continue ACV, Vent bundle, DuoNeb q6 and PRN -Does not meet SBT criteria, no weaning until neurologically improved -Family wants to wait another week prior to addressing tracheostomy and PEG tube. CV: NSTEMI Cardiomyopathy with ejection fraction less than 20% Atrial fibrillation with rapid ventricular response Bilateral carotid stenosis Hypertensive emergency Now hypotensive -CTA neck shows complete R common, internal and ext carotid occlusion. Moderate L ICA stenosis. -Vascular surgery Dr. Juarez consulted prior to ICH-no intervention -Normal saline IV fluids 100 ml per hour -Cardiology consulted for NSTEMI and Cardiomyopathy. Not a candidate for antiplatelet therapy, or cardiac catheterization -A. fib rate controlled with Cardizem infusion and digoxin. Start Cardizem 30 mg po q6, and attempt to wean off Cardizem -Continue Lipitor daily at bedtime GI: -Continue tube feeds -IV Protonix -Bowel regimen, having BMs : -Monitor renal function closely. Small catheter. ID: Fever Sepsis UTI with Escherichia coli and strep viridans Blood culture with GPC from 01/31 -Monitor for infection. Zosyn 4.5 g every 6 hours and vancomycin 1 01/31 -DC Vancomycin pharmacy today -Blood urine and sputum culture 01/31 -Rpt plan culture HEME: -Monitor CBC, CMP, coags and fibrinogen level per protocol -Received cryoprecipitate and FFP post bleed -H&H stable ENDO: Type 2 diabetes with hyperglycemia -Continue Insulin gtt -Electrolyte replacement protocol PROPH: -Bilateral lower extremity SCDs. Chemical DVT proph started on 01/30, now DCd due to IVH on ACT. IV Protonix LINES: -Central line art line placed 01/27/17 Critical Care: Level 3 Toribio Linares MD Feb 04, 2017 12:10 Toribio Linares MD Feb 04, 2017 12:10
[2017-02-04] MEDS ORDERED: DIGOXIN 0.5 MG/2 ML VIAL IV PUSH ONE (12:15)
[2017-02-04] MEDS: DILTIAZEM HCL 30 MG TAB PO SCH ×3 (13:04→21:24)
[2017-02-04] MEDS: DILTIAZEM INJ 125 MG in SODIUM CHLORIDE 0.9% INJ 100 ML IV SCH (15:25)
[2017-02-04] MEDS: ACETAMINOPHEN 325 MG TAB PO PRN (15:35)
--- NOTE | 2017-02-04 17:03 | HHI.NSPN ---
(Lakeisha Olson) Note Status Status: Progress Note (Lakeisha Olson) Interval History Interval History This is a 76-year-old female with history of atrial fibrillation, hypertension, hypothyroidism, type 2 diabetes who was brought to the emergency department as a stroke alert. Apparently grandson called EMS as the patient was found to be disoriented. EMS noted that patient had rightward gaze, with Left hemiparesis. A stroke alert was initiated. 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 After discussion Dr. Slater, TPA was initiated. Today she became comatose. Follow up CT showed a large cerebellar hemorrhage. She underwent emergent posterior fossa craniectomy with evacuation of cerebellar hematoma, and placement of ventriculostomy drain on 01/27/17. 01/28: POD 1, intubated and sedated. Ventriculostomy draining well, withdraws x 4 extremities 01/31: POD 4, off IV sedation, intubated. EVD draining well, ICPs wnl. 02/01: POD 5, getting EEG. f/u CT Head today completed. no changes to neuro checks. ICPs wnl, EVD draining well. 02/02: POD 6, grimacing to pain, very minimal eye opening seen. 02/03: POD 7, EVD draining well, ICPs stable. remains intubated. 02/04: POD 8, intubated, sedated on propofol. Ventriculostomy draining, ICPs within normal limits (Lakeisha Olson) Labs, Micro, & Vital Signs Results Date Time Temp Pulse Resp B/P Pulse Ox O2 Delivery O2 Flow Rate FiO2 02/04/17 16:00 102 02/04/17 16:00 35 02/04/17 14:00 110 02/04/17 12:00 35 02/04/17 12:00 105 02/04/17 11:26 97 35 02/04/17 10:52 35 02/04/17 10:00 103 02/04/17 08:00 99.2 108 28 134/61 100 02/04/17 08:00 103 02/04/17 08:00 35 02/04/17 07:56 100 35 02/04/17 07:00 100 Mechanical Ventilator 2.00 35 02/04/17 06:00 99 02/04/17 04:15 99 35 02/04/17 04:00 35 02/04/17 04:00 104 02/04/17 04:00 97.9 104 16 124/79 97 02/04/17 02:00 105 02/04/17 01:12 99 35 02/04/17 00:00 35 02/04/17 00:00 107 02/04/17 00:00 99.5 102 18 112/57 98 02/03/17 22:00 101 02/03/17 20:00 101.4 106 23 103/51 98 02/03/17 20:00 108 02/03/17 20:00 35 02/03/17 19:41 99 35 02/03/17 19:00 100 Mechanical Ventilator 35 02/03/17 18:19 26 02/03/17 18:00 90 02/04/17 07:00 Intake Total 4330 ml Output Total 4038 ml Balance 292 ml Constitutional Vital Signs Date Time Temp Pulse Resp B/P Pulse Ox O2 Delivery O2 Flow Rate FiO2 02/04/17 16:00 102 02/04/17 16:00 35 02/04/17 14:00 110 02/04/17 12:00 35 02/04/17 12:00 105 02/04/17 11:26 97 35 02/04/17 10:52 35 02/04/17 10:00 103 02/04/17 08:00 99.2 108 28 134/61 100 02/04/17 08:00 103 02/04/17 08:00 35 02/04/17 07:56 100 35 02/04/17 07:00 100 Mechanical Ventilator 2.00 35 02/04/17 06:00 99 02/04/17 04:15 99 35 02/04/17 04:00 35 02/04/17 04:00 104 02/04/17 04:00 97.9 104 16 124/79 97 02/04/17 02:00 105 02/04/17 01:12 99 35 02/04/17 00:00 35 02/04/17 00:00 107 02/04/17 00:00 99.5 102 18 112/57 98 02/03/17 22:00 101 02/03/17 20:00 101.4 106 23 103/51 98 02/03/17 20:00 108 02/03/17 20:00 35 02/03/17 19:41 99 35 02/03/17 19:00 100 Mechanical Ventilator 35 02/03/17 18:19 26 02/03/17 18:00 90 02/04/17 07:00 Intake Total 4330 ml Output Total 4038 ml Balance 292 ml (Lakeisha Olson) Review of Systems/Exam Exam Ms. Mcclure is intubated, grimacing to pain. Minimal eye opening but not following commands. Surgical wound with clean, dry dressing. Right ventriculostomy drain at 3 cm H2O, bloody CSF. ICPs = 3-4 Cranial Nerves: Pupils left 3 mm, right 5 mm bilaterally reactive. ?left facial weakness noted when grimaced Motor: no withdrawals seen in the left upper extremity today, minimally withdrew right upper and b/l LE's to noxious stimulation Reflexes: bilateral Babinski response Sensory: response to painful stimuli to both upper and lower extremities. Cerebellar:cannot assess due to clinical condition (Lakeisha Olson) Medications Current Medications Current Medications Medications (Trade) Dose Ordered Sig/Calixto Route PRN Reason Start Time Stop Time Status Last Admin Dose Admin Magnesium Oxide 800 mg 800 mg UNSCH PRN PO For Magnesium 1.2 - 1.6 mg/dL 01/26/17 16:15 Magnesium Sulfate 4 gm/Sodium Chloride 100 ml @ 50 mls/hr UNSCH PRN IV For Magnesium 0.9 - 1.1 mg/dL 01/26/17 16:15 Magnesium Sulfate 2 gm/Sodium Chloride 100 ml @ 50 mls/hr UNSCH PRN IV For Magnesium 1.2 - 1.6 mg/dL 01/26/17 16:15 Potassium Chloride 100 ml @ 50 mls/hr Q2H PRN IV For Potassium 2.8 - 3.2 mEq/L 01/26/17 16:15 Potassium Chloride 100 ml @ 50 mls/hr Q2H PRN IV For Potassium 3.3 - 3.5 mEq/L 01/26/17 16:15 Potassium Chloride 100 ml @ 50 mls/hr Q2H PRN IV For Potassium 2.8 - 3.2 mEq/L 01/26/17 16:15 Potassium Chloride (KCl 40 Meq Premix Inj) 100 ml @ 25 mls/hr UNSCH PRN IV For Potassium 3.3 - 3.5 mEq/L 01/26/17 16:15 Potassium Phosphate (K-Phos) 2,000 mg Q4H PRN PO For Phosphorus < 2.5 mg/dL 01/26/17 16:15 Potassium Phosphate 2000 mg 2,000 mg UNSCH PRN PO/TUBE SEE LABEL COMMENTS 01/26/17 16:15 Potassium Phosphate 30 mmol/ Sodium Chloride 260 ml @ 42 mls/hr UNSCH PRN IV SEE LABEL COMMENTS 01/26/17 16:15 Sodium Phosphate 30 mmol/Sodium Chloride 250 ml @ 42 mls/hr UNSCH PRN IV For Phosphorus < 2.5 mg/dL 01/26/17 16:15 01/31/17 13:44 Diltiazem HCl/ Sodium Chloride (Cardizem Inj/NS Inj) 125 ml @ 0 mls/hr TITRATE IV 01/26/17 19:00 02/04/17 15:25 Terbutaline Sulfate 1 mg 1 mg UNSCH PRN SQ For Extravasation 01/27/17 11:15 Potassium Chloride/Sodium Chloride (NS + KCl 20 Meq Inj) 1,000 ml @ 100 mls/hr Q10H IV 01/27/17 12:39 02/04/17 15:26 IV Flush (NS Flush) 2 ml UNSCH PRN IVF FLUSH AFTER USING IV ACCESS 01/27/17 12:45 IV Flush 2 ml 2 ml BID IVF 01/27/17 21:00 02/04/17 08:15 Levetriacetam/ Sodium Chloride (Keppra Inj/NS Inj) 105 ml @ 400 mls/hr Q12H IV 01/27/17 18:00 02/04/17 06:12 Bisacodyl (Dulcolax Supp) 10 mg DAILY PRN RECTAL CONSTIPATION 01/27/17 12:45 Docusate Sodium (Colace) 100 mg BID PO 01/27/17 21:00 01/27/17 21:12 Pantoprazole Sodium (Protonix Inj) 40 mg DAILY IVP 01/28/17 09:00 02/04/17 08:14 Ondansetron HCl (Zofran Inj) 4 mg Q6H PRN IV NAUSEA OR VOMITING 01/27/17 12:45 Calcium Gluconate (Calcium Gluconate Inj) 1 gm UNSCH PRN IV SEE LABEL COMMENTS 01/27/17 12:45 Acetaminophen/ Hydrocodone Bitart (Uledi 10-325 Mg) 1 tab Q4H PRN PO PAIN SCALE 1 TO 5 01/27/17 12:45 02/02/17 17:08 Acetaminophen/ Hydrocodone Bitart (Uledi 10-325 Mg) 2 tab Q4H PRN PO PAIN SCALE 6 TO 10 01/27/17 12:45 02/03/17 21:47 Morphine Sulfate (Morphine Inj) 4 mg Q2H PRN IV PUSH PAIN SCALE 7 TO 10 01/27/17 12:45 02/03/17 22:39 Acetaminophen (Tylenol) 650 mg Q4H PRN PO TEMPERATURE > 101.5 F 01/27/17 12:45 02/04/17 15:35 Chlorhexidine Gluconate (Peridex 0.12% Liq) 15 ml BID@08,20 MT 01/27/17 20:00 02/04/17 08:15 Digoxin (Lanoxin Liq) 0.25 mg DAILY PO 01/29/17 09:00 02/04/17 08:14 Miscellaneous (Pill Splitter) 1 ea UNSCH PRN OTHER SEE LABEL COMMENTS 01/28/17 07:45 Atorvastatin Calcium (Lipitor) 10 mg HS PO 01/28/17 21:00 02/03/17 19:48 Protein (Beneprotein Powder) 1 pack TID G-TUBE 01/28/17 09:00 02/04/17 13:00 Docusate Sodium 100 mg 100 mg Q12HR PO 01/28/17 09:00 02/03/17 19:48 Piperacillin Sod/ Tazobactam Sod 100 ml @ 200 mls/hr Q6H IV 01/31/17 11:00 02/04/17 11:37 Insulin Human Regular/Sodium Chloride (NovoLIN R (IV INFUSION)/NS Inj) 100 ml @ 0 mls/hr TITRATE IV 02/01/17 14:00 02/03/17 16:10 Dextrose 50 ml 50 ml UNSCH PRN IV PUSH SEE LABEL COMMENTS 02/01/17 12:45 Norepinephrine Bitartrate 4 mg/ Sodium Chloride 250 ml @ 0 mls/hr TITRATE IV 02/03/17 23:15 Propofol (Diprivan 1000 Mg/100ml Inj) 100 ml @ 0 mls/hr TITRATE IV 02/04/17 00:30 02/04/17 00:30 Diltiazem HCl (Cardizem) 30 mg QID PO 02/04/17 13:00 02/04/17 13:04 (aLkeisha Olson) Medical Decision Making MDM Remarks 76 y/o female s/p tpa for acute CVA and developed large cerebellar hematoma, s/p posterior fossa craniectomy with evacuation of cerebellar bleed and placement of ventriculostomy drain on 01/27/17 (Lakeisha Olson) Plan Plan Remarks cont ventriculostomy draining at 3 cm H20, cont critical care management, cont neuro checks and f/u neuro examination clear for tracheostomy and PEG from NRS standpoint (Lakeisha Olson) Attending Statement The exam, history, and the medical decision-making described in the above note were completed with the assistance of the mid-level provider. I reviewed and agree with the findings presented. I attest that I had a [id number] encounter with the patient on the same day, and personally performed and documented my assessment and findings in the medical record. (Fred Wagoner MD) Lakeisha Olson Feb 04, 2017 17:03 Fred Wagoner MD Feb 06, 2017 07:49
[2017-02-04] MEDS: INSULIN REGULAR (IV INFUSION) 100 UNITS in SODIUM CHLORIDE 0.9% INJ 99 ML IV SCH (17:29)
--- NOTE | 2017-02-04 18:07 | HHI.PR ---
Review/Management Diagnosis right MCA CVA, s/p iv TPA right carotid occlusion right cerebellar hemorrhage with mass effect and bilateral SAH. Plan continuje supportive care Diagnosis/Plan: Subjective Subjective Comments No acute events reported Active Medications Current Medications Medications (Trade) Dose Ordered Sig/Calixto Route Start Time Stop Time Status Last Admin Magnesium Oxide 800 mg 800 mg UNSCH PRN PO 01/26/17 16:15 Magnesium Sulfate 4 gm/Sodium Chloride 100 ml @ 50 mls/hr UNSCH PRN IV 01/26/17 16:15 Magnesium Sulfate 2 gm/Sodium Chloride 100 ml @ 50 mls/hr UNSCH PRN IV 01/26/17 16:15 Potassium Chloride 100 ml @ 50 mls/hr Q2H PRN IV 01/26/17 16:15 Potassium Chloride 100 ml @ 50 mls/hr Q2H PRN IV 01/26/17 16:15 Potassium Chloride 100 ml @ 50 mls/hr Q2H PRN IV 01/26/17 16:15 (KCl 40 Meq Premix Inj) 100 ml @ 25 mls/hr UNSCH PRN IV 01/26/17 16:15 (K-Phos) 2,000 mg Q4H PRN PO 01/26/17 16:15 Potassium Phosphate 2000 mg 2,000 mg UNSCH PRN PO/TUBE 01/26/17 16:15 Potassium Phosphate 30 mmol/ Sodium Chloride 260 ml @ 42 mls/hr UNSCH PRN IV 01/26/17 16:15 Sodium Phosphate 30 mmol/Sodium Chloride 250 ml @ 42 mls/hr UNSCH PRN IV 01/26/17 16:15 01/31/17 13:44 (Cardizem Inj/NS Inj) 125 ml @ 0 mls/hr TITRATE IV 01/26/17 19:00 02/04/17 15:25 Terbutaline Sulfate 1 mg 1 mg UNSCH PRN SQ 01/27/17 11:15 (NS + KCl 20 Meq Inj) 1,000 ml @ 100 mls/hr Q10H IV 01/27/17 12:39 02/04/17 15:26 (NS Flush) 2 ml UNSCH PRN IVF 01/27/17 12:45 IV Flush 2 ml 2 ml BID IVF 01/27/17 21:00 02/04/17 08:15 (Keppra Inj/NS Inj) 105 ml @ 400 mls/hr Q12H IV 01/27/17 18:00 02/04/17 17:36 (Dulcolax Supp) 10 mg DAILY PRN RECTAL 01/27/17 12:45 (Colace) 100 mg BID PO 01/27/17 21:00 01/27/17 21:12 (Protonix Inj) 40 mg DAILY IVP 01/28/17 09:00 02/04/17 08:14 (Zofran Inj) 4 mg Q6H PRN IV 01/27/17 12:45 (Calcium Gluconate Inj) 1 gm UNSCH PRN IV 01/27/17 12:45 (Leland 10-325 Mg) 1 tab Q4H PRN PO 01/27/17 12:45 02/02/17 17:08 (Leland 10-325 Mg) 2 tab Q4H PRN PO 01/27/17 12:45 02/03/17 21:47 (Morphine Inj) 4 mg Q2H PRN IV PUSH 01/27/17 12:45 02/03/17 22:39 (Tylenol) 650 mg Q4H PRN PO 01/27/17 12:45 02/04/17 15:35 (Peridex 0.12% Liq) 15 ml BID@08,20 MT 01/27/17 20:00 02/04/17 08:15 (Lanoxin Liq) 0.25 mg DAILY PO 01/29/17 09:00 02/04/17 08:14 (Pill Splitter) 1 ea UNSCH PRN OTHER 01/28/17 07:45 (Lipitor) 10 mg HS PO 01/28/17 21:00 02/03/17 19:48 (Beneprotein Powder) 1 pack TID G-TUBE 01/28/17 09:00 02/04/17 17:40 Docusate Sodium 100 mg 100 mg Q12HR PO 01/28/17 09:00 02/03/17 19:48 Piperacillin Sod/ Tazobactam Sod 100 ml @ 200 mls/hr Q6H IV 01/31/17 11:00 02/04/17 17:35 (NovoLIN R (IV INFUSION)/NS Inj) 100 ml @ 0 mls/hr TITRATE IV 02/01/17 14:00 02/04/17 17:29 Dextrose 50 ml 50 ml UNSCH PRN IV PUSH 02/01/17 12:45 Norepinephrine Bitartrate 4 mg/ Sodium Chloride 250 ml @ 0 mls/hr TITRATE IV 02/03/17 23:15 (Diprivan 1000 Mg/100ml Inj) 100 ml @ 0 mls/hr TITRATE IV 02/04/17 00:30 02/04/17 00:30 (Cardizem) 30 mg QID PO 02/04/17 13:00 02/04/17 17:36 Allergies Allergies Coded Allergies Sulfa (Verified Allergy, Intermediate, 01/18/17) Exam I&O / VS 02/03/17 02/03/17 02/04/17 15:00 23:00 07:00 Intake Total 1306 ml 2095 ml 929 ml Output Total 1788 ml 1701 ml 549 ml Balance -482 ml 394 ml 380 ml IV Total 933 ml 1562 ml 929 ml Tube Feeding 333 ml 533 ml Tube Irrigant 30 ml Other 10 ml Output Urine Total 1450 ml 1650 ml 525 ml Stool Total 300 ml Drainage Total 38 ml 51 ml 24 ml Vital Signs Date Time Temp Pulse Resp B/P Pulse Ox O2 Delivery O2 Flow Rate FiO2 02/04/17 18:00 96 02/04/17 16:35 26 02/04/17 16:00 102 02/04/17 16:00 101.4 106 31 114/53 95 02/04/17 16:00 35 02/04/17 14:00 110 02/04/17 12:00 102.3 112 27 95/51 97 02/04/17 12:00 35 02/04/17 12:00 105 02/04/17 11:26 97 35 02/04/17 10:52 35 02/04/17 10:00 103 02/04/17 08:00 99.2 108 28 134/61 100 02/04/17 08:00 103 02/04/17 08:00 35 02/04/17 07:56 100 35 02/04/17 07:00 100 Mechanical Ventilator 2.00 35 02/04/17 06:00 99 02/04/17 04:15 99 35 02/04/17 04:00 35 02/04/17 04:00 104 02/04/17 04:00 97.9 104 16 124/79 97 02/04/17 02:00 105 02/04/17 01:12 99 35 02/04/17 00:00 35 02/04/17 00:00 107 02/04/17 00:00 99.5 102 18 112/57 98 02/03/17 22:00 101 02/03/17 20:00 101.4 106 23 103/51 98 02/03/17 20:00 108 02/03/17 20:00 35 02/03/17 19:41 99 35 02/03/17 19:00 100 Mechanical Ventilator 35 02/03/17 18:19 26 Exam Comments nonresponsive pupils 2mm and reactive. eom intact to occulocephalics Motor--no spontaneous limb movement. but does withdraw BLE to stimuli . occasional recreational aide Right hand Objective Micro and Labs Laboratory Tests Test 02/03/17 02/04/17 22:52 05:09 Sodium Level 144 145 Potassium Level 3.7 3.8 Chloride Level 111 114 Carbon Dioxide Level 26.4 24.5 Anion Gap 7 7 Blood Urea Nitrogen 19 18 Creatinine 0.88 0.74 Estimat Glomerular Filtration 62 76 Rate Random Glucose 226 233 Calcium Level 7.8 7.6 Date/Time Procedure Status Source Growth 02/02/17 15:20 Gram Stain - Final Complete Sputum Endotracheal 02/02/17 15:20 Sputum Culture - Final Complete Sputum Endotracheal RARE GROWTH NORMAL RESPIRATORY LILY 02/02/17 12:30 Urine Culture - Final Complete Urine Catheterized Urine NO GROWTH IN 48 HOURS. 02/02/17 10:20 Aerobic Blood Culture - Preliminary Resulted Blood Peripheral NO GROWTH IN 2 DAYS 02/02/17 10:20 Anaerobic Blood Culture - Preliminary Resulted Blood Peripheral NO GROWTH IN 2 DAYS 01/31/17 11:42 Aerobic Blood Culture - Final Resulted Blood Peripheral Staphylococcus Hominis-Hominis 01/31/17 11:42 Anaerobic Blood Culture - Preliminary Resulted Blood Peripheral NO GROWTH IN 4 DAYS Walker Slater PhD Feb 04, 2017 18:07
[2017-02-04] MEDS: ATORVASTATIN 10 MG TAB PO SCH (21:24)
[2017-02-05] VITALS (21 sets, daily range): BP systolic 85–153; BP diastolic 52–79; PULSE 92–106; RESP 24–32; TEMP 98–101.3; O2SAT 97–100
[2017-02-05] MEDS: PIPERACIL-TAZO 4.5 GM PREMIX 100 ML IV SCH ×4 (04:08→22:09)
[2017-02-05] MEDS: ACETAMINOPHEN 325 MG TAB PO PRN ×2 (04:09→17:38)
--- NOTE | 2017-02-05 04:32 | RADRPT ---
EXAM DATE/TIME: 02/05/2017 02:55 [facility] COMPARISON: CHEST SINGLE AP, February 03, 2017, 4:27. INDICATIONS : Evaluate after respiratory failure, post stroke MEDICAL HISTORY : None. SURGICAL HISTORY : None. ENCOUNTER: Subsequent ACUITY: 1 week PAIN SCORE: Non-responsive. LOCATION: Bilateral chest FINDINGS: A single view of the chest demonstrates endotracheal tube tip in satisfactory position. NG enters sto mach. Left IJ line in superior vena cava. Mild basilar airspace disease. Trace pleural fluid. No pneu mothorax. CONCLUSION: 1. Support apparatus in satisfactory position. Mild basilar airspace disease. Darrell Beavers MD on February 05, 2017 at 4:28 Board Certified Radiologist. This report was verified electronically.
[2017-02-05 04:38] LABS: AUTOMATED NEUTROPHIL # 16.8 TH/MM3 (1.8-7.7); BASOPHIL # 0.2 TH/MM3 (0-0.2); BASOPHIL % 0.8 % (0.0-2.0); EOSINOPHIL # 0.2 TH/MM3 (0-0.4); EOSINOPHIL % 1.1 % (0.0-4.0); HEMATOCRIT 34.3 % (35.0-46.0); HEMO FLAGS DIFF FINAL; LYMPH % 7.5 % (9.0-44.0); LYMPHOCYTE # 1.5 TH/MM3 (1.0-4.8); MEAN CELL VOLUME 90.8 FL (80.0-100.0); MEAN CORPUSCULAR HEMOGLOBIN 29.4 PG (27.0-34.0); MEAN CORPUSCULAR HGB CONC 32.3 % (32.0-36.0); MONO % 5.6 % (0.0-8.0); PLATELET COUNT 495 TH/MM3 (150-450); RED BLOOD COUNT 3.77 MIL/MM3 (4.00-5.30); WHITE BLOOD COUNT 19.7 TH/MM3 (4.0-11.0)
[2017-02-05 05:12] LABS: MAGNESIUM 2.4 MG/DL (1.5-2.5)
[2017-02-05 05:13] LABS: BICARBONATE 23.6 MEQ/L (21.0-32.0); POTASSIUM 3.6 MEQ/L (3.5-5.1)
[2017-02-05 05:23] LABS: CALCIUM-PROTEIN CORRECTED 7.7 MG/DL (8.5-10.1); DIGOXIN 1.6 NG/ML (0.8-2.0); TOTAL BILIRUBIN ADULT 0.4 MG/DL (0.2-1.0)
[2017-02-05] MEDS: levETIRAcetam INJ 500 MG in SODIUM CHLORIDE 0.9% INJ 100 ML IV SCH ×2 (05:52→17:35)
[2017-02-05] MEDS: DILTIAZEM INJ 125 MG in SODIUM CHLORIDE 0.9% INJ 100 ML IV SCH (06:19)
[2017-02-05] MEDS: NS + KCL 20 MEQ INJ 1,000 ML IV SCH ×2 (06:39→15:48)
[2017-02-05] MEDS: CHLORHEXIDINE 0.12% (ORAL KIT) 15 ML CUP MT SCH ×2 (08:20→21:40)
[2017-02-05] MEDS: DOCUSATE SODIUM 100 MG CAP PO SCH ×2 (08:21→21:00)
[2017-02-05] MEDS: SODIUM CHLORIDE 0.9% FLUSH 5 ML FLUSH IVF SCH ×2 (09:00→21:40)
[2017-02-05] MEDS: BENEPROTEIN POWDER 1 PACK G-TUBE SCH ×3 (09:00→17:33)
[2017-02-05] MEDS: DILTIAZEM HCL 30 MG TAB PO SCH ×4 (09:46→21:39)
[2017-02-05] MEDS: DOCUSATE SODIUM 100 MG/10 ML UDC PO SCH ×2 (09:46→21:39)
[2017-02-05] MEDS: PANTOPRAZOLE SODIUM 40 MG VIAL IVP SCH (09:46)
[2017-02-05] MEDS: DIGOXIN SOLUTION 0.125 MG/2.5 ML CUP PO SCH (09:46)
[2017-02-05] MEDS ORDERED: PHENYLEPHRINE HCL 10 MG/ML VIAL ONE (11:49)
--- NOTE | 2017-02-05 11:57 | HHI.CCPN ---
Subjective Remarks/Hospital Course 76-year-old female with history of atrial fibrillation, hypertension, hypothyroidism, type 2 diabetes who was brought to the emergency department as a stroke alert. Apparently grandson called EMS as the patient was found to be disoriented. EMS noted that patient had rightward gaze, with Left hemiparesis and stroke alert was initiated. Last seen normal at around 2:10 PM, per grandson. 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 After discussion Dr. Slater, TPA was initiated. I evaluated the patient in ED. she somnolent but wakes up easily, she states that she is unable to open her right eye opens left eye. Has obvious left facial droop and left hemiparesis, but now she is able to move LLE. Speech is clear 01/27: Patient more somnolent, hard to wake up (RN states she was more awake 2 huors ago). Remains in A fib with RVR, CTA neck shows complete R common, internal and ext carotid occlusion. Moderate L ICA stenosis. Vascular surgery Dr. Juarez consulted. remains hyperglycemic (gluc 371) without DKA. 01/28: Stat CT 01/27 for AMS showed new large right cerebellar hemorrhage with transtentorial herniation and brain stem compression, bilateral SAH, infarct right MCA territory. Dr. Wagoner emergently consulted, patient underwent suboccipital decompressive craniotomy and ventriculostomy placement. ICP well controlled overnight. Pupils reactive. Withdraws x4. troponin increased to 3.7. LVEF severely reduced, less than 20%. Diffuse global hypokinesis. Mild-to- moderate mitral valve regurgitation, moderate tricuspid valve regurgitation 6/10 mins unresponsive, severe cardiomyopathy on ultrasound, consult palliative care 01/30 no change since yesterday, patient remains unresponsive 01/31: Briskly withdraws 4, grimaces to pain no spontaneous eye opening. CT of the head planned for tomorrow. High fever, pancultured. DC Rocephin and start Zosyn and single dose of Vanc 02/01: Reported single episode of spontaneous eye opening up CAT scan today. CT of the head shows evacuation of cerebellar hemorrhage, interval development of intraventricular hemorrhage bilateral occipital horns, and some worsening of subarachnoid hemorrhage. Clinically critical but stable neurologically essentially unchanged 02/02: Continues to spike fever. Slight improvement in neuro exam, grimacing to pain slight partial eye opening. Do not follow commands yet. Labs pending 02/03: Fever trending down, white count remains elevated. Sputum Gram stain with GPC. Neuro exam remains unchanged to slightly improved. Continues with partial eye opening and grimacing to pain 02/04: No fever reported. Discussed extensively with family including son kassy. They want to give at least 1 more week to see clinical improvement before deciding on trach and PEG. Neuro exam remains unchanged Subjective: 02/05 On cardizem po 30 q6 and cardizem drip 5 mg/hr for A fib RVR. BP was low 70/40 and started neosynephrine but perhaps measurement inaccuracy because cuff pressure obtained on leg under SCD. Now normotensive, off pressors. Bedside Echo with depressed LV function, RV grossly ok . Good UOP. Had been on CPAP 05/26 for 3 hours and appeared to be tolerating from respiratory standpoint, but was placed back on full support when BP measurement was low. ICP 3. Temp max 102.3 yesterday afternoon, afebrile today. On Zosyn. WBC up to 19 Objective Vital Signs Date Time Temp Pulse Resp B/P Pulse Ox O2 Delivery O2 Flow Rate FiO2 02/05/17 10:37 100 35 02/05/17 07:00 Mechanical Ventilator 02/05/17 06:00 100 02/05/17 04:00 100.2 24 153/79 02/04/17 07:00 2.00 Intake and Output 02/04/17 02/04/17 02/05/17 08:00 16:00 00:00 Intake Total 929 ml 2043 ml 1503 ml Output Total 549 ml 900 ml 874 ml Balance 380 ml 1143 ml 629 ml Result Diagram: 02/05/17 0420 02/05/17 0420 Other Results Microbiology Date/Time Procedure Status Source Growth 02/02/17 12:30 Urine Culture - Final Complete Urine Catheterized Urine NO GROWTH IN 48 HOURS. 02/02/17 15:20 Gram Stain - Final Complete Sputum Endotracheal 02/02/17 15:20 Sputum Culture - Final Complete Sputum Endotracheal RARE GROWTH NORMAL RESPIRATORY LILY Imaging CT head shows no acute findings positive right cerebellar encephalomalacia indicating previous stroke Objective Remarks Drips: 0.9 NaCl with 20 Meq KCl/L @ 100 ml/hr Insulin 5units/hr cardizem 5 mg /hr placed on hold due to ?hypotension Jevity 1.5 @ 50/hr GENERAL: 76-year-old white female patient who is intubated not on sedation SKIN: Skin warm and dry, well perfused. HEAD: Atraumatic. Normocephalic. EVD with blood tinged CSF drainage +3 cm, ICP 3 EYES: R pupil 4 mm to 2 mm reactive, L 5 mm to 3 mm, reactive. No scleral icterus. ENT: No nasal bleeding or discharge. Orotracheally intubated NECK: Trachea midline. No JVD. CARDIOVASCULAR: Irregularly irregular, rate 90s. No murmurs RESPIRATORY: Breath sounds equal bilaterally, coarse. CPAP 10/5 rate 27 GASTROINTESTINAL: Abdomen soft, non-tender, nondistended. Bowel sounds present : Small in place with pale yellow urine output. MUSCULOSKELETAL: No obvious deformities. No clubbing. No cyanosis. +1 BUE and BLE edema, perineal edema. NEUROLOGICAL: + facial grimace to central noxious stimuli, ?L facial droop. partial eye opening to noxious stimuli. Extensor reflex LUE, withdrawal versus ? Triple flexion BLE, weak withdrawal RUE. Date of Insertion: Jan 27, 2017 Side: Left Location: Internal, Jugular A/P Assessment and Plan Assessment and Plan NEURO: Acute post TPA cerebellar hemorrhage with brainstem compression, transtentorial herniation, SAH Status post emergent suboccipital craniotomy and ventriculostomy placement by Dr Wagoner Acute right MCA stroke Acute encephalopathy Previous cerebellar stroke (prior to this admission) - Post TPA Patient bled into the previous cerebellar stroke - s/p emergent suboccipital craniotomy and ventriculostomy placement by Dr Wagoner 01/27/17 - CT head 02/01- interval development of intraventricular hemorrhage bilateral occipital horns, some worsening of SAH - Off hyperosmolar therapy 3% saline/ mannitol - ICP controlled. Maintain CPP 60-70 - Head of bed elevation to 30 - Avoid hyperthermia, acetaminophern prn temp >100.4, cooling blanket if needed. - Supplement B12, level 383. TSH normal RESP: Acute respiratory failure -Intubated for airway protection 01/27. -On ACV, Vent bundle, DuoNeb q6 and PRN, daily SBT trials. -Family wants to wait another week prior to addressing tracheostomy and PEG tube. CV: NSTEMI Cardiomyopathy with ejection fraction less than 20% Atrial fibrillation with rapid ventricular response Bilateral carotid stenosis Hypertensive emergency -CTA neck shows complete R common, internal and ext carotid occlusion. Moderate L ICA stenosis. -Vascular surgery Dr. Juarez consulted prior to ICH-no intervention -Normal saline IV fluids 100 ml per hour -Cardiology consulted for NSTEMI and Cardiomyopathy. Not a candidate for antiplatelet therapy, or cardiac catheterization -A. fib rate controlled with Cardizem infusion and digoxin. On Cardizem 30 mg po q6 , attempt to wean off Cardizem -Continue Lipitor daily at bedtime - check cortisol in view of ?hypotension GI: -Continue tube feeds, change to GLucerna 1.5 @ 45 ml/hr per nutrition recs. -IV Protonix -Bowel regimen, having BMs FEN/RENAL: -Monitor renal function. Small catheter. Will attempt diuresis if BP remains stable. -Electrolyte replacement protocol ID: Fever Sepsis UTI with Escherichia coli and strep viridans Blood culture with Staph hominus 01/31. Repeat blood culture 02/02 negative. Urine and sputum culture -02/02. - Vancomycin discontinued 02/04 Zosyn 4.5 g every 6 hours 01/31 #6. Repeat blood, sputum, CSF culture if fever spikes again >101. Place PIV and d/c CVL. Replace CVL if needed. HEME: -Received cryoprecipitate and FFP post bleed -H&H stable ENDO: Type 2 diabetes with hyperglycemia -Continue Insulin gtt, remains hyperglycemic with glucose greater than 225. Increase to algorithm 3 PROPH: -Bilateral lower extremity SCDs. Chemical DVT proph started on 01/30, now DCd due to IVH on ACT. IV Protonix LINES: -L IJ CVL placed #10. Remove today. Level 3 Gela Andrews MD Feb 05, 2017 11:57
[2017-02-05] MEDS ORDERED: PHENYLEPHRINE INJ 160 MG in DEXTROSE 5% IN WATE 500 ML INJ 484 ML IV SCH ×2 (12:00)
[2017-02-05] MEDS ORDERED: TERBUTALINE INJ 1 MG/ML AMP SQ PRN (12:00)
[2017-02-05] MEDS ORDERED: MISC INFORMATION OTHER ONE (14:00)
[2017-02-05] MEDS ORDERED: DEXTROSE 50% IN WATER 50 ML VIAL(D50) IV PUSH PRN (14:00)
[2017-02-05] MEDS: INSULIN REGULAR (IV INFUSION) 100 UNITS in SODIUM CHLORIDE 0.9% INJ 99 ML IV SCH (16:05)
[2017-02-05] MEDS: MORPHINE SULFATE 4 MG/ML INJ IV PUSH PRN (17:48)
[2017-02-05] MEDS: ATORVASTATIN 10 MG TAB PO SCH (21:39)
[2017-02-06] VITALS (20 sets, daily range): BP systolic 92–144; BP diastolic 46–91; PULSE 96–116; RESP 24–32; TEMP 98.1–101.4; O2SAT 99–100
[2017-02-06] MEDS: INSULIN REGULAR (IV INFUSION) 100 UNITS in SODIUM CHLORIDE 0.9% INJ 99 ML IV SCH (00:54)
[2017-02-06] MEDS: NS + KCL 20 MEQ INJ 1,000 ML IV SCH (03:37)
[2017-02-06] MEDS: PIPERACIL-TAZO 4.5 GM PREMIX 100 ML IV SCH ×4 (04:33→22:01)
[2017-02-06] MEDS: levETIRAcetam INJ 500 MG in SODIUM CHLORIDE 0.9% INJ 100 ML IV SCH ×2 (06:20→17:13)
[2017-02-06] MEDS: CHLORHEXIDINE 0.12% (ORAL KIT) 15 ML CUP MT SCH ×2 (07:41→19:43)
--- NOTE | 2017-02-06 08:34 | HHI.CCPN ---
Subjective Remarks/Hospital Course 76-year-old female with history of atrial fibrillation, hypertension, hypothyroidism, type 2 diabetes who was brought to the emergency department as a stroke alert. Apparently grandson called EMS as the patient was found to be disoriented. EMS noted that patient had rightward gaze, with Left hemiparesis and stroke alert was initiated. Last seen normal at around 2:10 PM, per grandson. 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 After discussion Dr. Slater, TPA was initiated. I evaluated the patient in ED. she somnolent but wakes up easily, she states that she is unable to open her right eye opens left eye. Has obvious left facial droop and left hemiparesis, but now she is able to move LLE. Speech is clear 01/27: Patient more somnolent, hard to wake up (RN states she was more awake 2 huors ago). Remains in A fib with RVR, CTA neck shows complete R common, internal and ext carotid occlusion. Moderate L ICA stenosis. Vascular surgery Dr. Juarez consulted. remains hyperglycemic (gluc 371) without DKA. 01/28: Stat CT 01/27 for AMS showed new large right cerebellar hemorrhage with transtentorial herniation and brain stem compression, bilateral SAH, infarct right MCA territory. Dr. Wagoner emergently consulted, patient underwent suboccipital decompressive craniotomy and ventriculostomy placement. ICP well controlled overnight. Pupils reactive. Withdraws x4. troponin increased to 3.7. LVEF severely reduced, less than 20%. Diffuse global hypokinesis. Mild-to- moderate mitral valve regurgitation, moderate tricuspid valve regurgitation 6/10 mins unresponsive, severe cardiomyopathy on ultrasound, consult palliative care 01/30 no change since yesterday, patient remains unresponsive 01/31: Briskly withdraws 4, grimaces to pain no spontaneous eye opening. CT of the head planned for tomorrow. High fever, pancultured. DC Rocephin and start Zosyn and single dose of Vanc 02/01: Reported single episode of spontaneous eye opening up CAT scan today. CT of the head shows evacuation of cerebellar hemorrhage, interval development of intraventricular hemorrhage bilateral occipital horns, and some worsening of subarachnoid hemorrhage. Clinically critical but stable neurologically essentially unchanged 02/02: Continues to spike fever. Slight improvement in neuro exam, grimacing to pain slight partial eye opening. Do not follow commands yet. Labs pending 02/03: Fever trending down, white count remains elevated. Sputum Gram stain with GPC. Neuro exam remains unchanged to slightly improved. Continues with partial eye opening and grimacing to pain 02/04: No fever reported. Discussed extensively with family including son kassy. They want to give at least 1 more week to see clinical improvement before deciding on trach and PEG. Neuro exam remains unchanged 02/05 On cardizem po 30 q6 and cardizem drip 5 mg/hr for A fib RVR. BP was low 70/40 and started neosynephrine but perhaps measurement inaccuracy because cuff pressure obtained on leg under SCD. Now normotensive, off pressors. Bedside Echo with depressed LV function, RV grossly ok . Good UOP. Had been on CPAP 05/26 for 3 hours and appeared to be tolerating from respiratory standpoint, but was placed back on full support when BP measurement was low. ICP 3. Temp max 102.3 yesterday afternoon, afebrile today. On Zosyn. WBC up to 19 Subjective: 02/06 PIV placed and CVL removed yesterday. So far temp curve appears improved. CBC/BMP pending. A fib RVR this morning and back on cardizem drip. Changing cardizem from qid to q6 hours. Placed on CPAP while at bedside 03/26. ICP 2. Objective Vital Signs Date Time Temp Pulse Resp B/P Pulse Ox O2 Delivery O2 Flow Rate FiO2 02/06/17 08:25 100 35 02/06/17 07:00 Mechanical Ventilator 02/06/17 06:00 101 02/06/17 04:00 99.7 26 144/65 02/04/17 07:00 2.00 Intake and Output 02/05/17 02/05/17 02/06/17 08:00 16:00 00:00 Intake Total 1262 ml 1486 ml 1603 ml Output Total 1605 ml 1386 ml 522 ml Balance -343 ml 100 ml 1081 ml Result Diagram: 02/05/1741902/05/[address] head shows no acute findings positive right cerebellar encephalomalacia indicating previous stroke Objective Remarks Drips: Insulin 4 units/hr cardizem 10 mg /hr 0.9 NaCl with 20 MEQ KCL/L @ 100 ml/hr --> stopped. Jevity 1.5 @ 40/hr GENERAL: 76-year-old white female patient who is intubated not on sedation SKIN: Skin warm and dry, well perfused. HEAD: Atraumatic. Normocephalic. EVD with blood tinged CSF drainage +3 cm, ICP 2 EYES: R pupil 3 mm to 2 mm reactive, L 4 mm to 3 mm, reactive. No scleral icterus. ENT: No nasal bleeding or discharge. Orotracheally intubated NECK: Trachea midline. No JVD. CARDIOVASCULAR: Irregularly irregular, rate 90s. No murmurs RESPIRATORY: Breath sounds equal bilaterally, coarse. CPAP 8/5 RSBI 60. GASTROINTESTINAL: Abdomen soft, non-tender, nondistended. Bowel sounds present : Small in place with pale yellow urine output. MUSCULOSKELETAL: No obvious deformities. No clubbing. No cyanosis. +1 BUE and BLE edema, perineal edema. NEUROLOGICAL: + facial grimace to central noxious stimuli, partial eye opening to noxious stimuli. Extensor reflex LUE, very weak withdrawal RUE., Triple flexion reflex LLE, withdrawal RLE. Upgoing Babinski bilaterally. Date of Insertion: Jan 27, 2017 Side: Left Location: Internal, Jugular A/P Assessment and Plan Assessment and Plan NEURO: Acute post TPA cerebellar hemorrhage with brainstem compression, transtentorial herniation, SAH Status post emergent suboccipital craniotomy and ventriculostomy placement by Dr Wagoner Acute right MCA stroke Acute encephalopathy Previous cerebellar stroke (prior to this admission) - Post TPA Patient bled into the previous cerebellar stroke - s/p emergent suboccipital craniotomy and ventriculostomy placement by Dr Wagoner 01/27/17, currently +3 cm, management per NSG. - CT head 02/01- interval development of intraventricular hemorrhage bilateral occipital horns, some worsening of SAH - Off hyperosmolar therapy 3% saline/ mannitol - ICP controlled. - Head of bed elevation to 30 - Avoid hyperthermia, acetaminophern prn temp >100.4, cooling blanket if needed. - Supplement B12, level 383. TSH normal RESP: Acute respiratory failure -Intubated for airway protection 01/27. Mechanical ventilation day #11. Per Dr. Linares, family wants to wait another 4-5 days before deciding about trach/PEG. -On ACV, Vent bundle, DuoNeb q6 and PRN, daily SBT trials. CV: NSTEMI Cardiomyopathy with ejection fraction less than 20% Atrial fibrillation with rapid ventricular response Bilateral carotid stenosis Hypertensive emergency -CTA neck shows complete R common, internal and ext carotid occlusion. Moderate L ICA stenosis. -Vascular surgery Dr. Juarez consulted prior to ICH-no intervention now. -Cardiology consulted for NSTEMI and Cardiomyopathy. Not a candidate for antiplatelet therapy, or cardiac catheterization -A. fib rate controlled with Cardizem infusion and digoxin. Change cardizem from qid to q6 hours as went back into RVR early am and cardizem drip had to be restarted. If unable to get off drip, may need to increase po dose. -Continue Lipitor daily at bedtime GI: -Continue tube feeds, change to GLucerna 1.5 @ 45 ml/hr per nutrition recs. -IV Protonix -Bowel regimen, having BMs FEN/RENAL: -Monitor renal function. Small catheter. Lasix 40 mg IV q12 x 2 doses. KCL 25 q6 hours x 4doses. Followup K+ 1600. -Electrolyte replacement protocol ID: Fever Sepsis UTI with Escherichia coli and strep viridans, repeat urine culture 02/02 negative. Aspiration pneumonia Blood culture with Staph hominus 01/31. Repeat blood culture 02/02 negative. Urine and sputum culture -02/02. - Vancomycin discontinued 02/04 Zosyn 4.5 g every 6 hours 01/31 #7, empiric for aspiration pneumonia with negative sputum culture. Dc tomorrow following completion of 8 day course. Repeat blood, sputum, CSF culture if fever spikes again >101. CVL discontinued 02/05. HEME: Acute blood loss anemia Thrombocytosis, reactive -Received cryoprecipitate and FFP post bleed -H&H stable ENDO: Type 2 diabetes with hyperglycemia -On Insulin algorithm #3. Detemir 20 units subcut q12. High dose sliding scale q 4hours. -cortisol level 36 on 02/05 PROPH: -Bilateral lower extremity SCDs. Chemical DVT proph started on 01/30, now DCd due to IVH on CT 01/31. IV Protonix LINES: PIV. -L IJ CVL was in place 01/27-02/05, Level 3 Gela Andrews MD Feb 06, 2017 08:34
[2017-02-06] MEDS: DOCUSATE SODIUM 100 MG CAP PO SCH ×2 (08:56→19:45)
[2017-02-06] MEDS: BENEPROTEIN POWDER 1 PACK G-TUBE SCH ×3 (08:59→17:13)
[2017-02-06] MEDS: PANTOPRAZOLE SODIUM 40 MG VIAL IVP SCH (08:59)
[2017-02-06] MEDS: DOCUSATE SODIUM 100 MG/10 ML UDC PO SCH ×2 (08:59→19:45)
[2017-02-06] MEDS: SODIUM CHLORIDE 0.9% FLUSH 5 ML FLUSH IVF SCH ×2 (08:59→19:44)
[2017-02-06] MEDS: FUROSEMIDE 40 MG/4 ML VIAL IV PUSH SCH ×2 (08:59→19:44)
[2017-02-06] MEDS: POTASSIUM CHLORIDE 25 MEQ EFFERVESCENT TAB NG SCH ×3 (08:59→19:45)
[2017-02-06] MEDS: DIGOXIN SOLUTION 0.125 MG/2.5 ML CUP PO SCH (08:59)
[2017-02-06] MEDS: DILTIAZEM HCL 30 MG TAB OG-TUBE SCH ×4 (09:00→22:50)
[2017-02-06] MEDS ORDERED: DEXTROSE 50% IN WATER 50 ML VIAL(D50) IV PRN (10:45)
[2017-02-06] MEDS ORDERED: GLUCAGON 1 MG/ML VIAL OTHER PRN (10:45)
[2017-02-06] MEDS: INSULIN ASPART SUPPLEMENTAL SCALE SQ SCH ×4 (11:00→22:49)
[2017-02-06 11:01] LABS: HEMATOCRIT 39.2 % (35.0-46.0); MEAN CELL VOLUME 91.8 FL (80.0-100.0); MEAN CORPUSCULAR HEMOGLOBIN 28.6 PG (27.0-34.0); MEAN CORPUSCULAR HGB CONC 31.2 % (32.0-36.0); PLATELET COUNT 492 TH/MM3 (150-450); RED BLOOD COUNT 4.27 MIL/MM3 (4.00-5.30); RED CELL DISTRIBUTION WIDTH 14.1 % (11.6-17.2); REVIEW FLAG FINAL; WHITE BLOOD COUNT 24.3 TH/MM3 (4.0-11.0)
[2017-02-06] MEDS: INSULIN DETEMIR 100 UNITS/ML VIAL SQ SCH ×2 (11:25→19:46)
[2017-02-06] MEDS: ACETAMINOPHEN 325 MG TAB PO PRN (11:42)
[2017-02-06 13:19] LABS: BICARBONATE 22.6 MEQ/L (21.0-32.0); POTASSIUM 3.7 MEQ/L (3.5-5.1)
--- NOTE | 2017-02-06 14:42 | HHI.NSPN ---
(Allen Lozoya) History Chief Complaint: ICH (Allen Lozoya) Interval History This is a 76-year-old female with history of atrial fibrillation, hypertension, hypothyroidism, type 2 diabetes who was brought to the emergency department as a stroke alert. Apparently grandson called EMS as the patient was found to be disoriented. EMS noted that patient had rightward gaze, with Left hemiparesis. A stroke alert was initiated. 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 After discussion Dr. Slater, TPA was initiated. Today she became comatose. Follow up CT showed a large cerebellar hemorrhage. She underwent emergent posterior fossa craniectomy with evacuation of cerebellar hematoma, and placement of ventriculostomy drain on 01/27/17. 01/28: POD 1, intubated and sedated. Ventriculostomy draining well, withdraws x 4 extremities 01/31: POD 4, off IV sedation, intubated. EVD draining well, ICPs wnl. 02/01: POD 5, getting EEG. f/u CT Head today completed. no changes to neuro checks. ICPs wnl, EVD draining well. 02/02: POD 6, grimacing to pain, very minimal eye opening seen. 02/03: POD 7, EVD draining well, ICPs stable. remains intubated. 02/04: POD 8, intubated, sedated on propofol. Ventriculostomy draining, ICPs within normal limits 02/06: POD #10. Patient remains critical, intubated & mechanically ventilated, no sedation. (Allen Lozoya) System Review Comments Unable to obtain ROS due to patient's mental status & intubation. (Allen Lozoya) Exam Results Vital Signs Date Time Temp Pulse Resp B/P Pulse Ox O2 Delivery O2 Flow Rate FiO2 02/06/17 13:54 99 35 02/06/17 08:00 99.3 108 25 136/64 02/06/17 07:00 Mechanical Ventilator 02/04/17 07:00 2.00 Intake and Output 02/05/17 02/05/1717 08:00 16:00 00:00 Intake Total 1262 ml 1486 ml 1603 ml Output Total 1605 ml 1386 ml 522 ml Balance -343 ml 100 ml 1081 ml (Allen Lozoya) Physical Examination GENERAL: Intubated, no sedation. HEENT: Surgical incision well-approximated, no evident drainage, erythema or streaking. Ventriculostomy insertion site w/o evident drainage, erythema or streaking. Right pupil 3 mm & left pupil 4 mm, reactive. Orally intubated, OGT. RESPIRATORY: Slightly coarse bilaterally, equal excursion, orally intubated & mechanically ventilated. CARDIOVASCULAR: S1S2 irregularly irregular w/o M/G/R, radial & pedal pulses 2+ bilaterally, cap refill < 2 sec, generalised extremity edema. Monitor is atrial fibrillation w/controlled ventricular response, multifocal PVCs noted. GASTROINTESTINAL: Abdomen soft, positive bowel sounds, OGT w/enteral feeds. GENITOURINARY: Small catheter to BSD w/clear yellow urine. MUSCULOSKELETAL: No evident deformities or clubbing. NEUROLOGICAL: Intubated, GCS 5-6T (E1 V1T M3-4) Ventriculostomy at 3 cm H2O pressure, bloody drainage, ICPs have ranged between 2 and 4 No eye opening Does not follow commands BLE with questionable withdrawal of feet to touch vs reflex response, LUE with extension to noxious stimuli, movement of LLE w/noxious stimuli to RUE but none to extremity itself (Allen Lozoya) Medical Decision Making Impression and Plan Impression: S/P tpa for acute CVA and developed large cerebellar hematoma s/p posterior fossa craniectomy with evacuation of cerebellar bleed and placement of ventriculostomy drain on 01/27/17 No change in neurologically status Plan: cont ventriculostomy draining at 3 cm H20, cont critical care management, cont neuro checks and f/u neuro examination clear for tracheostomy and PEG from NRS standpoint (Allen Lozoya) Attending Statement I have personally seen and examined the patient on the date of this note. Pertinent documentation and study results have been reviewed by the undersigned. I have personally developed the treatment plan and performed medical decision making. Agree with findings, exam, and treatment plan as noted above. No change in examination today versus 6/17/17. No eye opening. No response to deep pain all extremities External ventricular drain remains in place with moderate output. Continuing ventilatory support, ventricular drainage (Brady Mathew MD) Allen Lozoya Feb 06, 2017 14:42 Brady Mathew MD Feb 06, 2017 19:45
[2017-02-06] MEDS: SENNOSIDES SYRUP 8.8 MG/5 ML CUP OG-TUBE SCH (17:12)
[2017-02-06 17:18] LABS: BICARBONATE 24.6 MEQ/L (21.0-32.0); POTASSIUM 4.2 MEQ/L (3.5-5.1)
[2017-02-06] MEDS: ATORVASTATIN 10 MG TAB PO SCH (19:45)
[2017-02-06] MEDS: ACETAMINOPHEN/HYDROcodone 325 MG/10 MG TAB PO PRN (19:47)
[2017-02-06] MEDS ORDERED: PHENYLEPHRINE INJ 160 MG in SODIUM CHLORID 0.9% 500 ML INJ 484 ML IV SCH (22:30)
[2017-02-07] VITALS (19 sets, daily range): BP systolic 87–136; BP diastolic 59–74; PULSE 96–124; RESP 23–42; TEMP 97.7–101.8; O2SAT 9–100
[2017-02-07] MEDS: INSULIN ASPART SUPPLEMENTAL SCALE SQ SCH ×5 (03:17→18:51)
[2017-02-07] MEDS: POTASSIUM CHLORIDE 25 MEQ EFFERVESCENT TAB NG SCH (03:18)
[2017-02-07] MEDS: PIPERACIL-TAZO 4.5 GM PREMIX 100 ML IV SCH (03:18)
[2017-02-07] MEDS: DILTIAZEM HCL 30 MG TAB OG-TUBE SCH ×2 (06:36→11:30)
[2017-02-07] MEDS: levETIRAcetam INJ 500 MG in SODIUM CHLORIDE 0.9% INJ 100 ML IV SCH ×2 (06:36→18:52)
[2017-02-07] MEDS ORDERED: Vancomycin Consult Pharmacy 1 EA OTHER SCH (07:00)
[2017-02-07] MEDS ORDERED: CEFEPIME INJ 2,000 MG in SODIUM CHLORIDE 0.9% INJ 100 ML IV SCH (07:00)
--- NOTE | 2017-02-07 07:09 | HHI.CCPN ---
Subjective Remarks/Hospital Course 76-year-old female with history of atrial fibrillation, hypertension, hypothyroidism, type 2 diabetes who was brought to the emergency department as a stroke alert. Apparently grandson called EMS as the patient was found to be disoriented. EMS noted that patient had rightward gaze, with Left hemiparesis and stroke alert was initiated. Last seen normal at around 2:10 PM, per grandson. 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 After discussion Dr. Slater, TPA was initiated. I evaluated the patient in ED. she somnolent but wakes up easily, she states that she is unable to open her right eye opens left eye. Has obvious left facial droop and left hemiparesis, but now she is able to move LLE. Speech is clear 01/27: Patient more somnolent, hard to wake up (RN states she was more awake 2 huors ago). Remains in A fib with RVR, CTA neck shows complete R common, internal and ext carotid occlusion. Moderate L ICA stenosis. Vascular surgery Dr. Juarez consulted. remains hyperglycemic (gluc 371) without DKA. 01/28: Stat CT 01/27 for AMS showed new large right cerebellar hemorrhage with transtentorial herniation and brain stem compression, bilateral SAH, infarct right MCA territory. Dr. Wagoner emergently consulted, patient underwent suboccipital decompressive craniotomy and ventriculostomy placement. ICP well controlled overnight. Pupils reactive. Withdraws x4. troponin increased to 3.7. LVEF severely reduced, less than 20%. Diffuse global hypokinesis. Mild-to- moderate mitral valve regurgitation, moderate tricuspid valve regurgitation 6/10 mins unresponsive, severe cardiomyopathy on ultrasound, consult palliative care 01/30 no change since yesterday, patient remains unresponsive 01/31: Briskly withdraws 4, grimaces to pain no spontaneous eye opening. CT of the head planned for tomorrow. High fever, pancultured. DC Rocephin and start Zosyn and single dose of Vanc 02/01: Reported single episode of spontaneous eye opening up CAT scan today. CT of the head shows evacuation of cerebellar hemorrhage, interval development of intraventricular hemorrhage bilateral occipital horns, and some worsening of subarachnoid hemorrhage. Clinically critical but stable neurologically essentially unchanged 02/02: Continues to spike fever. Slight improvement in neuro exam, grimacing to pain slight partial eye opening. Do not follow commands yet. Labs pending 02/03: Fever trending down, white count remains elevated. Sputum Gram stain with GPC. Neuro exam remains unchanged to slightly improved. Continues with partial eye opening and grimacing to pain 02/04: No fever reported. Discussed extensively with family including son grandjose alfredo. They want to give at least 1 more week to see clinical improvement before deciding on trach and PEG. Neuro exam remains unchanged 02/05 On cardizem po 30 q6 and cardizem drip 5 mg/hr for A fib RVR. BP was low 70/40 and started neosynephrine but perhaps measurement inaccuracy because cuff pressure obtained on leg under SCD. Now normotensive, off pressors. Bedside Echo with depressed LV function, RV grossly ok . Good UOP. Had been on CPAP 05/26 for 3 hours and appeared to be tolerating from respiratory standpoint, but was placed back on full support when BP measurement was low. ICP 3. Temp max 102.3 yesterday afternoon, afebrile today. On Zosyn. WBC up to 19 Subjective: 02/06 PIV placed and CVL removed yesterday. So far temp curve appears improved. CBC/BMP pending. A fib RVR this morning and back on cardizem drip. Changing cardizem from qid to q6 hours. Placed on CPAP while at bedside 03/26. ICP 2. 02/07: Overnight had to be placed on Mannie-Synephrine for hypotension, now at 60 mcg/m. Temperature 101.4. WBC count has increased to 24.3 from 19.7, most likely becoming septic. DC Zosyn. Start vancomycin cefepime and Flagyl. Elam culture including CFS and, check C. difficile. Intermittent eye opening with care activities. Briskly withdraws lower extremities to pain Objective Vital Signs Date Time Temp Pulse Resp B/P Pulse Ox O2 Delivery O2 Flow Rate FiO2 02/07/17 04:00 115 02/07/17 04:00 99.0 26 121/67 99 02/07/17 04:00 35 02/06/17 19:00 Mechanical Ventilator 02/04/17 07:00 2.00 Intake and Output 02/06/17 02/06/17 02/07/17 08:00 16:00 00:00 Intake Total 1315 ml 1014 ml 892 ml Output Total 712 ml 1773 ml 878 ml Balance 603 ml -759 ml 14 ml Result Diagram: 02/06/17 1005 02/06/[address] head shows no acute findings positive right cerebellar encephalomalacia indicating previous stroke Objective Remarks Drips: Insulin 4 units/hr Mannie-Synephrine at 60 mcg/m NS to KVO Jevity 1.5 @ 40/hr GENERAL: 76-year-old white female patient who is intubated not on sedation SKIN: Skin warm and dry, well perfused. HEAD: Atraumatic. Normocephalic. EVD with blood tinged CSF drainage +3 cm, ICP 1 -4 EYES: R pupil 3 mm reactive, L 4 mm reactive. No scleral icterus. ENT: No nasal bleeding or discharge. Orotracheally intubated NECK: Trachea midline. No JVD. CARDIOVASCULAR: Irregularly irregular, rate 120s. No murmurs. On Mannie-Synephrine RESPIRATORY: Breath sounds equal bilaterally, coarse. ACV GASTROINTESTINAL: Abdomen soft, non-tender, nondistended. Bowel sounds present : Small in place with pale yellow urine output. MUSCULOSKELETAL: No obvious deformities. No clubbing. No cyanosis. +1 BUE and BLE edema, perineal edema. NEUROLOGICAL: + facial grimace to central noxious stimuli, partial eye opening to noxious stimuli. No withdrawal LUE, very weak withdrawal RUE, Brisk withdrawal bilateral LE. Upgoing Babinski bilaterally. Urinary Catheter: Yes Assessment to: Continue Vascular Central Line Catheter: No Date of Insertion: Jan 27, 2017 Date of Removal: Feb 05, 2017 Side: Left Location: Internal, Jugular A/P Assessment and Plan Assessment and Plan NEURO: Acute post TPA cerebellar hemorrhage with brainstem compression, transtentorial herniation, SAH Status post emergent suboccipital craniotomy and ventriculostomy placement by Dr Wagoner Acute right MCA stroke Acute encephalopathy Previous cerebellar stroke (prior to this admission) - Post TPA Patient bled into the previous cerebellar stroke - s/p emergent suboccipital craniotomy and ventriculostomy placement by Dr Wagoner 01/27/17, currently +3 cm, management per NSG. - CT head 02/01- interval development of intraventricular hemorrhage bilateral occipital horns, some worsening of SAH - Off hyperosmolar therapy 3% saline/ mannitol - ICP controlled. - Head of bed elevation to 30 - Avoid hyperthermia, acetaminophen prn temp >100.4, cooling blanket if needed. - Supplement B12, level 383. TSH normal - Discontinue ALL when necessary opiates RESP: Acute respiratory failure -Intubated for airway protection 6. Mechanical ventilation day #12. Per Dr. Linares, family wants to wait another 4-5 days before deciding about trach/PEG. -Most likely will need trach and PEG -On ACV, Vent bundle, DuoNeb q6 and PRN, daily SBT trials. CV: NSTEMI Cardiomyopathy with ejection fraction less than 20% Atrial fibrillation with rapid ventricular response Bilateral carotid stenosis Hypertensive emergency -CTA neck shows complete R common, internal and ext carotid occlusion. Moderate L ICA stenosis. -Vascular surgery Dr. Juarez consulted prior to ICH-no intervention now. -Cardiology consulted for NSTEMI and Cardiomyopathy. Not a candidate for antiplatelet therapy, or cardiac catheterization -A. fib rate on Cardizem PO and digoxin. Increase to 60 mg po Q6 -Mannie-Synephrine started overnight to keep map above 65 -Continue Lipitor daily at bedtime GI: -Continue tube feeds, change to GLucerna 1.5 @ 45 ml/hr per nutrition recs. -IV Protonix -Bowel regimen, having BMs FEN/RENAL: -Monitor renal function. Small catheter. s/p Lasix 40 mg IV q12 x 2 doses. KCL 25 q6 hours x 4doses. Followup K+ 1600. -Electrolyte replacement protocol ID: Fever Sepsis UTI with Escherichia coli and strep viridans, repeat urine culture 02/02 negative. Aspiration pneumonia Blood culture with Staph hominus 01/31. Repeat blood culture 02/02 negative. Urine and sputum culture -02/02. - Vancomycin discontinued 02/04 Zosyn 4.5 g every 6 hours 01/31 #8, empiric for aspiration pneumonia with negative sputum culture. DC today Repeat blood, sputum, CSF culture and C Diff today 02/07 as temp spiked to 101.4 CVL discontinued 02/05. 02/07/17-start the patient on vancomycin, cefepime and Flagyl HEME: Acute blood loss anemia Thrombocytosis, reactive -Received cryoprecipitate and FFP post bleed -H&H stable ENDO: Type 2 diabetes with hyperglycemia -On Insulin algorithm #3. Detemir 20 units subcut q12. High dose sliding scale q 4hours. -cortisol level 36 on 02/05 PROPH: -Bilateral lower extremity SCDs. Chemical DVT proph started on 01/30, now DCd due to IVH on CT 01/31. IV Protonix LINES: PIV. -L IJ CVL was in place 01/27-02/05, CCT 35 MIN -patient is critically ill now with worsening white count high fever and shock requiring Mannie-Synephrine. Panculture ordered with broad-spectrum antibiotics. Also check CSF cultures and C. difficile studies Toribio Linares MD Feb 07, 2017 07:09
[2017-02-07] MEDS ORDERED: CYANOCOBALAMIN 1000 MCG/ML VIAL IM ONE (07:15)
[2017-02-07] MEDS ORDERED: PHARMACY ORDERED LAB ONE (07:45)
[2017-02-07] MEDS: metroNIDAZOLE 500 MG INJ 100 ML IV SCH ×3 (08:53→22:26)
[2017-02-07] MEDS: FUROSEMIDE 40 MG/4 ML VIAL IV PUSH SCH (08:54)
[2017-02-07] MEDS: CHLORHEXIDINE 0.12% (ORAL KIT) 15 ML CUP MT SCH ×2 (08:54→20:59)
[2017-02-07] MEDS: DOCUSATE SODIUM 100 MG CAP PO SCH ×2 (08:55→21:00)
[2017-02-07] MEDS: PANTOPRAZOLE SODIUM 40 MG VIAL IVP SCH (08:55)
[2017-02-07] MEDS: DOCUSATE SODIUM 100 MG/10 ML UDC PO SCH ×3 (08:55→21:22)
[2017-02-07] MEDS: SODIUM CHLORIDE 0.9% FLUSH 5 ML FLUSH IVF SCH ×2 (08:55→21:00)
[2017-02-07] MEDS: SENNOSIDES SYRUP 8.8 MG/5 ML CUP OG-TUBE SCH (08:55)
[2017-02-07] MEDS ORDERED: VANCOMYCIN INJ 1,250 MG in SODIUM CHLOR 0.9% 250 ML INJ 250 ML IV ONE (09:00)
[2017-02-07] MEDS: INSULIN DETEMIR 100 UNITS/ML VIAL SQ SCH ×2 (09:07→21:00)
[2017-02-07] MEDS: BENEPROTEIN POWDER 1 PACK G-TUBE SCH ×3 (10:52→18:00)
[2017-02-07] MEDS: DIGOXIN SOLUTION 0.125 MG/2.5 ML CUP PO SCH (10:52)
[2017-02-07] MEDS ORDERED: VASOPRESSIN INJ 40 UNITS in DEXTROSE 5% IN WATER 100ML INJ 98 ML IV SCH ×4 (12:00→13:17)
[2017-02-07] MEDS ORDERED: DILTIAZEM INJ 125 MG in SODIUM CHLORIDE 0.9% INJ 100 ML IV SCH (12:00)
[2017-02-07] MEDS ORDERED: SODIUM CHLOR 0.9% 1000 ML INJ 1,000 ML IV ONE (12:00)
[2017-02-07] MEDS ORDERED: LORazepam 2 MG/ML VIAL ONE (12:40)
[2017-02-07] MEDS ORDERED: ROCURONIUM INJ 50 MG/5 ML VIAL ONE (12:40)
[2017-02-07] MEDS ORDERED: SODIUM BICARBONATE 8.4% INJ 50 ML ONE (12:48)
[2017-02-07] MEDS ORDERED: DIGOXIN 0.5 MG/2 ML VIAL ONE (12:51)
[2017-02-07] MEDS ORDERED: NOREPINEPHRINE 4 MG/4 ML AMP ONE ×2 (12:51→19:48)
--- NOTE | 2017-02-07 13:14 | PD.PROCEDR ---
Central Line Procedure REASON FOR PROCEDURE Central venous access PROCEDURE PERFORMED Central line placement: LIJ central line, US guided CONSENT Informed consent for procedure was obtained from son. The risks and benefits of the procedure were discussed to include but limited to bleeding, clot formation, infection, and even . ANESTHESIA Local injection of 1% Lidocaine DESCRIPTION OF THE PROCEDURE The patient was placed in supine, mild Trendelenburg position. The area was exposed and cleansed with ChloraPrep, times two. Large sterile drape was used to cover the patient, with the site exposed, under sterile conditions including cap, face mask, sterile gown, and sterile gloves. On single attempt, the introducer needle was inserted with negative pressure in syringe and venous flash was obtained. The guide wire was then advanced without any restriction and the needle was removed. The dilator was used without any complications. Using Seldinger technique the 20 cm 7F triple lumen catheter was advanced over the guide wire to a depth of 18 centimeters. The guide wire was removed. All ports were aspirated with dark venous blood return and flushed easily with sterile saline. All ports were capped. Antibiotic disc was placed around central line at puncture site. The central line was secured to the skin with two interrupted 2.0 silk sutures. The area was bandaged with sterile see- through central line bandage. RADIOLOGICAL DATA Ultrasound guidance was used to locate LIJ. COMPLICATIONS: No apparent complications ESTIMATED BLOOD LOSS: Less than 1 cc. Toribio Linares MD Feb 07, 2017 13:14
[2017-02-07] MEDS ORDERED: AMIODARONE INJ 450 MG in DEXTROSE 5% IN WATE(EXCEL) INJ 241 ML IV SCH ×2 (13:15)
[2017-02-07 13:19] LABS: BLOOD GAS BASE EXCESS -4.2 mmol/L (-2-2); BLOOD GAS CARBOXYHEMOGLOBIN 1.2 % (0-4); BLOOD GAS HCO3 20 mmol/L (22-26); BLOOD GAS METHEMOGLOBIN 0.8 % (0-2); BLOOD GAS O2 HGB SATURATION 93 % (90-100); BLOOD GAS OXYGEN CONTENT 16.6 Vol % (12.0-20.0); BLOOD GAS PCO2 36 mmHg (38-42); BLOOD GAS PO2 84 mmHg (61-120); BLOOD GAS TOTAL HGB 12.6 G/DL (12.0-16.0); TEMP CORR TO 98.6
[2017-02-07 13:20] LABS: CRITICAL VALUE NO; DRAW SITE ART LINE; FIO2 50 %; OXYGEN DEVICE VENTILATOR; STAT YES; VENT SETTINGS A/C600/18PEEP5
[2017-02-07] MEDS ORDERED: AMIODARONE INJ 150 MG in DEXTROSE 5% IN WATER 100ML INJ 97 ML IV ONE ×2 (13:30)
[2017-02-07] MEDS ORDERED: SODIUM BICARBONATE 8.4% INJ 50 MEQ/50 ML SYR IV PUSH ONE (13:30)
[2017-02-07] MEDS ORDERED: ROCURONIUM INJ 50 MG/5 ML VIAL IV ONE (13:30)
--- NOTE | 2017-02-07 14:14 | RADRPT ---
EXAM DATE/TIME: 02/07/2017 13:22 [facility] COMPARISON: CHEST SINGLE AP, February 05, 2017, 2:55. INDICATIONS : Central line placement. MEDICAL HISTORY : Cardiovascular disease. Hypertension. Diabetes mellitus type 2. SURGICAL HISTORY : Craniotomy. ENCOUNTER: Subsequent ACUITY: 1 week PAIN SCORE: Non-responsive. LOCATION: Bilateral chest FINDINGS: The ET tube nasogastric tube and central line are all in good position. There are mild chronic inters titial changes. The lungs are otherwise clear. The atelectasis at the right lung base has cleared sin ce previous exam. CONCLUSION: 1. Support equipment in good position. 2. The lungs are clear. Jt Caballero MD on February 07, 2017 at 14:12 Board Certified Radiologist. This report was verified electronically.
[2017-02-07] MEDS: AMIODARONE INJ 450 MG in SODIUM CHLOR 0.9% (EXCEL) INJ 241 ML IV SCH (14:50)
[2017-02-07] MEDS ORDERED: PROPOFOL 1000 MG/100 ML INJ 100 ML ONE (15:22)
[2017-02-07] MEDS: VANCOMYCIN 1,000 MG/NS 250 ML IV SCH ×2 (15:35)
--- NOTE | 2017-02-07 16:03 | RADRPT ---
EXAM DATE/TIME: 02/07/2017 15:24 [facility] COMPARISON: CHEST SINGLE AP, February 07, 2017, 13:22. INDICATIONS : Ileus. MEDICAL HISTORY : Cardiovascular disease. Hypertension. Diabetes mellitus type 2. SURGICAL HISTORY : Craniotomy. ENCOUNTER: Initial ACUITY: 1 day PAIN SCORE: Non-responsive. LOCATION: Bilateral abdomen. FINDINGS: The examination demonstrates diffuse gaseous distention of multiple loops of both small and large bow el. There is a loop of small bowel in the right upper quadrant which appears to represent the hepatic flexure. This measures 14 cm in transverse dimension. No free air is seen. The visualized bony structures are intact. CONCLUSION: 1. Diffuse gaseous distention of both small and large bowel suggesting ileus. Jt Caballero MD on February 07, 2017 at 15:58 Board Certified Radiologist. This report was verified electronically.
--- NOTE | 2017-02-07 17:14 | HHI.PR ---
Review/Management Diagnosis right MCA CVA, s/p iv TPA right carotid occlusion right cerebellar hemorrhage with mass effect and bilateral SAH. Plan continuje supportive care Diagnosis/Plan: Subjective Subjective Comments No acute events reported Active Medications Current Medications Medications (Trade) Dose Ordered Sig/Calixto Route Start Time Stop Time Status Last Admin Magnesium Oxide 800 mg 800 mg UNSCH PRN PO 01/26/17 16:15 Magnesium Sulfate 4 gm/Sodium Chloride 100 ml @ 50 mls/hr UNSCH PRN IV 01/26/17 16:15 Magnesium Sulfate 2 gm/Sodium Chloride 100 ml @ 50 mls/hr UNSCH PRN IV 01/26/17 16:15 Potassium Chloride 100 ml @ 50 mls/hr Q2H PRN IV 01/26/17 16:15 Potassium Chloride 100 ml @ 50 mls/hr Q2H PRN IV 01/26/17 16:15 Potassium Chloride 100 ml @ 50 mls/hr Q2H PRN IV 01/26/17 16:15 (KCl 40 Meq Premix Inj) 100 ml @ 25 mls/hr UNSCH PRN IV 01/26/17 16:15 (K-Phos) 2,000 mg Q4H PRN PO 01/26/17 16:15 Potassium Phosphate 2000 mg 2,000 mg UNSCH PRN PO/TUBE 01/26/17 16:15 Potassium Phosphate 30 mmol/ Sodium Chloride 260 ml @ 42 mls/hr UNSCH PRN IV 01/26/17 16:15 (Sodium Phosphate Inj/NS 250 ml Inj) 250 ml @ 42 mls/hr UNSCH PRN IV 01/26/17 16:15 01/31/17 13:44 (Brethine Inj) 1 mg UNSCH PRN SQ 01/27/17 11:15 (NS Flush) 2 ml UNSCH PRN IVF 01/27/17 12:45 IV Flush 2 ml 2 ml BID IVF 01/27/17 21:00 02/07/17 08:55 (Keppra Inj/NS Inj) 105 ml @ 400 mls/hr Q12H IV 01/27/17 18:00 02/07/17 06:36 (Dulcolax Supp) 10 mg DAILY PRN RECTAL 01/27/17 12:45 (Colace) 100 mg BID PO 01/27/17 21:00 02/07/17 08:55 (Protonix Inj) 40 mg DAILY IVP 01/28/17 09:00 02/07/17 08:55 (Zofran Inj) 4 mg Q6H PRN IV 01/27/17 12:45 (Calcium Gluconate Inj) 1 gm UNSCH PRN IV 01/27/17 12:45 (Tylenol) 650 mg Q4H PRN PO 01/27/17 12:45 02/06/17 11:42 (Peridex 0.12% Liq) 15 ml BID@08,20 MT 01/27/17 20:00 02/07/17 08:54 (Lanoxin Liq) 0.25 mg DAILY PO 01/29/17 09:00 02/07/17 10:52 (Pill Splitter) 1 ea UNSCH PRN OTHER 01/28/17 07:45 (Lipitor) 10 mg HS PO 01/28/17 21:00 02/06/17 19:45 (Beneprotein Powder) 1 pack TID G-TUBE 01/28/17 09:00 02/07/17 10:52 (Colace Liq) 100 mg Q12HR PO 01/28/17 09:00 02/06/17 19:45 (Brethine Inj) 1 mg UNSCH PRN SQ 02/05/17 12:00 (Levemir Inj) 20 units Q12HR SQ 02/06/17 10:45 02/07/17 09:07 (D50w (Vial) Inj) 50 ml UNSCH PRN IV 02/06/17 10:45 (Glucagon Inj) 1 mg UNSCH PRN OTHER 02/06/17 10:45 (NovoLOG SUPPLEMENTAL SCALE) 1 Q4H SQ 02/06/17 11:00 02/07/17 16:23 Sennosides 8.8 mg 8.8 mg DAILY OG-TUBE 02/06/17 16:45 02/07/17 08:55 Pharmacy Profile Note 0 ml @ 0 mls/hr UNSCH OTHER 02/07/17 07:00 Metronidazole 100 ml @ 800 mls/hr Q8H IV 02/07/17 08:00 02/07/17 16:19 Cefepime HCl 2000 mg/Sodium Chloride 100 ml @ 200 mls/hr Q12HR IV 02/07/17 21:00 Vancomycin HCl 1000 mg/Sodium Chloride 250 ml @ 250 mls/hr Q12H IV 02/07/17 14:00 02/07/17 15:35 (Vancomycin Inj/ NS 500 ml Inj) 520 ml @ 257.5 mls/ hr Q24H IV 02/08/17 09:00 Miscellaneous Information SPECIFIC LAB TO BE DOUGIE... ONCE ONCE .XX 02/10/17 08:45 02/10/17 08:46 Vasopressin 40 units/Dextrose 100 ml @ 1.5 mls/hr Q24H IV 02/07/17 13:17 Amiodarone HCl 450 mg/Sodium Chloride 250 ml @ 0 mls/hr CONTINUOUS IV 02/07/17 14:15 02/07/17 14:50 (Diprivan 1000 Mg/100ml Inj) 100 ml @ 0 mls/hr TITRATE IV 02/07/17 15:30 Allergies Allergies Coded Allergies Sulfa (Verified Allergy, Intermediate, 01/18/17) Exam I&O / VS 02/06/17 02/06/17 02/07/17 15:00 23:00 07:00 Intake Total 1014 ml 892 ml 913 ml Output Total 1773 ml 878 ml 440 ml Balance -759 ml 14 ml 473 ml IV Total 644 ml 279 ml 532 ml Tube Feeding 310 ml 493 ml 261 ml Tube Irrigant 60 ml Other 120 ml 120 ml Output Urine Total 1750 ml 875 ml 425 ml Stool Total 0 ml 0 ml 0 ml Drainage Total 23 ml 3 ml 15 ml Vital Signs Date Time Temp Pulse Resp B/P Pulse Ox O2 Delivery O2 Flow Rate FiO2 02/07/17 16:57 100 50 02/07/17 16:00 123 02/07/17 16:00 99.7 123 38 132/74 100 02/07/17 14:00 120 02/07/17 13:46 98 50 02/07/17 12:00 97.9 113 42 87/60 100 02/07/17 12:00 113 02/07/17 10:59 100 35 02/07/17 10:00 124 02/07/17 08:08 35 02/07/17 08:08 9 35 02/07/17 08:00 118 02/07/17 08:00 97.7 118 31 136/68 99 02/07/17 07:00 98 Mechanical Ventilator 35 02/07/17 06:00 114 02/07/17 04:00 115 02/07/17 04:00 99.0 115 26 121/67 99 02/07/17 04:00 35 02/07/17 03:52 100 35 02/07/17 02:00 104 02/07/17 00:00 99 02/07/17 00:00 35 02/07/17 00:00 100.3 99 23 109/59 100 02/06/17 23:43 99 35 02/06/17 22:00 102 02/06/17 20:47 27 02/06/17 20:00 114 02/06/17 20:00 35 02/06/17 20:00 101.4 114 32 128/91 99 02/06/17 19:58 99 35 02/06/17 19:00 98 Mechanical Ventilator 35 02/06/17 18:00 108 Exam Comments nonresponsive pupils 2mm and reactive. eom intact to occulocephalics Motor--no spontaneous limb movement. but does withdraw BLE to stimuli . 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 Right hand Objective Micro and Labs Laboratory Tests Test 02/07/17 13:00 Blood Gas Puncture Site ART LINE Blood Gas Patient Temperature 98.6 Blood Gas HCO3 20 Blood Gas Base Excess -4.2 Blood Gas Oxygen Saturation 93 Arterial Blood pH 7.37 Arterial Blood Partial 36 Pressure CO2 Arterial Blood Partial 84 Pressure O2 Arterial Blood Oxygen Content 16.6 Arterial Blood 1.2 Carboxyhemoglobin Arterial Blood Methemoglobin 0.8 Blood Gas Hemoglobin 12.6 Oxygen Delivery Device VENTILATOR Blood Gas Ventilator Setting [id number]/C600/[id number] Blood Gas Inspired Oxygen 50 Date/Time Procedure Status Source Growth 02/07/17 07:25 Urine Culture Received Urine Catheterized Urine Pending 02/07/17 07:25 Gram Stain - Final Resulted Sputum Endotracheal 02/07/17 07:25 Sputum Culture Resulted Sputum Endotracheal Pending Walker Slater PhD Feb 07, 2017 17:14
[2017-02-07] MEDS: CEFEPIME INJ 2,000 MG in SODIUM CHLORIDE 0.9% INJ 100 ML IV SCH (20:59)
[2017-02-07] MEDS: SODIUM CHLOR 0.9% 1000 ML INJ 1,000 ML IV SCH (20:59)
[2017-02-07] MEDS ORDERED: NOREPINEPHRINE 4 MG/D5W 250 ML IV SCH (21:00)
[2017-02-07] MEDS: ATORVASTATIN 10 MG TAB PO SCH ×2 (21:00→21:21)
[2017-02-07] MEDS ORDERED: SODIUM CHLORID 0.9% 500 ML INJ 500 ML IV ONE (21:00)
[2017-02-07] MEDS: PROPOFOL 1000 MG/100 ML INJ 100 ML IV SCH (21:02)
[2017-02-07] MEDS: ACETAMINOPHEN 325 MG TAB PO PRN (21:21)
[2017-02-07] MEDS ORDERED: INSULIN REGULAR (IV INFUSION) 100 UNITS in SODIUM CHLORIDE 0.9% INJ 99 ML IV SCH (22:00)
[2017-02-07] MEDS ORDERED: MISC INFORMATION OTHER ONE (22:00)
[2017-02-07] MEDS ORDERED: DEXTROSE 50% IN WATER 50 ML VIAL(D50) IV PUSH PRN (22:00)
[2017-02-07 22:13] LABS: BLOOD GAS VENOUS BASE EXCESS -6.4 mmol/L (-2-2); BLOOD GAS VENOUS HCO3 18 mmol/L (22-26); BLOOD GAS VENOUS O2 CONTENT 6.4 Vol % (9.0-17.0); BLOOD GAS VENOUS O2 HGB SAT 37 % (70-76); BLOOD GAS VENOUS PCO2 36 mmHg (44-48); BLOOD GAS VENOUS PO2 26 mmHg (35-40); BLOOD GAS VENOUS pH 7.33 (7.360-7.400); CRITICAL VALUE YES; OXYGEN DEVICE VENTILATOR; TEMP CORR TO 98.6; VENT SETTINGS AC/18/600/PEEP5
[2017-02-07 22:14] LABS: DRAW SITE CENTRAL LINE; FIO2 50 %; STAT YES
[2017-02-07] MEDS: HYDROCORTISONE SOD SUCCINATE 100 MG VIAL IV PUSH SCH (22:25)
[2017-02-07] MEDS ORDERED: DOBUTamine INJ 1,000 MG in DEXTROSE 5% IN WATER INJ 170 ML IV SCH ×2 (22:45)
[2017-02-07] MEDS ORDERED: fentaNYL DRIP 250 ML IV SCH (22:45)
[2017-02-07] MEDS ORDERED: MIDAZOLAM 100 MG/ML INJ 100 ML IV SCH (22:45)
[2017-02-07] MEDS ORDERED: MIDAZOLAM HCL 2 MG/2 ML VIAL IV PUSH PRN (22:45)
[2017-02-07] MEDS ORDERED: VASOPRESSIN INJ 40 UNITS in SODIUM CHLORIDE 0.9% INJ 98 ML IV SCH (23:00)
[2017-02-07] MEDS ORDERED: DOBUTamine INJ 1,000 MG in SODIUM CHLOR 0.9% 250 ML INJ 170 ML IV SCH (23:02)
[2017-02-07] MEDS: NOREPINEPHRINE INJ 4 MG in SODIUM CHLOR 0.9% 250 ML INJ 246 ML IV SCH (23:29)
[2017-02-08] VITALS (10 sets, daily range): BP systolic 74–110; BP diastolic 50–62; PULSE 70–124; RESP 22–42; TEMP 99.2–101.3; O2SAT 95–100
[2017-02-08] MEDS ORDERED: PHENYLEPHRINE HCL 10 MG/ML VIAL ONE (00:03)
[2017-02-08] MEDS ORDERED: TERBUTALINE INJ 1 MG/ML AMP SQ PRN (00:15)
[2017-02-08] MEDS ORDERED: PHENYLEPHRINE INJ 160 MG in SODIUM CHLORID 0.9% 500 ML INJ 484 ML IV SCH (00:15)
[2017-02-08] MEDS: AMIODARONE INJ 450 MG in SODIUM CHLOR 0.9% (EXCEL) INJ 241 ML IV SCH (00:46)
[2017-02-08] MEDS: PROPOFOL 1000 MG/100 ML INJ 100 ML IV SCH ×2 (01:53→05:41)
[2017-02-08] MEDS: VANCOMYCIN 1,000 MG/NS 250 ML IV SCH ×2 (02:03)
[2017-02-08] MEDS ORDERED: NOREPINEPHRINE 4 MG/4 ML AMP ONE (02:14)
[2017-02-08] MEDS: NOREPINEPHRINE INJ 4 MG in SODIUM CHLOR 0.9% 250 ML INJ 246 ML IV SCH (02:16)
[2017-02-08 03:52] LABS: HEMATOCRIT 40.3 % (35.0-46.0); MEAN CELL VOLUME 94.9 FL (80.0-100.0); MEAN CORPUSCULAR HEMOGLOBIN 28.8 PG (27.0-34.0); MEAN CORPUSCULAR HGB CONC 30.4 % (32.0-36.0); PLATELET COUNT 553 TH/MM3 (150-450); RED BLOOD COUNT 4.24 MIL/MM3 (4.00-5.30); RED CELL DISTRIBUTION WIDTH 14.8 % (11.6-17.2)
[2017-02-08 03:53] LABS: HEMO FLAGS AUTO DIFF
[2017-02-08 04:08] LABS: ALKALINE PHOSPHATASE 96 U/L (45-117); ALT (GPT) 28 U/L (10-53); ANION GAP 17 MEQ/L (5-15); AST (GOT) 74 U/L (15-37); BICARBONATE 14.4 MEQ/L (21.0-32.0); BLOOD UREA NITROGEN 55 MG/DL (7-18); CHLORIDE 116 MEQ/L (98-107); GLOMERULAR FILTRATION RATE 22 ML/MIN (>89); MAGNESIUM 3.1 MG/DL (1.5-2.5); POTASSIUM 5.6 MEQ/L (3.5-5.1); SODIUM (NA) 147 MEQ/L (136-145); TOTAL BILIRUBIN ADULT 0.7 MG/DL (0.2-1.0)
[2017-02-08 04:17] LABS: BANDS 15 % (0-6); CORRECTED NUCLEATED RBC 1 /100 WBC (0-0); NEUTROPHIL # MANUAL DIFF 31.3 TH/MM3 (1.8-7.7); POLYS (SEG NEUTROPHILS) 77 % (16-70); WBC DIFF SAMPLE 100
[2017-02-08 04:19] LABS: PLATELET ESTIMATE SMEAR HIGH (NORMAL); PLATELET MORPHOLOGY NORMAL (NORMAL); SCAN/DIFF FINAL DIFF MANUAL
[2017-02-08] MEDS ORDERED: SODIUM BICARBONATE 8.4% INJ 150 MEQ in WATER STERILE FOR INJ 850 ML IV SCH (04:45)
[2017-02-08] MEDS ORDERED: INSULIN HUMAN REGULAR 1,000 UNITS/10 ML VIAL IV PUSH ONE (04:45)
[2017-02-08] MEDS ORDERED: SODIUM BICARBONATE 8.4% INJ 50 MEQ/50 ML SYR IV PUSH ONE (04:45)
[2017-02-08] MEDS ORDERED: DEXTROSE 50% IN WATER 50 ML VIAL(D50) IV PUSH ONE (04:45)
[2017-02-08] MEDS: HYDROCORTISONE SOD SUCCINATE 100 MG VIAL IV PUSH SCH (05:03)
[2017-02-08] MEDS: levETIRAcetam INJ 500 MG in SODIUM CHLORIDE 0.9% INJ 100 ML IV SCH (05:20)
--- NOTE | 2017-02-08 06:40 | RADRPT ---
EXAM DATE/TIME: 02/08/2017 04:59 [facility] COMPARISON: CHEST SINGLE AP, February 07, 2017, 13:22. INDICATIONS : Short of breath. MEDICAL HISTORY : Cardiovascular disease. Hypertension Diabetes mellitus type II. SURGICAL HISTORY : None. ENCOUNTER: Subsequent ACUITY: 1 week PAIN SCORE: Non-responsive. LOCATION: Bilateral chest FINDINGS: No infiltrate, effusion or pneumothorax demonstrated. Heart size stable, upper limits of normal to mi ldly enlarged. Endotracheal tube tip is approximately 3 cm above the pedro, unchanged. Also unchanged left internal jugular central venous catheter with tip in the superior vena cava and nasogastric tube with tip in the stomach. CONCLUSION: No significant change. Vijay Monroy MD on February 08, 2017 at 6:38 Board Certified Radiologist. This report was verified electronically.
[2017-02-08] MEDS: SENNOSIDES SYRUP 8.8 MG/5 ML CUP OG-TUBE SCH (09:00)
[2017-02-08] MEDS ORDERED: VANCOMYCIN INJ 2,000 MG in SODIUM CHLORID 0.9% 500 ML INJ 500 ML IV SCH (09:00)
[2017-02-08] MEDS: DOCUSATE SODIUM 100 MG CAP PO SCH (09:00)
[2017-02-08] MEDS: DOCUSATE SODIUM 100 MG/10 ML UDC PO SCH (09:00)
[2017-02-08] MEDS: SODIUM CHLORIDE 0.9% FLUSH 5 ML FLUSH IVF SCH (09:00)
[2017-02-08] MEDS: BENEPROTEIN POWDER 1 PACK G-TUBE SCH (09:00)
[2017-02-08 09:15] LABS: BLOOD GAS BASE EXCESS -18.6 mmol/L (-2-2); BLOOD GAS CARBOXYHEMOGLOBIN 0.7 % (0-4); BLOOD GAS HCO3 9 mmol/L (22-26); BLOOD GAS O2 HGB SATURATION 96 % (90-100); BLOOD GAS OXYGEN CONTENT 16.1 Vol % (12.0-20.0); BLOOD GAS PCO2 31 mmHg (38-42); BLOOD GAS PO2 176 mmHg (61-120); BLOOD GAS TOTAL HGB 11.6 G/DL (12.0-16.0); CRITICAL VALUE YES; OXYGEN DEVICE VENTILATOR; TEMP CORR TO 98.6
[2017-02-08 09:16] LABS: DRAW SITE ART LINE; FIO2 50 %; STAT NO; VENT SETTINGS AC/VT600/R18/PEEP5
[2017-02-08] MEDS: CEFEPIME INJ 2,000 MG in SODIUM CHLORIDE 0.9% INJ 100 ML IV SCH (09:41)
[2017-02-08] MEDS: CHLORHEXIDINE 0.12% (ORAL KIT) 15 ML CUP MT SCH (09:41)
[2017-02-08] MEDS: metroNIDAZOLE 500 MG INJ 100 ML IV SCH (09:41)
[2017-02-08] MEDS: PANTOPRAZOLE SODIUM 40 MG VIAL IVP SCH (09:43)
[2017-02-08] MEDS: SODIUM CHLOR 0.9% 1000 ML INJ 1,000 ML IV SCH (09:44)
[2017-02-08 09:45] LABS: VOLUME TUBE # 1 1.8 ML
[2017-02-08 09:46] LABS: CSF LYMPHOCYTES 100 %; CSF NEUTROPHILS 0 %; GROSS BLOOD TUBE #1 1+ (0); SUPERNATE COLOR TUBE #1 HEMOLYZED (CLEAR); WBC TUBE #1 22 /MM3 (0-10)
--- NOTE | 2017-02-08 09:48 | HHI.NSPN ---
(Allen Lozoya) History Chief Complaint: ICH (Allen Lozoya) Interval History This is a 76-year-old female with history of atrial fibrillation, hypertension, hypothyroidism, type 2 diabetes who was brought to the emergency department as a stroke alert. Apparently grandson called EMS as the patient was found to be disoriented. EMS noted that patient had rightward gaze, with Left hemiparesis. A stroke alert was initiated. 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 After discussion Dr. Slater, TPA was initiated. Today she became comatose. Follow up CT showed a large cerebellar hemorrhage. She underwent emergent posterior fossa craniectomy with evacuation of cerebellar hematoma, and placement of ventriculostomy drain on 01/27/17. 01/28: POD 1, intubated and sedated. Ventriculostomy draining well, withdraws x 4 extremities 01/31: POD 4, off IV sedation, intubated. EVD draining well, ICPs wnl. 02/01: POD 5, getting EEG. f/u CT Head today completed. no changes to neuro checks. ICPs wnl, EVD draining well. 02/02: POD 6, grimacing to pain, very minimal eye opening seen. 02/03: POD 7, EVD draining well, ICPs stable. remains intubated. 02/04: POD 8, intubated, sedated on propofol. Ventriculostomy draining, ICPs within normal limits 18: POD #10. Patient remains critical, intubated & mechanically ventilated, no sedation. 02/08: POD #20. Patient continues to be critical & intubated. She is on propofol for sedation. The fentanyl and midazolam are being held due to her blood pressure. She is receiving norepinephrine, amiodarone, phenylephrine & vasopressin for blood pressure support. She is also on a sodium bicarb drip. ( Allen Lozoya) System Review Comments Unable to obtain ROS due to patient's clinical condition. (Allen Lozoya ) Exam Results Vital Signs Date Time Temp Pulse Resp B/P Pulse Ox O2 Delivery O2 Flow Rate FiO2 02/08/17 09:00 96 50 02/08/17 06:00 108 02/08/17 04:00 100.5 22 110/62 02/07/17 19:00 Mechanical Ventilator 02/04/17 07:00 2.00 Intake and Output 02/07/17 02/07/17 02/08/17 08:00 16:00 00:00 Intake Total 913 ml 2244 ml 2071 ml Output Total 440 ml 340 ml 503 ml Balance 473 ml 1904 ml 1568 ml (Allen Lozoya) Physical Examination GENERAL: Intubated, propofol drip for sedation. HEENT: Surgical incision well-approximated, no evident drainage, erythema or streaking. Ventriculostomy insertion site w/o evident drainage, erythema or streaking. Right pupil 4 mm & left pupil 3 mm, nonreactive. Orally intubated, OGT. RESPIRATORY: Essentially clear bilaterally, equal excursion, orally intubated & mechanically ventilated. CARDIOVASCULAR: S1S2 irregularly irregular w/o M/G/R, radial & pedal pulses 2+ bilaterally, cap refill < 2 sec, generalised extremity edema. Monitor is atrial fibrillation w/controlled ventricular response, no ectopy noted. Blood pressure support with norepinephrine, phenylephrine, amiodarone & vasopressin. GASTROINTESTINAL: Abdomen distended, positive bowel sounds, OGT to LIWS w/ greenish-brown drainage. GENITOURINARY: Small catheter to BSD w/clear yellow urine. MUSCULOSKELETAL: No evident deformities or clubbing. Distal extremities cool and dusky, LE>UE. NEUROLOGICAL: Intubated & sedated, GCS 3T (E1 V1T M1) Ventriculostomy at 3 cm H2O pressure, tea-coloured drainage, ICPs have ranged between 0 and 6 No eye opening Right pupil 4 mm & left pupil 3 mm, nonreactive Does not follow commands No response to noxious stimuli (Allen Lozoya) Lab, Micro, Other Results Allergies Coded Allergies Type Severity Reaction Last Updated Verified Sulfa Allergy Intermediate 01/18/17 Yes Recent Impressions Chest X-Ray 02/08/17 0600 Signed Impressions: Service Date/Time: Wednesday, February 08, 2017 04:59 - CONCLUSION: No significant change. Vijay Monroy MD Chest X-Ray 02/07/17 0000 Signed Impressions: Service Date/Time: Tuesday, February 07, 2017 13:22 - CONCLUSION: 1. Support equipment in good position. 2. The lungs are clear. tJ Caballero MD Abdomen X-Ray 02/07/17 0000 Signed Impressions: Service Date/Time: Tuesday, February 07, 2017 15:24 - CONCLUSION: 1. Diffuse gaseous distention of both small and large bowel suggesting ileus. Jt Caballero MD ///// 06:00 18:00 06:00 18:00 06:00 18:00 Intake Total 2918 ml 1014 ml 1805 ml 2244 ml 4645 ml Output Total 1234 ml 1773 ml 1318 ml 340 ml 762 ml Balance 1684 ml -759 ml 487 ml 1904 ml 3883 ml IV Total 1815 ml 644 ml 811 ml 1861 ml 4645 ml Tube Feeding 903 ml 310 ml 754 ml 383 ml 0 ml Tube Irrigant 60 ml Other 200 ml 240 ml Output Urine Total 1200 ml 1750 ml 1300 ml 325 ml 150 ml Stool Total 0 ml 0 ml 0 ml Gastric Drainage Total 550 ml Drainage Total 34 ml 23 ml 18 ml 15 ml 62 ml # Bowel Movements 1 0 Laboratory Tests Test 02/05/17 02/06/17 02/06/17 02/06/17 16:05 10:05 12:52 15:40 Random Cortisol 36.1 MCG/DL White Blood Count 24.3 TH/MM3 Red Blood Count 4.27 MIL/MM3 Hemoglobin 12.2 GM/DL Hematocrit 39.2 % Mean Corpuscular Volume 91.8 FL Mean Corpuscular Hemoglobin 28.6 PG Mean Corpuscular Hemoglobin 31.2 % Concent Red Cell Distribution Width 14.1 % Platelet Count 492 TH/MM3 Mean Platelet Volume 10.6 FL Sodium Level 142 MEQ/L 142 MEQ/L Potassium Level 3.7 MEQ/L 4.2 MEQ/L Chloride Level 109 MEQ/L 110 MEQ/L Carbon Dioxide Level 22.6 MEQ/L 24.6 MEQ/L Anion Gap 10 MEQ/L 7 MEQ/L Blood Urea Nitrogen 21 MG/DL 22 MG/DL Creatinine 0.90 MG/DL 0.94 MG/DL Estimat Glomerular Filtration 61 ML/MIN 58 ML/MIN Rate Random Glucose 191 MG/DL 200 MG/DL Calcium Level 8.4 MG/DL 8.1 MG/DL Test 02/07/17 02/07/17 02/08/17 02/08/17 13:00 21:58 03:30 04:40 Blood Gas Puncture Site ART LINE CENTRAL LINE Blood Gas Patient Temperature 98.6 98.6 Blood Gas HCO3 20 mmol/L Blood Gas Base Excess -4.2 mmol/L Blood Gas Oxygen Saturation 93 % Arterial Blood pH 7.37 Arterial Blood Partial 36 mmHg Pressure CO2 Arterial Blood Partial 84 mmHg Pressure O2 Arterial Blood Oxygen Content 16.6 Vol % Arterial Blood 1.2 % Carboxyhemoglobin Arterial Blood Methemoglobin 0.8 % Blood Gas Hemoglobin 12.6 G/DL Oxygen Delivery Device VENTILATOR VENTILATOR Blood Gas Ventilator Setting A/C600/65LHRO9 AC/18/600/PEEP5 Blood Gas Inspired Oxygen 50 % 50 % Venous Blood pH 7.33 Venous Blood Partial Pressure 36 mmHg CO2 Venous Blood Partial Pressure 26 mmHg O2 Venous Blood HCO3 18 mmol/L Venous Blood Oxygen Saturation 37 % Venous Blood Oxygen Content 6.4 Vol % Venous Blood Base Excess -6.4 mmol/L White Blood Count 34.0 TH/MM3 Red Blood Count 4.24 MIL/MM3 Hemoglobin 12.2 GM/DL Hematocrit 40.3 % Mean Corpuscular Volume 94.9 FL Mean Corpuscular Hemoglobin 28.8 PG Mean Corpuscular Hemoglobin 30.4 % Concent Red Cell Distribution Width 14.8 % Platelet Count 553 TH/MM3 Mean Platelet Volume 10.0 FL Neutrophils (%) (Auto) % Lymphocytes (%) (Auto) % Monocytes (%) (Auto) % Eosinophils (%) (Auto) % Basophils (%) (Auto) % Neutrophils # (Auto) TH/MM3 Lymphocytes # (Auto) TH/MM3 Monocytes # (Auto) TH/MM3 Eosinophils # (Auto) TH/MM3 Basophils # (Auto) TH/MM3 CBC Comment AUTO DIFF Differential Total Cells 100 Counted Neutrophils % (Manual) 77 % Band Neutrophils % 15 % Lymphocytes % 6 % Monocytes % 2 % Neutrophils # (Manual) 31.3 TH/MM3 Nucleated Red Blood Cells 1 /100 WBC Differential Comment FINAL DIFF MANUAL Platelet Estimate HIGH Platelet Morphology Comment NORMAL Polychromasia 3.0 % Sodium Level 147 MEQ/L Potassium Level 5.6 MEQ/L Chloride Level 116 MEQ/L Carbon Dioxide Level 14.4 MEQ/L Anion Gap 17 MEQ/L Blood Urea Nitrogen 55 MG/DL Creatinine 2.17 MG/DL Estimat Glomerular Filtration 22 ML/MIN Rate Random Glucose 160 MG/DL Calcium Level 7.7 MG/DL Magnesium Level 3.1 MG/DL Total Bilirubin 0.7 MG/DL Aspartate Amino Transf 74 U/L (AST/SGOT) Alanine Aminotransferase 28 U/L (ALT/SGPT) Alkaline Phosphatase 96 U/L Total Protein 6.6 GM/DL Albumin 1.7 GM/DL Digoxin Level 3.1 NG/ML Lactic Acid Level 5.7 mmol/L Test 02/08/17 09:05 Blood Gas Puncture Site ART LINE Blood Gas Patient Temperature 98.6 Blood Gas HCO3 9 mmol/L Blood Gas Base Excess -18.6 mmol/L Blood Gas Oxygen Saturation 96 % Arterial Blood pH 7.10 Arterial Blood Partial 31 mmHg Pressure CO2 Arterial Blood Partial 176 mmHg Pressure O2 Arterial Blood Oxygen Content 16.1 Vol % Arterial Blood 0.7 % Carboxyhemoglobin Arterial Blood Methemoglobin 1.0 % Blood Gas Hemoglobin 11.6 G/DL Oxygen Delivery Device VENTILATOR Blood Gas Ventilator Setting AC/VT600/R18/PEEP5 Blood Gas Inspired Oxygen 50 % Vital Signs Date Time Temp Pulse Resp B/P Pulse Ox O2 Delivery O2 Flow Rate FiO2 02/08/17 09:00 96 50 02/08/17 06:00 108 02/08/17 04:00 100.5 102 22 110/62 100 02/08/17 04:00 50 02/08/17 04:00 102 02/08/17 03:54 98 50 02/08/17 02:00 117 02/08/17 00:48 100 50 02/08/17 00:00 101.3 124 42 74/50 98 02/08/17 00:00 50 02/08/17 00:00 124 02/07/17 22:35 97 50 02/07/17 22:00 96 02/07/17 20:00 102 02/07/17 20:00 101.8 102 32 112/68 99 02/07/17 20:00 50 02/07/17 19:00 100 Mechanical Ventilator 50 02/07/17 18:00 106 02/07/17 16:57 100 50 02/07/17 16:00 50 02/07/17 16:00 123 02/07/17 16:00 99.7 123 38 132/74 100 6/19/17 15:00 117 02/07/17 14:00 120 02/07/17 13:46 98 50 02/07/17 12:00 97.9 113 42 87/60 100 02/07/17 12:00 35 02/07/17 12:00 113 02/07/17 10:59 100 35 17 10:00 124 02/07/17 08:08 35 02/07/17 08:08 9 35 02/07/17 08:00 35 02/07/17 08:00 118 02/07/17 08:00 97.7 118 31 136/68 99 02/07/17 07:00 98 Mechanical Ventilator 35 02/07/17 06:00 114 02/07/17 04:00 115 02/07/17 04:00 99.0 115 26 121/67 99 02/07/17 04:00 35 02/07/17 03:52 100 35 02/07/17 02:00 104 02/07/17 00:00 99 02/07/17 00:00 35 02/07/17 00:00 100.3 99 23 109/59 100 1817 23:43 99 35 18/17 22:00 102 18/17 20:47 27 18/17 20:00 114 1817 20:00 35 18/17 20:00 101.4 114 32 128/91 99 1817 19:58 99 35 18/17 19:00 98 Mechanical Ventilator 35 1817 18:00 108 18/17 16:52 100 35 18/17 16:00 116 18/17 16:00 99.7 116 26 121/75 100 18/17 16:00 35 18/17 14:00 103 18/17 13:54 99 35 18/17 12:00 100.5 100 31 92/46 100 18/17 12:00 35 18/17 12:00 100 18/17 10:41 99 35 618/17 10:00 108 18/17 08:25 100 35 18/17 08:25 35 618/17 08:00 35 18/17 08:00 99.3 108 25 136/64 100 02/06/17 08:00 106 02/06/17 07:41 100 35 02/06/17 07:00 100 Mechanical Ventilator 35 02/06/17 06:00 101 02/06/17 04:00 99.7 108 26 144/65 100 02/06/17 04:00 35 02/06/17 04:00 108 02/06/17 03:13 100 35 02/06/17 02:00 96 02/06/17 00:00 97 02/06/17 00:00 35 02/06/17 00:00 98.1 97 24 137/68 100 02/05/17 23:44 100 35 02/05/17 22:00 96 02/05/17 20:00 98 02/05/17 20:00 35 02/05/17 20:00 98.2 98 24 103/52 100 02/05/17 19:45 100 35 02/05/17 19:00 100 Mechanical Ventilator 35 02/05/17 18:00 96 02/05/17 16:25 100 35 02/05/17 16:00 106 02/05/17 16:00 35 02/05/17 16:00 100.0 106 32 151/59 100 02/05/17 14:00 92 02/05/17 13:10 99 35 02/05/17 12:30 118/58 02/05/17 12:00 35 02/05/17 12:00 98 02/05/17 12:00 99.0 98 29 85/52 100 02/05/17 10:37 100 35 02/05/17 10:00 100 (Allen Lozoya) Medical Decision Making Impression and Plan Impression: S/P tpa for acute CVA and developed large cerebellar hematoma s/p posterior fossa craniectomy with evacuation of cerebellar bleed and placement of ventriculostomy drain on 01/27/17 Poor neurological status Increasing leukocytosis w/elevated segs & bands Sodium 147 Hyperkalemia Elevated lactic acid level CXR stable w/o infiltrate or effusion Plan: cont ventriculostomy draining at 3 cm H20, cont critical care management, cont neuro checks and f/u neuro examination clear for tracheostomy and PEG from NRS standpoint (Allen Lozoya) Attending Statement I have personally seen and examined the patient on the date of this note. Pertinent documentation and study results have been reviewed by the undersigned. I have personally developed the treatment plan and performed medical decision making. Agree with findings, exam, and treatment plan as noted above. Patient has been followed by palliative care. Family elected to withdraw from artificial ventilatory support today and patient has subsequently . (Brady Mathew MD) Allen Lozoya Feb 08, 2017 09:47 Brady Mathew MD Feb 08, 2017 19:37
[2017-02-08 10:01] LABS: LACTIC ACID,CSF 8.3 MMOL/L (0.0-3.0)
--- NOTE | 2017-02-08 10:19 | HHI.CCPN ---
Subjective Remarks/Hospital Course 76-year-old female with history of atrial fibrillation, hypertension, hypothyroidism, type 2 diabetes who was brought to the emergency department as a stroke alert. Apparently grandson called EMS as the patient was found to be disoriented. EMS noted that patient had rightward gaze, with Left hemiparesis and stroke alert was initiated. Last seen normal at around 2:10 PM, per grandson. 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 After discussion Dr. Slater, TPA was initiated. I evaluated the patient in ED. she somnolent but wakes up easily, she states that she is unable to open her right eye opens left eye. Has obvious left facial droop and left hemiparesis, but now she is able to move LLE. Speech is clear 01/27: Patient more somnolent, hard to wake up (RN states she was more awake 2 huors ago). Remains in A fib with RVR, CTA neck shows complete R common, internal and ext carotid occlusion. Moderate L ICA stenosis. Vascular surgery Dr. Juarez consulted. remains hyperglycemic (gluc 371) without DKA. 01/28: Stat CT 01/27 for AMS showed new large right cerebellar hemorrhage with transtentorial herniation and brain stem compression, bilateral SAH, infarct right MCA territory. Dr. Wagoner emergently consulted, patient underwent suboccipital decompressive craniotomy and ventriculostomy placement. ICP well controlled overnight. Pupils reactive. Withdraws x4. troponin increased to 3.7. LVEF severely reduced, less than 20%. Diffuse global hypokinesis. Mild-to- moderate mitral valve regurgitation, moderate tricuspid valve regurgitation 6/10 mins unresponsive, severe cardiomyopathy on ultrasound, consult palliative care 01/30 no change since yesterday, patient remains unresponsive 01/31: Briskly withdraws 4, grimaces to pain no spontaneous eye opening. CT of the head planned for tomorrow. High fever, pancultured. DC Rocephin and start Zosyn and single dose of Vanc 02/01: Reported single episode of spontaneous eye opening up CAT scan today. CT of the head shows evacuation of cerebellar hemorrhage, interval development of intraventricular hemorrhage bilateral occipital horns, and some worsening of subarachnoid hemorrhage. Clinically critical but stable neurologically essentially unchanged 02/02: Continues to spike fever. Slight improvement in neuro exam, grimacing to pain slight partial eye opening. Do not follow commands yet. Labs pending 02/03: Fever trending down, white count remains elevated. Sputum Gram stain with GPC. Neuro exam remains unchanged to slightly improved. Continues with partial eye opening and grimacing to pain 02/04: No fever reported. Discussed extensively with family including son kassy. They want to give at least 1 more week to see clinical improvement before deciding on trach and PEG. Neuro exam remains unchanged 02/05 On cardizem po 30 q6 and cardizem drip 5 mg/hr for A fib RVR. BP was low 70/40 and started neosynephrine but perhaps measurement inaccuracy because cuff pressure obtained on leg under SCD. Now normotensive, off pressors. Bedside Echo with depressed LV function, RV grossly ok . Good UOP. Had been on CPAP 05/26 for 3 hours and appeared to be tolerating from respiratory standpoint, but was placed back on full support when BP measurement was low. ICP 3. Temp max 102.3 yesterday afternoon, afebrile today. On Zosyn. WBC up to 19 Subjective: 02/06 PIV placed and CVL removed yesterday. So far temp curve appears improved. CBC/BMP pending. A fib RVR this morning and back on cardizem drip. Changing cardizem from qid to q6 hours. Placed on CPAP while at bedside 03/26. ICP 2. 02/07: Overnight had to be placed on Mannie-Synephrine for hypotension, now at 60 mcg/m. Temperature 101.4. WBC count has increased to 24.3 from 19.7, most likely becoming septic. DC Zosyn. Start vancomycin cefepime and Flagyl. Elam culture including CFS and, check C. difficile. Intermittent eye opening with care activities. Briskly withdraws lower extremities to pain 02/08: Overnight further clinical deterioration. Currently on maximum dose of Levothroid, vasopressin and Mannie-Synephrine. Map 60-65 did not tolerate dobutamine. KUB shows diffuse ileus. Lactic acid is 5.7, creatinine has increased to 2.1. There is concern about ischemic bowel (Afib not on anticoagulation due to ICH) vs perforation, but patient is not a surgical candidate and therefore I would not get a CT of the abdomen and pelvis. Patient is terminally ill at this point, I will consult palliative care. Recommend terminal wean and comfort measures Objective Vital Signs Date Time Temp Pulse Resp B/P Pulse Ox O2 Delivery O2 Flow Rate FiO2 02/08/17 09:00 96 50 02/08/17 06:00 108 02/08/17 04:00 100.5 22 110/62 02/07/17 19:00 Mechanical Ventilator 02/04/17 07:00 2.00 Intake and Output 02/07/17 02/07/17 02/08/17 08:00 16:00 00:00 Intake Total 913 ml 2244 ml 2071 ml Output Total 440 ml 340 ml 503 ml Balance 473 ml 1904 ml 1568 ml Result Diagram: 02/08/17 0330 02/08/17 0330 Other Results Laboratory Tests Test 02/07/17 02/07/17 02/08/17 13:00 21:58 09:05 Blood Gas Puncture Site ART LINE CENTRAL LINE ART LINE Blood Gas Patient Temperature 98.6 98.6 98.6 Blood Gas HCO3 20 mmol/L 9 mmol/L (22-26) (22-26) Blood Gas Base Excess -4.2 mmol/L -18.6 mmol/L (-2-2) (-2-2) Blood Gas Oxygen Saturation 93 % (90-100) 96 % (90-100) Arterial Blood pH 7.37 7.10 (7.380-7.420) (7.380-7.420) Arterial Blood Partial 36 mmHg (38-42) 31 mmHg (38-42) Pressure CO2 Arterial Blood Partial 84 mmHg 176 mmHg Pressure O2 (61-120) (61-120) Arterial Blood Oxygen Content 16.6 Vol % 16.1 Vol % (12.0-20.0) (12.0-20.0) Arterial Blood 1.2 % (0-4) 0.7 % (0-4) Carboxyhemoglobin Arterial Blood Methemoglobin 0.8 % (0-2) 1.0 % (0-2) Blood Gas Hemoglobin 12.6 G/DL 11.6 G/DL (12.0-16.0) (12.0-16.0) Oxygen Delivery Device VENTILATOR VENTILATOR VENTILATOR Blood Gas Ventilator Setting A/C600/81JARU2 AC/18/600/PEEP5 AC/VT600/R18/PEEP5 Blood Gas Inspired Oxygen 50 % 50 % 50 % Venous Blood pH 7.33 (7.360-7.400) Venous Blood Partial Pressure 36 mmHg (44-48) CO2 Venous Blood Partial Pressure 26 mmHg (35-40) O2 Venous Blood HCO3 18 mmol/L (22-26) Venous Blood Oxygen Saturation 37 % (70-76) Venous Blood Oxygen Content 6.4 Vol % (9.0-17.0) Venous Blood Base Excess -6.4 mmol/L (-2-2) Imaging CT head shows no acute findings positive right cerebellar encephalomalacia indicating previous stroke Objective Remarks Drips: Mannie-Synephrine at 300 mcg/m Levophed at 30 mcg/m Vasopressin at 0.04 international units NS to KVO Amiodarone gtt Insulin 4 units/hr Propofol 5 g per KG per minute GENERAL: 76-year-old white female patient who is intubated not on sedation SKIN: Skin warm and dry, with peripheral cyanosis HEAD: Atraumatic. Normocephalic. EVD with blood tinged CSF drainage +3 cm, ICP 1 -4 EYES: R pupil 4 mm fixed, L 5 mm fixed. No scleral icterus. ENT: No nasal bleeding or discharge. Orotracheally intubated NECK: Trachea midline. No JVD. CARDIOVASCULAR: Irregularly irregular, rate 80s. No murmurs. On multiple pressors RESPIRATORY: Breath sounds equal bilaterally, coarse. ACV GASTROINTESTINAL: Abdomen distended tense : Small in place with pale yellow urine output. MUSCULOSKELETAL: No obvious deformities. No clubbing. No cyanosis. +1 BUE and BLE edema, perineal edema. NEUROLOGICAL: No eye opening to pain no withdrawal to pain today. Pupils are fixed Urinary Catheter: Yes Assessment to: Continue Vascular Central Line Catheter: Yes Assessment to: Continue Date of Insertion: Jan 27, 2017 Date of Removal: Feb 05, 2017 Side: Left Location: Internal, Jugular A/P Assessment and Plan Assessment and Plan NEURO: Acute post TPA cerebellar hemorrhage with brainstem compression, transtentorial herniation, SAH Status post emergent suboccipital craniotomy and ventriculostomy placement by Dr Wagoner Acute right MCA stroke Acute encephalopathy Previous cerebellar stroke (prior to this admission) - Post TPA Patient bled into the previous cerebellar stroke - s/p emergent suboccipital craniotomy and ventriculostomy placement by Dr Wagoner 01/27/17, currently +3 cm - CT head 02/01- interval development of intraventricular hemorrhage bilateral occipital horns, some worsening of SAH - Off hyperosmolar therapy 3% saline/ mannitol - Head of bed elevation to 30 - Avoid hyperthermia, acetaminophen prn temp >100.4, cooling blanket if needed. - Worsening neuro exam due to overall clinical worsening in shock. No further [employer] imaging RESP: Acute respiratory failure -Intubated for airway protection 01/27. Mechanical ventilation day #13. -Per Dr. Linares, family wants to wait another 4-5 days before deciding about trach /PEG. -With acute deterioration last 24 hours, I recommend terminal wean and comfort measures. Palliative care consulted -On ACV, Vent bundle, DuoNeb q6 and PRN, daily SBT trials. CV: Shock (septic and cardiogenic) NSTEMI Cardiomyopathy with ejection fraction less than 20% Atrial fibrillation with rapid ventricular response Bilateral carotid stenosis Hypertensive emergency -Currently in profound refractory shock. On maximum dose Levothroid, Mannie- Synephrine and vasopressin -Did not tolerate dobutamine. DNR now -CTA neck shows complete R common, internal and ext carotid occlusion. Moderate L ICA stenosis. Vascular surgery Dr. Juarez consulted prior to ICH-no intervention now. -Cardiology consulted for NSTEMI and Cardiomyopathy. Not a candidate for antiplatelet therapy, or cardiac catheterization -A. fib rate on amiodarone GTT and digoxin GI: Ileus Probable ischemic bowel Lactic acidosis -High suspicion of ischemic bowel (lactic siderosis, atrial fibrillation not on anticoagulation due to ICH) -I will not get CT abdomen pelvis as the patient is not a surgical candidate -Keep NPO, IV Protonix FEN/RENAL: Acute kidney failure -Monitor renal function. Small catheter. -Family refused HD -No further treatment recommendations ID: Septic shock refractory ? Intraabdominal source UTI with Escherichia coli and strep viridans, repeat urine culture 02/02 negative. Aspiration pneumonia 02/07/17-started the patient on vancomycin, cefepime and Flagyl Blood culture with Staph hominus 01/31. Repeat blood culture 02/02 negative. Urine and sputum culture -02/02. - Vancomycin discontinued 02/04 Zosyn 4.5 g every 6 hours 01/31 #8, empiric for aspiration pneumonia with negative sputum culture. DC d 02/07 F/u blood, sputum, CSF culture and C Diff today 02/07 as temp spiked to 101.4 CVL discontinued 02/05. HEME: Acute blood loss anemia Thrombocytosis, reactive Leukocytosis -Received cryoprecipitate and FFP post bleed -H&H stable ENDO: Type 2 diabetes with hyperglycemia -On Insulin algorithm #3. -cortisol level 36 on 02/05 -Continue stress dose steroids PROPH: -Bilateral lower extremity SCDs. Chemical DVT proph started on 01/30, now DCd due to IVH on CT 01/31. IV Protonix LINES: PIV. -L IJ CVL was in place 01/27-02/05, -New LIJ central line placed 02/07/17 CCT 45 MIN - At this point patient remains extremely critical and appears terminally. She is on maximum dose of pressors Levothroid Mannie-Synephrine and vasopressin. She is almost anuric and family refused hemodialysis. Unable to maintain adequate perfusion pressure, neurological exam also has deteriorated. Palliative care consulted and I recommend comfort measures and withdrawal of life support due to futility Toribio Linares MD Feb 08, 2017 10:19
--- NOTE | 2017-02-08 12:42 | PD.CONS ---
Consult Service Palliative Care Consult Requested By Dr. Linares Primary Care Physician Unknown Reason for Consultation a. To assist with evaluation and management of symptoms including: Shortness of breath, pain and debility. b. To assist medical decision maker(s) with: better understanding of current medical conditions; weighing benefits/burdens of medical treatment options; making medical treatment decisions. . HPI History of Present Illness Mrs. Mcclure is a 77-year-old female with a past medical history of atrial fibrillation, hypertension, hypothyroidism, who presented to the ED via EMS as a stroke alert. According to medical records, family found patient looking disoriented. Upon arrival of EMS, patient was found with rightward gaze and not moving her left side. Patient was last seen at baseline around 2 PM that day. ED workup as follow: * 2D echocardiogram revealing estimated EF of less than 20%. Diffuse global hypokinesis. Mild to moderate mitral and tricuspid valve regurgitation. * EKG revealing atrial fibrillation with rapid ventricular response. 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 Moderate grade stenosis to left internal carotid. * Head CTA revealing complete occlusion of the right internal carotid from its origin up through the skull base. Irregularity of the M1 segment suggesting some embolic disease. * UA, positive for nitrates and leukocytes. Urine culture positive for Escherichia coli and viridian streptococcus group. Neurology, Dr. Slater consulted on 01/26/17. TPA was initiated. Patient's clinical status continued to worsen, she became comatose. Follow-up head CT on 01/27/17 revealing multiple new findings including large 4.4cm cerebellar hematoma causing herniation and significant impression of the brainstem down, bilateral supratentorial subarachnoid hemorrhage, and a new nonhealing right infarction involving the anterior two thirds of the right sylvian region. Neurosurgery, Dr. Wagoner consulted for evaluation of new CT findings. Patient underwent Suboccipital Decompressive Craniectomy, C1 Laminectomy and Duraplasty. Evacuation of large cerebellar hemorrhage, Microsurgical dissection. Keen's Gladis hole with placement of ventriculostomy catheter. Patient was transfused 2 FFP's and 1 cryoprecipitate. Cardiology, Dr. Qureshi consulted on 01/28/17 for evaluation of elevated troponins. Troponins likely elevated secondary to CVA/neurologic pathology versus ACS. Patient not a candidate for anticoagulation or invasive cardiac management secondary to recent history of bleeding. Conservative medical management recommended. Vascular surgery Dr. Juarez consulted prior to ICH-no intervention recommended secondary to worsening clinical status.Patient remains intubated, sedated on mechanical ventilation. Minimally responsive. Plan for follow-up CT of the head tomorrow a.m. Patient does not meet SBT criteria secondary to neurological status. Palliative care has been consulted for goals of care clarification given poor prognosis, multiple comorbidities to include severe cardiomyopathy which is likely to preclude any rehabilitation efforts, and advanced age. In addition, Trach and PEG discussion. Reviewed prior medical records, acute hospitalization from 05/18/16 to 05/23/16 secondary to sepsis and pulmonary edema. Patient at that time refused 2-D echo , she left AMA with instructions to follow-up with cardiology as outpatient. Patient remains in ICU with worsening clinical condition. On 02/07/17, patient was placed on Mannie-Synephrine secondary to hypertension. spiking fevers, increased leukocytosis. KUB revealing diffuse ileus. Concerns of ischemic bowel vs perforation, severe septic shock. Patient not a surgical candidate secondary to clinical condition. Overnight, patient condition worsening. Lactic acid 5.7. Creatinine increasing to 2.1. Patient anuric. Patient currently on vasopressin, Mannie-Synephrine and Levophed at maximum dose. SBP per arterial line in the 50s. Palliative care has been consulted for assistance in goals of care, worsening clinical condition as evidenced by severe septic shock , ICH. Most recent laboratory today indicating WBC 34.0, Hgb 12.2, platelet count 553. Sodium 147, potassium 5.6, BUN/creatinine 55/2.17. Lactic acid 5.7. Patient currently on 50% FiO2. Spoke to grandjosee Damon who was at bedside. Medical update provided. Telephone conversation with patient's son Peter Damon who is currently in [place]. Separate telephone conversation with son Uriel Durann and son Alverto Montana. Medical update provided. Discussed that patient's condition is worsening and not reversible, patient imminently dying. Discussed continuation of current medical management to include vasopressors and mechanical ventilation vs. withdrawal life support/comfort measures. All 3 sons electing to transition patient to comfort directed-care/withdrawal life support and allow natural to occur. Family made aware that patient's condition is critical and that she may not survive to extubation. All questions were answered in great detail. Active listening and emotional support provided. Case discussed with Dr. Linares, Dr. Crespo and bedside RN. . Function/Cognitive Trajectory Patient fully independent with ADLs prior to this hospitalization/CVA. No cognitive decline reported. . Review of Systems ROS Limitations: Clinical Condition, Intubated, Unresponsive, Other (comatose) Constitutional: DENIES: Fatigue, Dizziness Endocrine: DENIES: Heat/cold intolerance Ears, nose, mouth, throat: DENIES: Hearing loss Respiratory: DENIES: Cough, Shortness of breath Cardiovascular: COMPLAINS OF: Lower Extremity Edema, DENIES: Chest pain Gastrointestinal: DENIES: Abdominal pain, Vomiting Musculoskeletal: DENIES: Stiffness Integumentary: DENIES: Abnormal pigmentation Hematologic/Lymphatics: DENIES: Bruising Immunologic/Allergic: DENIES: Eczema Neurologic: DENIES: Abnormal gait Psychiatric: DENIES: Anxiety, Confusion, Depression, Hallucinations Other ROS: Limited ROS secondary to patient's clinical condition, intubated on mechanical ventilation. Unresponsive. ROS obtained from family, medical records and clinical observation. Past Family Social History Coded Allergies: Sulfa (Verified Allergy, Intermediate, 01/18/17) Past Medical History Atrial fibrillation AV dysfunction with ejection fraction of 20%. Hypertension Diabetes mellitus, type 2 Hypothyroidism . Past Surgical History None. . Reported Medications Baclofen 10 Mg Tab 10 Mg PO Q8HR PRN Lidocaine Patch 12 HR (Lidocaine) 5 % Patch 1 Patch TOPICAL DAILY PRN Levothyroxine (Levothyroxine Sodium) 25 Mcg Tab 25 Mcg PO DAILY Glimepiride 1 Mg Tab 1 Mg PO DAILY Metoprolol Succinate ER 24 HR (Metoprolol Succinate) 25 Mg Tab 25 Mg PO BID Dramamine (Dimenhydrinate) 50 Mg Tab.chew Diltiazem (Diltiazem HCl) 120 Mg Tab 300 Mg PO QID Aspirin EC (Aspirin) 325 Mg Tabdr 325 Mg PO DAILY. . Current Medications Medications (Trade) Dose Ordered Sig/Calixto Route Start Time Stop Time Status Last Admin (Brethine Inj) 1 mg UNSCH PRN SQ 01/27/17 11:15 (NS Flush) 2 ml UNSCH PRN IVF 01/27/17 12:45 IV Flush 2 ml 2 ml BID IVF 01/27/17 21:00 02/07/17 21:00 (Keppra Inj/NS Inj) 105 ml @ 400 mls/hr Q12H IV 01/27/17 18:00 02/08/17 05:20 (Dulcolax Supp) 10 mg DAILY PRN RECTAL 01/27/17 12:45 (Colace) 100 mg BID PO 01/27/17 21:00 02/07/17 08:55 (Protonix Inj) 40 mg DAILY IVP 01/28/17 09:00 02/08/17 09:43 (Zofran Inj) 4 mg Q6H PRN IV 01/27/17 12:45 (Calcium Gluconate Inj) 1 gm UNSCH PRN IV 01/27/17 12:45 (Tylenol) 650 mg Q4H PRN PO 01/27/17 12:45 02/07/17 21:21 (Peridex 0.12% Liq) 15 ml BID@08,20 MT 01/27/17 20:00 02/08/17 09:41 (Pill Splitter) 1 ea UNSCH PRN OTHER 01/28/17 07:45 (Lipitor) 10 mg HS PO 01/28/17 21:00 02/07/17 21:21 (Beneprotein Powder) 1 pack TID G-TUBE 01/28/17 09:00 02/07/17 10:52 (Colace Liq) 100 mg Q12HR PO 01/28/17 09:00 02/07/17 21:22 (Brethine Inj) 1 mg UNSCH PRN SQ 02/05/17 12:00 Sennosides 8.8 mg 8.8 mg DAILY OG-TUBE 02/06/17 16:45 02/07/17 08:55 Pharmacy Profile Note 0 ml @ 0 mls/hr UNSCH OTHER 02/07/17 07:00 Metronidazole 100 ml @ 800 mls/hr Q8H IV 02/07/17 08:00 02/08/17 09:41 Cefepime HCl 2000 mg/Sodium Chloride 100 ml @ 200 mls/hr Q12HR IV 02/07/17 21:00 02/08/17 09:41 Amiodarone HCl 450 mg/Sodium Chloride 250 ml @ 0 mls/hr CONTINUOUS IV 02/07/17 14:15 02/08/17 00:46 (NS 1000 ml Inj) 1,000 ml @ 100 mls/hr Q10H IV 02/07/17 21:00 02/08/17 09:44 Hydrocortisone Sodium Succinate 100 mg 100 mg Q8HR IV PUSH 02/07/17 22:00 02/08/17 05:03 (NovoLIN R (IV INFUSION)/NS Inj) 100 ml @ 0 mls/hr TITRATE IV 02/07/17 22:00 Dextrose 50 ml 50 ml UNSCH PRN IV PUSH 02/07/17 22:00 Midazolam HCl 100 ml @ 0 mls/hr TITRATE IV 02/07/17 22:45 02/08/17 01:53 Norepinephrine Bitartrate 4 mg/ Sodium Chloride 250 ml @ 0 mls/hr TITRATE IV 02/07/17 23:00 02/08/17 02:16 Vasopressin 40 units/Sodium Chloride 100 ml @ 4.5 mls/hr [id number] IV 02/07/17 23:00 02/07/17 23:28 Phenylephrine HCl 160 mg/Sodium Chloride 500 ml @ 0 mls/hr TITRATE IV 02/08/17 00:15 02/08/17 00:46 (Sodium Bicarbonate 8.4% Inj/Sterile Water For Inj) 1,000 ml @ 100 mls/hr Q10H IV 02/08/17 04:45 02/08/17 05:22 Family History Unable to obtain, patient intubated on mechanical ventilation, comatose. Patient has 4 children who are alive and well. . Substance Use Tobacco: None reported. Alcohol: None reported. Prescription med abuse: None reported. Illicits: None reported. . Psychosocial History Patient is originally from [place]. Residing in [facility] for most of her adult life. Moved to [place] in 2012. Currently residing with amaury Moses. She has 4 children who residing [place]. 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 . Spiritual/Cultural Factors Zoroastrian angela. . Living Will: Never completed Health Care Surrogate: Never completed Durable Power of Industrial Gas Servicer Helper: Never completed Health Care Surrogate(s): Patient is . No advanced directives completed. As per [place] Law, healthcare proxy decision maker falls to the majority of patient's 4 children. Felice Damon, Uriel Mcclure, Stefan [place] and Cata Merida. . Documented care wishes: No living will completed. . Family/friends goals: No code. Family electing to transition patient to comfort-directed care/ withdrawal life support and allow natural to occur. . Ethical and Legal Issues No living will or advance directives completed. . Physical Exam Vital Signs Date Time Temp Pulse Resp B/P Pulse Ox O2 Delivery O2 Flow Rate FiO2 02/08/17 09:00 96 50 02/08/17 06:00 108 02/08/17 04:00 100.5 102 22 110/62 100 02/08/17 04:00 50 02/08/17 04:00 102 02/08/17 03:54 98 50 02/08/17 02:00 117 02/08/17 00:48 100 50 02/08/17 00:00 101.3 124 42 74/50 98 02/08/17 00:00 50 02/08/17 00:00 124 02/07/17 22:35 97 50 02/07/17 22:00 96 02/07/17 20:00 102 02/07/17 20:00 101.8 102 32 112/68 99 02/07/17 20:00 50 02/07/17 19:00 100 Mechanical Ventilator 50 02/07/17 18:00 106 02/07/17 16:57 100 50 02/07/17 16:00 50 02/07/17 16:00 123 02/07/17 16:00 99.7 123 38 132/74 100 02/07/17 15:00 117 02/07/17 14:00 120 02/07/17 13:46 98 50 02/07/17 02/08/17 19:00 07:00 Intake Total 2244 ml 4645 ml Output Total 340 ml 762 ml Balance 1904 ml 3883 ml IV Total 1861 ml 4645 ml Tube Feeding 383 ml 0 ml Output Urine Total 325 ml 150 ml Gastric Drainage Total 550 ml Drainage Total 15 ml 62 ml # Bowel Movements 1 0 Exam CONSTITUTIONAL/GENERAL: This is an obese elderly woman, intubated on mechanical ventilation. No acute distress. TUBES/LINES/DRAINS: ETT, OG, left central line, SCDs, PIV's, Small catheter. SKIN: No jaundice, rashes, or lesions. Ecchymoses on upper extremities. No wounds seen anteriorly. Skin temperature appropriate. Not diaphoretic. HEAD: Atraumatic. Normocephalic. EYES: No scleral icterus. No injection or drainage. Fundi not examined. ENT: Unable to evaluate hearing secondary to clinical condition. Nose without bleeding or purulent drainage. Moist oral mucosa. Orally intubated. NECK: Trachea midline. Supple. CARDIOVASCULAR: Irregular rate and rhythm. No JVD. Very weak peripheral pulses. Mottling of bilateral extremities to include feet, knees, forearms and hands/fingers. RESPIRATORY/CHEST: Symmetric, intubated on mechanical ventilation. Coarse breath sounds. GASTROINTESTINAL: Abdomen is large, obese, distended. hypoactive bowel sounds appreciated. Unable to evaluate for hepatomegaly secondary to body habitus. GENITOURINARY: Without palpable bladder distension. Small catheter in place. MUSCULOSKELETAL: Extremities without clubbing, cyanosis. Generalized edema. NEUROLOGICAL: Unresponsive to tactile or verbal stimuli. Not following any commands. Not sedated during my visit. Comatose. PSYCHIATRIC: Unable to evaluate secondary to clinical condition, comatose. . Diagnostic Tests Laboratory Laboratory Tests Test 02/05/17 02/06/17 02/06/17 02/06/17 16:05 10:05 12:52 15:40 Random Cortisol 36.1 MCG/DL White Blood Count 24.3 TH/MM3 (4.0-11.0) Red Blood Count 4.27 MIL/MM3 (4.00-5.30) Hemoglobin 12.2 GM/DL (11.6-15.3) Hematocrit 39.2 % (35.0-46.0) Mean Corpuscular Volume 91.8 FL (80.0-100.0) Mean Corpuscular Hemoglobin 28.6 PG (27.0-34.0) Mean Corpuscular Hemoglobin 31.2 % Concent (32.0-36.0) Red Cell Distribution Width 14.1 % (11.6-17.2) Platelet Count 492 TH/MM3 (150-450) Mean Platelet Volume 10.6 FL (7.0-11.0) Sodium Level 142 MEQ/L 142 MEQ/L (136-145) (136-145) Potassium Level 3.7 MEQ/L 4.2 MEQ/L (3.5-5.1) (3.5-5.1) Chloride Level 109 MEQ/L 110 MEQ/L (98-107) (98-107) Carbon Dioxide Level 22.6 MEQ/L 24.6 MEQ/L (21.0-32.0) (21.0-32.0) Anion Gap 10 MEQ/L (5-15) 7 MEQ/L (5-15) Blood Urea Nitrogen 21 MG/DL (7-18) 22 MG/DL (7-18) Creatinine 0.90 MG/DL 0.94 MG/DL (0.50-1.00) (0.50-1.00) Estimat Glomerular Filtration 61 ML/MIN (>89) 58 ML/MIN (>89) Rate Random Glucose 191 MG/DL 200 MG/DL (74-106) (74-106) Calcium Level 8.4 MG/DL 8.1 MG/DL (8.5-10.1) (8.5-10.1) Test 02/07/17 02/07/17 02/08/17 02/08/17 13:00 21:58 03:30 04:40 Blood Gas Puncture Site ART LINE CENTRAL LINE Blood Gas Patient Temperature 98.6 98.6 Blood Gas HCO3 20 mmol/L (22-26) Blood Gas Base Excess -4.2 mmol/L (-2-2) Blood Gas Oxygen Saturation 93 % (90-100) Arterial Blood pH 7.37 (7.380-7.420) Arterial Blood Partial 36 mmHg (38-42) Pressure CO2 Arterial Blood Partial 84 mmHg Pressure O2 (61-120) Arterial Blood Oxygen Content 16.6 Vol % (12.0-20.0) Arterial Blood 1.2 % (0-4) Carboxyhemoglobin Arterial Blood Methemoglobin 0.8 % (0-2) Blood Gas Hemoglobin 12.6 G/DL (12.0-16.0) Oxygen Delivery Device VENTILATOR VENTILATOR Blood Gas Ventilator Setting A/C600/39QYRM2 AC/18/600/PEEP5 Blood Gas Inspired Oxygen 50 % 50 % Venous Blood pH 7.33 (7.360-7.400) Venous Blood Partial Pressure 36 mmHg (44-48) CO2 Venous Blood Partial Pressure 26 mmHg (35-40) O2 Venous Blood HCO3 18 mmol/L (22-26) Venous Blood Oxygen Saturation 37 % (70-76) Venous Blood Oxygen Content 6.4 Vol % (9.0-17.0) Venous Blood Base Excess -6.4 mmol/L (-2-2) White Blood Count 34.0 TH/MM3 (4.0-11.0) Red Blood Count 4.24 MIL/MM3 (4.00-5.30) Hemoglobin 12.2 GM/DL (11.6-15.3) Hematocrit 40.3 % (35.0-46.0) Mean Corpuscular Volume 94.9 FL (80.0-100.0) Mean Corpuscular Hemoglobin 28.8 PG (27.0-34.0) Mean Corpuscular Hemoglobin 30.4 % Concent (32.0-36.0) Red Cell Distribution Width 14.8 % (11.6-17.2) Platelet Count 553 TH/MM3 (150-450) Mean Platelet Volume 10.0 FL (7.0-11.0) Neutrophils (%) (Auto) % (16.0-70.0) Lymphocytes (%) (Auto) % (9.0-44.0) Monocytes (%) (Auto) % (0.0-8.0) Eosinophils (%) (Auto) % (0.0-4.0) Basophils (%) (Auto) % (0.0-2.0) Neutrophils # (Auto) TH/MM3 (1.8-7.7) Lymphocytes # (Auto) TH/MM3 (1.0-4.8) Monocytes # (Auto) TH/MM3 (0-0.9) Eosinophils # (Auto) TH/MM3 (0-0.4) Basophils # (Auto) TH/MM3 (0-0.2) CBC Comment AUTO DIFF Differential Total Cells 100 Counted Neutrophils % (Manual) 77 % (16-70) Band Neutrophils % 15 % (0-6) Lymphocytes % 6 % (9-44) Monocytes % 2 % (0-8) Neutrophils # (Manual) 31.3 TH/MM3 (1.8-7.7) Nucleated Red Blood Cells 1 /100 WBC (0-0) Differential Comment FINAL DIFF MANUAL Platelet Estimate HIGH (NORMAL) Platelet Morphology Comment NORMAL (NORMAL) Polychromasia 3.0 % (0.0-1.9) Sodium Level 147 MEQ/L (136-145) Potassium Level 5.6 MEQ/L (3.5-5.1) Chloride Level 116 MEQ/L (98-107) Carbon Dioxide Level 14.4 MEQ/L (21.0-32.0) Anion Gap 17 MEQ/L (5-15) Blood Urea Nitrogen 55 MG/DL (7-18) Creatinine 2.17 MG/DL (0.50-1.00) Estimat Glomerular Filtration 22 ML/MIN (>89) Rate Random Glucose 160 MG/DL (74-106) Calcium Level 7.7 MG/DL (8.5-10.1) Magnesium Level 3.1 MG/DL (1.5-2.5) Total Bilirubin 0.7 MG/DL (0.2-1.0) Aspartate Amino Transf 74 U/L (15-37) (AST/SGOT) Alanine Aminotransferase 28 U/L (10-53) (ALT/SGPT) Alkaline Phosphatase 96 U/L (45-117) Total Protein 6.6 GM/DL (6.4-8.2) Albumin 1.7 GM/DL (3.4-5.0) Digoxin Level 3.1 NG/ML (0.8-2.0) Lactic Acid Level 5.7 mmol/L (0.4-2.0) Test 02/08/17 02/08/17 08:16 09:05 CSF Volume (Tube 1) 1.8 ML CSF Supernatant Color (tube 1) HEMOLYZED (CLEAR) CSF Gross Blood (Tube 1) 1+ (0) CSF WBC (Tube 1) 22 /MM3 (0-10) CSF RBC (Tube 1) 2130 /MM3 (NONE) CSF Neutrophils 0 % CSF Lymphocytes 100 % CSF Glucose 91 MG/DL (40-80) CSF Lactic Acid 8.3 MMOL/L (0.0-3.0) CSF Total Protein 224.7 MG/DL (15.0-45.0) Blood Gas Puncture Site ART LINE Blood Gas Patient Temperature 98.6 Blood Gas HCO3 9 mmol/L (22-26) Blood Gas Base Excess -18.6 mmol/L (-2-2) Blood Gas Oxygen Saturation 96 % (90-100) Arterial Blood pH 7.10 (7.380-7.420) Arterial Blood Partial 31 mmHg (38-42) Pressure CO2 Arterial Blood Partial 176 mmHg Pressure O2 (61-120) Arterial Blood Oxygen Content 16.1 Vol % (12.0-20.0) Arterial Blood 0.7 % (0-4) Carboxyhemoglobin Arterial Blood Methemoglobin 1.0 % (0-2) Blood Gas Hemoglobin 11.6 G/DL (12.0-16.0) Oxygen Delivery Device VENTILATOR Blood Gas Ventilator Setting AC/VT600/R18/PEEP5 Blood Gas Inspired Oxygen 50 % Result Diagram: 02/08/17 0330 02/08/17 0330 Microbiology Microbiology Date/Time Procedure Status Source Growth 02/07/17 07:25 Gram Stain - Final Resulted Sputum Endotracheal 02/07/17 07:25 Sputum Culture - Preliminary Resulted Sputum Endotracheal MODERATE GROWTH NORMAL RESPIRATORY FL... 02/07/17 07:25 Urine Culture Received Urine Catheterized Urine Pending 02/07/17 20:21 Aerobic Blood Culture - Preliminary Resulted Blood Peripheral NO GROWTH IN 1 DAY 02/07/17 20:21 Anaerobic Blood Culture - Preliminary Resulted Blood Peripheral NO GROWTH IN 1 DAY 02/07/17 20:31 Aerobic Blood Culture - Preliminary Resulted Blood Peripheral NO GROWTH IN 1 DAY 02/07/17 20:31 Anaerobic Blood Culture - Preliminary Resulted Blood Peripheral NO GROWTH IN 1 DAY 02/08/17 08:16 Gram Stain - Final Resulted Cerebral Spinal Fluid Shunt Fluid 02/08/17 08:16 CSF Culture Resulted Cerebral Spinal Fluid Shunt Fluid Pending 02/08/17 08:16 Acid Fast Stain Received Cerebral Spinal Fluid Shunt Fluid Pending 02/08/17 08:16 Mycobacterial Culture Received Cerebral Spinal Fluid Shunt Fluid Pending 02/08/17 08:16 Fungal Smear Received Cerebral Spinal Fluid Shunt Fluid Pending 02/08/17 08:16 Fungal Culture Received Cerebral Spinal Fluid Shunt Fluid Pending Imaging Last Impressions Chest X-Ray 02/08/17 0600 Signed Impressions: Service Date/Time: Wednesday, February 08, 2017 04:59 - CONCLUSION: No significant change. Vijay Monroy MD Abdomen X-Ray 02/07/17 0000 Signed Impressions: Service Date/Time: Tuesday, February 07, 2017 15:24 - CONCLUSION: 1. Diffuse gaseous distention of both small and large bowel suggesting ileus. Jt Caballero MD Head CT 02/01/17 0500 Signed Impressions: Service Date/Time: Wednesday, February 01, 2017 04:03 - CONCLUSION: Interval development of intraventricular hemorrhage with worsening subarachnoid hemorrhage since the prior exam. Post decompression craniotomy with moderate mass effect on the fourth ventricle remaining without any hydrocephalus. Ozzie Coleman MD Neck CTA 01/26/17 0757 Signed Impressions: Service Date/Time: Thursday, January 26, 2017 17:04 - CONCLUSION: 1. 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 2. Moderate grade stenosis in the origin of the left internal carotid. 3. Diminutive right vertebral which terminates in a PICA. Luis Seth MD Head CTA 01/26/17 1515 Signed Impressions: Service Date/Time: Thursday, January 26, 2017 17:04 - CONCLUSION: 1. 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 There is limited reconstitution of the right middle cerebral circulation via the anterior communicating artery. The reconstituted segment of right middle cerebral is small in caliber. There is some irregularity of the M1 segment suggesting there may be some embolic disease within the M1 segment however, the lack of flow within this limits the evaluation. 2. The remainder of the intracranial circulation is widely patent. Jt Caballero MD Procedures * 01/27/17 -Suboccipital Decompressive Craniectomy, C1 Laminectomy and Duraplasty. Evacuation of large cerebellar hemorrhage, Microsurgical dissection. * 01/27/17 -Keen's Gladis hole with placement of ventriculostomy catheter. . Patient/Family Conference Present at Family Conference: Amaury Moses at bedside. Separate telephone conversations with son Peter, son Uriel and son Tono. Family Conference Time (mins): 62 Family Conference Location: Bedside, Telephone Issues Discussed: * Palliative care role, purpose, approach * Additional medical, psychosocial, and spiritual history * Patients general health, functional status, and cognitive changes in the months leading up to the current hospitalization * Family's understanding of the current medical problems -severe septic shock, ICH. * Family understanding of prognosis -patient imminently dying in * Patients goals of care as best understood from advance directives and/or conversations and/or values * Current medical treatment options and benefits/burdens of those options -to include continuation of intubation, mechanical ventilation and vasopressors. * Likely scenarios comparing ongoing aggressive care with a transition to comfort measures only/withdrawal my support. * Questions answered to the best of my ability * Palliative care contact information provided . Assessment and Plan Disease Oriented Problem List: (1) Sepsis (2) Acute right MCA stroke (3) Acute respiratory failure (4) Atrial fibrillation with rapid ventricular response Symptom Scale: (1) Pain 0-10 Scale: Unable to quantify Comment: On fentanyl drip. (2) Shortness of breath 0-10 Scale: Unable to quantify Comment: Remains orally intubated on mechanical ventilation. (3) Debility 0-10 Scale: Unable to quantify Comment: Secondary to acute illness, prolonged hospitalization. Pertinent Non-Medical Issues Psychosocial: . Originally from [place]. Moved to [place] in 2012. Has 4 children. Spiritual: Zoroastrian angela. Legal: No advance directives completed. Ethical issues impacting care: No advance directives completed. . Important Contacts Son Sophia Damon . Son Uriel Mcclure . Son Stefan [place] Daughter Cata Merida -unknown contact info. . Prognosis Mrs. Mcclure is a 77-year-old female with a past medical history of atrial fibrillation, hypertension, hypothyroidism, who presented to the ED via EMS as a stroke alert. Head CTA revealing complete occlusion of the right internal carotid from its origin up through the skull base suggesting embolic disease. Patient underwent TPA, complicated by the hemorrhoid bleed. Patient's clinical course complicated by severe septic shock, concerns of ischemic bowel requiring multiple vasopressors. Patient now with multisystem organ failure, appears imminently dying. Family electing to withdrawal of life support/comfort directed care and to allow natural to occur given her worsening clinical condition. . Code Status: No Code Plan * CODE STATUS: Family electing no code. * HEALTHCARE DECISION-MAKING: Patient unable to participate in medical decision- making secondary to clinical condition, intubated on mechanical ventilation and comatose.Patient is . No advanced directives completed. As per [place] Law, healthcare proxy decision maker falls to the majority of patient's 4 children. Uriel SibleyStefan and Cata Merida. * GOALS OF CARE: As per son's Felice Damon Uriel Mcclure and Stefan Montana, goal is to transition patient to comfort-dictated care/withdrawal life support given her worsening clinical condition. Family was made aware that patient is imminently dying, currently on 3 vasopressors and that she may not survive to withdrawal of ventilator support. Family in agreement of reinstating fentanyl drip for comfort and to deescalate care at this time. * SYMPTOMS: = Pain: secondary to acute illness, prolonged hospitalization. Internal drip to be restarted for comfort. = Shortness of breath: Remains orally intubated on mechanical ventilation. Plan to withdrawal life support. = Debility, secondary to acute illness and per the hospitalization. Likely to worsen. * Case has been discussed in great detail with Dr. Zak Cevallos a bedside RN. * Palliative care contact information has been provided to patient's sons and grandson. * Ongoing emotional support and active listening provided to patient's family. * Palliative care to follow-up as needed. . Time Spent Total Floor Time (mins): 95 (Total time to include review and summarization of available medical records, physical exam, bedside conversation with patient's grandson, 3 separate telephone conversations with patient's sons, case discussion with Dr. Zak Saldana and bedside RN.) >50% Counseling/Coord of Care: Yes Thank you for the opportunity to participate in the care of Ms. Mcclure. Attestation To help prompt me to consider important information that might be impacting today's encounter and assessment, information from prior notes written by myself or my colleagues may have been "brought forward" into today's note. My signature on this note, however, is an attestation that I personally performed the exam, history, and/or decision-making noted today, and, unless otherwise indicated, the interactions with patient, family, and staff as well as the review of records all occurred today. I also attest that the listed assessment and stated plan reflect my best clinical judgment today based on the combination of historical information, prior notes, and today's exam/ interactions. When time spent is documented, it refers only to time spent today by the signer, or if indicated, combined time spent today by collaborating physician/nurse practitioner. Saima Mayfield Feb 08, 2017 12:42
--- NOTE | 2017-02-08 13:35 | DEATH SUM ---
Summary Demographics Date Pronounced : Feb 08, 2017 Time Of : 13:30 Pronounced By: Dr Linares Preliminary Cause of : Multi Organ Failure Toribio Linares MD Feb 08, 2017 13:35
--- NOTE | 2017-02-08 13:40 | HHI.DS ---
Summary Note Date of : Feb 08, 2017 Time Of : 13:30 Admission Date Jan 26, 2017 at 16:17 Admitting Diagnosis stroke alert Diagnosis at Time of : (1) Acute respiratory failure ICD Code: J96.00 Diagnosis: Principal (2) Cerebellar hemorrhage, acute ICD Code: I61.4 Diagnosis: Principal (3) Septic shock ICD Code: A41.9 Diagnosis: Principal (4) Cardiogenic shock ICD Code: R57.0 Diagnosis: Principal (5) Acute encephalopathy ICD Code: G93.40 Diagnosis: Principal (6) Probable ischemic colitis Diagnosis: Principal (7) Lactic acidemia ICD Code: E87.2 Diagnosis: Principal (8) Acute kidney failure ICD Code: N17.9 Diagnosis: Principal (9) NSTEMI (non-ST elevated myocardial infarction) ICD Code: I21.4 Diagnosis: Principal (10) Ischemic cardiomyopathy ICD Code: I25.5 Diagnosis: Principal (11) UTI (urinary tract infection) ICD Code: N39.0 Diagnosis: Principal (12) Acute right MCA stroke ICD Code: I63.511 Diagnosis: Principal (13) Left hemiplegia ICD Code: G81.94 Diagnosis: Principal (14) Atrial fibrillation with rapid ventricular response ICD Code: I48.91 Diagnosis: Principal (15) Hyperglycemia ICD Code: R73.9 Diagnosis: Principal (16) Diabetes mellitus ICD Code: E11.9 Diagnosis: Secondary Procedures 01/27/17 Suboccipital Decompressive Craniectomy, C1 Laminectomy and Duraplasty. Evacuation of large cerebellar hemorrhage. Microsurgical dissection, EVD placement 01/27/17 endotracheal intubation 01/27/17 Central line placement 02/07/17 Central line placement Brief History 76-year-old female with history of atrial fibrillation, hypertension, hypothyroidism, type 2 diabetes who was brought to the emergency department as a stroke alert. Apparently grandson called EMS as the patient was found to be disoriented. EMS noted that patient had rightward gaze, with Left hemiparesis and stroke alert was initiated. Last seen normal at around 2:10 PM, per grandson. 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 After discussion Dr. Slater, TPA was initiated. I evaluated the patient in ED. she somnolent but wakes up easily, she states that she is unable to open her right eye opens left eye. Has obvious left facial droop and left hemiparesis, but now she is able to move LLE. Speech is clear CBC/BMP: 02/08/17 0330 02/08/17 0330 Significant Findings Laboratory Tests Test 02/06/17 02/06/17 02/06/17 02/07/17 10:05 12:52 15:40 13:00 White Blood Count 24.3 TH/MM3 (4.0-11.0) Mean Corpuscular Hemoglobin 31.2 % Concent (32.0-36.0) Platelet Count 492 TH/MM3 (150-450) Chloride Level 109 MEQ/L 110 MEQ/L (98-107) (98-107) Blood Urea Nitrogen 21 MG/DL (7-18) 22 MG/DL (7-18) Estimat Glomerular Filtration 61 ML/MIN (>89) 58 ML/MIN (>89) Rate Random Glucose 191 MG/DL 200 MG/DL (74-106) (74-106) Calcium Level 8.4 MG/DL 8.1 MG/DL (8.5-10.1) (8.5-10.1) Blood Gas HCO3 20 mmol/L (22-26) Blood Gas Base Excess -4.2 mmol/L (-2-2) Arterial Blood pH 7.37 (7.380-7.420) Arterial Blood Partial 36 mmHg (38-42) Pressure CO2 Test 02/07/17 02/08/17 02/08/17 02/08/17 21:58 03:30 04:40 08:16 Venous Blood pH 7.33 (7.360-7.400) Venous Blood Partial Pressure 36 mmHg (44-48) CO2 Venous Blood Partial Pressure 26 mmHg (35-40) O2 Venous Blood HCO3 18 mmol/L (22-26) Venous Blood Oxygen Saturation 37 % (70-76) Venous Blood Oxygen Content 6.4 Vol % (9.0-17.0) Venous Blood Base Excess -6.4 mmol/L (-2-2) White Blood Count 34.0 TH/MM3 (4.0-11.0) Mean Corpuscular Hemoglobin 30.4 % Concent (32.0-36.0) Platelet Count 553 TH/MM3 (150-450) Neutrophils % (Manual) 77 % (16-70) Band Neutrophils % 15 % (0-6) Lymphocytes % 6 % (9-44) Neutrophils # (Manual) 31.3 TH/MM3 (1.8-7.7) Nucleated Red Blood Cells 1 /100 WBC (0-0) Platelet Estimate HIGH (NORMAL) Polychromasia 3.0 % (0.0-1.9) Sodium Level 147 MEQ/L (136-145) Potassium Level 5.6 MEQ/L (3.5-5.1) Chloride Level 116 MEQ/L (98-107) Carbon Dioxide Level 14.4 MEQ/L (21.0-32.0) Anion Gap 17 MEQ/L (5-15) Blood Urea Nitrogen 55 MG/DL (7-18) Creatinine 2.17 MG/DL (0.50-1.00) Estimat Glomerular Filtration 22 ML/MIN (>89) Rate Random Glucose 160 MG/DL (74-106) Calcium Level 7.7 MG/DL (8.5-10.1) Magnesium Level 3.1 MG/DL (1.5-2.5) Aspartate Amino Transf 74 U/L (15-37) (AST/SGOT) Albumin 1.7 GM/DL (3.4-5.0) Digoxin Level 3.1 NG/ML (0.8-2.0) Lactic Acid Level 5.7 mmol/L (0.4-2.0) CSF Supernatant Color (tube 1) HEMOLYZED (CLEAR) CSF Gross Blood (Tube 1) 1+ (0) CSF WBC (Tube 1) 22 /MM3 (0-10) CSF RBC (Tube 1) 2130 /MM3 (NONE) CSF Glucose 91 MG/DL (40-80) CSF Lactic Acid 8.3 MMOL/L (0.0-3.0) CSF Total Protein 224.7 MG/DL (15.0-45.0) Test 02/08/17 09:05 Blood Gas HCO3 9 mmol/L (22-26) Blood Gas Base Excess -18.6 mmol/L (-2-2) Arterial Blood pH 7.10 (7.380-7.420) Arterial Blood Partial 31 mmHg (38-42) Pressure CO2 Arterial Blood Partial 176 mmHg Pressure O2 (61-120) Blood Gas Hemoglobin 11.6 G/DL (12.0-16.0) Imaging CT head shows no acute findings positive right cerebellar encephalomalacia indicating previous stroke Hospital Course 76-year-old female with history of atrial fibrillation, hypertension, hypothyroidism, type 2 diabetes who was brought to the emergency department as a stroke alert. Grandson called EMS as the patient was found to be disoriented. EMS noted that patient had rightward gaze, with Left hemiparesis and stroke alert was initiated. Last seen normal at around 2:10 PM, per grandson. 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 After discussion Dr. Slater, TPA was initiated. I evaluated the patient in ED. she was somnolent but wakes up easily, she states that she is unable to open her right eye opens left eye. Has obvious left facial droop and left hemiparesis, but now she is able to move LLE. Speech is clear On 01/27: Patient more somnolent, hard to wake up (RN states she was more awake 2 [address] 01/27 for AMS showed new large right cerebellar hemorrhage with transtentorial herniation and brain stem compression, bilateral SAH, infarct right MCA territory. Dr. Wagoner emergently consulted, patient underwent suboccipital decompressive craniotomy and ventriculostomy placement 01/27/17. CTA neck shows complete R common, internal and ext carotid occlusion. Moderate L ICA stenosis. Vascular surgery Dr. Juarez consulted. remains hyperglycemic ( gluc 371) without DKA. 01/28: ICP well controlled overnight. Pupils reactive. Withdraws x4. troponin increased to 3.7. LVEF severely reduced, less than 20%. Diffuse global hypokinesis. [id number] mitral valve regurgitation, moderate tricuspid valve regurgitation 01/29 -01/31: Remained encephalopathy without major change in neuro status or improvement 02/01: Reported single episode of spontaneous eye opening up CAT scan today. CT of the head shows evacuation of cerebellar hemorrhage, interval development of intraventricular hemorrhage bilateral occipital horns, and some worsening of subarachnoid hemorrhage. Clinically critical but stable neurologically essentially unchanged 02/02: Continues to spike fever. Slight improvement in neuro exam, grimacing to pain slight partial eye opening. Do not follow commands yet. Labs pending 02/03: Fever trending down, white count remains elevated. Sputum Gram stain with GPC. Neuro exam remains unchanged to slightly improved. Continues with partial eye opening and grimacing to pain 02/04: No fever reported. Discussed extensively with family including son grandkids. They want to give at least 1 more week to see clinical improvement before deciding on trach and PEG. Neuro exam remains unchanged 02/05 On cardizem po 30 q6 and cardizem drip 5 mg/hr for A fib RVR. BP was low 70/40 and started neosynephrine but perhaps measurement inaccuracy because cuff pressure obtained on leg under SCD. Now normotensive, off pressors. Bedside Echo with depressed LV function, RV grossly ok . Good UOP. Had been on CPAP 05/26 for 3 hours and appeared to be tolerating from respiratory standpoint, but was placed back on full support when BP measurement was low. ICP 3. Temp max 102.3 yesterday afternoon, afebrile today. On Zosyn. WBC up to 19 02/06 PIV placed and CVL removed yesterday. So far temp curve appears improved. CBC/BMP pending. A fib RVR this morning and back on cardizem drip. Placed on CPAP while at bedside 03/26. ICP 2. 6/19: Overnight had to be placed on Mannie-Synephrine for hypotension, now at 60 mcg/m. Temperature 101.4. WBC count has increased to 24.3 from 19.7, most likely becoming septic. DC Zosyn. Start vancomycin cefepime and Flagyl. Elam culture including CFS and, check C. difficile. Intermittent eye opening with care activities. Briskly withdraws lower extremities to pain 02/08: Overnight further clinical deterioration. Currently on maximum dose of Levophed, vasopressin and Mannie-Synephrine. Map 60s did not tolerate dobutamine. KUB shows diffuse ileus. Lactic acid is 5.7, creatinine has increased to 2.1. There is concern about ischemic bowel (Afib not on anticoagulation due to ICH) vs perforation, but patient is not a surgical candidate and therefore I would not get a CT of the abdomen and pelvis. Patient is terminally ill at this point, I will consult palliative care. Recommend terminal wean and comfort measures Palliative care was consulted, discussed with family. Decision was made to withdraw active support. Fentanyl gtt restarted. All pressors were held. Patient went systole quickly. I pronounced her after clinical exam at 1330 on 02/08/17 Toribio Linares MD Feb 08, 2017 13:40 anticoagulation due to ICH) vs perforation, but patient is not a surgical candidate and therefore I would not get a CT of the abdomen and pelvis. Patient is terminally ill at this point, I will consult palliative care. Recommend terminal wean and comfort measures Toribio Linares MD Feb 08, 2017 13:40
[2017-02-10] MEDS ORDERED: PHARMACY ORDERED LAB ONE (08:45)
== END 2017-02-08 19:53 | disposition expired | DRG 23 ==
LOC: NEPE 14:50 → NEDA 16:17 → N03A 17:59
PROVIDERS: ADMIT Internal Medicine Critical Care Medicine; ATTEND Internal Medicine Critical Care Medicine
PROC: 3E03317 Introduction of Other Thrombolytic into Peripheral Vein, Percutaneous Approach (ICD-10-PCS; 2017-01-26)
PROC: 00CC0ZZ Extirpation of Matter from Cerebellum, Open Approach (ICD-10-PCS; 2017-01-27)
PROC: 5A1955Z Respiratory Ventilation, Greater than 96 Consecutive Hours (ICD-10-PCS; 2017-01-27)
PROC: 0BH17EZ Insertion of Endotracheal Airway into Trachea, Via Natural or Artificial Opening (ICD-10-PCS; 2017-01-27)
PROC: 02HV33Z Insertion of Infusion Device into Superior Vena Cava, Percutaneous Approach (ICD-10-PCS; 2017-01-27)
PROC: B544ZZA Ultrasonography of Left Jugular Veins, Guidance (ICD-10-PCS; 2017-01-27)
PROC: 30233K1 Transfusion of Nonautologous Frozen Plasma into Peripheral Vein, Percutaneous Approach (ICD-10-PCS; 2017-01-27)
PROC: 30233N1 Transfusion of Nonautologous Red Blood Cells into Peripheral Vein, Percutaneous Approach (ICD-10-PCS; 2017-01-27)
PROC: 30233M1 Transfusion of Nonautologous Plasma Cryoprecipitate into Peripheral Vein, Percutaneous Approach (ICD-10-PCS; 2017-01-27)
PROC: 00U20JZ Supplement Dura Mater with Synthetic Substitute, Open Approach (ICD-10-PCS; principal; 2017-01-27 11:37)
PROC: 009630Z Drainage of Cerebral Ventricle with Drainage Device, Percutaneous Approach (ICD-10-PCS; 2017-01-28)
PROC: 02HV33Z Insertion of Infusion Device into Superior Vena Cava, Percutaneous Approach (ICD-10-PCS; 2017-02-07)
PROC: B544ZZA Ultrasonography of Left Jugular Veins, Guidance (ICD-10-PCS; 2017-02-07)
DX: I63.511 Cerebral infarction due to unspecified occlusion or stenosis of right middle cerebral artery (principal); G93.5 Compression of brain; I21.4 Non-ST elevation (NSTEMI) myocardial infarction; J96.00 Acute respiratory failure, unspecified whether with hypoxia or hypercapnia; A41.9 Sepsis, unspecified organism; I61.5 Nontraumatic intracerebral hemorrhage, intraventricular; I60.9 Nontraumatic subarachnoid hemorrhage, unspecified; R65.21 Severe sepsis with septic shock; J69.0 Pneumonitis due to inhalation of food and vomit; G93.40 Encephalopathy, unspecified; I61.4 Nontraumatic intracerebral hemorrhage in cerebellum; G81.94 Hemiplegia, unspecified affecting left nondominant side; I16.1 Hypertensive emergency; I42.9 Cardiomyopathy, unspecified; N39.0 Urinary tract infection, site not specified; K55.9 Vascular disorder of intestine, unspecified; N17.9 Acute kidney failure, unspecified; K56.7 Ileus, unspecified; D62 Acute posthemorrhagic anemia; E87.2 Acidosis; E11.65 Type 2 diabetes mellitus with hyperglycemia; I48.91 Unspecified atrial fibrillation; E03.9 Hypothyroidism, unspecified; I65.23 Occlusion and stenosis of bilateral carotid arteries; I10 Essential (primary) hypertension; R29.810 Facial weakness; R40.2434 Glasgow coma scale score 3-8, 24 hours or more after hospital admission; I48.2 Chronic atrial fibrillation; I08.1 Rheumatic disorders of both mitral and tricuspid valves; G93.89 Other specified disorders of brain; D75.89 Other specified diseases of blood and blood-forming organs; E87.5 Hyperkalemia; I25.5 Ischemic cardiomyopathy; Z51.5 Encounter for palliative care; Z66 Do not resuscitate; Z79.84 Long term (current) use of oral hypoglycemic drugs; Z86.73 Personal history of transient ischemic attack (TIA), and cerebral infarction without residual deficits; Z88.2 Allergy status to sulfonamides
CPT/HCPCS: 31500; 36430; 36556; 36600; 36620; 51703; 70450; 70496; 70498; 71010; 74000; 76937; 80048; 80053; 80061; 80162; 80202; 80307; 81001; 82435; 82533; 82550; 82565; 82607; 82805; 82945; 82947; 82948; 83036; 83605; 83735; 83930; 84100; 84132; 84157; 84295; 84443; 84484; 84520; 85007; 85014; 85018; 85025; 85027; 85384; 85610; 85730; 86403; 86850; 86900; 86901; 86920; 86927; 86965; 87015; 87040; 87070; 87077; 87086; 87102; 87116; 87149; 87186; 87205; 87206; 87640; 87641; 88304; 89051; 93005; 93306; 94002; 94003; 94150; 94640; 94667; 95819; 96361; 96374; C1768; C9113; J0282; J0690; J0692; J0696; J1160; J1250; J1580; J1644; J1720; J1815; J1817; J1940; J1953; J2060; J2150; J2250; J2270; J2370; J2405; J2543; J2997; J3010; J3370; J3420; J3480; J7030; J7040; J7050; J7120; P9016; P9017; Q9967